=== PATIENT | female | born 1945 | race Caucasian/White ===

== ENCOUNTER 2016-07-09 15:31 | Inpatient (IN) | payer MEDICARE, OTHER ==
[2016-07-09] MEDS ORDERED: PANTOPRAZOLE 40 MG/10 ML VIAL IVP STA (17:05)
[2016-07-09] MEDS ORDERED: RX INFO: IV CONTRAST WAS GIVEN 1 EACH MISC MISCELLANE PRN (17:05)
[2016-07-09] MEDS ORDERED: HYDROmorphone 1 MG/ML 1 ML SYRINGE IVP STA (17:06)
[2016-07-09] MEDS ORDERED: ACETAMINOPHEN IV (For NPO) 1,000 MG in SALINE 1 100ML.BAG IVPB STA (17:06)
--- NOTE | 2016-07-09 17:08 | ED ---
General Adult HPI - General Chief complaint: Abdominal Pain Stated complaint: Upper Abd/Side Pain Time Seen by Provider: 07/09/16 16:55 Source: patient, family, RN notes reviewed Mode of arrival: wheelchair Limitations: no limitations - History of Present Illness Initial comments: Patient is a pleasant 70-year-old female presenting to emergency Department complaining of abdominal discomfort. Onset of symptoms was 2-3 days ago. Discomfort was mostly right lower abdomen however now is also the epigastric region. Patient is unaware of any fevers. No nausea vomiting. patient diarrhea. No dysuria or hematuria. Patient does have chronic back pain which is unchanged. No history of chronic abdominal pains. - Related Data Home Medications Medication Instructions Recorded Confirmed Allopurinol [Zyloprim] 300 mg PO DAILY 09/27/14 07/09/16 Atenolol/Chlorthalidone [Tenoretic 1 tab PO DAILY 09/27/14 07/09/16 50 Tablet] Cholecalciferol [Vitamin D3] 2,000 unit PO DAILY 09/27/14 07/09/16 Colchicine [Colcrys] 0.6 mg PO DAILY 09/27/14 07/09/16 Gabapentin [Neurontin] 800 mg PO QID 09/27/14 07/09/16 Glimepiride [Amaryl] 4 mg PO DAILY 09/27/14 07/09/16 Levothyroxine Sodium [Synthroid] 50 mcg PO AC-BRKFST 09/27/14 07/09/16 Oxybutynin Chloride [Ditropan XL] 10 mg PO BID 09/27/14 07/09/16 Ranitidine HCl [Zantac] 150 mg PO BID 09/27/14 07/09/16 Sertraline [Zoloft] 100 mg PO DAILY 09/27/14 07/09/16 Albuterol Inhaler [Ventolin Hfa 1 puff INHALATION RT-QID PRN 09/28/14 07/09/16 Inhaler] carBAMazepine [TEGretol] 200 mg PO TID 09/28/14 07/09/16 Hydrocodone/Acetaminophen [[place] 1 tab PO BID PRN 07/09/16 07/09/16 5-325] Lidocaine Viscous [Xylocaine 1 dose PO Q6H PRN 07/09/16 07/09/16 Viscous 2%] Lisinopril [Zestril] 10 mg PO DAILY 07/09/16 07/09/16 Potassium Chloride ER [K-Dur 20] 20 meq PO AC-TID 07/09/16 07/09/16 Allergies Allergy/AdvReac Type Severity Reaction Status Date / Time morphine AdvReac Nausea & Verified 03/14/15 06:33 Vomiting Jtdeclg-Qlk-Gus Reductase AdvReac Nausea & Verified 03/14/15 06:33 Inhibitor Vomiting Review of Systems ROS Statement: Those systems with pertinent positive or pertinent negative responses have been documented in the HPI. ROS Other: All systems not noted in ROS Statement are negative. Constitutional: Denies: fever Eyes: Denies: eye pain ENT: Denies: ear pain Respiratory: Denies: cough Cardiovascular: Denies: chest pain Endocrine: Denies: fatigue Gastrointestinal: Reports: abdominal pain. Denies: nausea, vomiting Genitourinary: Denies: dysuria Musculoskeletal: Reports: back pain (Chronic) Skin: Denies: rash Neurological: Denies: weakness Past Medical History Past Medical History: Diabetes Mellitus, GERD/Reflux, Hypertension, Thyroid Disorder Additional Past Medical History / Comment(s): NEUROPATHY History of Any Multi-Drug Resistant Organisms: None Reported Past Surgical History: Back Surgery, Hysterectomy, Joint Replacement Additional Past Surgical History / Comment(s): PMH: DIABETIC NEUROPATHY, RIGO KNEE REPLACEMENT cataract surgery bilat. Cervical fusion surgery Past Anesthesia/Blood Transfusion Reactions: No Reported Reaction Past Psychological History: Depression Additional Psychological History / Comment(s): PT LIVES IN OWN HOME HAS 1 DOG, USUALLY IS INDEPENDANT BUT FOR PAST WEAK AND A HALF C/O SORE THROAT MAKING IT DIFFICULT TO EAT/DRINK , C/O WEAKNESS FELL LAST NIGHT AND WAS UNABLE TO GET UP OFF FLOOR SO SPENT THE NIGHT ON THE FLOOR. Smoking Status: Former smoker Past Alcohol Use History: None Reported Past Drug Use History: None Reported - Past Family History Mother Family Medical History: Dementia Additional Family Medical History / Comment(s): alzheimers Father Family Medical History: Myocardial Infarction (NH) Additional Family Medical History / Comment(s): unknown General Exam Limitations: no limitations General appearance: alert, in no apparent distress, obese Head exam: Present: atraumatic Eye exam: Present: normal appearance, PERRL ENT exam: Present: normal oropharynx Neck exam: Present: normal inspection Respiratory exam: Present: normal lung sounds bilaterally Cardiovascular Exam: Present: regular rate, normal rhythm Expanded Peripheral pulses: 2+: Dorsalis Pedis (R), Dorsalis Pedis (L) GI/Abdominal exam: Present: soft, tenderness (Moderate right lower and epigastric tenderness to palpation.), normal bowel sounds. Absent: guarding, rebound, rigid, pulsatile mass Extremities exam: Present: normal inspection Back exam: Present: tenderness (Diffuse which patient states is chronic) Neurological exam: Present: alert Psychiatric exam: Present: normal affect, normal mood Skin exam: Absent: rash Course Vital Signs 07/09/16 16:22 Temperature 101 F H Pulse Rate 63 Respiratory 20 Rate Blood Pressure 127/60 O2 Sat by Pulse 95 Oximetry Medical Decision Making - Medical Decision Making Patient reexamined and resting comfortably in bed. Discomfort improved. Patient and family updated on results and plan. Patient will be admitted for hypokalemia. Patient will also be covered with antibiotics for fever and probable urinary tract infection. Case was discussed in detail with Dr. Park , who will admit his patient without consults at this time. - Lab Data Result diagrams: 07/09/16 16:55 07/09/16 16:55 Lab Results 07/09/16 07/09/16 07/09/16 Range/Units 16:55 16:55 16:55 WBC 6.0 (3.8-10.6) k/uL RBC 4.46 (3.80-5.40) m/uL Hgb 14.2 (11.4-16.0) gm/dL Hct 39.9 (34.0-46.0) % MCV 89.3 (80.0-100.0) fL MCH 31.9 (25.0-35.0) pg MCHC 35.7 (31.0-37.0) g/dL RDW 14.4 (11.5-15.5) % Plt Count 131 L (150-450) k/uL Neutrophils % 48 % Lymphocytes % 43 % Monocytes % 5 % Eosinophils % 2 % Basophils % 1 % Neutrophils # 2.9 (1.3-7.7) k/uL Lymphocytes # 2.5 (1.0-4.8) k/uL Monocytes # 0.3 (0-1.0) k/uL Eosinophils # 0.1 (0-0.7) k/uL Basophils # 0.1 (0-0.2) k/uL Hyperchromasia Slight Poikilocytosis Slight PT 12.2 H (9.0-12.0) sec INR 1.2 (<1.1) APTT 22.4 (22.0-30.0) sec Sodium 138 (137-145) mmol/L Potassium 2.6 L* (3.5-5.1) mmol/L Chloride 94 L (98-107) mmol/L Carbon Dioxide 31 H (22-30) mmol/L Anion Gap 13 mmol/L BUN 13 (7-17) mg/dL Creatinine 0.64 (0.52-1.04) mg/dL Est GFR (MDRD) Af Amer >60 (>60 ml/min/1.73 sqM) Est GFR (MDRD) Non-Af >60 (>60 ml/min/1.73 sqM) Glucose 85 (74-99) mg/dL Calcium 9.6 (8.4-10.2) mg/dL Total Bilirubin 0.8 (0.2-1.3) mg/dL AST 32 (14-36) U/L ALT 27 (9-52) U/L Alkaline Phosphatase 89 (38-126) U/L Total Protein 7.6 (6.3-8.2) g/dL Albumin 4.3 (3.5-5.0) g/dL Amylase <30 L (30-110) U/L Lipase 94 (23-300) U/L Urine Color Urine Appearance (Clear) Urine pH (5.0-8.0) Urine Protein (Negative) Urine Glucose (UA) (Negative) Urine Ketones (Negative) Urine Blood (Negative) Urine Nitrate (Negative) Urine Bilirubin (Negative) Urine Urobilinogen (<2.0) mg/dL Ur Leukocyte Esterase (Negative) Urine RBC (0-5) /hpf Urine WBC (0-5) /hpf Ur Squamous Epith Cells (0-4) /hpf Urine Bacteria (None) /hpf Urine Mucus (None) /hpf 07/09/16 Range/Units 19:31 WBC (3.8-10.6) k/uL RBC (3.80-5.40) m/uL Hgb (11.4-16.0) gm/dL Hct (34.0-46.0) % MCV (80.0-100.0) fL MCH (25.0-35.0) pg MCHC (31.0-37.0) g/dL RDW (11.5-15.5) % Plt Count (150-450) k/uL Neutrophils % % Lymphocytes % % Monocytes % % Eosinophils % % Basophils % % Neutrophils # (1.3-7.7) k/uL Lymphocytes # (1.0-4.8) k/uL Monocytes # (0-1.0) k/uL Eosinophils # (0-0.7) k/uL Basophils # (0-0.2) k/uL Hyperchromasia Poikilocytosis PT (9.0-12.0) sec INR (<1.1) APTT (22.0-30.0) sec Sodium (137-145) mmol/L Potassium (3.5-5.1) mmol/L Chloride (98-107) mmol/L Carbon Dioxide (22-30) mmol/L Anion Gap mmol/L BUN (7-17) mg/dL Creatinine (0.52-1.04) mg/dL Est GFR (MDRD) Af Amer (>60 ml/min/1.73 sqM) Est GFR (MDRD) Non-Af (>60 ml/min/1.73 sqM) Glucose (74-99) mg/dL Calcium (8.4-10.2) mg/dL Total Bilirubin (0.2-1.3) mg/dL AST (14-36) U/L ALT (9-52) U/L Alkaline Phosphatase (38-126) U/L Total Protein (6.3-8.2) g/dL Albumin (3.5-5.0) g/dL Amylase (30-110) U/L Lipase (23-300) U/L Urine Color Yellow Urine Appearance Clear (Clear) Urine pH 7.0 (5.0-8.0) Urine Protein Trace H (Negative) Urine Glucose (UA) Negative (Negative) Urine Ketones Negative (Negative) Urine Blood Negative (Negative) Urine Nitrate Positive H (Negative) Urine Bilirubin Negative (Negative) Urine Urobilinogen <2.0 (<2.0) mg/dL Ur Leukocyte Esterase Trace H (Negative) Urine RBC 7 H (0-5) /hpf Urine WBC 12 H (0-5) /hpf Ur Squamous Epith Cells 1 (0-4) /hpf Urine Bacteria Rare H (None) /hpf Urine Mucus Rare H (None) /hpf - Radiology Data Radiology results: image reviewed (Computed tomography scan of the abdomen pelvis shows no acute process.) Disposition Clinical Impression: Abdominal pain, Hypokalemia, UTI (urinary tract infection) Disposition: ADMITTED IP TO THIS HOSP
[2016-07-09] MEDS: SODIUM CHLORIDE 0.9% 1,000 ML IV STA ×2 (17:28→20:06)
[2016-07-09 17:33] LABS: Basophils # (A) 0.1 k/uL (0-0.2); Basophils % (A) 1 %; CH 32.8; CHCM 36.9; Eosinophils # (A) 0.1 k/uL (0-0.7); Eosinophils % (A) 2 %; HCT 39.9 % (34.0-46.0); HDW 3.41; HGB 14.2 gm/dL (11.4-16.0); Hyperchromasia Slight; Luc # (Auto) 0.09; Luc % (Auto) 2; Lymphocytes # (A) 2.5 k/uL (1.0-4.8); Lymphocytes % (A) 43 %; MCH 31.9 pg (25.0-35.0); MCHC 35.7 g/dL (31.0-37.0); MCV 89.3 fL (80.0-100.0); Mean Platelet Volume 7.8; Monocytes # (A) 0.3 k/uL (0-1.0); Monocytes % (A) 5 %; Neutrophils # (A) 2.9 k/uL (1.3-7.7); Neutrophils % (A) 48 %; Poikilocytosis Slight; RBC 4.46 m/uL (3.80-5.40); RDW 14.4 % (11.5-15.5); WBC (Perox) 5.89
[2016-07-09 17:46] LABS: INR 1.2 (<1.1); Partial Thromboplastin Time 22.4 sec (22.0-30.0); Prothrombin Time 12.2 sec (9.0-12.0)
[2016-07-09 17:48] LABS: ALT 27 U/L (9-52); AST 32 U/L (14-36); Alkaline Phosphatase 89 U/L (38-126); Amylase <30 U/L (30-110); Anion Gap 13 mmol/L; Blood Urea Nitrogen 13 mg/dL (7-17); Calcium 9.6 mg/dL (8.4-10.2); Carbon Dioxide 31 mmol/L (22-30); Chloride 94 mmol/L (98-107); Glucose 85 mg/dL (74-99); Non-African American GFR(MDRD) >60 (>60 ml/min/1.73 sqM); Sodium 138 mmol/L (137-145); Total Bilirubin 0.8 mg/dL (0.2-1.3); Total Protein 7.6 g/dL (6.3-8.2)
[2016-07-09 18:10] LABS: Potassium 2.6 mmol/L (3.5-5.1)
--- NOTE | 2016-07-09 19:00 | CT ---
EXAMINATION TYPE: CT abdomen pelvis w con DATE OF EXAM: 07/09/2016 6:35 PM COMPARISON: NONE INDICATION: Pt states of RUQ pain and nausea. DLP: 1839.9 mGycm, Automated exposure control for dose reduction was used. CONTRAST: 100 mL of Omnipaque 300. Study performed without Oral Contrast TECHNIQUE: Axial images were obtained from above the diaphragm to the pubic rami in the axial plane a t 5 mm thick sections. Reconstructed images are reviewed on the computer in the coronal plane. FINDINGS: Limited CT sections are obtained the lung bases. The lung bases are clear. CT ABDOMEN: Liver: Normal Spleen: Scattered calcified granuloma are present within the spleen. Pancreas: Normal Adrenal glands: The adrenal glands are normal. Gallbladder: Normal Kidneys: No masses are evident. No hydronephrosis is present. There is a cyst at the inferior pole right kidney measuring 4.2 cm and 9 Hounsfield units. Delayed images were obtained through the kidne ys, which remain unremarkable. Aorta: Vascular calcification is within the aorta. Inferior vena cava: Normal. CT PELVIS: Loops of bowel within the abdomen and pelvis are normal. There are loops of bowel which are incom pletely distended or lack oral contrast limiting their evaluation. Appendix: Small portion which may be visualized is air-filled and no suspicious inflammatory changes are evident. Urinary bladder: Decompressed with limited evaluation Genitourinary structures: Uterus is not identified. Adnexal regions are clear. No free fluid is withi n the pelvis. Osseous structures: Postsurgical changes through the lumbar spine. Degenerative disc changes are pres ent. Old fixation pedicle screw holes are evident. IMPRESSIONS: 1. No acute abdominal process.
[2016-07-09] MEDS ORDERED: POTASSIUM CHLORIDE ER 20 MEQ TAB.ER PO STA (19:29)
[2016-07-09 19:52] LABS: Appearance,Urine Clear (Clear); Bacteria,Urine Rare /hpf; Bilirubin,Urine Negative (Negative); Glucose,Urine (UA) Negative (Negative); Ketones,Urine Negative (Negative); Leukocyte Esterase,Urine Trace (Negative); Mucus,Urine Rare /hpf; Nitrite,Urine Positive (Negative); Particle Count 61176; Protein,Urine Trace (Negative); RBC,Urine 7 /hpf (0-5); Squamous Epithelial Cell,Urine 1 /hpf (0-4); UA Billing (MACRO vs. MICRO) MICRO; Urobilinogen,Urine <2.0 mg/dL (<2.0); WBC,Urine 12 /hpf (0-5)
[2016-07-09] MEDS: POTASSIUM CHLORIDE 10 MEQ, LIDOCAINE 2% INJ 10 MG in SODIUM CHLORIDE 0.9% 100 ML IVPB SCH ×2 (20:05→22:27)
[2016-07-09 20:20] LABS: Specific Gravity,Urine 1.047 (1.001-1.035)
[2016-07-09] MEDS ORDERED: NALOXONE 0.4 MG/ML 1 ML VIAL IV PRN (20:20)
[2016-07-09] MEDS ORDERED: LEVOFLOXACIN 750MG-D5W PMX 750 MG in DEXTROSE/WATER 1 150ML.BAG IVPB STA (20:22)
[2016-07-09 21:43] VITALS: BMI 38.4
[2016-07-10] MEDS ORDERED: Magnesium Replacement Protocol 1 EACH MISC MISCELLANE PRN (00:37)
[2016-07-10] MEDS ORDERED: Potassium Replacement Protocol 1 EACH MISC MISCELLANE PRN ×2 (00:37→19:26)
[2016-07-10] MEDS: 0.9% NACL WITH KCL 20 MEQ/L 1,000 ML IV SCH ×2 (01:52→17:10)
[2016-07-10] MEDS: POTASSIUM CHLORIDE 10 MEQ, LIDOCAINE 2% INJ 10 MG in SODIUM CHLORIDE 0.9% 100 ML IVPB SCH (01:52)
[2016-07-10] MEDS: POTASSIUM CHLORIDE ER 20 MEQ TAB.ER PO SCH ×4 (01:52→21:26)
[2016-07-10] MEDS: MAGNESIUM SULFATE-D5W PMX 1 GM in DEXTROSE/WATER 1 100ML.BAG IVPB SCH ×3 (01:54→07:58)
[2016-07-10] MEDS: POTASSIUM CHLORIDE 10 MEQ, LIDOCAINE 2% INJ 10 MG in SODIUM CHLORIDE 0.9% 100 ML IV SCH ×5 (05:06→21:26)
[2016-07-10 07:29] LABS: Glucose,Whole Blood 162 mg/dL (75-99)
[2016-07-10 07:39] LABS: Basophils % (A) 1 %; CH 32.3; CHCM 35.9; Eosinophils # (A) 0.1 k/uL (0-0.7); Eosinophils % (A) 2 %; HCT 34.7 % (34.0-46.0); HDW 3.34; HGB 12.1 gm/dL (11.4-16.0); Luc # (Auto) 0.07; Luc % (Auto) 2; Lymphocytes # (A) 1.7 k/uL (1.0-4.8); Lymphocytes % (A) 45 %; MCH 31.6 pg (25.0-35.0); MCV 90.4 fL (80.0-100.0); Mean Platelet Volume 8.9; Monocytes # (A) 0.2 k/uL (0-1.0); Monocytes % (A) 6 %; Neutrophils # (A) 1.7 k/uL (1.3-7.7); Neutrophils % (A) 45 %; RBC 3.84 m/uL (3.80-5.40); RDW 14.4 % (11.5-15.5); WBC 3.7 k/uL (3.8-10.6); WBC (Perox) 3.61
[2016-07-10 07:49] LABS: Anion Gap 9 mmol/L; Blood Urea Nitrogen 13 mg/dL (7-17); Calcium 8.5 mg/dL (8.4-10.2); Carbon Dioxide 29 mmol/L (22-30); Chloride 99 mmol/L (98-107); Glucose 150 mg/dL (74-99); Magnesium 1.6 mg/dL (1.6-2.3); Non-African American GFR(MDRD) >60 (>60 ml/min/1.73 sqM); Potassium 3.1 mmol/L (3.5-5.1); Sodium 137 mmol/L (137-145)
[2016-07-10] MEDS: PANTOPRAZOLE 40 MG/10 ML VIAL IV SCH (08:01)
[2016-07-10] MEDS ORDERED: ALBUTEROL NEBULIZED 2.5 MG/3 ML INHALATION PRN (08:12)
[2016-07-10] MEDS: CHLORTHALIDONE 25 MG TAB PO SCH (09:25)
[2016-07-10] MEDS: COLCHICINE 0.6 MG TAB PO SCH (09:25)
[2016-07-10] MEDS: GABAPENTIN 400 MG CAP PO SCH ×4 (09:25→21:26)
[2016-07-10] MEDS: OXYBUTYNIN 10 MG TAB.ER.24 PO SCH ×2 (09:25→20:17)
[2016-07-10] MEDS: SERTRALINE 100 MG TAB PO SCH (09:25)
[2016-07-10] MEDS: ATENOLOL 50 MG TAB PO SCH (09:26)
[2016-07-10] MEDS: LISINOPRIL 10 MG TAB PO SCH (09:26)
[2016-07-10] MEDS: ALLOPURINOL 300 MG TAB PO SCH (09:26)
[2016-07-10] MEDS: FAMOTIDINE 20 MG TAB PO SCH ×2 (09:26→20:17)
[2016-07-10] MEDS: CHOLECALCIFEROL 1,000 UNIT TAB PO SCH (09:26)
[2016-07-10] MEDS: carBAMazepine 200 MG TAB PO SCH ×3 (09:26→21:26)
[2016-07-10] MEDS: GLIMEPIRIDE 4 MG TAB PO SCH (09:26)
[2016-07-10] MEDS: HYDROcodone/APAP 5-325MG 1 EACH TAB PO PRN (09:30)
[2016-07-10 11:52] LABS: Glucose,Whole Blood 212 mg/dL (75-99)
[2016-07-10 17:39] LABS: Glucose,Whole Blood 115 mg/dL (75-99)
[2016-07-10 20:16] LABS: Glucose,Whole Blood 175 mg/dL (75-99)
[2016-07-10] MEDS: LEVOFLOXACIN 750MG-D5W PMX 750 MG in DEXTROSE/WATER 1 150ML.BAG IVPB SCH (22:26)
[2016-07-11] MEDS ORDERED: Potassium Replacement Protocol 1 EACH MISC MISCELLANE PRN (00:23)
[2016-07-11] MEDS: POTASSIUM CHLORIDE 10 MEQ, LIDOCAINE 2% INJ 10 MG in SODIUM CHLORIDE 0.9% 100 ML IV SCH ×2 (01:18→02:23)
[2016-07-11 04:04] LABS: Magnesium 1.3 mg/dL (1.6-2.3)
[2016-07-11] MEDS: MAGNESIUM SULFATE-D5W PMX 1 GM in DEXTROSE/WATER 1 100ML.BAG IVPB SCH ×3 (05:09→08:19)
[2016-07-11 08:15] LABS: Glucose,Whole Blood 162 mg/dL (75-99)
[2016-07-11] MEDS: PANTOPRAZOLE 40 MG/10 ML VIAL IV SCH (08:18)
[2016-07-11] MEDS: OXYBUTYNIN 10 MG TAB.ER.24 PO SCH ×2 (08:18→21:20)
[2016-07-11] MEDS: POTASSIUM CHLORIDE ER 20 MEQ TAB.ER PO SCH ×3 (08:18→21:20)
[2016-07-11] MEDS: GABAPENTIN 400 MG CAP PO SCH ×4 (08:18→21:20)
[2016-07-11] MEDS: LISINOPRIL 10 MG TAB PO SCH (08:18)
[2016-07-11] MEDS: GLIMEPIRIDE 4 MG TAB PO SCH (08:19)
[2016-07-11] MEDS: carBAMazepine 200 MG TAB PO SCH ×3 (08:19→21:20)
[2016-07-11] MEDS: CHLORTHALIDONE 25 MG TAB PO SCH (08:19)
[2016-07-11] MEDS: SERTRALINE 100 MG TAB PO SCH (08:19)
[2016-07-11] MEDS: COLCHICINE 0.6 MG TAB PO SCH (08:19)
[2016-07-11] MEDS: ATENOLOL 50 MG TAB PO SCH (08:19)
[2016-07-11] MEDS: CHOLECALCIFEROL 1,000 UNIT TAB PO SCH (08:19)
[2016-07-11] MEDS: FAMOTIDINE 20 MG TAB PO SCH ×2 (08:19→21:20)
[2016-07-11] MEDS: ALLOPURINOL 300 MG TAB PO SCH (08:19)
[2016-07-11] MEDS: LEVOTHYROXINE 50 MCG TAB PO SCH (08:19)
[2016-07-11] MEDS: HYDROcodone/APAP 5-325MG 1 EACH TAB PO PRN (08:33)
[2016-07-11 12:25] LABS: Glucose,Whole Blood 150 mg/dL (75-99)
[2016-07-11] MEDS: HYDROmorphone 1 MG/ML 1 ML SYRINGE IV PRN ×2 (13:57→18:21)
[2016-07-11] MEDS: 0.9% NACL WITH KCL 20 MEQ/L 1,000 ML IV SCH ×2 (16:10→23:08)
[2016-07-11 17:32] LABS: Glucose,Whole Blood 213 mg/dL (75-99)
--- NOTE | 2016-07-11 19:07 | HP ---
DATE OF ADMISSION: 07/09/2016 CHIEF COMPLAINT: Abdominal pain and weakness. HISTORY OF PRESENT ILLNESS: This is another admission for this 70-year-old white female who has a history of hypertension, depression, gout, hypothyroidism, and hypothyroidism, arthritis, particularly of the C-spine, she developed an upper abdominal pain predominantly in the right and came to emergency room. She had no fever, chills, vomiting, diarrhea, hematochezia, melena, urinary complaints, etc. She was found to have a low potassium in the emergency room and she was admitted for intravenous fluids, and potassium replacement and to rule out significant intraabdominal pathology. REVIEW OF SYSTEMS: She has had no mental status changes, change in vision or hearing, cough, hemoptysis, sputum production, chest pain, history of pancreatitis, melena, hematochezia, jaundice, etc. She has had no hematuria, frequency, urgency, arthralgias, etc. Past medical history, family history and personal and social histories reveal that she is ALLERGIC TO STATINS AND MORPHINE. She is on: 1. Cozaar 50 mg once a day. 2. Zantac 150 b.i.d. 3. Tenoretic 50/25 once a month. 4. Amaryl 4 mg once a day. 5. Allopurinol 300 mg once a day. 6. Colcrys 0.6 once a day. 7. Potassium 20 mEq 2 times a day. 8. Zoloft 100 once a day. 9. [place] 5/325 q.4 p.r.n. 10. Synthroid 0.05 mg daily. 11. Neurontin 800 mg 4 times a day. 12. Vitamin D 1000 units a day. 13. Ditropan XL 10 mg twice a day. The remainder of her history is unremarkable. She is a nonsmoker. She had a hysterectomy and a bladder suspension, right knee replacement. PHYSICAL EXAMINATION: Blood pressure 120/60 with a pulse of 74, respirations of 25, and she is afebrile. GENERAL: She appeared to be comfortable and in no acute distress. SKIN: Skin color is normal. Skin is warm and dry. Lymph nodes are not enlarged. Head, ears, eyes, mouth, and throat were normal. Mucous membranes are dry, and she is slightly dehydrated. CHEST: Chest clear to auscultation and percussion. CARDIAC: Demonstrated normal sinus rhythm with no murmur sounds. ABDOMEN: Protuberant, soft and nontender but she did not have any upper abdominal tenderness or masses. Bowel sounds are normal. EXTREMITIES: Normal. NEUROLOGICAL: She is intact. IMPRESSION: 1. Right upper quadrant pain, etiology unknown. 2. Dehydration. 3. Hypokalemia. 4. Hypertension. 5. Hypothyroidism. 6. OAD. 7. Type 2 [id number] diabetes mellitus. 8. Arthritis of the C-spine and LS-spine. PLAN: 1. Bed rest. 2. IV fluids. 3. Correct electrolyte imbalance.
--- NOTE | 2016-07-11 20:03 | PN ---
DATE OF SERVICE: 07/10/2016 CHIEF COMPLAINT: Hypokalemia and right upper quadrant abdominal pain. HISTORY OF PRESENT ILLNESS: This lady is about the same. She is still having discomfort in the right upper quadrant. She has had no fever or chills and she has had no vomiting. She has had no diarrhea. PHYSICAL EXAMINATION: She is slightly pale. HEENT: Normal. CHEST: Clear. The cardiac exam is normal. The abdomen is soft, nontender. IMPRESSION: 1. Abdominal pain, etiology unknown. 2. Hypokalemia. PLAN: Continue workup.
--- NOTE | 2016-07-11 20:17 | PN ---
DATE OF SERVICE: 07/11/2016 CHIEF COMPLAINT: Abdominal pain and hypokalemia. HISTORY OF PRESENT ILLNESS: This lady is still complaining of some vague abdominal pain, but it has improved and she is not having any vomiting. PHYSICAL EXAM: Her abdomen is soft and nontender, and no masses or visceromegaly. IMPRESSION: 1. Right upper quadrant pain. 2. Dizziness. 3. Hypertension. PLAN: 1. Continue to monitor abdominal findings. 2. Repeat CBC.
[2016-07-11 20:40] LABS: Glucose,Whole Blood 145 mg/dL (75-99)
[2016-07-11] MEDS: LEVOFLOXACIN 750MG-D5W PMX 750 MG in DEXTROSE/WATER 1 150ML.BAG IVPB SCH (21:20)
[2016-07-12] MEDS: HYDROmorphone 1 MG/ML 1 ML SYRINGE IV PRN ×2 (00:36→07:34)
[2016-07-12 07:29] LABS: Glucose,Whole Blood 137 mg/dL (75-99)
[2016-07-12 07:33] VITALS: RESP 16
[2016-07-12] MEDS: POTASSIUM CHLORIDE ER 20 MEQ TAB.ER PO SCH (07:35)
[2016-07-12] MEDS: SERTRALINE 100 MG TAB PO SCH (07:35)
[2016-07-12] MEDS: OXYBUTYNIN 10 MG TAB.ER.24 PO SCH (07:35)
[2016-07-12] MEDS: carBAMazepine 200 MG TAB PO SCH (07:35)
[2016-07-12] MEDS: LISINOPRIL 10 MG TAB PO SCH (07:35)
[2016-07-12] MEDS: GABAPENTIN 400 MG CAP PO SCH ×2 (07:36→13:21)
[2016-07-12] MEDS: CHOLECALCIFEROL 1,000 UNIT TAB PO SCH (07:36)
[2016-07-12] MEDS: FAMOTIDINE 20 MG TAB PO SCH (07:36)
[2016-07-12] MEDS: ALLOPURINOL 300 MG TAB PO SCH (07:36)
[2016-07-12] MEDS: COLCHICINE 0.6 MG TAB PO SCH (07:37)
[2016-07-12] MEDS: LEVOTHYROXINE 50 MCG TAB PO SCH (07:37)
[2016-07-12] MEDS: ATENOLOL 50 MG TAB PO SCH (07:37)
[2016-07-12] MEDS: GLIMEPIRIDE 4 MG TAB PO SCH (07:37)
[2016-07-12] MEDS: CHLORTHALIDONE 25 MG TAB PO SCH (07:37)
[2016-07-12 09:01] LABS: Basophils % (A) 1 %; CH 32.4; CHCM 35.5; Eosinophils # (A) 0.1 k/uL (0-0.7); Eosinophils % (A) 2 %; HCT 34.8 % (34.0-46.0); HDW 3.17; HGB 12.1 gm/dL (11.4-16.0); Luc # (Auto) 0.09; Luc % (Auto) 2; Lymphocytes # (A) 1.7 k/uL (1.0-4.8); Lymphocytes % (A) 46 %; MCH 31.9 pg (25.0-35.0); MCHC 34.8 g/dL (31.0-37.0); MCV 91.7 fL (80.0-100.0); Mean Platelet Volume 7.7; Monocytes # (A) 0.1 k/uL (0-1.0); Monocytes % (A) 4 %; Neutrophils # (A) 1.6 k/uL (1.3-7.7); Neutrophils % (A) 45 %; RBC 3.79 m/uL (3.80-5.40); RDW 14.5 % (11.5-15.5); WBC 3.6 k/uL (3.8-10.6); WBC (Perox) 3.91
[2016-07-12 09:07] LABS: ALT 32 U/L (9-52); AST 29 U/L (14-36); Alkaline Phosphatase 79 U/L (38-126); Anion Gap 10 mmol/L; Blood Urea Nitrogen 10 mg/dL (7-17); Carbon Dioxide 26 mmol/L (22-30); Chloride 96 mmol/L (98-107); Glucose 117 mg/dL (74-99); Non-African American GFR(MDRD) >60 (>60 ml/min/1.73 sqM); Potassium 3.9 mmol/L (3.5-5.1); Sodium 132 mmol/L (137-145); Total Bilirubin 0.5 mg/dL (0.2-1.3); Total Protein 6.2 g/dL (6.3-8.2)
[2016-07-12 11:31] LABS: Glucose,Whole Blood 156 mg/dL (75-99)
--- NOTE | 2016-07-12 13:59 | P.DS ---
Providers Date of admission: 07/09/16 20:20 Expected date of discharge: 07/12/16 Attending physician: Adi Argueta Primary care physician: Adi Argueta [facility] Course: 70-year-old female presented on the day of admission to the emergency room with a chief complaint of developing abdominal pain. Patient stated the symptoms occurred 2-3 days prior. Patient stated the pain was mostly in the right lower abdomen. Patient denied any fever chills no nausea vomiting no diarrhea. No difficulty in urinating. Patient states that she does have limited mobility is wheelchair bedbound. Patient states that she does live with the son. Patient states that she slept alone her son is gone for long periods of time. Patient states that she has had episodes wishes fallen at home because her legs give out. Patient states she feels weak and needs assistance with most of her ADLs Patient denies any recent falls. Patient was seen in the emergency room noted to have a temp of 101. White count 6. Potassium was 2.6. The urinalysis was negative. Lipase 94 a CAT scan of the abdomen pelvis with contrast was obtained to evaluate the right upper quadrant pain was a normal finding there were no acute process subsequent the patient was admitted to the services of the attending. Home meds were resumed physical therapy eval was obtained who indicated that the patient would benefit from subacute rehab to increase strength and functional mobility and safety was standing. Patient reportedly was noted to have increased bilateral lower extremity fatigue with ambulation requiring to sit down after 85 feet. Patient stated that her legs often give out at home and she has fallen patient has agreed to go to [facility] for subacute rehab Impression discharge diagnosis Present on admission right upper quadrant pain with fever likely due to UTI Chronic debility limited mobility wheelchair bedbound History of falls at home unable to get up secondary to weakness in the lower extremities Present on admission hypo-magnesium Type 2 diabetes non-insulin Vitamin D deficiency on supplements Hypothyroid on supplement Obesity BMI 38 Hypertension essential benign Arthritis involving the cervical and lumbar spine chronic Electrolyte deficiency Hypo-magnesium The above dictated assessment and findings were discussed with dr ellie Rollins and the plan of care have been dictated as directed. Mary Barbosa nurse practitioner acting as a scribe for dr argueta Plan - Discharge Summary New Discharge Prescriptions: HYDROcodone/APAP 5-325MG [[place] 5-325] 1 each PO DAILY PRN #30 tab PRN Reason: Pain Levofloxacin [Levaquin] 500 mg PO DAILY #7 tab Magnesium Oxide [Mag-Ox] 400 mg PO TID #90 tab Discharge Medication List Allopurinol [Zyloprim] 300 mg PO DAILY 09/27/14 [History] Atenolol/Chlorthalidone [Tenoretic 50 Tablet] 1 tab PO DAILY 09/27/14 [History] Cholecalciferol [Vitamin D3] 2,000 unit PO DAILY 09/27/14 [History] Colchicine [Colcrys] 0.6 mg PO DAILY 09/27/14 [History] Gabapentin [Neurontin] 800 mg PO QID 09/27/14 [History] Glimepiride [Amaryl] 4 mg PO DAILY 09/27/14 [History] Levothyroxine Sodium [Synthroid] 50 mcg PO AC-BRKFST 09/27/14 [History] Oxybutynin Chloride [Ditropan XL] 10 mg PO BID 09/27/14 [History] Ranitidine HCl [Zantac] 150 mg PO BID 09/27/14 [History] Sertraline [Zoloft] 100 mg PO DAILY 09/27/14 [History] Albuterol Inhaler [Ventolin Hfa Inhaler] 1 puff INHALATION RT-QID PRN 09/28/14 [ History] carBAMazepine [TEGretol] 200 mg PO TID 09/28/14 [History] Hydrocodone/Acetaminophen [[place] 5-325] 1 tab PO DAILY PRN 07/09/16 [History] Lidocaine Viscous [Xylocaine Viscous 2%] 1 dose PO Q6H PRN 07/09/16 [History] Lisinopril [Zestril] 10 mg PO DAILY 07/09/16 [History] Potassium Chloride ER [K-Dur 20] 20 meq PO AC-TID 07/09/16 [History] HYDROcodone/APAP 5-325MG [[place] 5-325] 1 each PO DAILY PRN #30 tab 07/12/16 [Rx] Levofloxacin [Levaquin] 500 mg PO DAILY #7 tab 07/12/16 [Rx] Magnesium Oxide [Mag-Ox] 400 mg PO TID #90 tab 07/12/16 [Rx] Follow up Appointment(s)/Referral(s): Adi Argueta MD [Primary Care Provider] - 1-2 days Discharge Disposition: TRANSFER TO SNF/ECF
[2016-07-12] MEDS ORDERED: MAGNESIUM OXIDE 400 MG TAB PO SCH (14:00)
[2016-07-12] MEDS: HYDROcodone/APAP 5-325MG 1 EACH TAB PO PRN (14:06)
--- NOTE | 2016-07-12 14:12 | XR ---
EXAMINATION TYPE: XR chest 2V DATE OF EXAM: 07/12/2016 2:03 PM COMPARISON: Prior chest x-ray dated May HISTORY: Extended-care facility placement TECHNIQUE: Frontal and lateral views of the chest are obtained. FINDINGS: Overlying safety pin is no longer evident, postop changes are again noted at the cervical spine. No pneumonia, pneumothorax, or pleural effusion. Cardiomediastinal silhouette, pulmonary vascu larity and carole are stable. Right-sided rib fractures at the eighth and ninth ribs again noted. IMPRESSION: No acute cardiopulmonary process.
[2016-07-12] MEDS ORDERED: MAGNESIUM SULFATE-D5W PMX 1 GM in DEXTROSE/WATER 1 100ML.BAG IVPB SCH (15:00)
[2016-07-12] MEDS ORDERED: HEPARIN SODIUM,PORCINE 5,000 UNIT/ML 1 ML VIAL SQ SCH (16:00)
[2016-07-12 16:12] VITALS: BP 122/77; PULSE 63; TEMP 98.2
[2016-07-12] MEDS ORDERED: DABIGATRAN 150 MG CAP PO STA (16:28)
[2016-07-12] MEDS ORDERED: LEVOFLOXACIN 500 MG TAB PO SCH (21:00)
--- NOTE | 2016-07-13 05:25 | PN ---
DATE OF SERVICE: 07/12/2016 CHIEF COMPLAINT: Hypokalemia, abdominal pain, hypertension, and arthritis. HISTORY OF PRESENT ILLNESS: This lady is doing fairly well. She is eating. Vital signs are normal. PHYSICAL EXAM: Her chest is clear. The cardiac exam is normal. The abdomen is soft and nontender. IMPRESSION: 1. Abdominal pain. 2. Hypokalemia. PLAN: She could probably go home. There is a possibility that she will go to [facility] and this will be arranged by the nurse practitioner.
== END 2016-07-12 17:25 | DRG 690 ==
LOC: EC 15:31 → 5MS5E 20:20
PROVIDERS: ADMIT Family Medicine; ATTEND Family Medicine
DX: N39.0 Urinary tract infection, site not specified (principal); E11.40 Type 2 diabetes mellitus with diabetic neuropathy, unspecified; E03.9 Hypothyroidism, unspecified; E55.9 Vitamin D deficiency, unspecified; E66.9 Obesity, unspecified; E83.42 Hypomagnesemia; E86.0 Dehydration; E87.6 Hypokalemia; G89.29 Other chronic pain; I10 Essential (primary) hypertension; K21.9 Gastro-esophageal reflux disease without esophagitis; M10.9 Gout, unspecified; M19.90 Unspecified osteoarthritis, unspecified site; M47.9 Spondylosis, unspecified; Z68.38 Body mass index [BMI] 38.0-38.9, adult; Z74.01 Bed confinement status; Z87.891 Personal history of nicotine dependence; Z91.81 History of falling; Z96.653 Presence of artificial knee joint, bilateral; Z99.3 Dependence on wheelchair; Z79.899 Other long term (current) drug therapy; Z88.5 Allergy status to narcotic agent; Z88.8 Allergy status to other drugs, medicaments and biological substances; Z82.49 Family history of ischemic heart disease and other diseases of the circulatory system
CPT/HCPCS: 36415; 71020; 74177; 80048; 80053; 81001; 82150; 83690; 83735; 84132; 85025; 85610; 85730; 87040; 87077; 87086; 87186; 96361; 96365; 96367; 96375; 99285

== ENCOUNTER 2016-10-24 20:22 | Inpatient (IN) | payer MEDICARE, OTHER ==
[2016-10-24] MEDS ORDERED: SODIUM CHLORIDE 0.9% 1,000 ML IV ONE ×2 (21:07→22:49)
[2016-10-24] MEDS ORDERED: SODIUM CHLORIDE 0.9% 1,000 ML IV STA (21:30)
[2016-10-24] MEDS ORDERED: HYDROmorphone 1 MG/ML 1 ML SYRINGE IVP STA (21:31)
--- NOTE | 2016-10-24 21:32 | ED ---
Female Urogenital HPI - General Chief complaint: Urogenital Stated complaint: Rt flank pain Time Seen by Provider: 10/24/16 21:06 Source: patient, RN notes reviewed Mode of arrival: wheelchair Limitations: no limitations - History of Present Illness Initial comments: Patient is 71-year-old female presents to the emergency room for evaluation of right-sided abdominal/flank pain. Patient states the pain began about a day ago. Patient states it is sharp constant pain that radiates from her right flank into her right upper and lower quadrant. Patient denies history of abdominal surgeries. Patient denies pain or burning during urination, trouble urinating or blood in urine. Patient denies any trauma or recent falls to the right side. Patient states pain is worse when she moves, presses over the area or takes a deep breath. Patient states she's been on-and-off nauseous but denies vomiting. Patient denies any chest pain. Patient denies shortness of breath. Patient denies fevers or chills but had a temp of 100.5F on arrival. Patient denies headache or dizziness. - Related Data Home Medications Medication Instructions Recorded Confirmed Allopurinol [Zyloprim] 300 mg PO DAILY 09/27/14 10/24/16 Atenolol/Chlorthalidone [Tenoretic 1 tab PO DAILY 09/27/14 10/24/16 50 Tablet] Cholecalciferol [Vitamin D3] 2,000 unit PO DAILY 09/27/14 10/24/16 Colchicine [Colcrys] 0.6 mg PO DAILY 09/27/14 10/24/16 Gabapentin [Neurontin] 800 mg PO TID 09/27/14 10/24/16 Glimepiride [Amaryl] 4 mg PO DAILY 09/27/14 10/24/16 Levothyroxine Sodium [Synthroid] 50 mcg PO AC-BRKFST 09/27/14 10/24/16 Oxybutynin Chloride [Ditropan XL] 10 mg PO DAILY 09/27/14 10/24/16 Ranitidine HCl [Zantac] 150 mg PO DAILY 09/27/14 10/24/16 Sertraline [Zoloft] 100 mg PO DAILY 09/27/14 10/24/16 Albuterol Inhaler [Ventolin Hfa 1 puff INHALATION RT-QID PRN 09/28/14 10/24/16 Inhaler] carBAMazepine [TEGretol] 200 mg PO TID 09/28/14 10/24/16 Hydrocodone/Acetaminophen [[place] 1 tab PO TID 07/09/16 10/24/16 5-325] Lidocaine Viscous [Xylocaine 1 dose PO Q6H PRN 07/09/16 10/24/16 Viscous 2%] Lisinopril [Zestril] 10 mg PO DAILY 07/09/16 10/24/16 Potassium Chloride ER [K-Dur 20] 20 meq PO AC-TID 07/09/16 10/24/16 Losartan [Cozaar] 50 mg PO DAILY 10/24/16 10/24/16 Oxybutynin Chloride [Ditropan XL] 15 mg PO HS 10/24/16 10/24/16 Pilocarpine HCl [Salagen] 7.5 mg PO BID 10/24/16 10/24/16 Previous Rx's Medication Instructions Recorded Levofloxacin [Levaquin] 500 mg PO DAILY #7 tab 07/12/16 Magnesium Oxide [Mag-Ox] 400 mg PO TID #90 tab 07/12/16 Allergies Allergy/AdvReac Type Severity Reaction Status Date / Time morphine AdvReac Nausea & Verified 10/24/16 21:11 Vomiting Mrlwlfn-Uyq-Qmy Reductase AdvReac Nausea & Verified 10/24/16 21:11 Inhibitor Vomiting Review of Systems ROS Statement: Those systems with pertinent positive or pertinent negative responses have been documented in the HPI. ROS Other: All systems not noted in ROS Statement are negative. Past Medical History Past Medical History: Diabetes Mellitus, GERD/Reflux, Hypertension, Thyroid Disorder Additional Past Medical History / Comment(s): NEUROPATHY History of Any Multi-Drug Resistant Organisms: None Reported Past Surgical History: Back Surgery, Hysterectomy, Joint Replacement Additional Past Surgical History / Comment(s): PMH: DIABETIC NEUROPATHY, RIGHT KNEE REPLACEMENT cataract surgery bilat Past Anesthesia/Blood Transfusion Reactions: No Reported Reaction Past Psychological History: Depression Additional Psychological History / Comment(s): PT LIVES IN OWN HOME HAS 1 DOG, USUALLY IS INDEPENDANT , HX of falls, none recently Smoking Status: Former smoker Past Alcohol Use History: None Reported Past Drug Use History: None Reported - Past Family History Mother Family Medical History: Dementia Additional Family Medical History / Comment(s): alzheimers Father Family Medical History: Myocardial Infarction ([place]) Additional Family Medical History / Comment(s): unknown General Exam - General Exam Comments Initial Comments: Sitting in exam room, no acute distress. Limitations: no limitations General appearance: alert, in no apparent distress Head exam: Present: atraumatic, normocephalic, normal inspection Eye exam: Present: normal appearance ENT exam: Present: normal exam Neck exam: Present: normal inspection Respiratory exam: Present: normal lung sounds bilaterally. Absent: respiratory distress Cardiovascular Exam: Present: regular rate, normal rhythm, normal heart sounds GI/Abdominal exam: Present: soft, tenderness (RUQ, RLQ), normal bowel sounds. Absent: distended, rebound, rigid Extremities exam: Present: normal inspection Back exam: Present: normal inspection Neurological exam: Present: alert, oriented X3, CN II-XII intact, normal gait Psychiatric exam: Present: normal affect, normal mood Skin exam: Present: warm, dry, intact, normal color. Absent: rash Course Vital Signs 10/24/16 10/24/16 10/25/16 20:55 23:44 01:31 Temperature 100.5 F H 99.0 F 97.7 F Pulse Rate 99 76 Respiratory 20 18 Rate Blood Pressure 168/90 142/65 O2 Sat by Pulse 92 L 95 Oximetry 10/25/16 02:25 Temperature 98.8 F Pulse Rate 74 Respiratory 18 Rate Blood Pressure 141/65 O2 Sat by Pulse 93 L Oximetry Medical Decision Making - Medical Decision Making Patient is a 71-year-old female since emergency room for evaluation of abdominal pain. Abdomen/pelvis CT: Gallbladder is mildly distended. No calcified gallstones. Correlate with symptoms and consider right upper quadrant ultrasound is indicated. Gallbladder ultrasound: Mildly distended gallbladder. Lactic acid 2.5. Patient given potassium and magnesium. Discussed with Dr. Prajapati. Dr. Prajapati discussed case with Dr. Park who agreed to admit patient. Patient started on prophylactic antibiotics and will be consulted with general surgery. - Lab Data Result diagrams: 10/24/16 22:00 10/24/16 22:00 Lab Results 10/24/16 10/24/16 10/24/16 Range/Units 22:00 22:00 22:00 WBC 5.6 (3.8-10.6) k/uL RBC 4.02 (3.80-5.40) m/uL Hgb 13.4 (11.4-16.0) gm/dL Hct 38.5 (34.0-46.0) % MCV 95.8 (80.0-100.0) fL MCH 33.3 (25.0-35.0) pg MCHC 34.8 (31.0-37.0) g/dL RDW 15.0 (11.5-15.5) % Plt Count 100 L (150-450) k/uL Neutrophils % 55 % Lymphocytes % 37 % Monocytes % 4 % Eosinophils % 2 % Basophils % 1 % Neutrophils # 3.1 (1.3-7.7) k/uL Lymphocytes # 2.1 (1.0-4.8) k/uL Monocytes # 0.2 (0-1.0) k/uL Eosinophils # 0.1 (0-0.7) k/uL Basophils # 0.1 (0-0.2) k/uL PT (9.0-12.0) sec INR (<1.1) APTT (22.0-30.0) sec Sodium 137 (137-145) mmol/L Potassium 3.1 L (3.5-5.1) mmol/L Chloride 96 L (98-107) mmol/L Carbon Dioxide 31 H (22-30) mmol/L Anion Gap 10 mmol/L BUN 12 (7-17) mg/dL Creatinine 0.50 L (0.52-1.04) mg/dL Est GFR (MDRD) Af Amer >60 (>60 ml/min/1.73 sqM) Est GFR (MDRD) Non-Af >60 (>60 ml/min/1.73 sqM) Glucose 236 H (74-99) mg/dL Plasma Lactic Acid Joe (0.7-2.0) mmol/L Calcium 9.5 (8.4-10.2) mg/dL Magnesium 1.2 L (1.6-2.3) mg/dL Total Bilirubin 1.0 (0.2-1.3) mg/dL AST 35 (14-36) U/L ALT 24 (9-52) U/L Alkaline Phosphatase 88 (38-126) U/L Total Creatine Kinase 69 (30-135) U/L CK-MB (CK-2) 1.2 (0.0-2.4) ng/mL CK-MB (CK-2) Rel Index 1.7 Troponin I <0.012 (0.000-0.034) ng/mL Total Protein 7.4 (6.3-8.2) g/dL Albumin 4.0 (3.5-5.0) g/dL Amylase 40 (30-110) U/L Lipase 83 (23-300) U/L 10/24/16 10/24/16 Range/Units 22:00 22:00 WBC (3.8-10.6) k/uL RBC (3.80-5.40) m/uL Hgb (11.4-16.0) gm/dL Hct (34.0-46.0) % MCV (80.0-100.0) fL MCH (25.0-35.0) pg MCHC (31.0-37.0) g/dL RDW (11.5-15.5) % Plt Count (150-450) k/uL Neutrophils % % Lymphocytes % % Monocytes % % Eosinophils % % Basophils % % Neutrophils # (1.3-7.7) k/uL Lymphocytes # (1.0-4.8) k/uL Monocytes # (0-1.0) k/uL Eosinophils # (0-0.7) k/uL Basophils # (0-0.2) k/uL PT 11.7 (9.0-12.0) sec INR 1.2 (<1.1) APTT 21.7 L (22.0-30.0) sec Sodium (137-145) mmol/L Potassium (3.5-5.1) mmol/L Chloride (98-107) mmol/L Carbon Dioxide (22-30) mmol/L Anion Gap mmol/L BUN (7-17) mg/dL Creatinine (0.52-1.04) mg/dL Est GFR (MDRD) Af Amer (>60 ml/min/1.73 sqM) Est GFR (MDRD) Non-Af (>60 ml/min/1.73 sqM) Glucose (74-99) mg/dL Plasma Lactic Acid Joe 2.5 H* (0.7-2.0) mmol/L Calcium (8.4-10.2) mg/dL Magnesium (1.6-2.3) mg/dL Total Bilirubin (0.2-1.3) mg/dL AST (14-36) U/L ALT (9-52) U/L Alkaline Phosphatase (38-126) U/L Total Creatine Kinase (30-135) U/L CK-MB (CK-2) (0.0-2.4) ng/mL CK-MB (CK-2) Rel Index Troponin I (0.000-0.034) ng/mL Total Protein (6.3-8.2) g/dL Albumin (3.5-5.0) g/dL Amylase (30-110) U/L Lipase (23-300) U/L - Radiology Data Radiology results: report reviewed, image reviewed Disposition Clinical Impression: Cholecystitis, Hypokalemia, Hypomagnesemia Disposition: ADMITTED IP TO THIS [facility] Condition: Stable Referrals: Adi Park MD [Primary Care Provider] - 1-2 days Decision Date: 10/25/16
[2016-10-24 22:14] LABS: Basophils # (A) 0.1 k/uL (0-0.2); Basophils % (A) 1 %; CH 34.3; Eosinophils # (A) 0.1 k/uL (0-0.7); Eosinophils % (A) 2 %; HCT 38.5 % (34.0-46.0); HDW 3.19; HGB 13.4 gm/dL (11.4-16.0); Luc # (Auto) 0.09; Luc % (Auto) 2; Lymphocytes # (A) 2.1 k/uL (1.0-4.8); Lymphocytes % (A) 37 %; MCH 33.3 pg (25.0-35.0); MCHC 34.8 g/dL (31.0-37.0); MCV 95.8 fL (80.0-100.0); Mean Platelet Volume 8.8; Monocytes # (A) 0.2 k/uL (0-1.0); Monocytes % (A) 4 %; Neutrophils # (A) 3.1 k/uL (1.3-7.7); Neutrophils % (A) 55 %; RBC 4.02 m/uL (3.80-5.40); WBC 5.6 k/uL (3.8-10.6); WBC (Perox) 5.32
[2016-10-24 22:28] LABS: ALT 24 U/L (9-52); AST 35 U/L (14-36); Alkaline Phosphatase 88 U/L (38-126); Amylase 40 U/L (30-110); Anion Gap 10 mmol/L; Blood Urea Nitrogen 12 mg/dL (7-17); Calcium 9.5 mg/dL (8.4-10.2); Carbon Dioxide 31 mmol/L (22-30); Chloride 96 mmol/L (98-107); Glucose 236 mg/dL (74-99); Magnesium 1.2 mg/dL (1.6-2.3); Non-African American GFR(MDRD) >60 (>60 ml/min/1.73 sqM); Potassium 3.1 mmol/L (3.5-5.1); Sodium 137 mmol/L (137-145); Total Protein 7.4 g/dL (6.3-8.2)
[2016-10-24 22:34] LABS: Creatine Kinase 69 U/L (30-135)
[2016-10-24 22:37] LABS: INR 1.2 (<1.1); Prothrombin Time 11.7 sec (9.0-12.0)
--- NOTE | 2016-10-24 22:39 | XR ---
EXAM: XR Chest, 2 Views CLINICAL HISTORY: Reason: Chest Pain TECHNIQUE: Frontal and lateral views of the chest. COMPARISON: Chest x-ray 07/12/16 FINDINGS: Lungs: Unremarkable. No consolidation. Pleural space: No pleural effusion. No pneumothorax. Heart: Unremarkable. No cardiomegaly. Mediastinum: Unremarkable. Bones/joints: Unremarkable. IMPRESSION: No acute cardiopulmonary disease.
[2016-10-24 22:47] LABS: Creatine Kinase MB 1.2 ng/mL (0.0-2.4); Troponin I <0.012 ng/mL (0.000-0.034)
[2016-10-24] MEDS ORDERED: RX INFO: IV CONTRAST WAS GIVEN 1 EACH MISC MISCELLANE PRN (22:48)
[2016-10-24 22:58] LABS: Partial Thromboplastin Time 21.7 sec (22.0-30.0)
[2016-10-24] MEDS ORDERED: KETOROLAC 30 MG/ML 1 ML VIAL IVP STA (23:44)
--- NOTE | 2016-10-24 23:54 | CT ---
EXAM: CT Abdomen and Pelvis With Intravenous Contrast CLINICAL HISTORY: Reason: Pain TECHNIQUE: Axial computed tomography images of the abdomen and pelvis with intravenous contrast. Coronal and sagittal reformats were obtained. CTDI is 24.80 MGy and DLP is 2022.90 MGy-cm This CT exam was performed using one or more of the following dose reduction techniques: automated exposure control, adjustment of the mA and/or kV according to patient size, and/or use of iterative reconstruction technique. COMPARISON: CT abdomen and pelvis 07/09/16 FINDINGS: Lower thorax: No acute findings. ABDOMEN: Liver: Nodular liver contour, suspicious for cirrhosis. Gallbladder and bile ducts: Gallbladder is mildly distended. No calcified gallstones. Pancreas: Unremarkable. No mass. No ductal dilation. Spleen: Spleen is enlarged, measuring 15 cm in length. Few small calcified granulomas in the spleen. Adrenals: Unremarkable. No mass. Kidneys and ureters: Anatomic variant circumaortic left renal veins. Right renal cysts. No hydronephrosis. Stomach and bowel: Unremarkable. No obstruction. No mucosal thickening. Appendix: No findings to suggest acute appendicitis. PELVIS: Bladder: Unremarkable Reproductive: Uterus is surgically absent. ABDOMEN and PELVIS: Intraperitoneal space: Unremarkable. No free air. No significant fluid collection. Bones/joints: Chronic appearing right sided rib fractures. Laminectomies from L3-L5. Extensive multilevel degenerative changes with posterior osteophytes at T12-L1 through L2-L3 causing canal narrowing, unchanged. No dislocation. Vasculature: Moderate calcified atherosclerosis of the abdominal aorta. No aneurysm. Lymph nodes: Unremarkable. No enlarged lymph nodes. IMPRESSION: 1. Gallbladder is mildly distended. No calcified gallstones. Correlate with symptoms and consider right upper quadrant ultrasound if indicated. 2. Nodular liver contour, suspicious for cirrhosis. 3. Splenomegaly.
--- NOTE | 2016-10-25 01:50 | US ---
EXAM: US Abdomen Limited, Right Upper Quadrant CLINICAL HISTORY: Reason: Pain TECHNIQUE: Real-time ultrasound of the right upper quadrant with image documentation. COMPARISON: CT abdomen and pelvis 10/24/16 FINDINGS: Liver: Liver is enlarged, measuring 20.7 cm in length, with nodular contour. Gallbladder: Gallbladder is mildly distended. No gallstones or gallbladder wall thickening. No pericholecystic fluid. Common bile duct: Common duct is normal for age, measuring 6 cm. Pancreas: Not well-seen. Right kidney: Right kidney measures 10.2 x 3.9 x 6.0 cm. Cyst in the lower pole, measuring 4.6 cm. No hydronephrosis on the right. IMPRESSION: 1. Mildly distended gallbladder. No gallstones or other signs of cholecystitis. 2. No biliary dilatation. 3. Hepatomegaly with nodular contour, suspicious for cirrhosis.
[2016-10-25] MEDS ORDERED: POTASSIUM CHLORIDE ER 20 MEQ TAB.ER PO STA (01:53)
[2016-10-25] MEDS ORDERED: AMPICILLIN-SULBACTAM 3 GM in SODIUM CHLORIDE 0.9% 100 ML IVPB STA (01:53)
[2016-10-25] MEDS ORDERED: NALOXONE 0.4 MG/ML 1 ML VIAL IV PRN (02:02)
[2016-10-25] MEDS: HYDROmorphone 1 MG/ML 1 ML SYRINGE IV PRN ×3 (02:31→17:01)
[2016-10-25] MEDS: MAGNESIUM SULFATE-D5W PMX 1 GM in DEXTROSE/WATER 1 100ML.BAG IVPB SCH ×2 (03:28→06:07)
[2016-10-25 04:09] VITALS: BMI 42.4
[2016-10-25] MEDS: SODIUM CHLORIDE 0.9% 1,000 ML IV SCH ×2 (06:07→12:45)
[2016-10-25 07:23] LABS: Glucose,Whole Blood 190 mg/dL (75-99)
[2016-10-25] MEDS: INSULIN LISPRO (humaLOG) 300 UNIT/3 ML VIAL SQ SCH ×4 (07:57→22:12)
[2016-10-25 08:09] LABS: Basophils % (A) 1 %; CHCM 34.9; Eosinophils # (A) 0.1 k/uL (0-0.7); Eosinophils % (A) 2 %; HCT 32.2 % (34.0-46.0); HDW 3.17; HGB 10.9 gm/dL (11.4-16.0); Luc # (Auto) 0.09; Luc % (Auto) 2; Lymphocytes # (A) 1.4 k/uL (1.0-4.8); Lymphocytes % (A) 37 %; MCH 33.2 pg (25.0-35.0); MCHC 33.8 g/dL (31.0-37.0); Macrocytosis Slight; Mean Platelet Volume 8.1; Monocytes # (A) 0.2 k/uL (0-1.0); Monocytes % (A) 5 %; Neutrophils # (A) 2.1 k/uL (1.3-7.7); Neutrophils % (A) 53 %; RBC 3.29 m/uL (3.80-5.40); RDW 15.2 % (11.5-15.5); WBC 3.9 k/uL (3.8-10.6); WBC (Perox) 4.27
[2016-10-25 09:37] LABS: ALT 28 U/L (9-52); AST 26 U/L (14-36); Alkaline Phosphatase 68 U/L (38-126); Anion Gap 8 mmol/L; Blood Urea Nitrogen 11 mg/dL (7-17); Calcium 8.3 mg/dL (8.4-10.2); Carbon Dioxide 29 mmol/L (22-30); Chloride 102 mmol/L (98-107); Glucose 199 mg/dL (74-99); Magnesium 1.7 mg/dL (1.6-2.3); Non-African American GFR(MDRD) >60 (>60 ml/min/1.73 sqM); Sodium 139 mmol/L (137-145); Total Protein 5.9 g/dL (6.3-8.2)
[2016-10-25 09:43] LABS: Potassium 2.8 mmol/L (3.5-5.1)
[2016-10-25] MEDS: POTASSIUM CHLORIDE 10 MEQ, LIDOCAINE 2% INJ 10 MG in SODIUM CHLORIDE 0.9% 100 ML IVPB SCH ×4 (10:59→18:15)
[2016-10-25 11:51] LABS: Hemoglobin A1C 6.9 % (4.2-6.1)
[2016-10-25 11:59] LABS: Glucose,Whole Blood 169 mg/dL (75-99)
[2016-10-25 15:13] LABS: Amorphous Sediment,Urine Few /hpf; Appearance,Urine Cloudy (Clear); Bacteria,Urine Rare /hpf; Bilirubin,Urine Negative (Negative); Glucose,Urine (UA) Negative (Negative); Ketones,Urine Negative (Negative); Leukocyte Esterase,Urine Negative (Negative); Mucus,Urine Rare /hpf; Nitrite,Urine Negative (Negative); Particle Count 8554; Protein,Urine Negative (Negative); RBC,Urine 3 /hpf (0-5); Squamous Epithelial Cell,Urine 27 /hpf (0-4); UA Billing (MACRO vs. MICRO) MICRO; Urobilinogen,Urine <2.0 mg/dL (<2.0); WBC,Urine 4 /hpf (0-5)
--- NOTE | 2016-10-25 16:30 | P.GSCN ---
History of Present Illness Consult date: 10/25/16 Reason for Consult: Right flank pain History of present illness: Patient presents to the hospital with complaints of pain for the last 48 hours. Pain is been in the right flank radiating to the right upper quadrant and right back. Some mild nausea. No anorexia. She had a low-grade fever on presentation of 100.5. Ultrasound and CAT scan shows a slightly distended gallbladder without definite inflammatory changes. No gallstones were seen. Liver does look suspicious for cirrhosis radiographically. Her labs however are fairly normal. Denies change in the color of her skin urine or stool. No rectal bleeding or melena. Review of Systems The patient denies any acute changes in his vision or hearing, no dysphagia or odynophagia, no chest pain or shortness of breath, no dysuria or hematuria, no headache, no runny nose, no rectal bleeding or melena, no unexplained weight loss Past Medical History Past Medical History: Diabetes Mellitus, GERD/Reflux, Hypertension, Thyroid Disorder Additional Past Medical History / Comment(s): NEUROPATHY History of Any Multi-Drug Resistant Organisms: None Reported Past Surgical History: Back Surgery, Hysterectomy, Joint Replacement Additional Past Surgical History / Comment(s): PMH: DIABETIC NEUROPATHY, RIGHT KNEE REPLACEMENT cataract surgery bilat Past Anesthesia/Blood Transfusion Reactions: No Reported Reaction Past Psychological History: Depression Additional Psychological History / Comment(s): PT LIVES IN OWN HOME HAS 1 DOG, USUALLY IS INDEPENDANT , HX of falls, none recently Smoking Status: Former smoker Past Alcohol Use History: None Reported Past Drug Use History: None Reported - Past Family History Mother Family Medical History: Dementia Additional Family Medical History / Comment(s): alzheimers Father Family Medical History: Myocardial Infarction ([place]) Additional Family Medical History / Comment(s): unknown Medications and Allergies Home Medications Medication Instructions Recorded Confirmed Type Allopurinol [Zyloprim] 300 mg PO DAILY 09/27/14 10/24/16 History Atenolol/Chlorthalidone [Tenoretic 1 tab PO DAILY 09/27/14 10/24/16 History 50 Tablet] Cholecalciferol [Vitamin D3] 2,000 unit PO DAILY 09/27/14 10/24/16 History Colchicine [Colcrys] 0.6 mg PO DAILY 09/27/14 10/24/16 History Gabapentin [Neurontin] 800 mg PO TID 09/27/14 10/24/16 History Glimepiride [Amaryl] 4 mg PO DAILY 09/27/14 10/24/16 History Levothyroxine Sodium [Synthroid] 50 mcg PO AC-BRKFST 09/27/14 10/24/16 History Oxybutynin Chloride [Ditropan XL] 10 mg PO DAILY 09/27/14 10/24/16 History Ranitidine HCl [Zantac] 150 mg PO DAILY 09/27/14 10/24/16 History Sertraline [Zoloft] 100 mg PO DAILY 09/27/14 10/24/16 History Albuterol Inhaler [Ventolin Hfa 1 puff INHALATION RT-QID PRN 09/28/14 10/24/16 History Inhaler] carBAMazepine [TEGretol] 200 mg PO TID 09/28/14 10/24/16 History Hydrocodone/Acetaminophen [[place] 1 tab PO TID 07/09/16 10/24/16 History 5-325] Lidocaine Viscous [Xylocaine 1 dose PO Q6H PRN 07/09/16 10/24/16 History Viscous 2%] Lisinopril [Zestril] 10 mg PO DAILY 07/09/16 10/24/16 History Potassium Chloride ER [K-Dur 20] 20 meq PO AC-TID 07/09/16 10/24/16 History Losartan [Cozaar] 50 mg PO DAILY 10/24/16 10/24/16 History Oxybutynin Chloride [Ditropan XL] 15 mg PO HS 10/24/16 10/24/16 History Pilocarpine HCl [Salagen] 7.5 mg PO BID 10/24/16 10/24/16 History Allergies Allergy/AdvReac Type Severity Reaction Status Date / Time morphine AdvReac Nausea & Verified 10/24/16 21:11 Vomiting Vdwwsxy-Myu-Egi Reductase AdvReac Nausea & Verified 10/24/16 21:11 Inhibitor Vomiting Surgical - Exam Vital Signs Temp Pulse Resp BP Pulse Ox 100.5 F H 99 20 168/90 92 L 10/24/16 20:55 10/24/16 20:55 10/24/16 20:55 10/24/16 20:55 10/24/16 20:55 Physical exam: General: Well-developed, well-nourished HEENT: Normocephalic, sclerae nonicteric Abdomen: Markedly obese, mild right flank tenderness, nondistended Extremities: No edema Neuro: Alert and oriented Results - Labs 10/25/16 07:36 10/25/16 07:36 Abnormal Lab Results - Last 24 Hours (Table) 10/25/16 10/25/16 10/25/16 Range/Units 07:19 07:36 07:36 RBC 3.29 L (3.80-5.40) m/uL Hgb 10.9 L (11.4-16.0) gm/dL Hct 32.2 L (34.0-46.0) % Plt Count 76 L (150-450) k/uL Potassium 2.8 L* (3.5-5.1) mmol/L Creatinine 0.47 L (0.52-1.04) mg/dL Glucose 199 H (74-99) mg/dL POC Glucose (mg/dL) 190 H (75-99) mg/dL Hemoglobin A1c (4.2-6.1) % Calcium 8.3 L (8.4-10.2) mg/dL Total Protein 5.9 L (6.3-8.2) g/dL Albumin 3.0 L (3.5-5.0) g/dL 10/25/16 10/25/16 Range/Units 07:36 11:54 RBC (3.80-5.40) m/uL Hgb (11.4-16.0) gm/dL Hct (34.0-46.0) % Plt Count (150-450) k/uL Potassium (3.5-5.1) mmol/L Creatinine (0.52-1.04) mg/dL Glucose (74-99) mg/dL POC Glucose (mg/dL) 169 H (75-99) mg/dL Hemoglobin A1c 6.9 H (4.2-6.1) % Calcium (8.4-10.2) mg/dL Total Protein (6.3-8.2) g/dL Albumin (3.5-5.0) g/dL Diabetes panel 10/25/16 10/25/16 Range/Units 07:36 07:36 Sodium 139 (137-145) mmol/L Potassium 2.8 L* (3.5-5.1) mmol/L Chloride 102 (98-107) mmol/L Carbon Dioxide 29 (22-30) mmol/L BUN 11 (7-17) mg/dL Creatinine 0.47 L (0.52-1.04) mg/dL Glucose 199 H (74-99) mg/dL Hemoglobin A1c 6.9 H (4.2-6.1) % Calcium 8.3 L (8.4-10.2) mg/dL AST 26 (14-36) U/L ALT 28 (9-52) U/L Alkaline Phosphatase 68 (38-126) U/L Total Protein 5.9 L (6.3-8.2) g/dL Albumin 3.0 L (3.5-5.0) g/dL Calcium panel 10/25/16 Range/Units 07:36 Calcium 8.3 L (8.4-10.2) mg/dL Albumin 3.0 L (3.5-5.0) g/dL Pituitary panel 10/25/16 Range/Units 07:36 Sodium 139 (137-145) mmol/L Potassium 2.8 L* (3.5-5.1) mmol/L Chloride 102 (98-107) mmol/L Carbon Dioxide 29 (22-30) mmol/L BUN 11 (7-17) mg/dL Creatinine 0.47 L (0.52-1.04) mg/dL Glucose 199 H (74-99) mg/dL Calcium 8.3 L (8.4-10.2) mg/dL Adrenal panel 10/25/16 Range/Units 07:36 Sodium 139 (137-145) mmol/L Potassium 2.8 L* (3.5-5.1) mmol/L Chloride 102 (98-107) mmol/L Carbon Dioxide 29 (22-30) mmol/L BUN 11 (7-17) mg/dL Creatinine 0.47 L (0.52-1.04) mg/dL Glucose 199 H (74-99) mg/dL Calcium 8.3 L (8.4-10.2) mg/dL Total Bilirubin 1.0 (0.2-1.3) mg/dL AST 26 (14-36) U/L ALT 28 (9-52) U/L Alkaline Phosphatase 68 (38-126) U/L Total Protein 5.9 L (6.3-8.2) g/dL Albumin 3.0 L (3.5-5.0) g/dL Assessment and Plan (1) Abdominal pain Narrative/Plan: Agree with plans for HIDA scan today. Correct hypokalemia. Patient may require cholecystectomy. Status: Acute
[2016-10-25 16:57] LABS: Glucose,Whole Blood 242 mg/dL (75-99)
[2016-10-25] MEDS: ONDANSETRON 4 MG/2 ML VIAL IVP PRN (17:05)
--- NOTE | 2016-10-25 18:04 | NM ---
EXAMINATION TYPE: NM hepatobiliary w EF DATE OF EXAM: 10/25/2016 4:53 PM COMPARISON: NONE HISTORY: TECHNIQUE: After the intravenous administration of 5.42 mCi Tc 99m Mebrofenin hepatobiliary scintigra phy is performed. Immediate images post injection. FINDINGS: There is prompt uptake of the tracer by the liver that has normal size and contour. There is tracer i n the small bowel at 30 minutes and tracer in the gallbladder at 10 minutes which excludes obstructio n of the common bile duct and cystic duct. The post ensure images show gallbladder ejection fraction of only 31%. The remainder of exam is unremarkable.. IMPRESSION: No evidence of cystic duct or common bile duct obstruction. No focal liver defect. There is abnormal hypokinetic gallbladder ejection fraction of 31% with the stimulation. Normal is greater than 35%. This is consistent with dyskinesia.
--- NOTE | 2016-10-25 19:46 | HP ---
DATE OF ADMISSION: CHIEF COMPLAINT: Right-sided abdominal pain. HISTORY OF PRESENT ILLNESS: This is another admission for this 71-year-old white female has had multiple problems with hypertension, hypothyroidism, cervical spondylosis, COPD and gastritis. Two days before coming in she started to develop some right-sided abdominal pain and it grew significantly worse. She had pain more in the right side of the abdomen in the right upper and right lower quadrants. She had some nausea and vomiting but no hematemesis, melena, etc. In the emergency room, it was thought maybe her gallbladder, but her pain was also the right lower quadrant. She has had no jaundice, acholic stools, etc. She has not noticed any relationship to eating. REVIEW OF SYSTEMS: She has had no headaches, chest pain or shortness of breath, cough, hemoptysis, heart disease, etc. Past medical history, family history and personal and social histories are all otherwise unremarkable and noncontributory. SHE CANNOT TAKE STATINS. She is on Zantac, pilocarpine for glaucoma, Tenoretic, Amaryl, Colcrys, Cozaar, allopurinol, potassium, Zocor, [place], levothyroxine, Neurontin, vitamin D, Ditropan XL, updrafts with Ventolin. She used to smoke but she quit. PAST SURGICAL HISTORY: She had a hysterectomy, bladder suspension, procedure on her right knee. SOCIAL HISTORY: She denies smoking or drinking. PHYSICAL EXAMINATION: VITAL SIGNS: Blood pressure 118/72 with a pulse of 84, respirations 36, and temperature 98.9. GENERAL: She appeared to be overweight and in no acute distress. Skin color is normal. Skin is warm and dry. Lymph nodes are not enlarged. Head, ears, eyes, nose, mouth, and throat were normal. Neck veins were not distended. Thyroid is not enlarged. Chest is clear to auscultation and percussion. Cardiac exam demonstrates normal sinus rhythm with no murmurs or extra sounds. The abdomen is soft and she is slightly tender on the right side both in the right upper and right lower quadrants. There are no masses or visceromegaly. Extremities are normal. Neurologically, she is intact. IMPRESSION: Right-sided abdominal pain, etiology unknown. PLAN: 1. Bed rest. 2. IV fluids. 3. N.p.o. 4. HIDA scan with CCK.
[2016-10-25] MEDS ORDERED: ACETAMINOPHEN TAB 325 MG TAB PO PRN (20:46)
[2016-10-25 20:52] LABS: Glucose,Whole Blood 163 mg/dL (75-99)
[2016-10-26] MEDS: HYDROmorphone 1 MG/ML 1 ML SYRINGE IV PRN ×3 (02:26→21:05)
[2016-10-26 07:10] LABS: Glucose,Whole Blood 155 mg/dL (75-99)
[2016-10-26 07:22] LABS: Basophils % (A) 1 %; CH 33.4; CHCM 34.2; Eosinophils # (A) 0.1 k/uL (0-0.7); Eosinophils % (A) 2 %; HDW 3.08; Luc # (Auto) 0.07; Luc % (Auto) 2; Lymphocytes # (A) 1.3 k/uL (1.0-4.8); Lymphocytes % (A) 41 %; MCH 32.9 pg (25.0-35.0); MCHC 33.4 g/dL (31.0-37.0); MCV 98.4 fL (80.0-100.0); Macrocytosis Slight; Mean Platelet Volume 8.5; Monocytes # (A) 0.2 k/uL (0-1.0); Monocytes % (A) 5 %; Neutrophils # (A) 1.6 k/uL (1.3-7.7); Neutrophils % (A) 50 %; RBC 3.35 m/uL (3.80-5.40); RDW 15.1 % (11.5-15.5); WBC 3.1 k/uL (3.8-10.6)
[2016-10-26 07:30] LABS: ALT 28 U/L (9-52); AST 28 U/L (14-36); Alkaline Phosphatase 61 U/L (38-126); Anion Gap 7 mmol/L; Blood Urea Nitrogen 9 mg/dL (7-17); Calcium 8.3 mg/dL (8.4-10.2); Carbon Dioxide 29 mmol/L (22-30); Chloride 105 mmol/L (98-107); Glucose 160 mg/dL (74-99); Non-African American GFR(MDRD) >60 (>60 ml/min/1.73 sqM); Potassium 3.5 mmol/L (3.5-5.1); Sodium 141 mmol/L (137-145); Total Bilirubin 0.8 mg/dL (0.2-1.3); Total Protein 5.9 g/dL (6.3-8.2)
[2016-10-26] MEDS: INSULIN LISPRO (humaLOG) 300 UNIT/3 ML VIAL SQ SCH ×4 (07:45→21:09)
[2016-10-26] MEDS: SODIUM CHLORIDE 0.9% 1,000 ML IV SCH ×2 (07:45→09:21)
[2016-10-26 11:31] LABS: Glucose,Whole Blood 180 mg/dL (75-99)
[2016-10-26 17:04] LABS: Glucose,Whole Blood 181 mg/dL (75-99)
[2016-10-26 19:59] LABS: Glucose,Whole Blood 171 mg/dL (75-99)
[2016-10-27 07:02] LABS: Glucose,Whole Blood 146 mg/dL (75-99)
[2016-10-27] MEDS: INSULIN LISPRO (humaLOG) 300 UNIT/3 ML VIAL SQ SCH ×4 (08:47→21:12)
[2016-10-27] MEDS: SODIUM CHLORIDE 0.9% 1,000 ML IV SCH ×2 (08:48→13:37)
[2016-10-27] MEDS: HYDROmorphone 1 MG/ML 1 ML SYRINGE IV PRN (08:57)
[2016-10-27] MEDS: ONDANSETRON 4 MG/2 ML VIAL IVP PRN ×2 (08:57→17:41)
--- NOTE | 2016-10-27 09:06 | P.PN ---
Progress Note - Text The patient still has complaints of right upper quadrant pain. Her HIDA scan showed a diminished ejection fraction consistent with biliary dyskinesia. Patient will undergo laparoscopic cholecystectomy today.
--- NOTE | 2016-10-27 09:07 | P.PN ---
Progress Note - Text The patient complaints of right upper quadrant pain. She states her nausea is improved. On exam her vital signs are stable. Her abdomen soft. There is some mild right quadrant tenderness. The abdomen is quite obese. Patient's HIDA scan was reviewed. Her contraction fraction is diminished consistent with biliary dyskinesia and chronic cholecystitis. Patient was scheduled for laparoscopic cholecystectomy tomorrow.
[2016-10-27 11:40] LABS: Glucose,Whole Blood 163 mg/dL (75-99)
[2016-10-27] MEDS ORDERED: IV FLUID CONTINUATION 500 ML IV ONE (12:13)
[2016-10-27] MEDS ORDERED: HEPARIN SODIUM,PORCINE 5,000 UNIT/ML 1 ML VIAL SQ ONE (13:08)
[2016-10-27] MEDS ORDERED: NEOSTIGMINE 1 MG/ML 10 ML VIAL ONE (13:32)
[2016-10-27] MEDS ORDERED: fentaNYL (PF) 50 MCG/ML 2 ML AMP ONE (13:32)
[2016-10-27] MEDS ORDERED: GLYCOPYRROLATE 0.2 MG/ML 2 ML VIAL ONE (13:32)
[2016-10-27] MEDS ORDERED: MIDAZOLAM 2 MG/2 ML VIAL ONE (13:32)
[2016-10-27] MEDS ORDERED: PROPOFOL 10 MG/ML 20 ML VIAL IV ONE (13:32)
[2016-10-27] MEDS ORDERED: SUCCINYLCHOLINE CHLORIDE 100 MG/5 ML SYR IV ONE (13:32)
[2016-10-27] MEDS ORDERED: ROCURONIUM BROMIDE 10 MG/ML 10 ML VIAL IV ONE (13:32)
[2016-10-27] MEDS ORDERED: BUPIVACAIN-EPI 0.25%-1:200,000 30 ML VIAL IJ ONE (13:51)
[2016-10-27] MEDS ORDERED: SODIUM CHLORIDE 0.9% 50 ML with ceFAZolin 3,000 MG IV ONE ×2 (13:52)
[2016-10-27] MEDS ORDERED: LACTATED RINGERS 1,000 ML IV ONE ×2 (13:53→14:10)
[2016-10-27] MEDS ORDERED: traMADol 50 MG TAB PO PRN (14:10)
[2016-10-27] MEDS ORDERED: HYDROmorphone 1 MG/ML 1 ML SYRINGE IVP PRN (14:10)
[2016-10-27] MEDS ORDERED: NALOXONE 0.4 MG/ML 1 ML VIAL IV PRN (14:10)
--- NOTE | 2016-10-27 14:10 | P.OP ---
Date of Procedure: 10/27/16 Preoperative Diagnosis: Cholecystitis Postoperative Diagnosis: Cholecystitis Procedure(s) Performed: Laparoscopic cholecystectomy Anesthesia: [place] Surgeon: Min Marr Estimated Blood Loss (ml): 5 Pathology: other (Gallbladder) Condition: stable Disposition: PACU Description of Procedure: The patient was placed on the operating table. The patient received a general endotracheal tube anesthesia. The patients abdomen was prepped and draped in the usual sterile fashion. Through an infraumbilical stab incision, the fascia of the anterior abdominal wall was grasped with a pair of Kochers and then the Veress needle was placed in the peritoneal cavity. Position of the Veress needle was confirmed with positive drop test. The abdomen was then insufflated. After adequate insufflation, the 10 mm trocar was placed in the peritoneal cavity. Following this the laparoscope was placed in the peritoneal cavity. The patient was placed in the head-up, right side up position and then a 5 mm trocar was placed in the right lateral and right subcostal position under direct visualization. A 8 mm trocar was placed in the epigastric position. The gallbladder was grasped in the fundus and infundibulum. Traction on the gallbladder was placed in the lateral and the cephalad positions. The triangle of Calot was visualized.. The cystic duct was bluntly dissected until the union of the cystic duct and common bile duct was seen. The cystic duct was then divided and sealed with the Harmonic scissors. A PDS Endoloop was then placed throughout the cystic duct stump. The cystic artery divided and sealed with the Harmonic scissors. The gallbladder was then removed from the liver bed using Harmonic scissors. The gallbladder was then extracted through the epigastric port site. Operative field was checked for any bleeding spots and Harmonic scissors was used to coagulate the liver bed. The abdomen was irrigated. The trocars were removed. The skin was closed using interrupted 3-0 Vicryl suture. Dermabond dressing were applied. The patient tolerated the procedure well.
[2016-10-27] MEDS ORDERED: LABETALOL 5 MG/ML VIAL MDV IVP ONE (14:35)
[2016-10-27] MEDS: HYDROmorphone 1 MG/ML 1 ML SYRINGE IVP ONE ×4 (14:38→14:58)
[2016-10-27 14:56] LABS: Glucose,Whole Blood 174 mg/dL (75-99)
[2016-10-27] MEDS: MEPERIDINE 50 MG/ML SYRINGE IVP ONE ×4 (15:09→15:40)
--- NOTE | 2016-10-27 15:15 | PN ---
DATE OF SERVICE: 10/26/2016 HISTORY OF PRESENT ILLNESS: This lady is waiting to be seen by Surgery. Her HIDA scan was suggestive of gallbladder disease. PHYSICAL EXAM: She is still runner in the right upper quadrant. Bowel sounds present. Chest is clear. IMPRESSION: Cholecystitis. PLAN: Await Surgery's recommendations.
--- NOTE | 2016-10-27 15:17 | PN ---
DATE OF SERVICE: 10/27/2016 CHIEF COMPLAINT: Gallbladder disease. HISTORY OF PRESENT ILLNESS: This lady is doing well and is going to the operating room today. PHYSICAL EXAM: CHEST: Clear. CARDIAC: Normal. The abdomen is slightly tender in the right upper quadrant. IMPRESSION: Gallbladder disease. PLAN: Cholecystectomy today.
[2016-10-27] MEDS ORDERED: KETOROLAC 30 MG/ML 1 ML VIAL IVP ONE (15:27)
--- NOTE | 2016-10-27 15:36 | P.PN ---
Subjective 71-year-old female seen and examined this morning. Patient is scheduled for a lap Hiro the cholecystectomy by surgical service this morning continues to report having right abdominal pain patient did have a HIDA scan done the day before it showed diminished ejection fraction consistent with biliary dyskinesis Objective - Vital Signs Vital signs: Vital Signs Temp 98.6 F 10/27/16 14:30 Pulse 73 10/27/16 15:15 Resp 16 10/27/16 15:15 BP 169/80 10/27/16 15:15 Pulse Ox 95 10/27/16 15:15 Intake & Output 10/26/16 10/27/16 10/27/16 18:59 06:59 18:59 Intake Total 800 Output Total 5 Balance 795 Intake: IV 800 Output: Estimated Blood Loss 5 Other: Voiding Method Toilet Toilet # Voids 1 1 - Exam Physical exam 71-year-old obese female resting in bed aware of the plan of care scheduled today for laparoscopic cholecystectomy Lungs essentially clear adequate air movement Heart S1-S2 audible and regular Abdomen soft not distended slight tenderness to the right upper quadrant Extremities chronic venous stasis to the lower extremities nonpitting edema noted - Labs CBC & Chem 7: 10/26/16 06:36 10/26/16 06:36 Labs: Abnormal Lab Results - Last 24 Hours (Table) 10/26/16 10/26/16 10/27/16 Range/Units 16:55 19:57 06:55 POC Glucose (mg/dL) 181 H 171 H 146 H (75-99) mg/dL 10/27/16 10/27/16 Range/Units 11:37 14:46 POC Glucose (mg/dL) 163 H 174 H (75-99) mg/dL Assessment and Plan Plan: Impression Present on admission right upper quadrant pain suspect due to chronic colds cholecystitis Hida scan contraction fraction diminished consistent with biliary dyskinesis and chronic cholecystitis Morbid obesity BMI 42 Present on admission abnormal labs hypokalemia corrected resolved Plan scheduled today for the lap cholecystectomy per surgical service Resume home meds as appropriate Pain control DVT and GI prophylaxis The above dictated assessment and findings were discussed with dr argueta . Impression and the plan of care have been dictated as directed. Mary Barbosa nurse practitioner acting as a scribe for dr argueta.
[2016-10-27] MEDS ORDERED: MENTHOL (NICE) LOZENGE MUCOUS MEM PRN (16:04)
[2016-10-27 16:50] LABS: Glucose,Whole Blood 187 mg/dL (75-99)
[2016-10-27] MEDS: HYDROcodone/APAP 5-325MG 1 EACH TAB PO PRN (21:22)
[2016-10-27 21:30] LABS: Glucose,Whole Blood 153 mg/dL (75-99)
[2016-10-27] MEDS: FAMOTIDINE 20 MG TAB PO SCH (21:40)
[2016-10-28 07:26] LABS: Glucose,Whole Blood 177 mg/dL (75-99)
[2016-10-28] MEDS: INSULIN LISPRO (humaLOG) 300 UNIT/3 ML VIAL SQ SCH ×2 (07:41→13:09)
[2016-10-28] MEDS: FAMOTIDINE 20 MG TAB PO SCH (07:45)
[2016-10-28] MEDS: HYDROcodone/APAP 5-325MG 1 EACH TAB PO PRN ×2 (07:45→12:59)
[2016-10-28 07:46] LABS: Basophils % (A) 0 %; CH 33.7; CHCM 34.4; Eosinophils # (A) 0.1 k/uL (0-0.7); Eosinophils % (A) 2 %; HCT 30.3 % (34.0-46.0); HDW 3.06; HGB 10.3 gm/dL (11.4-16.0); Luc # (Auto) 0.09; Luc % (Auto) 3; Lymphocytes # (A) 1.1 k/uL (1.0-4.8); Lymphocytes % (A) 32 %; MCH 33.7 pg (25.0-35.0); MCHC 34.2 g/dL (31.0-37.0); MCV 98.5 fL (80.0-100.0); Macrocytosis Slight; Mean Platelet Volume 8.1; Monocytes # (A) 0.2 k/uL (0-1.0); Monocytes % (A) 5 %; Neutrophils % (A) 58 %; RBC 3.07 m/uL (3.80-5.40); WBC 3.4 k/uL (3.8-10.6); WBC (Perox) 3.47
[2016-10-28] MEDS: SODIUM CHLORIDE 0.9% 1,000 ML IV SCH ×2 (07:51→10:27)
[2016-10-28 07:56] LABS: ALT 26 U/L (9-52); AST 40 U/L (14-36); Alkaline Phosphatase 51 U/L (38-126); Anion Gap 7 mmol/L; Blood Urea Nitrogen 7 mg/dL (7-17); Calcium 8.3 mg/dL (8.4-10.2); Carbon Dioxide 29 mmol/L (22-30); Chloride 104 mmol/L (98-107); Glucose 156 mg/dL (74-99); Non-African American GFR(MDRD) >60 (>60 ml/min/1.73 sqM); Potassium 3.7 mmol/L (3.5-5.1); Sodium 140 mmol/L (137-145); Total Bilirubin 0.7 mg/dL (0.2-1.3); Total Protein 5.5 g/dL (6.3-8.2)
--- NOTE | 2016-10-28 11:31 | P.DS ---
Providers Date of admission: 10/25/16 03:15 Expected date of discharge: 10/28/16 Attending physician: Adi Argueta Consults: 10/25/16 08:39 Consult Physician Urgent Consulting Provider: Edgard Sanchez Consult Reason/Comments: RUQ pain. cholecystitis Do you want consulting provider notified?: Yes Primary care physician: Adi Argueta Hospital Course: 71-year-old female being seen presented to the emergency room on the day of admission with a chief complaint of developing right upper quadrant pain radiating into the right back. Patient stated that she had some mild nausea sensation no active emesis. Patient did present with a low-grade temp of 100.5. The ultrasound and CAT scan showed a slightly distended gallbladder without definitive inflammatory changes. No gallstones were noted. The liver looks suspicious for cirrhosis by x-ray. Patient did have a HIDA scan. Contraction fraction diminished consistent with biliary dyskinesis and chronic cholecystitis. Patient was seen by surgical service for the above-mentioned findings. Patient elected to undergo a laparoscopic cholecystectomy and this was done on October 27. Patient was felt to be stable and appropriate proceed with a discharge to home. Impression Present on admission right upper quadrant pain suspect due to chronic colds cholecystitis Hida scan contraction fraction diminished consistent with biliary dyskinesis and chronic cholecystitis Morbid obesity BMI 42 Present on admission abnormal labs hypokalemia corrected resolved Postop October 27 laparoscopic cholecystectomy for cholecystitis The above dictated assessment and findings were discussed with dr argueta . Impression and the plan of care have been dictated as directed. Mary Barbosa nurse practitioner acting as a scribe for dr argueta. Patient Condition at Discharge: Stable Plan - Discharge Summary New Discharge Prescriptions: Docusate [Colace] 100 mg PO BID #20 capsule HYDROcodone/APAP 7.5-325MG [[place] 7.5-325] 1 tab PO Q6HR PRN #28 tab PRN Reason: Pain Discharge Medication List Allopurinol [Zyloprim] 300 mg PO DAILY 09/27/14 [History] Atenolol/Chlorthalidone [Tenoretic 50 Tablet] 1 tab PO DAILY 09/27/14 [History] Cholecalciferol [Vitamin D3] 2,000 unit PO DAILY 09/27/14 [History] Colchicine [Colcrys] 0.6 mg PO DAILY 09/27/14 [History] Gabapentin [Neurontin] 800 mg PO TID 09/27/14 [History] Glimepiride [Amaryl] 4 mg PO DAILY 09/27/14 [History] Levothyroxine Sodium [Synthroid] 50 mcg PO AC-BRKFST 09/27/14 [History] Oxybutynin Chloride [Ditropan XL] 10 mg PO DAILY 09/27/14 [History] Ranitidine HCl [Zantac] 150 mg PO DAILY 09/27/14 [History] Sertraline [Zoloft] 100 mg PO DAILY 09/27/14 [History] Albuterol Inhaler [Ventolin Hfa Inhaler] 1 puff INHALATION RT-QID PRN 09/28/14 [ History] carBAMazepine [TEGretol] 200 mg PO TID 09/28/14 [History] Hydrocodone/Acetaminophen [[place] 5-325] 1 tab PO TID 07/09/16 [History] Lidocaine Viscous [Xylocaine Viscous 2%] 1 dose PO Q6H PRN 07/09/16 [History] Lisinopril [Zestril] 10 mg PO DAILY 07/09/16 [History] Potassium Chloride ER [K-Dur 20] 20 meq PO AC-TID 07/09/16 [History] Levofloxacin [Levaquin] 500 mg PO DAILY #7 tab 07/12/16 [Rx] Magnesium Oxide [Mag-Ox] 400 mg PO TID #90 tab 07/12/16 [Rx] Losartan [Cozaar] 50 mg PO DAILY 10/24/16 [History] Oxybutynin Chloride [Ditropan XL] 15 mg PO HS 10/24/16 [History] Pilocarpine HCl [[place]] 7.5 mg PO BID 10/24/16 [History] Acetaminophen Tab [Tylenol] 650 mg PO Q4HR PRN #0 tab 10/28/16 [Rx] Docusate [Colace] 100 mg PO BID #20 capsule 10/28/16 [Rx] HYDROcodone/APAP 5-325MG [[place] 5-325] 2 each PO Q6HR PRN #0 tab 10/28/16 [Rx] HYDROcodone/APAP 7.5-325MG [[place] 7.5-325] 1 tab PO Q6HR PRN #28 tab 10/28/16 [ Rx] Follow up Appointment(s)/Referral(s): Edgard Sanchez MD [Medical Doctor] - 1 Week Adi Argueta MD [Primary Care Provider] - 1-2 days Patient Instructions/Handouts: *Surgery [facility] - Laparoscopic Cholecystectomy Discharge Instructions Discharge Disposition: HOME SELF-CARE
[2016-10-28 11:47] LABS: Glucose,Whole Blood 167 mg/dL (75-99)
[2016-10-28] MEDS ORDERED: SERTRALINE 100 MG TAB PO SCH (14:00)
[2016-10-28 14:35] VITALS: BP 182/72; PULSE 67; RESP 16; TEMP 98.5
--- NOTE | 2016-10-28 15:32 | PN ---
CHIEF COMPLAINT: Status post cholecystectomy. HISTORY OF PRESENT ILLNESS: This lady is doing well and will probably be going home today. She has had no fever, chills, nausea, vomiting, etc. PHYSICAL EXAMINATION: CHEST: Clear. CARDIAC: Normal. The incisions look good. IMPRESSION: Status post cholecystectomy. PLAN: Probably home today; this will be arranged by the nurse practitioner.
--- NOTE | 2016-10-28 18:26 | P.PN ---
Subjective Patient is a 71-year-old female status post laparoscopic cholecystectomy for biliary dyskinesia, postop day #1. Patient is doing well. Denies chills, fevers, nausea, vomiting, shortness of breath, or chest pain. Tolerating diet. Urinating without difficulty. Passing flatus without bowel movement. Afebrile. WBC improved to 3.4. Objective - Vital Signs Vital signs: Vital Signs Temp 98.5 F 10/28/16 14:33 Pulse 67 10/28/16 14:33 Resp 16 10/28/16 14:33 BP 182/72 10/28/16 14:33 Pulse Ox 93 L 10/28/16 14:33 Intake & Output 10/27/16 10/28/16 10/28/16 18:59 06:59 18:59 Intake Total 1510 200 Output Total 305 Balance 1205 200 Weight 115.666 kg Intake: IV 1150 Oral 360 200 Output: Urine 300 Estimated Blood Loss 5 Other: Voiding Method Toilet Toilet # Voids 1 1 3 # Bowel Movements 1 - Exam GENERAL: Pt awake and alert, well-appearing, well-nourished, and in no acute distress. LUNGS: Breath sounds diminished to auscultation bilaterally. No wheezes, rales , or rhonchi. HEART: Heart S1, S2, regular ABDOMEN: Soft, mild systolic tenderness,, nondistended, normoactive bowel sounds. No guarding, no rebound. Laparoscopic surgical incisions dry and intact, no erythema or drainage. NEUROLOGICAL: Pt oriented x 3. - Labs CBC & Chem 7: 10/28/16 06:52 10/28/16 06:52 Labs: Abnormal Lab Results - Last 24 Hours (Table) 10/27/16 10/28/16 10/28/16 Range/Units 21:08 06:52 06:52 WBC 3.4 L (3.8-10.6) k/uL RBC 3.07 L (3.80-5.40) m/uL Hgb 10.3 L (11.4-16.0) gm/dL Hct 30.3 L (34.0-46.0) % Plt Count 72 L (150-450) k/uL Creatinine 0.49 L (0.52-1.04) mg/dL Glucose 156 H (74-99) mg/dL POC Glucose (mg/dL) 153 H (75-99) mg/dL Calcium 8.3 L (8.4-10.2) mg/dL AST 40 H (14-36) U/L Total Protein 5.5 L (6.3-8.2) g/dL Albumin 2.9 L (3.5-5.0) g/dL 10/28/16 10/28/16 Range/Units 07:20 11:29 WBC (3.8-10.6) k/uL RBC (3.80-5.40) m/uL Hgb (11.4-16.0) gm/dL Hct (34.0-46.0) % Plt Count (150-450) k/uL Creatinine (0.52-1.04) mg/dL Glucose (74-99) mg/dL POC Glucose (mg/dL) 177 H 167 H (75-99) mg/dL Calcium (8.4-10.2) mg/dL AST (14-36) U/L Total Protein (6.3-8.2) g/dL Albumin (3.5-5.0) g/dL Assessment and Plan Plan: Impression: Biliary dyskinesia status post laparoscopic cholecystectomy Plan: Continue to monitor patient. Continue supportive treatment and pain management. Increase activity. From surgical standpoint, patient is stable for discharge when cleared by medical service. Patient will follow-up with Dr. Marr in one week. The above impression and plan have been discussed and directed by Dr. Marr. Alva CHAVEZ acting as scribe for Justa..
--- NOTE | 2016-10-30 08:46 | PN ---
DATE OF SERVICE: 10/28/2016 Patient has been released by Surgery and she will be going to [facility] today or tomorrow.
== END 2016-10-28 17:25 | DRG 418 ==
LOC: EC 20:22 → 3SUR 10-25 03:15
PROVIDERS: ADMIT Family Medicine; ATTEND Family Medicine
PROC: 0FT44ZZ Resection of Gallbladder, Percutaneous Endoscopic Approach (ICD-10-PCS; principal; 2016-10-27 13:20)
DX: K81.1 Chronic cholecystitis (principal); E11.40 Type 2 diabetes mellitus with diabetic neuropathy, unspecified; J44.9 Chronic obstructive pulmonary disease, unspecified; E03.9 Hypothyroidism, unspecified; E66.01 Morbid (severe) obesity due to excess calories; E83.42 Hypomagnesemia; E87.6 Hypokalemia; I10 Essential (primary) hypertension; K21.9 Gastro-esophageal reflux disease without esophagitis; K82.8 Other specified diseases of gallbladder; F32.9 Major depressive disorder, single episode, unspecified; M47.9 Spondylosis, unspecified; Z68.41 Body mass index [BMI] 40.0-44.9, adult; Z79.84 Long term (current) use of oral hypoglycemic drugs; Z79.899 Other long term (current) drug therapy; Z88.5 Allergy status to narcotic agent; Z88.8 Allergy status to other drugs, medicaments and biological substances; Z87.891 Personal history of nicotine dependence; Z96.651 Presence of right artificial knee joint; Z82.49 Family history of ischemic heart disease and other diseases of the circulatory system
CPT/HCPCS: 36415; 71020; 74177; 76705; 78226; 80053; 81001; 82150; 82550; 82553; 83036; 83605; 83690; 83735; 84484; 85025; 85610; 85730; 86850; 86900; 86901; 87040; 88304; 93005; 96361; 96365; 96375; 96376; 99285

== ENCOUNTER → 2017-09-07 | Day surgery (SDC) | payer MEDICARE, OTHER ==
[2017-09-05 10:16] VITALS: BMI 41.5
[~2017-09-07] MED LIST: DEXAMETHASONE SOD PHOSPHATE 10 MG/ML 1 ML VIAL IV ONE; DEXAMETHASONE SOD PHOSPHATE 4 MG/ML 1 ML VIAL IV ONE; FAMOTIDINE 20 MG/2 ML VIAL IV ONE; LACTATED RINGERS 1,000 ML IV SCH; LIDOCAINE 1% 20 ML VIAL (10MG/ML) FOR IV START INTRADERMA PRN; ONDANSETRON 4 MG/2 ML VIAL IVP ONE; ceFAZolin IN SWFI 2 GM/20 ML SYRINGE IVP ONE; fentaNYL (PF) 50 MCG/ML 2 ML AMP IV PRN
[2017-09-07 12:15] VITALS: BP 144/88; PULSE 58; RESP 20; TEMP 98.8
[2017-09-07 12:38] LABS: Glucose,Whole Blood 189 mg/dL (75-99)
== END | disposition home or self-care (01) ==
LOC: OR 11:10
PROVIDERS: ATTEND Otolaryngology
DX: K13.0 Diseases of lips (principal); Z53.8 Procedure and treatment not carried out for other reasons
CPT/HCPCS: 84132; J2405

== ENCOUNTER 2017-10-26 11:09 | Day surgery (SDC) | payer MEDICARE, OTHER ==
[2017-10-24 14:43] VITALS: BMI 41.5
[~2017-10-26 11:09] MED LIST changes: -LIDOCAINE 1% 20 ML VIAL (10MG/ML) FOR IV START INTRADERMA PRN; +ONDANSETRON ODT 4 MG TAB PO ONE
[2017-10-26 12:04] LABS: Glucose,Whole Blood 205 mg/dL (75-99)
[2017-10-26 12:22] VITALS: RESP 16; TEMP 98.6
[2017-10-26] MEDS ORDERED: LIDOCAINE 1% 20 ML VIAL (10MG/ML) FOR IV START INTRADERMA ONE (12:24)
[2017-10-26] MEDS ORDERED: ONDANSETRON 4 MG/2 ML VIAL IVP ONE (12:34)
[2017-10-26] MEDS ORDERED: INSULIN ASPART 100 UNIT/ML 1 ML 10 ML VIAL SQ ONE (12:42)
[2017-10-26] MEDS ORDERED: MIDAZOLAM 2 MG/2 ML VIAL ONE (12:45)
[2017-10-26] MEDS ORDERED: fentaNYL (PF) 50 MCG/ML 2 ML AMP ONE (12:45)
[2017-10-26] MEDS ORDERED: PROPOFOL 10 MG/ML 20 ML VIAL IV ONE (12:45)
[2017-10-26] MEDS ORDERED: LIDOCAINE 1%-EPI 1:100,000 30 ML VIAL SUBMUCOSAL ONE ×3 (13:01→13:18)
--- NOTE | 2017-10-26 13:46 | P.OP ---
Date of Procedure: 10/26/17 Preoperative Diagnosis: Right lower lip ulcerative lesion nonhealing measuring 3.1 cm Postoperative Diagnosis: Same Procedure(s) Performed: Excision of a right lower lip nonhealing ulcer measuring 3.1 cm with complex closure Anesthesia: MAC Surgeon: Damian Nix Estimated Blood Loss (ml): 5 Pathology: other (lip) Condition: stable Disposition: PACU Indications for Procedure: This patient has a nonhealing ulcer of the right lower lip surgical removal was recommended. Operative Findings: Nonhealing ulcerative lesion right lower lip, sialometaplasia Description of Procedure: This patient was taken to the operating room and IV sedation was administered. The right lower lip was injected with lidocaine 1% with epinephrine 1 100,000. A fusiform incision was made and this ulcerative lesion was removed. We did extensive undermining in all directions and close this in a complex fashion utilizing 4-0 Monocryl in the deep subcutaneous tissue. We utilized 50 rapid Vicryl. We removed redundant skin and prepped the skin edges and removed a Becca triangle anteriorly and posteriorly for a better closure. Patient tolerated this well and follow-up will be in the office in 1 week.
[2017-10-26 13:48] LABS: Glucose,Whole Blood 178 mg/dL (75-99)
[2017-10-26 14:24] VITALS: BP 118/75; PULSE 65
--- NOTE | 2017-11-02 06:01 | CDI ---
Date: 11/02/17 CDS/Senior Electrical Project Manager Name: Adia Romero Phone: If any questions, call Shaista Ovalles Senior Test Engineer at [phone] Patient Name: Maria Victoria Morley Admit Date: 10/26/17 Discharge Date: 10/26/17 ATTENTION: The [facility] Coding Staff appreciate your assistance in clarifying documentation. Please respond to the clarification below the line at the bottom and electronically sign. The [facility] Coding staff will review the response and follow-up if needed. Please note: Queries are made part of the Legal Health Record. If you have any questions, please contact the Senior Test Engineer. Dear Dr. Nix, Please provide clarification as to the size of the defect for the complex repair performed. In order to properly code this procedure, according to coding guidelines, the total length of the "repaired" defect must be documented with a complex repair. Complex repair includes extensive debridement and/or extensive undermining. The operative report also documents removal of redundant skin. Thank you for your kind consideration. use 4x2 cm as the size of the defect thanks MTDD
== END 2017-10-26 14:50 | disposition home or self-care (01) ==
LOC: OR 11:09
PROVIDERS: ATTEND Otolaryngology
DX: L57.0 Actinic keratosis (principal); L90.5 Scar conditions and fibrosis of skin; I10 Essential (primary) hypertension; E11.9 Type 2 diabetes mellitus without complications; J44.9 Chronic obstructive pulmonary disease, unspecified; Z87.891 Personal history of nicotine dependence; M19.90 Unspecified osteoarthritis, unspecified site; K21.9 Gastro-esophageal reflux disease without esophagitis; Z79.890 Hormone replacement therapy; Z79.891 Long term (current) use of opiate analgesic; Z79.899 Other long term (current) drug therapy; Z88.5 Allergy status to narcotic agent
CPT/HCPCS: 88305; 84132; 11446; 13152; 13153; J2250; J1100; J2405; J3010; J2704; J0690

== ENCOUNTER → 2017-11-29 | Outpatient (CLI) | payer MEDICARE, OTHER ==
[2017-11-29 12:19] LABS: Blood Urea Nitrogen 16 mg/dL (7-17)
[2017-11-29 16:10] LABS: Potassium 3.2 mmol/L (3.5-5.1)
[2017-11-29 16:11] LABS: ALT 33 U/L (9-52); AST 50 U/L (14-36); Albumin 4.2 g/dL (3.5-5.0); Alkaline Phosphatase 79 U/L (38-126); Anion Gap 13 mmol/L; Blood Urea Nitrogen 16 mg/dL (7-17); Calcium 9.4 mg/dL (8.4-10.2); Carbon Dioxide 31 mmol/L (22-30); Chloride 98 mmol/L (98-107); Glucose 155 mg/dL (74-99); Sodium 142 mmol/L (137-145); Total Bilirubin 0.9 mg/dL (0.2-1.3)
[2017-11-29 20:52] LABS: Basophils % (A) 1 %; Eosinophils # (A) 0.1 k/uL (0-0.7); Eosinophils % (A) 3 %; HCT 40.7 % (34.0-46.0); HGB 14.1 gm/dL (11.4-16.0); Lymphocytes % (A) 40 %; MCH 33.8 pg (25.0-35.0); MCHC 34.6 g/dL (31.0-37.0); MCV 97.8 fL (80.0-100.0); Mean Platelet Volume 9.6; Monocytes # (A) 0.2 k/uL (0-1.0); Monocytes % (A) 5 %; Neutrophils # (A) 2.4 k/uL (1.3-7.7); Neutrophils % (A) 50 %; Platelet Count 116 k/uL (150-450); RBC 4.17 m/uL (3.80-5.40); RDW 15.2 % (11.5-15.5); WBC 4.9 k/uL (3.8-10.6)
--- NOTE | 2017-11-30 00:26 | MR ---
EXAMINATION TYPE: MR lumbar spine wo/w con DATE OF EXAM: 11/29/2017 COMPARISON: NONE HISTORY: Low back pain TECHNIQUE: Multiplanar, multisequence images of the lumbar spine were acquired utilizing 10 mL intravenous Gadav ist gadolinium contrast. Lumbar vertebra have normal alignment. There is moderate narrowing of the disc spaces from L2 to L5. There is hypertrophic spurring of the endplates anteriorly and posteriorly throughout the lumbar spin e. There is spinal stenosis due to facet arthropathy and posterior disc herniation at L1-2. There is laminectomy of L5 L4 and probably L3. There is no compression fracture. The contrast images show no p athologic enhancement. There is no lumbar paraspinal mass. There is a cortical cyst on the lower pole right kidney. IMPRESSION: Moderate multilevel spondylosis. Multilevel laminectomy defect. There is posterior disc herniation at L1-L2,T12 L1 and L5-S1. There is no significant disc herniation posteriorly at the other levels. The re is mild spinal stenosis at L1-2 due to the disc herniation and facet arthropathy.
[2017-11-30 00:58] LABS: Vitamin D 25 Hydroxy 30.9 ng/mL (30.0-100.0)
== END ==
LOC: RADMRIMAIN 11:31
PROVIDERS: ATTEND Psychiatry & Neurology Neurology
DX: M47.816 Spondylosis without myelopathy or radiculopathy, lumbar region (principal); M51.26 Other intervertebral disc displacement, lumbar region; M51.27 Other intervertebral disc displacement, lumbosacral region; M48.061 Spinal stenosis, lumbar region without neurogenic claudication; Z88.5 Allergy status to narcotic agent
CPT/HCPCS: 84207; 80053; 82607; 82565; 84520; 85025; 82306; 72158; A9581

== ENCOUNTER 2018-05-25 19:39 | Inpatient (IN) | payer MEDICARE, OTHER ==
[2018-05-25 19:48] LABS: Glucose,Whole Blood 275 mg/dL (75-99)
--- NOTE | 2018-05-25 20:11 | ED ---
General Adult HPI - General Chief complaint: Fall Stated complaint: FALL Time Seen by Provider: 05/25/18 19:55 Source: patient, RN notes reviewed, old records reviewed Mode of arrival: EMS Limitations: no limitations - History of Present Illness Initial comments: 72 presents status post fall. Patient states she was getting out of bed, fell striking the top of her head. Uncertain if there was loss consciousness. Patient is not on any anticoagulation. Denies neck pain. She does have some mild headache. She also complains of right elbow pain. No other injuries. No chest pain. No dizziness or lightheadedness. No abdominal pain. No nausea vomiting or diarrhea. - Related Data Home Medications Medication Instructions Recorded Confirmed Allopurinol [Zyloprim] 300 mg PO DAILY 09/27/14 05/25/18 Cholecalciferol [Vitamin D3] 1,000 unit PO DAILY 09/27/14 05/25/18 Colchicine [Colcrys] 0.6 mg PO DAILY 09/27/14 05/25/18 Glimepiride [Amaryl] 4 mg PO BID 09/27/14 05/25/18 Levothyroxine Sodium [Synthroid] 50 mcg PO AC-BRKFST 09/27/14 05/25/18 Ranitidine HCl [Zantac] 150 mg PO DAILY 09/27/14 05/25/18 Sertraline [Zoloft] 100 mg PO DAILY 09/27/14 05/25/18 Albuterol Inhaler [Ventolin Hfa 1 puff INHALATION RT-QID PRN 09/28/14 05/25/18 Inhaler] Oxybutynin Chloride [Ditropan XL] 15 mg PO HS 10/24/16 05/25/18 Potassium Chloride [Klor-Con 20] 20 meq PO TID 10/24/17 05/25/18 carBAMazepine [TEGretol] 200 mg PO TID 10/24/17 05/25/18 Atenolol [Tenormin] 50 mg PO DAILY 05/25/18 05/25/18 Chlorthalidone [Hygroton] 25 mg PO DAILY 05/25/18 05/25/18 Gabapentin 600 mg PO BID 05/25/18 05/25/18 HYDROcodone/APAP 7.5-325MG [[place] 1 tab PO TID PRN 05/25/18 05/25/18 7.5-325] Losartan [Cozaar] 50 mg PO DAILY 05/25/18 05/25/18 clonazePAM [KlonoPIN] 0.5 mg PO TID PRN 05/25/18 05/25/18 Allergies Allergy/AdvReac Type Severity Reaction Status Date / Time morphine AdvReac Nausea & Verified 05/25/18 20:16 Vomiting Efjvlid-Llv-Zsl Reductase AdvReac STIFFNESS Verified 05/25/18 20:16 Inhibitor AND MUSCLE PAIN Review of Systems ROS Statement: Those systems with pertinent positive or pertinent negative responses have been documented in the HPI. ROS Other: All systems not noted in ROS Statement are negative. Past Medical History Past Medical History: Cancer, COPD, Diabetes Mellitus, GERD/Reflux, Hypertension , Thyroid Disorder Additional Past Medical History / Comment(s): NEUROPATHY-hands,feet. HX of falls ,SKIN CANCER, History of Any Multi-Drug Resistant Organisms: None Reported Past Surgical History: Back Surgery, Hysterectomy, Joint Replacement Additional Past Surgical History / Comment(s): RIGHT KNEE REPLACEMENT, cataract surgery- bilat Past Anesthesia/Blood Transfusion Reactions: No Reported Reaction Past Psychological History: Depression Smoking Status: Former smoker - Past Family History Mother Family Medical History: Dementia Additional Family Medical History / Comment(s): alzheimers Father Family Medical History: Myocardial Infarction ([place]) Additional Family Medical History / Comment(s): unknown General Exam Limitations: no limitations General appearance: alert, in no apparent distress Head exam: Present: atraumatic, normocephalic Eye exam: Present: normal appearance, PERRL, EOMI ENT exam: Present: normal exam Neck exam: Present: normal inspection, full ROM. Absent: tenderness, meningismus Respiratory exam: Present: normal lung sounds bilaterally. Absent: respiratory distress, wheezes Cardiovascular Exam: Present: regular rate, normal rhythm GI/Abdominal exam: Present: soft. Absent: distended, tenderness, guarding Extremities exam: Present: normal inspection, normal capillary refill. Absent: pedal edema Back exam: Present: normal inspection, full ROM. Absent: tenderness Neurological exam: Present: alert, oriented X3, CN II-XII intact. Absent: motor sensory deficit Psychiatric exam: Present: normal affect, normal mood Skin exam: Present: warm, dry, intact. Absent: cyanosis, diaphoretic Course Vital Signs 05/25/18 05/25/18 19:45 21:29 Temperature 99.3 F Pulse Rate 78 75 Respiratory 16 16 Rate Blood Pressure 126/86 93/70 O2 Sat by Pulse 94 L Oximetry EKG Findings - EKG Comments: EKG Findings:: EKG: Sinus rhythm frequent PVCs, prolonged QT rate of 79, NE interval 156, QRS duration 104, QTC 499, no ST segment elevation or depression Medical Decision Making - Medical Decision Making 72-year-old female presenting with fall from bed. No external signs of trauma. On rhythm strip it is noted that the patient has significant PVCs. Laboratory studies obtained, patient has normal CBC, potassium and magnesium were low, potassium 3.0, magnesium 1.1 with prolonged QT and PVCs on EKG. Traumatic workup is negative in the emergency department, x-ray of the elbow negative for fracture dislocation, computed tomography scan of the head negative for intracranial hemorrhage, computed tomography scan cervical spine negative for fracture subluxation. Patient will be admitted for left leg replacement and telemetry. Case discussed with admitting physician who will accept. - Lab Data Result diagrams: 05/25/18 19:55 05/25/18 19:55 Lab Results 05/25/18 05/25/18 05/25/18 Range/Units 19:46 19:55 19:55 WBC 6.4 (3.8-10.6) k/uL RBC 4.32 (3.80-5.40) m/uL Hgb 13.5 (11.4-16.0) gm/dL Hct 39.0 (34.0-46.0) % MCV 90.2 (80.0-100.0) fL MCH 31.3 (25.0-35.0) pg MCHC 34.8 (31.0-37.0) g/dL RDW 15.2 (11.5-15.5) % Plt Count 84 L (150-450) k/uL Neutrophils % 76 % Lymphocytes % 16 % Monocytes % 5 % Eosinophils % 0 % Basophils % 0 % Neutrophils # 4.9 (1.3-7.7) k/uL Lymphocytes # 1.1 (1.0-4.8) k/uL Monocytes # 0.3 (0-1.0) k/uL Eosinophils # 0.0 (0-0.7) k/uL Basophils # 0.0 (0-0.2) k/uL Manual Slide Review Performed Large Platelets Present Sodium 136 L (137-145) mmol/L Potassium 3.0 L (3.5-5.1) mmol/L Chloride 95 L (98-107) mmol/L Carbon Dioxide 31 H (22-30) mmol/L Anion Gap 10 mmol/L BUN 24 H (7-17) mg/dL Creatinine 0.68 (0.52-1.04) mg/dL Est GFR (CKD-EPI)AfAm >90 (>60 ml/min/1.73 sqM) Est GFR (CKD-EPI)NonAf 87 (>60 ml/min/1.73 sqM) Glucose 281 H (74-99) mg/dL POC Glucose (mg/dL) 275 H (75-99) mg/dL POC Glu Pastry Assistant ID Graciela Quintero Calcium 8.9 (8.4-10.2) mg/dL Magnesium 1.1 L (1.6-2.3) mg/dL Total Bilirubin 0.8 (0.2-1.3) mg/dL AST 37 H (14-36) U/L ALT 26 (9-52) U/L Alkaline Phosphatase 100 (38-126) U/L Total Protein 6.2 L (6.3-8.2) g/dL Albumin 3.5 (3.5-5.0) g/dL Disposition Clinical Impression: Hypomagnesemia, Hypokalemia Disposition: ADMITTED IP TO THIS [facility] Condition: Stable Is patient prescribed a controlled substance at d/c from ED?: No Referrals: Adi Park MD [Primary Care Provider] - 1-2 days Decision to Admit Reason: Admit from EC Decision Date: 05/25/18 Decision Time: 22:23
[2018-05-25 20:28] LABS: Basophils % (A) 0 %; Eosinophils % (A) 0 %; HGB 13.5 gm/dL (11.4-16.0); Lymphocytes # (A) 1.1 k/uL (1.0-4.8); Lymphocytes % (A) 16 %; MCH 31.3 pg (25.0-35.0); MCHC 34.8 g/dL (31.0-37.0); MCV 90.2 fL (80.0-100.0); Mean Platelet Volume 9.1; Monocytes # (A) 0.3 k/uL (0-1.0); Monocytes % (A) 5 %; Neutrophils # (A) 4.9 k/uL (1.3-7.7); Neutrophils % (A) 76 %; RBC 4.32 m/uL (3.80-5.40); RDW 15.2 % (11.5-15.5); WBC 6.4 k/uL (3.8-10.6)
[2018-05-25 20:30] LABS: ALT 26 U/L (9-52); AST 37 U/L (14-36); Albumin 3.5 g/dL (3.5-5.0); Alkaline Phosphatase 100 U/L (38-126); Anion Gap 10 mmol/L; Blood Urea Nitrogen 24 mg/dL (7-17); Calcium 8.9 mg/dL (8.4-10.2); Carbon Dioxide 31 mmol/L (22-30); Chloride 95 mmol/L (98-107); Glucose 281 mg/dL (74-99); Magnesium 1.1 mg/dL (1.6-2.3); Sodium 136 mmol/L (137-145); Total Bilirubin 0.8 mg/dL (0.2-1.3); Total Protein 6.2 g/dL (6.3-8.2)
--- NOTE | 2018-05-25 20:54 | CT ---
EXAMINATION TYPE: CT brain wenceslao peters con DATE OF EXAM: 05/25/2018 COMPARISON: 11/25/2015 HISTORY: Fall. Neck pain. Headache. CT DLP: . mGycm Automated exposure control for dose reduction was used. TECHNIQUE: CT scan of the head and cervical spine are performed without contrast. FINDINGS: There is cerebral cortical atrophy. There is no mass effect nor midline shift. There is n o sign of intracranial hemorrhage. Calvarium is intact. The cervical vertebra have normal alignment. There is a plate with screws fusing anteriorly C5-C6 and C7. The posterior elements are intact. Facet joints are intact. There is no evidence of a fracture. Skull base is intact. IMPRESSION: Negative CT scan of the cervical spine. No acute bony abnormality. No fracture. Multilevel facet arth ropathy. Cerebral atrophy. No acute intracranial abnormality. No change.
--- NOTE | 2018-05-25 20:55 | XR ---
EXAMINATION TYPE: XR elbow complete RT DATE OF EXAM: 05/25/2018 COMPARISON: NONE HISTORY: Elbow pain TECHNIQUE: 3 views FINDINGS: There is spurring on the olecranon process of the ulna. I see no fracture nor dislocation. There is some spurring of the medial humeral condyle. IMPRESSION: Degenerative mild spurring. No fracture seen.
[2018-05-25 20:58] LABS: Large Platelets Present
[2018-05-25 20:59] LABS: Platelet Count 84 k/uL (150-450)
[2018-05-25] MEDS ORDERED: POTASSIUM CHLORIDE ER 20 MEQ TAB.ER PO STA (21:15)
[2018-05-25] MEDS: MAGNESIUM SULFATE-D5W PMX 1 GM in DEXTROSE/WATER 1 100ML.BAG IVPB SCH ×2 (21:25→22:23)
[2018-05-25] MEDS ORDERED: NALOXONE 0.4 MG/ML 1 ML VIAL IV PRN (22:08)
[2018-05-26] MEDS ORDERED: POTASSIUM CHLORIDE 20 MEQ in WATER FOR INJECTION 1 100ML.BAG IVPB SCH
[2018-05-26 00:46] VITALS: BMI 40.5
[2018-05-26] MEDS ORDERED: TRIMETHOBENZAMIDE 300 MG CAP PO PRN (01:50)
[2018-05-26] MEDS: DICLOFENAC SODIUM GEL 100 GM TUBE TOPICAL SCH ×6 (02:42→21:27)
[2018-05-26] MEDS: POTASSIUM CHLORIDE 10 MEQ in WATER FOR INJECTION 1 100ML.BAG IVPB SCH ×4 (02:42→08:33)
[2018-05-26] MEDS ORDERED: ACETAMINOPHEN TAB 325 MG TAB PO PRN (03:36)
[2018-05-26] MEDS ORDERED: ACETAMINOPHEN IV (For NPO) 1,000 MG in EMPTY BAG 1 BAG IVPB STA (04:23)
[2018-05-26 04:26] LABS: Glucose,Whole Blood 243 mg/dL (75-99)
[2018-05-26 04:47] LABS: Basophils % (A) 1 %; Eosinophils % (A) 1 %; HCT 42.8 % (34.0-46.0); HGB 14.6 gm/dL (11.4-16.0); Lymphocytes # (A) 0.6 k/uL (1.0-4.8); Lymphocytes % (A) 14 %; MCH 31.6 pg (25.0-35.0); MCHC 34.2 g/dL (31.0-37.0); MCV 92.5 fL (80.0-100.0); Mean Platelet Volume 8.5; Monocytes # (A) 0.1 k/uL (0-1.0); Monocytes % (A) 3 %; Neutrophils # (A) 3.3 k/uL (1.3-7.7); Neutrophils % (A) 81 %; RBC 4.63 m/uL (3.80-5.40); RDW 15.1 % (11.5-15.5); WBC 4.1 k/uL (3.8-10.6)
[2018-05-26 04:49] LABS: Platelet Count 75 k/uL (150-450)
[2018-05-26 04:51] LABS: Albumin 3.5 g/dL (3.5-5.0); Anion Gap 10 mmol/L; Calcium 9.1 mg/dL (8.4-10.2); Carbon Dioxide 30 mmol/L (22-30); Chloride 96 mmol/L (98-107); Glucose 239 mg/dL (74-99); Sodium 136 mmol/L (137-145); Total Bilirubin 1.3 mg/dL (0.2-1.3); Total Protein 6.5 g/dL (6.3-8.2)
[2018-05-26 04:53] LABS: AST 53 U/L (14-36); Blood Urea Nitrogen 26 mg/dL (7-17); Magnesium 1.6 mg/dL (1.6-2.3); Potassium 3.9 mmol/L (3.5-5.1)
[2018-05-26 04:54] LABS: ALT 24 U/L (9-52); Alkaline Phosphatase 92 U/L (38-126)
[2018-05-26] MEDS: IBUPROFEN 600 MG TAB PO PRN (06:05)
[2018-05-26] MEDS: AMPICILLIN-SULBACTAM 3 GM in SODIUM CHLORIDE 0.9% 100 ML IVPB SCH ×4 (06:12→23:37)
[2018-05-26] MEDS: LACTATED RINGERS 1,000 ML IV SCH ×6 (06:13→23:31)
[2018-05-26] MEDS ORDERED: Magnesium Replacement Protocol 1 EACH MISC MISCELLANE PRN (06:57)
[2018-05-26] MEDS ORDERED: Potassium Replacement Protocol 1 EACH MISC MISCELLANE PRN (06:58)
--- NOTE | 2018-05-26 07:02 | CT ---
EXAMINATION TYPE: CT brain wenceslao weldon DATE OF EXAM: 05/26/2018 COMPARISON: Yesterday HISTORY: Neuro deficit CT DLP: 1693.6 mGycm Automated exposure control for dose reduction was used. TECHNIQUE: CT scan of the head and cervical spine are performed without contrast. FINDINGS: There is cerebral cortical atrophy. There is no mass effect nor midline shift. There is n o sign of intracranial hemorrhage. The calvarium is intact. There is plate and screws fusing anteriorly the cervical spine at C5 and C6 and C7. There is hypertro phic multilevel facet arthropathy. Skull base is intact. There is no subluxation. I see no focal bone destruction. IMPRESSION: Cerebral atrophy. Mild chronic small vessel ischemia. No change compared to yesterday. Spondylotic changes in the cervical spine. No fracture. Previous surgery. No change.
[2018-05-26 07:15] LABS: Glucose,Whole Blood 244 mg/dL (75-99)
[2018-05-26] MEDS: INSULIN ASPART 100 UNIT/ML 1 ML 10 ML VIAL SQ SCH ×4 (08:01→21:27)
[2018-05-26] MEDS: LEVOTHYROXINE 50 MCG TAB PO SCH (09:53)
[2018-05-26] MEDS: LOSARTAN 50 MG TAB PO SCH (09:53)
[2018-05-26] MEDS: ATENOLOL 50 MG TAB PO SCH (09:53)
[2018-05-26 10:03] LABS: Magnesium 1.5 mg/dL (1.6-2.3); Potassium 3.3 mmol/L (3.5-5.1)
[2018-05-26 11:23] LABS: Glucose,Whole Blood 295 mg/dL (75-99)
[2018-05-26] MEDS: POTASSIUM CHLORIDE ER 20 MEQ TAB.ER PO SCH ×4 (12:08→21:27)
[2018-05-26] MEDS ORDERED: ALBUTEROL NEBULIZED 2.5 MG/3 ML INHALATION PRN (12:26)
[2018-05-26] MEDS ORDERED: MAGNESIUM SULFATE-D5W PMX 1 GM in DEXTROSE/WATER 1 100ML.BAG IVPB ONE (12:30)
[2018-05-26] MEDS: ACETAMINOPHEN TAB 325 MG TAB PO PRN ×2 (14:33→22:34)
[2018-05-26] MEDS: carBAMazepine 200 MG TAB PO SCH ×2 (15:35→21:27)
--- NOTE | 2018-05-26 16:35 | XR ---
EXAMINATION TYPE: XR chest 1V portable DATE OF EXAM: 05/26/2018 COMPARISON: Prior chest x-ray 10/24/2016 HISTORY: Fever, abnormal chest x-ray TECHNIQUE: Single frontal view of the chest is obtained. FINDINGS: There is no focal air space opacity, pleural effusion, or pneumothorax seen. The cardiac silhouette size is stable, the appearance may be enlarged due to rotation, technique. The osseous s tructures are intact. Postop changes noted in the cervical spine. There are overlying cardiac leads. IMPRESSION: Enlarged appearance of the heart may be technical. Follow-up as indicated.
[2018-05-26 16:57] LABS: Magnesium 1.6 mg/dL (1.6-2.3); Potassium 3.4 mmol/L (3.5-5.1)
[2018-05-26 16:57] LABS: Glucose,Whole Blood 249 mg/dL (75-99)
[2018-05-26] MEDS: GLIMEPIRIDE 4 MG TAB PO SCH (17:30)
[2018-05-26 18:33] LABS: Amorphous Sediment,Urine Occasional /hpf; Appearance,Urine Cloudy (Clear); Bacteria,Urine Rare /hpf; Bilirubin,Urine 1+ (Negative); Blood,Urine Moderate (Negative); Color,Urine Dark Yellow; Glucose,Urine (UA) Trace (Negative); Ketones,Urine Trace (Negative); Leukocyte Esterase,Urine Large (Negative); Mucus,Urine Rare /hpf; Nitrite,Urine Negative (Negative); PH, Urine 5.5 (5.0-8.0); Protein,Urine 2+ (Negative); RBC,Urine 27 /hpf (0-5); Specific Gravity,Urine 1.027 (1.001-1.035); WBC,Urine 154 /hpf (0-5)
[2018-05-26] MEDS: MAGNESIUM SULFATE-D5W PMX 1 GM in DEXTROSE/WATER 1 100ML.BAG IVPB SCH ×2 (20:04→21:27)
[2018-05-26] MEDS: OXYBUTYNIN 15 MG TAB.ER.24 PO SCH (20:04)
[2018-05-26] MEDS: GABAPENTIN 300 MG CAP PO SCH (20:04)
[2018-05-26 21:12] LABS: Glucose,Whole Blood 272 mg/dL (75-99)
[2018-05-26 23:36] LABS: Magnesium 2.4 mg/dL (1.6-2.3); Potassium 3.4 mmol/L (3.5-5.1)
--- NOTE | 2018-05-27 00:46 | CONS ---
CONSULTATION DATE OF SERVICE: 05/26/2018. REASON FOR CONSULTATION: Fever. HISTORY OF PRESENT ILLNESS: The patient is a 72-year-old female, who was brought into the ER at [facility] yesterday evening after apparently the patient did have a fall. The patient said he was trying to get out of the bed, fell, striking the top of her head. No clear history of any loss of consciousness or not. The patient did not have any fever on presentation. However, the patient subsequently did spike a fever of 101 degrees Fahrenheit with 103 early this morning. The patient denies having any headache or any URI symptom other than sore throat. No chest pain. She did have mild shortness of breath, but no cough or sputum production. No abdominal pain. Did not have any diarrhea before she came to the hospital however did have one episode of loose stool today. Some symptoms of foul concentrated urine. The patient denies significant burning or any suprapubic or flank pain. The patient this morning, blood cultures were ordered, urine cultures were ordered and the patient started Unasyn. Infectious Disease was consulted for further recommendation regarding antibiotic therapy. The patient currently no open sores or any bruises per the nursing staff and denies having any swelling or redness in the leg or any joint swelling. REVIEW OF SYSTEMS: CONSTITUTIONAL: Positive for weakness. No fever. EYES no complaint. ENT no complaint. RESPIRATORY no complaint. CARDIOVASCULAR no complaint. GENITOURINARY as per HPI. GASTROINTESTINAL: As per HPI. MUSCULOSKELETAL: No complaint. Integumentary: No complaint. PSYCHOLOGICAL: No complaint. ENDOCRINE: No complaint. NEUROLOGICAL as per HPI. PAST MEDICAL HISTORY: Significant for diabetes mellitus, gastroesophageal reflux disease, hypertension, hypothyroidism, COPD, skin cancer. PAST SURGICAL HISTORY: Hysterectomy, right knee replacement, cataract surgery, bilateral and back surgery. SOCIAL HISTORY: Remote history of smoking. No drinking or drug use. FAMILY HISTORY: Mother with history of dementia. Father history of NM. ALLERGIES: TO MORPHINE, STATINS. MEDICATIONS: Medications include the patient is currently on Tylenol, Ventolin, Zyloprim, Unasyn 3 g q.6h, Tenormin, Tegretol, colchicine, Pepcid, Neurontin, Ambien, Motrin, NovoLog, Cozaar, Narcan drip, , K-Dur, Zoloft and Tigan. EXAMINATION: Blood pressure 133/94, pulse of 75, temperature 100.3, T-max 103. She is 92% on room air. General description is an elderly female lying in bed in no distress. No tachypnea or accessory muscles of respiration use. HEENT: Shows no pallor or scleral icterus. Oral mucous membranes dry. No pharyngeal erythema or thrush. Neck trachea central. No thyromegaly. Lungs unlabored breathing, clear to auscultation anteriorly. No wheeze or crackles. Heart: S1, S2. Regular rate and rhythm. Abdomen soft, no tenderness. No guarding. No organomegaly. EXTREMITIES: No edema of the feet. Skin examination: No rash or mass palpable. NEUROLOGICAL: Patient is awake, alert, oriented x2. Mood and affect normal. LABS: Hemoglobin is 14.7, white count 4.1 with a BUN of 26, creatinine 0.858, electrolytes have been normal. Lactic acid of 3.0. Liver enzymes AST mildly elevated at 53. Alkaline phos and bilirubin normal. Urine culture obtain, no UA. Blood cultures currently pending. DIAGNOSTIC IMPRESSION AND PLAN: Patient with an episode of fever in this patient who has been brought to the hospital after apparently the patient did have a fall at home with object for which the patient did have multiple x-rays but no evidence of any fracture. She did have some foul-smelling urine and underlying source of UTI to be the likely consideration for her fever as patient with no other clinical focus of infection. Lungs was clear to auscultation. Abdominal soft on clinical examination and no evidence of any cellulitis or joint swelling. PLAN: 1. A UA has been requested as well as culture. 2. We will obtain influenza A and B serologies. 3. Unasyn 3 g q.6h. Should provide adequate coverage for enteric gram-negative drug infection. 4. We will follow up on clinical condition and culture to further adjust medication if needed. Thank you for this consultation. Will follow this patient along with you. MMODL / IJN: [id number] /
[2018-05-27] MEDS: LACTATED RINGERS 1,000 ML IV SCH ×3 (03:30→17:35)
[2018-05-27] MEDS: POTASSIUM CHLORIDE ER 20 MEQ TAB.ER PO SCH ×5 (04:02→22:18)
[2018-05-27] MEDS: AMPICILLIN-SULBACTAM 3 GM in SODIUM CHLORIDE 0.9% 100 ML IVPB SCH ×4 (05:43→23:53)
[2018-05-27 07:09] LABS: Glucose,Whole Blood 217 mg/dL (75-99)
[2018-05-27] MEDS: INSULIN ASPART 100 UNIT/ML 1 ML 10 ML VIAL SQ SCH ×4 (07:48→20:17)
[2018-05-27] MEDS: LEVOTHYROXINE 50 MCG TAB PO SCH (07:48)
[2018-05-27] MEDS: GLIMEPIRIDE 4 MG TAB PO SCH ×2 (07:48→16:32)
[2018-05-27] MEDS: FAMOTIDINE 20 MG TAB PO SCH (09:03)
[2018-05-27] MEDS: ACETAMINOPHEN TAB 325 MG TAB PO PRN ×2 (09:03→16:32)
[2018-05-27] MEDS: carBAMazepine 200 MG TAB PO SCH ×3 (09:03→22:46)
[2018-05-27] MEDS: GABAPENTIN 300 MG CAP PO SCH ×2 (09:04→20:17)
[2018-05-27] MEDS: SERTRALINE 100 MG TAB PO SCH (09:04)
[2018-05-27] MEDS: LOSARTAN 50 MG TAB PO SCH (09:04)
[2018-05-27] MEDS: ATENOLOL 50 MG TAB PO SCH (09:04)
[2018-05-27] MEDS: COLCHICINE 0.6 MG EACH PO SCH (09:04)
[2018-05-27] MEDS: ALLOPURINOL 300 MG TAB PO SCH (09:04)
[2018-05-27] MEDS: DICLOFENAC SODIUM GEL 100 GM TUBE TOPICAL SCH ×4 (09:32→22:18)
[2018-05-27] MEDS: IBUPROFEN 600 MG TAB PO PRN (10:47)
[2018-05-27 12:07] LABS: Glucose,Whole Blood 149 mg/dL (75-99)
--- NOTE | 2018-05-27 14:47 | PN ---
PROGRESS NOTE DATE OF SERVICE: 05/25/2018 CHIEF COMPLAINT: Delirium, falling and electrolyte imbalance. HISTORY OF PRESENT ILLNESS: This lady is doing a bit better, but she still seems to be a little bit confused. Her mental status does not seem to be quite back to normal. She is not currently complaining of a headache and she has had no new neurologic signs or symptoms. PHYSICAL EXAM: Her vital signs are normal. Chest is clear. Cardiac exam is normal. Abdomen is soft, nontender. Neck is supple. Pupils equal, round, reactive. IMPRESSION: 1. Syncope ? 2. Fall. 3. Closed head injury. 4. Contusion of the right arm. 5. Low back pain. PLAN: Continue to monitor her neurologic status while correcting her hypomagnesemia and hypokalemia. MMODL / IJN: [id number] /
--- NOTE | 2018-05-27 16:17 | HP ---
HISTORY AND PHYSICAL CHIEF COMPLAINT: Syncope, fall, low back pain, dehydration, hypomagnesemia and hypokalemia. HISTORY OF PRESENT ILLNESS: This is another admission for this 72-year-old white female has a history of hypertension, depression, and arthritis particularly involving the LS and cervical spine. She apparently fell out of bed and came to the emergency room where she was admitted. Her potassium, magnesium were profoundly lowered. She did strike her head and a CT in the emergency room was negative. However, she complains somewhat of a headache and cognitive function is not back to normal. REVIEW OF SYSTEMS: She does complain of a headache but no focal neurologic problems. She has had no changes in vision or the hearing. She has had no shortness of breath, cough, hemoptysis, angina, infarct, angina, infarctions, orthopnea, PND, abdominal pain, nausea, vomiting, hematemesis, melena, hematochezia, jaundice, hematuria, frequency, urgency, incontinence, etc. Past medical history, family history, personal and social history is otherwise unremarkable and noncontributory. Her medications that she takes are on her medication list. She does take a Tegretol and gabapentin, but it is not for seizure disorder. PHYSICAL EXAMINATION: Blood pressure 142/68 with a pulse of 104, respirations of 35 and she is afebrile. In general, she appeared to be well developed, well nourished and overweight. Skin color is normal. Skin is warm, dry. Lymph nodes not enlarged. Head, ears, eyes, nose, mouth, and throat were normal and neck veins are not distended. Thyroid is not enlarged. Chest is clear. Cardiac exam is normal. Abdomen is soft, nontender. Extremities are normal and neurologically she seems intact, although she is a little bit more vague than normal. IMPRESSION: 1. Syncope. 2. ? seizure. 3. Hypomagnesemia. 4. Hypokalemia. 5. Neck strain. 6. Low back strain. 7. Closed head injury. 8. Contusion of the right arm. PLAN: 1. Bed rest. 2. IV fluids. 3. Frequent monitoring of her neurologic status. MMODL / IJN: [id number] /
[2018-05-27 16:23] LABS: Glucose,Whole Blood 232 mg/dL (75-99)
--- NOTE | 2018-05-27 16:33 | P.CNNES ---
History of Present Illness Consult date: 05/27/18 Reason for Consult: Patient admitted with recent fall and weakness. History of Present Illness: This patient is a 72-year-old right-handed white female who was brought into the emergency room at [facility] yesterday for evaluation of fall. Patient apparently was trying to get up out of her bed and she fell and struck the back of her head. There was no clear indication that she had any loss of consciousness but she did feel very weak. Just prior to her attempting to get out of bed the patient noted that she was shivering. She was brought into the emergency room for further evaluation. She was found in the ER to have spiked a temperature of 101. Later she also spiked a temperature of 103. She denied any headache or neck pain or neck stiffness. She was sent for a computed tomography scan of the brain which revealed evidence of cerebral atrophy and chronic small vessel ischemia. There was some spondylitic changes noted in the cervical spine as well. The patient was evaluated for possible urinary tract infection. Urine cultures are pending. She was started on Unasyn. She was sent for laboratory testing for influenza A and B which did come back negative. The patient states she is feeling somewhat better today but still feels off balance. Her temperature is much improved today. She does have a history of taking Tegretol possibly for pain management as she denies any recent history of seizures. She is also on Neurontin as well. We would recommend to check her Tegretol blood level. Once again she denies any previous history of seizures. Her CAT scan of the cervical spine revealed no evidence for subluxation or fracture. Patient states she is been able to stand today with some assistance. She does have some generalized weakness. She is now been admitted and neurology has been consulted for further evaluation and recommendations. Review of Systems Constitutional: Denies chills, Denies fever Eyes: denies blurred vision, denies pain Ears, nose, mouth and throat: Denies headache, Denies sore throat Cardiovascular: Denies chest pain, Denies shortness of breath Respiratory: Denies cough Gastrointestinal: Denies abdominal pain, Denies diarrhea, Denies nausea, Denies vomiting Genitourinary: Denies dysuria, Denies hematuria Musculoskeletal: Denies myalgias Integumentary: Denies pruritus, Denies rash Neurological: Reports confusion, Reports syncope, Denies numbness, Denies weakness Psychiatric: Denies anxiety, Denies depression Endocrine: Denies fatigue, Denies weight change Past Medical History Past Medical History: Cancer, COPD, Diabetes Mellitus, GERD/Reflux, Hypertension , Thyroid Disorder Additional Past Medical History / Comment(s): NEUROPATHY-hands,feet. HX of falls ,SKIN CANCER, History of Any Multi-Drug Resistant Organisms: None Reported Past Surgical History: Back Surgery, Hysterectomy, Joint Replacement Additional Past Surgical History / Comment(s): RIGHT KNEE REPLACEMENT, cataract surgery- bilat Past Anesthesia/Blood Transfusion Reactions: No Reported Reaction Past Psychological History: Depression Additional Psychological History / Comment(s): PT LIVES IN OWN HOME HAS 1 DOG, USUALLY IS INDEPENDANT Smoking Status: Former smoker Past Alcohol Use History: None Reported Additional Past Alcohol Use History / Comment(s): STARTED SMOKING AT AGE 17 QUIT IN 2001 SMOKED 1-2 PPD Past Drug Use History: None Reported - Past Family History Mother Family Medical History: Dementia Additional Family Medical History / Comment(s): alzheimers Father Family Medical History: Myocardial Infarction ([place]) Additional Family Medical History / Comment(s): unknown Medications and Allergies Home Medications Medication Instructions Recorded Confirmed Type Allopurinol [Zyloprim] 300 mg PO DAILY 09/27/14 05/25/18 History Cholecalciferol [Vitamin D3] 1,000 unit PO DAILY 09/27/14 05/25/18 History Colchicine [Colcrys] 0.6 mg PO DAILY 09/27/14 05/25/18 History Glimepiride [Amaryl] 4 mg PO BID 09/27/14 05/25/18 History Levothyroxine Sodium [Synthroid] 50 mcg PO AC-BRKFST 09/27/14 05/25/18 History Ranitidine HCl [Zantac] 150 mg PO DAILY 09/27/14 05/25/18 History Sertraline [Zoloft] 100 mg PO DAILY 09/27/14 05/25/18 History Albuterol Inhaler [Ventolin Hfa 1 puff INHALATION RT-QID PRN 09/28/14 05/25/18 History Inhaler] Oxybutynin Chloride [Ditropan XL] 15 mg PO HS 10/24/16 05/25/18 History Potassium Chloride [Klor-Con 20] 20 meq PO TID 10/24/17 05/25/18 History carBAMazepine [TEGretol] 200 mg PO TID 10/24/17 05/25/18 History Atenolol [Tenormin] 50 mg PO DAILY 05/25/18 05/25/18 History Chlorthalidone [Hygroton] 25 mg PO DAILY 05/25/18 05/25/18 History Gabapentin 600 mg PO BID 05/25/18 05/25/18 History HYDROcodone/APAP 7.5-325MG [[place] 1 tab PO TID PRN 05/25/18 05/25/18 History 7.5-325] Losartan [Cozaar] 50 mg PO DAILY 05/25/18 05/25/18 History clonazePAM [KlonoPIN] 0.5 mg PO TID PRN 05/25/18 05/25/18 History Allergies Allergy/AdvReac Type Severity Reaction Status Date / Time morphine AdvReac Nausea & Verified 05/25/18 20:16 Vomiting Xxobwlx-Enj-Vmy Reductase AdvReac STIFFNESS Verified 05/25/18 20:16 Inhibitor AND MUSCLE PAIN Physical Examination - Vital Signs Vital Signs: Vital Signs Temp Pulse Resp BP Pulse Ox 05/27/18 07:00 97.8 F 66 16 94/60 99 05/27/18 00:00 98.1 F 59 L 16 98/62 97 05/26/18 19:55 100.3 F H 75 16 103/94 92 L 05/26/18 14:47 97.7 F 62 16 115/77 96 Intake and Output 05/26/18 05/27/18 05/27/18 22:59 06:59 14:59 Intake Total 600 1480 280 Output Total 20 Balance 580 1480 280 Intake: IV 200 1000 Lactated Ringers 1,000 ml 200 1000 @ 150 mls/hr IV .[id number] [facility] Rx#:[id number] Intake, IV Titration 200 Amount Magnesium Sulfate-D5w Pmx 100 1 gm In Dextrose/Water 1 100ml.bag @ 100 mls/hr IVPB ONCE ONE Rx#: [id number] Magnesium Sulfate-D5w Pmx 100 1 gm In Dextrose/Water 1 100ml.bag @ 100 mls/hr IVPB Q1H [facility] Rx#: [id number] Oral 200 480 280 Output: Urine 20 Straight 20 Other: Voiding Method Incontinent # Voids 1 - Constitutional General appearance: average body habitus - EENT EENT: PERRL, mucous membranes moist - Respiratory Respiratory: lungs clear, normal breath sounds - Cardiovascular Cardiovascular: regular rate, normal S1, normal S2 Extremities: no peripheral edema bilaterally - Gastrointestinal Gastrointestinal: normoactive bowel sounds - Integumentary Integumentary: normal - Neurologic Cranial nerve examination: PERRL, EOMI, VFF, V1/V2/V3 grossly intact, face symmetric, intact gag reflex, intact corneal reflex, normal palatal elevation Speech examination: intact Sensorimotor examination: intact Motor examination - right side: 3/5: biceps, triceps, wrist flexion, wrist extension, fugitive detective, hip flexors, knee extensors, dorsiflexion, toe extension (EHL) , plantarflexion Motor examination - left side: 3/5: biceps, triceps, wrist flexion, wrist extension, fugitive detective, hip flexors, knee extensors, dorsiflexion, toe extension (EHL) , plantarflexion Detailed sensory examination: intact Reflex and gait examination: intact Reflexes: 1+: ankle, bicep, knee, tricep - Musculoskeletal Musculoskeletal: no pain - Psychiatric Psychiatric: mood/affect appropriate, cooperative Results - Laboratory Findings CBC and BMP: 05/26/18 04:12 05/27/18 06:49 Abnormal Lab Findings: Abnormal Labs 05/25/18 05/25/18 05/25/18 19:46 19:55 19:55 Plt Count 84 L Lymphocytes # Sodium 136 L Potassium 3.0 L Chloride 95 L Carbon Dioxide 31 H BUN 24 H Glucose 281 H POC Glucose (mg/dL) 275 H Plasma Lactic Acid Joe Magnesium 1.1 L AST 37 H Total Protein 6.2 L Urine Appearance Urine Protein Urine Glucose (UA) Urine Ketones Urine Blood Urine Bilirubin Ur Leukocyte Esterase Urine RBC Urine WBC Amorphous Sediment Urine Bacteria Urine Mucus 05/26/18 05/26/18 05/26/18 04:12 04:12 04:15 Plt Count 75 L Lymphocytes # 0.6 L Sodium 136 L Potassium Chloride 96 L Carbon Dioxide BUN 26 H Glucose 239 H POC Glucose (mg/dL) Plasma Lactic Acid Joe 3.0 H* Magnesium AST 53 H Total Protein Urine Appearance Urine Protein Urine Glucose (UA) Urine Ketones Urine Blood Urine Bilirubin Ur Leukocyte Esterase Urine RBC Urine WBC Amorphous Sediment Urine Bacteria Urine Mucus 12/08/18 12/08/18 12/08/18 04:25 07:13 09:01 Plt Count Lymphocytes # Sodium Potassium 3.3 L Chloride Carbon Dioxide BUN Glucose POC Glucose (mg/dL) 243 H 244 H Plasma Lactic Acid Joe Magnesium 1.5 L AST Total Protein Urine Appearance Urine Protein Urine Glucose (UA) Urine Ketones Urine Blood Urine Bilirubin Ur Leukocyte Esterase Urine RBC Urine WBC Amorphous Sediment Urine Bacteria Urine Mucus 05/26/18 05/26/18 05/26/18 11:21 16:40 16:51 Plt Count Lymphocytes # Sodium Potassium 3.4 L Chloride Carbon Dioxide BUN Glucose POC Glucose (mg/dL) 295 H 249 H Plasma Lactic Acid Joe Magnesium AST Total Protein Urine Appearance Urine Protein Urine Glucose (UA) Urine Ketones Urine Blood Urine Bilirubin Ur Leukocyte Esterase Urine RBC Urine WBC Amorphous Sediment Urine Bacteria Urine Mucus 05/26/18 05/26/18 05/26/18 17:40 21:00 23:03 Plt Count Lymphocytes # Sodium Potassium 3.4 L Chloride Carbon Dioxide BUN Glucose POC Glucose (mg/dL) 272 H Plasma Lactic Acid Joe Magnesium 2.4 H AST Total Protein Urine Appearance Cloudy H Urine Protein 2+ H Urine Glucose (UA) Trace H Urine Ketones Trace H Urine Blood Moderate H Urine Bilirubin 1+ H Ur Leukocyte Esterase Large H Urine RBC 27 H Urine WBC 154 H Amorphous Sediment Occasional H Urine Bacteria Rare H Urine Mucus Rare H 05/27/18 07:07 Plt Count Lymphocytes # Sodium Potassium Chloride Carbon Dioxide BUN Glucose POC Glucose (mg/dL) 217 H Plasma Lactic Acid Joe Magnesium AST Total Protein Urine Appearance Urine Protein Urine Glucose (UA) Urine Ketones Urine Blood Urine Bilirubin Ur Leukocyte Esterase Urine RBC Urine WBC Amorphous Sediment Urine Bacteria Urine Mucus Assessment and Plan (1) Acute metabolic encephalopathy Current Visit: Yes Status: Acute Code(s): G93.41 - METABOLIC ENCEPHALOPATHY SNOMED Code(s): 07098490 (2) Urinary tract infection Current Visit: Yes Status: Acute Code(s): N39.0 - URINARY TRACT INFECTION, SITE NOT SPECIFIED SNOMED Code(s): 21014678 (3) Hypokalemia Current Visit: Yes Status: Acute Code(s): E87.6 - HYPOKALEMIA SNOMED Code( s): 71367940 (4) Hypomagnesemia Current Visit: Yes Status: Acute Code(s): E83.42 - HYPOMAGNESEMIA SNOMED Code(s): 716672346 Plan: This patient is a 72-year-old female who was admitted to Hospital with symptoms of recent fall while trying to get out of bed. She complained of generalized weakness just prior to this event. She was also having shivering events possibly related to ongoing sepsis. She was brought into the emergency room at [facility] and was evaluated in the ER by Dr. Dyer. She was sent for a computed tomography scan of the brain which revealed cerebral atrophy and mild chronic small vessel ischemia. CT of the cervical spine was negative for fracture or subluxation. Some arthritic changes were noted. Patient did spike a fever in the emergency room and was found to have evidence of a urinary tract infection. She was started on Unasyn and admitted to the hospital. Patient does mention she has been taking Tegretol but it is unclear as to the reason why. She denies any previous history of seizures. We will check her Tegretol level tomorrow to make sure dizziness and at therapeutic range. We will have the patient undergo routine EEG as further evaluation for near syncope versus syncopal episode at the time of admission. Her overall prognosis at this time remains very guarded. We will continue close neurological follow-up with the patient during this admission. Case was discussed at length with the patient and all of her questions are answered. She is aware of our current treatment plan and is in full agreement. Time with Patient: Greater than 30
--- NOTE | 2018-05-27 17:05 | PN ---
PROGRESS NOTE CHIEF COMPLAINT: Syncope with head injury, cervical spine sprain and low back pain in addition to FUO. HISTORY OF PRESENT ILLNESS: This lady continues to improve. Pain is improving. Speech seems to be getting stronger. She seems to be more oriented and alert. She did have a positive blood culture, but it would be overed with the antibiotics. PHYSICAL EXAM: Chest is clear. Cardiac exam is normal. Abdomen is soft, nontender. IMPRESSION: 1. Syncope, etiology unknown. 2. Cervical and LS spine sprain. 3. Contusion of the right arm. PLAN: 1. Await neurologic evaluation. 2. Increase activity. MMODL / IJN: [id number] /
[2018-05-27 20:13] LABS: Glucose,Whole Blood 258 mg/dL (75-99)
[2018-05-27] MEDS: OXYBUTYNIN 15 MG TAB.ER.24 PO SCH (20:17)
--- NOTE | 2018-05-27 22:14 | PN ---
PROGRESS NOTE DATE OF SERVICE: 05/27/2018. REASON FOR FOLLOWUP: Urinary tract infection. INTERVAL HISTORY: The patient overall fever pattern has improved. Last temperature was 100.3 last evening. The patient is more awake and alert. The patient denies having any chest pain or shortness of breath. Occasional cough. No abdominal pain. No diarrhea. EXAMINATION: Blood pressure 122/67, pulse of 57, temperature 97.8. She is 92% on 2 L nasal cannula. General description is an elderly female lying in bed in no distress. Respiratory system unlabored breathing with decreased breath sounds in the bases. No wheeze. Heart S1, S2. Regular rate and rhythm. Abdomen soft, no tenderness. Extremities: No edema of the feet. LABS: Potassium is 3.5. Urine showing gram-negative bacilli. Blood cultures have been negative. DIAGNOSTIC IMPRESSION AND PLAN: Patient admitted to the hospital with fever and mental status changes. Source is likely urinary tract infection. UA is currently showing a gram-negative bacilli. We will wait for the IV Ceftin to determine her discharge antibiotic. Keep the patient on Unasyn at this point. Continue supportive care. MMODL / IJN: [id number] /
[2018-05-28] MEDS: LACTATED RINGERS 1,000 ML IV SCH ×5 (03:35→23:46)
[2018-05-28] MEDS: AMPICILLIN-SULBACTAM 3 GM in SODIUM CHLORIDE 0.9% 100 ML IVPB SCH ×3 (06:13→18:13)
[2018-05-28 06:52] LABS: Glucose,Whole Blood 115 mg/dL (75-99)
[2018-05-28] MEDS: LOSARTAN 50 MG TAB PO SCH (09:52)
[2018-05-28] MEDS: POTASSIUM CHLORIDE ER 20 MEQ TAB.ER PO SCH ×3 (09:52→21:11)
[2018-05-28] MEDS: GABAPENTIN 300 MG CAP PO SCH ×2 (09:53→21:11)
[2018-05-28] MEDS: ATENOLOL 50 MG TAB PO SCH (09:53)
[2018-05-28] MEDS: FAMOTIDINE 20 MG TAB PO SCH (09:53)
[2018-05-28] MEDS: GLIMEPIRIDE 4 MG TAB PO SCH ×2 (09:53→16:13)
[2018-05-28] MEDS: LEVOTHYROXINE 50 MCG TAB PO SCH (09:53)
[2018-05-28] MEDS: ALLOPURINOL 300 MG TAB PO SCH (09:53)
[2018-05-28] MEDS: COLCHICINE 0.6 MG EACH PO SCH (09:54)
[2018-05-28] MEDS: SERTRALINE 100 MG TAB PO SCH (09:54)
[2018-05-28] MEDS: carBAMazepine 200 MG TAB PO SCH ×3 (09:55→21:12)
[2018-05-28] MEDS: INSULIN ASPART 100 UNIT/ML 1 ML 10 ML VIAL SQ SCH ×4 (09:55→21:07)
[2018-05-28] MEDS: DICLOFENAC SODIUM GEL 100 GM TUBE TOPICAL SCH ×4 (09:56→21:12)
[2018-05-28 11:51] LABS: Glucose,Whole Blood 110 mg/dL (75-99)
--- NOTE | 2018-05-28 15:02 | CDI ---
Documentation Clarification Form Date: 05/28/18 From: Leeann Bennett RN Admit Date: 05/27/2018 10:10:00 AM Patient Name: Maria Victoria Morley Visit Number: [id number] ATTENTION: The Clinical Documentation Specialists (CDI) and [facility] Coding Staff appreciate your assistance in clarifying documentation. Please respond to the clarification below the line at the bottom and electronically sign. The CDI & [facility] Coding staff will review the response and follow-up if needed. Please note: Queries are made part of the Legal Health Record. If you have any questions, please contact the author of this message via ITS. Dr. Adi Park, Can you please render your opinion on the following documentation? Patient presented with fall at home. Patient admitted with Hypomagnesaemia, hypokalemia and found to have a UTI. History/Risk Factors: HTN, DM, HTN, thyroid disorder, x smoker Clinical Indicators: Consult 05/27: shivering events possibly related to ongoing sepsis. WBC on admission: 6.4 Lactic acid: 3.0 Blood cultures: preliminary no growth after 48 hours Vitals signs on admission: T 99.3, P 78, R 16, 126/86, 99% RA, fever spiked 12/8 to 103.1 Positive urine culture with Gram Neg. Bacilli Treatment: ID Consult: Dr Spaulding Antibiotics: Ampicillin IVPB, IV Bolus: Lactated ringers 1000ml x 1 In your professional opinion, please clarify if these findings signify one of the following conditions, whether the condition is POA, and cause, if known: Condition Sepsis ruled in Sepsis ruled out SIRS, without underlying infectious process Other, please specify Unable to determine Present on Admission Yes No Identify the (suspected) organism Link or clarify if there is associated (due to/with): Organ failure Shock SIRS Criteria (2 or more of the following may indicate SIRS): -Temperature < 96.8F (36C) or > 101.0F (38.3C) -Heart Rate > 90 bpm -Respiratory Rate > 20 breaths/min or PaCO2 < 32 mmHg -White Blood Cell Count > 12,000 or < 4,000 cells/mm3 or > 10% bands -Lactate >2.0 mmol/L (>4.0 is equivalent to septic shock) MTDD
[2018-05-28 17:13] LABS: Glucose,Whole Blood 117 mg/dL (75-99)
--- NOTE | 2018-05-28 20:00 | MISC ---
MISCELLANOUS REPORT QUERY: Sepsis ruled in. Present on admission: Yes. Organism: Gram-negative bacilli. Not related to organ failure or shock. MMODL / IJN: [id number] /
[2018-05-28 20:20] LABS: Glucose,Whole Blood 120 mg/dL (75-99)
[2018-05-28] MEDS: OXYBUTYNIN 15 MG TAB.ER.24 PO SCH (21:12)
--- NOTE | 2018-05-28 23:41 | PN ---
PROGRESS NOTE DATE OF SERVICE: 05/28/2018. REASON FOR FOLLOW UP: E. coli urinary tract infection. INTERVAL HISTORY: The patient is afebrile. She has been breathing comfortably. Denies significant chest pain. No cough. No abdominal pain. No nausea, vomiting. No diarrhea. EXAMINATION: Blood pressure 131/64, pulse of 59, temperature 98.2. She is 93% on 2 L nasal cannula. General description is an elderly female lying in bed in no distress. Respiratory system : Unlabored breathing, clear to auscultation anteriorly. Heart S1, S2. Regular rate and rhythm. Abdomen soft, no tenderness. LABS: Hemoglobin is 14.2, hematocrit of 4.1. Urine has been finalized with an E coli that is intermittently Unasyn. DIAGNOSTIC IMPRESSION AND PLAN: Patient with Escherichia coli urinary tract infection. The patient admitted to the hospital with sepsis. At this time, we will discontinue the Unasyn. We will give a dose of Rocephin 2 g daily and finish therapy with oral Cipro and close outpatient followup. Continue supportive care. MMODL / IJN: [id number] /
[2018-05-28] MEDS: cefTRIAXone 2,000 MG in SODIUM CHLORIDE 0.9% 100 ML IVPB SCH (23:46)
--- NOTE | 2018-05-29 00:27 | P.PN ---
Subjective Progress Note Date: 05/28/18 Patient seen today in Neurology follow-up for possible near syncope and fall. The patient seems to be doing better today and is more alert and responsive. She has had no further syncopal episodes. She did spike a temperature yesterday evening and is being followed closely by infectious disease. Her urine sample did contain gram-negative bacilli. Blood cultures have been negative. Patient is currently on Unasyn. She did complete a routine EEG today which will be reviewed. We would like to rule out any possibility of seizure disorder. She has had no further episodes of passing out or altered mental status. Her overall prognosis at this time remains guarded. We will continue to follow her progress closely during this admission. Objective - Vital Signs Vital signs: Vital Signs Temp 99.4 F 05/28/18 14:55 Pulse 60 05/28/18 14:55 Resp 20 05/28/18 14:55 BP 89/67 05/28/18 14:55 Pulse Ox 91 L 05/28/18 14:55 Intake & Output 05/27/18 05/28/18 05/28/18 18:59 06:59 18:59 Intake Total 744 1330 1340 Balance 744 1330 1340 Intake: IV 4 750 Lactated Ringers 1,000 ml 4 750 @ 150 mls/hr IV .Q6H40M [facility] Rx#:[id number] Intake, IV Titration 100 950 Amount Ampicillin-Sulbactam 3 gm 100 In Sodium Chloride 0.9% 100 ml @ 200 mls/hr IVPB Q6HR [facility] Rx#:[id number] Lactated Ringers 1,000 ml 950 @ 150 mls/hr IV .Q6H40M [facility] Rx#:[id number] Oral [phone] Other: Voiding Method Diaper Incontinent # Voids 4 1 2 # Bowel Movements 1 - Exam Physical Examination: PHYSICAL EXAMINATION: Patient is resting comfortably in bed. VITAL SIGNS: Blood pressure is [121/58]. Heart rate is [59]. Respiration is [18] . Temperature is [98.9]. HEENT: Head is atraumatic, neck is supple, there were no carotid bruits. CHEST: Lungs are clear to auscultation and percussion. CARDIAC: S1, S2 normal rate and rhythm. There is no murmur. ABDOMEN: Soft and nontender. Bowel sounds are present. EXTREMITIES: There is no pedal edema. Peripheral pulses are present. Neurological examination: Patient's neurological examination is unchanged from yesterday. - Labs CBC & Chem 7: 05/26/18 04:12 05/27/18 06:49 Labs: Abnormal Lab Results - Last 24 Hours (Table) 05/27/18 05/28/18 05/28/18 Range/Units 20:11 06:50 11:40 POC Glucose (mg/dL) 258 H 115 H 110 H (75-99) mg/dL 05/28/18 Range/Units 17:01 POC Glucose (mg/dL) 117 H (75-99) mg/dL Microbiology - Last 24 Hours (Table) 05/26/18 04:00 Blood Culture - Preliminary Blood No Growth after 48 hours 05/26/18 04:12 Blood Culture - Preliminary Blood No Growth after 48 hours 05/26/18 17:40 Urine Culture - Preliminary Urine,Catheterized Gram Neg Bacilli Assessment and Plan (1) Acute metabolic encephalopathy Current Visit: Yes Status: Acute Code(s): G93.41 - METABOLIC ENCEPHALOPATHY SNOMED Code(s): 99756631 (2) Urinary tract infection Current Visit: Yes Status: Acute Code(s): N39.0 - URINARY TRACT INFECTION, SITE NOT SPECIFIED SNOMED Code(s): 00695480 (3) Hypokalemia Current Visit: Yes Status: Acute Code(s): E87.6 - HYPOKALEMIA SNOMED Code( s): 31830935 (4) Hypomagnesemia Current Visit: Yes Status: Acute Code(s): E83.42 - HYPOMAGNESEMIA SNOMED Code(s): 063452433 Plan: This patient is a 72-year-old female being evaluated for syncope and mild head injury. She underwent a routine EEG today which will be reviewed. She has had no further syncopal or near syncopal episodes today. Her speech is also showing improvement. This patient is being evaluated for possible TIA versus syncope. We will give further recommendations pending the results of her EEG recording. Her overall prognosis at this time remains guarded.
[2018-05-29 06:51] LABS: Glucose,Whole Blood 178 mg/dL (75-99)
[2018-05-29] MEDS: LACTATED RINGERS 1,000 ML IV SCH ×3 (08:49→23:27)
[2018-05-29] MEDS: ATENOLOL 50 MG TAB PO SCH (09:27)
[2018-05-29] MEDS: LEVOTHYROXINE 50 MCG TAB PO SCH (09:27)
[2018-05-29] MEDS: FAMOTIDINE 20 MG TAB PO SCH (09:27)
[2018-05-29] MEDS: ALLOPURINOL 300 MG TAB PO SCH (09:27)
[2018-05-29] MEDS: SERTRALINE 100 MG TAB PO SCH (09:27)
[2018-05-29] MEDS: GABAPENTIN 300 MG CAP PO SCH ×2 (09:28→21:34)
[2018-05-29] MEDS: POTASSIUM CHLORIDE ER 20 MEQ TAB.ER PO SCH ×5 (09:28→21:34)
[2018-05-29] MEDS: INSULIN ASPART 100 UNIT/ML 1 ML 10 ML VIAL SQ SCH ×4 (09:28→21:34)
[2018-05-29] MEDS: LOSARTAN 50 MG TAB PO SCH (09:28)
[2018-05-29] MEDS: carBAMazepine 200 MG TAB PO SCH ×3 (09:29→21:34)
[2018-05-29] MEDS: GLIMEPIRIDE 4 MG TAB PO SCH ×2 (09:29→18:32)
[2018-05-29] MEDS: COLCHICINE 0.6 MG EACH PO SCH (09:30)
[2018-05-29] MEDS: DICLOFENAC SODIUM GEL 100 GM TUBE TOPICAL SCH ×4 (09:38→21:34)
[2018-05-29] MEDS: ACETAMINOPHEN TAB 325 MG TAB PO PRN (09:39)
[2018-05-29 10:06] LABS: Magnesium 1.2 mg/dL (1.6-2.3); Potassium 3.5 mmol/L (3.5-5.1)
[2018-05-29 11:47] LABS: Glucose,Whole Blood 104 mg/dL (75-99)
[2018-05-29] MEDS: CEPHALEXIN 500 MG CAP PO SCH ×3 (13:39→21:34)
[2018-05-29] MEDS: MAGNESIUM SULFATE-D5W PMX 1 GM in DEXTROSE/WATER 1 100ML.BAG IVPB SCH ×3 (14:13→18:33)
[2018-05-29 17:09] LABS: Glucose,Whole Blood 161 mg/dL (75-99)
--- NOTE | 2018-05-29 18:10 | PN ---
PROGRESS NOTE DATE OF SERVICE: 05/29/2018 REASON FOR FOLLOWUP: E coli urinary tract infection. INTERVAL HISTORY: The patient is currently afebrile. She is breathing comfortably. Feeling slightly nauseated, but no vomiting. Denies having any chest pain, shortness of breath or cough. No abdominal pain. No diarrhea. PHYSICAL EXAMINATION: Blood pressure 108/61 with a pulse of 55, temperature 98.1. She is 93% on room air. General description is an elderly female lying in bed in no distress. RESPIRATORY SYSTEM: Unlabored breathing. Clear to auscultation anteriorly. HEART: S1, S2. Regular rate and rhythm. ABDOMEN: Soft. No tenderness. LABS: Urine with E coli. DIAGNOSTIC IMPRESSION AND PLAN: Patient with Escherichia coli urinary tract infection. Did well on Rocephin. She will finish therapy with oral Ceftin 500 mg twice a day for 7 days. Continue with supportive care. MMODL / IJN: [id number] /
--- NOTE | 2018-05-29 18:55 | EEG ---
ELECTROENCEPHALOGRAM REPORT DATE OF EE05/28/2018. ELECTROENCEPHALOGRAPHIC EXAMINATION REPORT: INDICATION FOR EXAMINATION: This patient is a 72-year-old female, admitted with acute fall and collapse. Patient attempting to get out of bed and collapsed. No loss of consciousness reported. Patient being evaluated for syncope. A[age]: [age]. EEG FINDINGS: A routine 21-channel awake digital EEG recording was accomplished utilizing the 10-20 international system with bipolar and referential montages. The background activity in the most alert resting state consists of a low to medium amplitude, fairly well developed and well sustained 6 Hz activity over the posterior head regions. This posterior rhythm attenuates minimally to eye opening. There is an excessive amount of low amplitude beta activity seen in a generalized fashion throughout the entire tracing. Muscle and movement artifact was noted on several occasions throughout the tracing. Hyperventilation was not performed. Photic stimulation at flash frequencies of 2-30 Hz produced a minimal occipital driving response. No epileptiform discharges were seen. There is an excessive amount of motion and movement artifact seen throughout the tracing. IMPRESSION: This EEG is moderately abnormal in a diffuse fashion due to slowing of the EEG background. The EEG failed to reveal any focal, lateralized, or epileptiform abnormalities. Excessive amount of muscle and motion artifact was noted throughout the tracing. If clinically indicated, a follow-up EEG is recommended. Clinical correlation is recommended. MMODL / IJN: [id number] /
[2018-05-29 20:06] LABS: Glucose,Whole Blood 212 mg/dL (75-99)
--- NOTE | 2018-05-29 21:05 | P.PN ---
Subjective Progress Note Date: 05/29/18 Patient seen today in Neurology follow-up for possible near syncope and fall. The patient seems to be doing better today and is more alert and responsive. She has had no further syncopal episodes. She did spike a temperature yesterday evening and is being followed closely by infectious disease. Her urine sample did contain gram-negative bacilli. Blood cultures have been negative. Patient is currently on Unasyn. She did complete a routine EEG today which will be reviewed. We would like to rule out any possibility of seizure disorder. Her EEG was reviewed today and is moderately slow with no epileptiform discharges. EEG did have an excessive amount of motion artifact throughout the tracing. Patient is on Tegretol and her Tegretol level came back therapeutic at 8.9. She has had no further episodes of passing out or altered mental status. Patient is anticipating discharge home possibly tomorrow. Her overall prognosis at this time remains guarded. We will continue to follow her progress closely during this admission. Objective - Vital Signs Vital signs: Vital Signs Temp 98.1 F 05/29/18 15:00 Pulse 55 L 05/29/18 15:00 Resp 16 05/29/18 15:00 BP 108/61 05/29/18 15:00 Pulse Ox 93 L 05/29/18 15:00 Intake & Output 05/28/18 05/29/18 05/29/18 18:59 06:59 18:59 Intake Total 1340 Balance 1340 Weight 110.5 kg Intake: Intake, IV Titration 950 Amount Lactated Ringers 1,000 ml 950 @ 150 mls/hr IV .Q6H40M [facility] Rx#:[id number] Oral 390 Other: Voiding Method Diaper Diaper Diaper Incontinent Incontinent Incontinent # Voids 2 # Bowel Movements 1 - Exam Physical Examination: PHYSICAL EXAMINATION: Patient is resting comfortably in bed. VITAL SIGNS: Blood pressure is [108/61]. Heart rate is [55]. Respiration is [16] . Temperature is [98.1]. HEENT: Head is atraumatic, neck is supple, there were no carotid bruits. CHEST: Lungs are clear to auscultation and percussion. CARDIAC: S1, S2 normal rate and rhythm. There is no murmur. ABDOMEN: Soft and nontender. Bowel sounds are present. EXTREMITIES: There is no pedal edema. Peripheral pulses are present. Neurological examination: Patient's neurological examination is unchanged from yesterday. - Labs CBC & Chem 7: 05/26/18 04:12 05/29/18 09:14 Labs: Abnormal Lab Results - Last 24 Hours (Table) 05/28/18 05/29/18 05/29/18 Range/Units 20:08 06:47 09:14 POC Glucose (mg/dL) 120 H 178 H (75-99) mg/dL Magnesium 1.2 L (1.6-2.3) mg/dL 05/29/18 05/29/18 Range/Units 11:46 17:08 POC Glucose (mg/dL) 104 H 161 H (75-99) mg/dL Magnesium (1.6-2.3) mg/dL Microbiology - Last 24 Hours (Table) 05/26/18 04:00 Blood Culture - Preliminary Blood No Growth after 72 hours 05/26/18 04:12 Blood Culture - Preliminary Blood No Growth after 72 hours 05/26/18 17:40 Urine Culture - Final Urine,Catheterized Escherichia coli Assessment and Plan (1) Acute metabolic encephalopathy Current Visit: Yes Status: Acute Code(s): G93.41 - METABOLIC ENCEPHALOPATHY SNOMED Code(s): 50454074 (2) Urinary tract infection Current Visit: Yes Status: Acute Code(s): N39.0 - URINARY TRACT INFECTION, SITE NOT SPECIFIED SNOMED Code(s): 91822817 (3) Hypokalemia Current Visit: Yes Status: Acute Code(s): E87.6 - HYPOKALEMIA SNOMED Code( s): 76733633 (4) Hypomagnesemia Current Visit: Yes Status: Acute Code(s): E83.42 - HYPOMAGNESEMIA SNOMED Code(s): 582258573 Plan: This patient is a 72-year-old female being evaluated for syncope and mild head injury. She underwent a routine EEG today which will be reviewed. She has had no further syncopal or near syncopal episodes today. Her speech is also showing improvement. This patient is being evaluated for possible TIA versus syncope. We did review her EEG today. The EEG is moderately slow with no epileptiform discharges. She did have excessive amount of muscle artifact throughout the tracing. Patient is on Tegretol and her Tegretol level did come back therapeutic at 8.9. She is undergoing further treatment of E. coli urinary tract infection. She is afebrile today. We will continue to follow her progress closely during this admission. Anticipate discharge for this patient tomorrow. Her overall prognosis at this time remains guarded.
[2018-05-29] MEDS: OXYBUTYNIN 15 MG TAB.ER.24 PO SCH (21:34)
[2018-05-29] MEDS: cefTRIAXone 2,000 MG in SODIUM CHLORIDE 0.9% 100 ML IVPB SCH (23:23)
[2018-05-30 00:40] LABS: Anion Gap 7 mmol/L; Blood Urea Nitrogen 17 mg/dL (7-17); Calcium 8.5 mg/dL (8.4-10.2); Carbon Dioxide 25 mmol/L (22-30); Chloride 103 mmol/L (98-107); Glucose 120 mg/dL (74-99); Potassium 3.9 mmol/L (3.5-5.1); Sodium 135 mmol/L (137-145)
[2018-05-30 01:12] VITALS: RESP 16
[2018-05-30] MEDS: LACTATED RINGERS 1,000 ML IV SCH (04:34)
[2018-05-30 07:04] LABS: Glucose,Whole Blood 107 mg/dL (75-99)
[2018-05-30] MEDS: INSULIN ASPART 100 UNIT/ML 1 ML 10 ML VIAL SQ SCH ×2 (07:25→12:51)
[2018-05-30 07:38] VITALS: BP 175/87; TEMP 97.5
[2018-05-30] MEDS: CEPHALEXIN 500 MG CAP PO SCH ×2 (08:37→12:42)
[2018-05-30] MEDS: FAMOTIDINE 20 MG TAB PO SCH (08:37)
[2018-05-30] MEDS: POTASSIUM CHLORIDE ER 20 MEQ TAB.ER PO SCH (08:37)
[2018-05-30] MEDS: LOSARTAN 50 MG TAB PO SCH (08:37)
[2018-05-30] MEDS: IBUPROFEN 600 MG TAB PO PRN (08:37)
[2018-05-30] MEDS: LEVOTHYROXINE 50 MCG TAB PO SCH (08:38)
[2018-05-30] MEDS: ALLOPURINOL 300 MG TAB PO SCH (08:38)
[2018-05-30] MEDS: GABAPENTIN 300 MG CAP PO SCH (08:38)
[2018-05-30] MEDS: ATENOLOL 50 MG TAB PO SCH (08:39)
[2018-05-30] MEDS: SERTRALINE 100 MG TAB PO SCH (08:39)
[2018-05-30] MEDS: GLIMEPIRIDE 4 MG TAB PO SCH (08:40)
[2018-05-30] MEDS: COLCHICINE 0.6 MG EACH PO SCH (08:40)
[2018-05-30] MEDS: DICLOFENAC SODIUM GEL 100 GM TUBE TOPICAL SCH ×2 (08:40→15:15)
[2018-05-30] MEDS: carBAMazepine 200 MG TAB PO SCH (08:40)
[2018-05-30] MEDS: ACETAMINOPHEN TAB 325 MG TAB PO PRN (08:41)
[2018-05-30] MEDS ORDERED: MAGNESIUM OXIDE 400 MG TAB PO SCH (09:00)
[2018-05-30 10:50] VITALS: PULSE 72
--- NOTE | 2018-05-30 16:08 | PN ---
PROGRESS NOTE DATE OF SERVICE: 05/28/2018. CHIEF COMPLAINT: Syncopal episode, hypokalemia and hypomagnesemia. HISTORY OF PRESENT ILLNESS: This lady is feeling a little bit better. Strength is returning and speech seems better. She has been seen by Neurology. PHYSICAL EXAM: Chest is clear. Cardiac exam is normal. Abdomen is soft, nontender. IMPRESSION: 1. Syncopal episode. 2. Hypomagnesemia. 3. Hypokalemia. PLAN: Progress activity and diet and continue to monitor her neurologic status. MMODL / IJN: [id number] /
--- NOTE | 2018-05-30 17:23 | PN ---
PROGRESS NOTE DATE OF SERVICE: 05/30/2018. REASON FOR FOLLOWUP: E coli urinary tract infection. INTERVAL HISTORY: The patient was seen on rounds this morning. The patient has been afebrile, complaining of some shortness of breath. No cough. No chest pain, cough. No nausea, no vomiting. No abdominal pain. No diarrhea. EXAMINATION: Blood pressure 175/87 with a pulse of 61, temperature 97.5. She is 93% on room air. General description is an elderly female, lying in bed in no distress. Respiratory system: Unlabored breathing, clear to auscultation anteriorly. Heart S1, S2. Regular rate and rhythm. Abdomen soft, no tenderness. LABS: BUN of 17, creatinine 0.57. Stool for C difficile has been negative. DIAGNOSTIC IMPRESSION AND PLAN: Patient with an E coli urinary tract infection. Recommend finish therapy with oral Ceftin for another 5-7 days. She has been advised to increase the probiotics and yogurt intake that will help with diarrhea. Continue supportive care. MMODL / IJN: [id number] /
--- NOTE | 2018-05-30 22:47 | DS ---
DISCHARGE SUMMARY CHIEF COMPLAINT: Syncope and electrolyte imbalance. HISTORY OF PRESENT ILLNESS: This lady was to go home today and was discharged, but apparently she could get a ride and she will leave tomorrow. MMVICENTEL / IJN: [id number] /
--- NOTE | 2018-05-30 22:47 | DS ---
DISCHARGE SUMMARY CHIEF COMPLAINT: Syncopal episode, hypokalemia and hypomagnesemia. HISTORY OF PRESENT ILLNESS AND PHYSICAL EXAM: The details of this lady's history and physical can be found in the initial workup. LABORATORY STUDIES: While she was in the hospital, she had laboratory studies, details which can be found in the laboratory section of her chart. COURSE IN HOSPITAL: After admission she was placed on bedrest, started on intravenous fluids, and magnesium and potassium were corrected. It was felt that she could go home on the , but could not arrange a ride. She will be seen in the office in several days. FINAL DIAGNOSES: 1. Syncopal episode. 2. Dehydration. 3. Hypokalemia. 4. Hypomagnesemia. 5. Diabetes. 6. 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 OPERATIONS: None. CONSULTATIONS: None. She is improved. MMPRIYA / MILLA: [id number] /
== END 2018-05-30 13:51 | disposition home health service (06) | DRG 871 ==
LOC: EC 19:39 → 4SSUR 22:24 → OBSVTOIN 05-27 10:10
PROVIDERS: ADMIT Family Medicine; ATTEND Family Medicine
DX: A41.50 Gram-negative sepsis, unspecified (principal); G93.41 Metabolic encephalopathy; N39.0 Urinary tract infection, site not specified; B96.20 Unspecified Escherichia coli [E. coli] as the cause of diseases classified elsewhere; E03.9 Hypothyroidism, unspecified; E11.9 Type 2 diabetes mellitus without complications; E83.42 Hypomagnesemia; E86.0 Dehydration; E87.6 Hypokalemia; I10 Essential (primary) hypertension; I49.3 Ventricular premature depolarization; J44.9 Chronic obstructive pulmonary disease, unspecified; K21.9 Gastro-esophageal reflux disease without esophagitis; M47.812 Spondylosis without myelopathy or radiculopathy, cervical region; S09.90XA Unspecified injury of head, initial encounter; S16.1XXA Strain of muscle, fascia and tendon at neck level, initial encounter; S39.012A Strain of muscle, fascia and tendon of lower back, initial encounter; S40.021A Contusion of right upper arm, initial encounter; W06.XXXA Fall from bed, initial encounter; Y92.009 Unspecified place in unspecified non-institutional (private) residence as the place of occurrence of the external cause; Z79.84 Long term (current) use of oral hypoglycemic drugs; Z79.899 Other long term (current) drug therapy; Z82.0 Family history of epilepsy and other diseases of the nervous system; Z82.49 Family history of ischemic heart disease and other diseases of the circulatory system; Z85.828 Personal history of other malignant neoplasm of skin; Z87.891 Personal history of nicotine dependence; Z90.710 Acquired absence of both cervix and uterus; Z91.81 History of falling; Z96.651 Presence of right artificial knee joint
CPT/HCPCS: 36415; 70450; 71045; 72125; 80048; 80053; 80156; 81001; 83605; 83735; 84132; 85025; 87040; 87077; 87086; 87186; 87324; 87502; 93005; 94640; 95816; 99285

== ENCOUNTER 2018-07-10 20:31 | Inpatient (IN) | payer MEDICARE, OTHER ==
[2018-07-10] MEDS ORDERED: SODIUM CHLORIDE 0.9% 1,000 ML IV STA (20:40)
[2018-07-10] MEDS ORDERED: SODIUM CHLORIDE 0.9% 500 ML 500 ML IV STA (20:40)
--- NOTE | 2018-07-10 20:41 | ED ---
Altered Mental Status HPI - General Stated Complaint: Altered LOC Time Seen by Provider: 07/10/18 20:39 Source: RN notes reviewed, old records reviewed - History of Present Illness Initial Comments: This is a 72-year-old female the ER for evaluation of altered mental status, confusion, abdominal pain. Difficulty breathing. Patient has history of similar complaint the past with urinary tract infection multiple electrode abnormalities. Patient himself aside from abdominal pain denies complaint. No stiff fever today as well. Patient's poor strain secondary to clinical condition. Patient's brought in by EMS history obtained from EMS and patient's chart MD Complaint: altered mental status, confusion -: unknown Severity: mild Consistency of Symptoms: getting worse Context: history of similar presentation, recent fever Associated Symptoms: fever/chills, nausea/vomiting, weakness - Related Data Home Medications Medication Instructions Recorded Confirmed Allopurinol [Zyloprim] 300 mg PO DAILY 09/27/14 07/10/18 Cholecalciferol [Vitamin D3] 1,000 unit PO DAILY 09/27/14 07/10/18 Colchicine [Colcrys] 0.6 mg PO DAILY 09/27/14 07/10/18 Glimepiride [Amaryl] 4 mg PO BID 09/27/14 07/10/18 Levothyroxine Sodium [Synthroid] 50 mcg PO AC-BRKFST 09/27/14 07/10/18 Ranitidine HCl [Zantac] 150 mg PO DAILY 09/27/14 07/10/18 Sertraline [Zoloft] 100 mg PO DAILY 09/27/14 07/10/18 Albuterol Inhaler [Ventolin Hfa 1 puff INHALATION RT-QID PRN 09/28/14 07/10/18 Inhaler] Oxybutynin Chloride [Ditropan XL] 15 mg PO HS 10/24/16 07/10/18 Potassium Chloride [Klor-Con 20] 20 meq PO TID 10/24/17 07/10/18 carBAMazepine [TEGretol] 200 mg PO TID 10/24/17 07/10/18 Atenolol [Tenormin] 50 mg PO DAILY 05/25/18 07/10/18 Chlorthalidone [Hygroton] 25 mg PO DAILY 05/25/18 07/10/18 Gabapentin 600 mg PO BID 05/25/18 07/10/18 HYDROcodone/APAP 7.5-325MG [[place] 1 tab PO TID PRN 05/25/18 07/10/18 7.5-325] Losartan [Cozaar] 50 mg PO DAILY 05/25/18 07/10/18 clonazePAM [KlonoPIN] 0.5 mg PO TID PRN 05/25/18 07/10/18 Allergies Allergy/AdvReac Type Severity Reaction Status Date / Time morphine AdvReac Nausea & Verified 07/10/18 21:49 Vomiting [place]-Zug-Fcc Reductase AdvReac STIFFNESS Verified 07/10/18 21:49 Inhibitor AND MUSCLE PAIN Review of Systems ROS Statement: Those systems with pertinent positive or pertinent negative responses have been documented in the HPI. ROS Other: All systems not noted in ROS Statement are negative. Past Medical History Past Medical History: Cancer, COPD, Diabetes Mellitus, GERD/Reflux, Hypertension , Thyroid Disorder Additional Past Medical History / Comment(s): NEUROPATHY-hands,feet. HX of falls ,SKIN CANCER, History of Any Multi-Drug Resistant Organisms: None Reported Past Surgical History: Back Surgery, Hysterectomy, Joint Replacement Additional Past Surgical History / Comment(s): RIGHT KNEE REPLACEMENT, cataract surgery- bilat Past Anesthesia/Blood Transfusion Reactions: No Reported Reaction Past Psychological History: Depression Additional Psychological History / Comment(s): PT LIVES IN OWN HOME HAS 1 DOG, USUALLY IS INDEPENDANT Smoking Status: Former smoker Past Alcohol Use History: None Reported Additional Past Alcohol Use History / Comment(s): STARTED SMOKING AT AGE 17 QUIT IN 2001 SMOKED 1-2 PPD Past Drug Use History: None Reported - Past Family History Mother Family Medical History: Dementia Additional Family Medical History / Comment(s): alzheimers Father Family Medical History: Myocardial Infarction ([place]) Additional Family Medical History / Comment(s): unknown General Exam General appearance: alert, in no apparent distress, anxious Head exam: Present: atraumatic, normocephalic, normal inspection Eye exam: Present: normal appearance, PERRL, EOMI. Absent: scleral icterus, conjunctival injection, periorbital swelling ENT exam: Present: normal exam, mucous membranes moist Neck exam: Present: normal inspection. Absent: tenderness, meningismus, lymphadenopathy Respiratory exam: Present: normal lung sounds bilaterally, decreased breath sounds, prolonged expiratory. Absent: respiratory distress, wheezes, rales, rhonchi, stridor Cardiovascular Exam: Present: regular rate, normal rhythm, normal heart sounds. Absent: systolic murmur, diastolic murmur, rubs, gallop, clicks GI/Abdominal exam: Present: soft, tenderness (Diffuse), normal bowel sounds. Absent: distended, guarding, rebound, rigid Extremities exam: Present: normal inspection, full ROM, normal capillary refill. Absent: tenderness, pedal edema, joint swelling, calf tenderness Back exam: Present: normal inspection Neurological exam: Present: alert, oriented X3, CN II-XII intact Psychiatric exam: Present: normal affect, normal mood Skin exam: Present: warm, dry, intact, normal color. Absent: rash Course Vital Signs 07/10/18 20:39 Temperature 102.5 F H Pulse Rate 82 Respiratory 21 Rate Blood Pressure 156/94 O2 Sat by Pulse 81 L Oximetry - Reevaluation(s) Reevaluation #1: 07/10/18 23:13 Medical records reviewed Reevaluation #2: 07/10/18 23:13 Patient does have improvement with symptoms control, electrolyte replacement fever control Medical Decision Making - Medical Decision Making 72 female the ER for evaluation, UTI with sepsis rel bacteremia. Patient placed on IV antibiotics, will admit for fever control, hemodynamic monitoring and electrode replacement - Lab Data Result diagrams: 07/10/18 21:20 07/10/18 21:20 Lab Results 07/10/18 07/10/18 07/10/18 Range/Units 21:20 21:20 21:20 WBC 12.5 H (3.8-10.6) k/uL RBC 4.15 (3.80-5.40) m/uL Hgb 12.9 (11.4-16.0) gm/dL Hct 35.8 (34.0-46.0) % MCV 86.3 D (80.0-100.0) fL MCH 31.0 (25.0-35.0) pg MCHC 35.9 (31.0-37.0) g/dL RDW 14.9 (11.5-15.5) % Plt Count 111 L (150-450) k/uL Neutrophils % 89 % Lymphocytes % 7 % Monocytes % 3 % Eosinophils % 0 % Basophils % 0 % Neutrophils # 11.1 H (1.3-7.7) k/uL Lymphocytes # 0.9 L (1.0-4.8) k/uL Monocytes # 0.4 (0-1.0) k/uL Eosinophils # 0.0 (0-0.7) k/uL Basophils # 0.0 (0-0.2) k/uL Hyperchromasia Slight Poikilocytosis Slight PT (9.0-12.0) sec INR (<1.2) APTT (22.0-30.0) sec Sodium (137-145) mmol/L Potassium (3.5-5.1) mmol/L Chloride (98-107) mmol/L Carbon Dioxide (22-30) mmol/L Anion Gap mmol/L BUN (7-17) mg/dL Creatinine (0.52-1.04) mg/dL Est GFR (CKD-EPI)AfAm (>60 ml/min/1.73 sqM) Est GFR (CKD-EPI)NonAf (>60 ml/min/1.73 sqM) Glucose (74-99) mg/dL Calcium (8.4-10.2) mg/dL Phosphorus (2.5-4.5) mg/dL Magnesium (1.6-2.3) mg/dL Total Bilirubin (0.2-1.3) mg/dL AST (14-36) U/L ALT (9-52) U/L Alkaline Phosphatase (38-126) U/L Ammonia 28 (<30) umol/L Total Creatine Kinase 108 (30-135) U/L CK-MB (CK-2) 0.6 (0.0-2.4) ng/mL CK-MB (CK-2) Rel Index 0.6 Troponin I 0.054 H* (0.000-0.034) ng/mL Total Protein (6.3-8.2) g/dL Albumin (3.5-5.0) g/dL Influenza Type A RNA (Not Detectd) Influenza Type B (PCR) (Not Detectd) 07/10/18 07/10/18 07/10/18 Range/Units 21:20 21:20 21:20 WBC (3.8-10.6) k/uL RBC (3.80-5.40) m/uL Hgb (11.4-16.0) gm/dL Hct (34.0-46.0) % MCV (80.0-100.0) fL MCH (25.0-35.0) pg MCHC (31.0-37.0) g/dL RDW (11.5-15.5) % Plt Count (150-450) k/uL Neutrophils % % Lymphocytes % % Monocytes % % Eosinophils % % Basophils % % Neutrophils # (1.3-7.7) k/uL Lymphocytes # (1.0-4.8) k/uL Monocytes # (0-1.0) k/uL Eosinophils # (0-0.7) k/uL Basophils # (0-0.2) k/uL Hyperchromasia Poikilocytosis PT 13.4 H (9.0-12.0) sec INR 1.3 H (<1.2) APTT 23.8 (22.0-30.0) sec Sodium 133 L (137-145) mmol/L Potassium 2.7 L* (3.5-5.1) mmol/L Chloride 94 L (98-107) mmol/L Carbon Dioxide 26 (22-30) mmol/L Anion Gap 13 mmol/L BUN 26 H (7-17) mg/dL Creatinine 0.56 (0.52-1.04) mg/dL Est GFR (CKD-EPI)AfAm >90 (>60 ml/min/1.73 sqM) Est GFR (CKD-EPI)NonAf >90 (>60 ml/min/1.73 sqM) Glucose 219 H (74-99) mg/dL Calcium 8.5 (8.4-10.2) mg/dL Phosphorus 2.5 (2.5-4.5) mg/dL Magnesium 1.1 L (1.6-2.3) mg/dL Total Bilirubin 1.7 H (0.2-1.3) mg/dL AST 29 (14-36) U/L ALT 19 (9-52) U/L Alkaline Phosphatase 71 (38-126) U/L Ammonia (<30) umol/L Total Creatine Kinase (30-135) U/L CK-MB (CK-2) (0.0-2.4) ng/mL CK-MB (CK-2) Rel Index Troponin I (0.000-0.034) ng/mL Total Protein 6.8 (6.3-8.2) g/dL Albumin 3.4 L (3.5-5.0) g/dL Influenza Type A RNA Not Detected (Not Detectd) Influenza Type B (PCR) Not Detected (Not Detectd) - EKG Data -: EKG Interpreted by Me (EKG shows sinus rhythm rate of 81, WA 100, QRS 02, QTc 450) - Radiology Data Radiology results: report reviewed (This x-rays negative for acute disease CT abdomen pelvis negative for acute disease), image reviewed Critical Care Time Critical Care Time: Yes Total Critical Care Time: 31 Disposition Clinical Impression: Hypokalemia, Hypomagnesemia, UTI (urinary tract infection), Weakness, Sepsis, Hypoxia Disposition: ADMITTED IP TO THIS HOSP Condition: Fair Is patient prescribed a controlled substance at d/c from ED?: No Referrals: Adi Park MD [Primary Care Provider] - 1-2 days
[2018-07-10] MEDS ORDERED: ACETAMINOPHEN IV (For NPO) 1,000 MG in EMPTY BAG 1 BAG IVPB STA (21:22)
[2018-07-10] MEDS ORDERED: IBUPROFEN IV 800 MG in SODIUM CHLORIDE 0.9% 250 ML IV ONE (21:22)
[2018-07-10 21:48] LABS: Basophils % (A) 0 %; Eosinophils % (A) 0 %; HCT 35.8 % (34.0-46.0); HGB 12.9 gm/dL (11.4-16.0); Hyperchromasia Slight; Lymphocytes # (A) 0.9 k/uL (1.0-4.8); Lymphocytes % (A) 7 %; MCHC 35.9 g/dL (31.0-37.0); Mean Platelet Volume 8.5; Monocytes # (A) 0.4 k/uL (0-1.0); Monocytes % (A) 3 %; Neutrophils # (A) 11.1 k/uL (1.3-7.7); Neutrophils % (A) 89 %; Platelet Count 111 k/uL (150-450); Poikilocytosis Slight; RBC 4.15 m/uL (3.80-5.40); RDW 14.9 % (11.5-15.5); WBC 12.5 k/uL (3.8-10.6)
[2018-07-10] MEDS ORDERED: HYDROmorphone 0.5 MG/0.5 ML SYRINGE IVP STA (21:51)
[2018-07-10 21:52] LABS: MCV 86.3 fL (80.0-100.0)
[2018-07-10 21:59] LABS: INR 1.3 (<1.2); Partial Thromboplastin Time 23.8 sec (22.0-30.0); Prothrombin Time 13.4 sec (9.0-12.0)
[2018-07-10 22:00] LABS: ALT 19 U/L (9-52); AST 29 U/L (14-36); Albumin 3.4 g/dL (3.5-5.0); Alkaline Phosphatase 71 U/L (38-126); Anion Gap 13 mmol/L; Blood Urea Nitrogen 26 mg/dL (7-17); Calcium 8.5 mg/dL (8.4-10.2); Carbon Dioxide 26 mmol/L (22-30); Chloride 94 mmol/L (98-107); Glucose 219 mg/dL (74-99); Magnesium 1.1 mg/dL (1.6-2.3); Phosphorus 2.5 mg/dL (2.5-4.5); Sodium 133 mmol/L (137-145); Total Bilirubin 1.7 mg/dL (0.2-1.3); Total Protein 6.8 g/dL (6.3-8.2)
[2018-07-10 22:03] LABS: Potassium 2.7 mmol/L (3.5-5.1)
[2018-07-10 22:11] LABS: Creatine Kinase MB 0.6 ng/mL (0.0-2.4)
[2018-07-10 22:12] LABS: Troponin I 0.054 ng/mL (0.000-0.034)
--- NOTE | 2018-07-10 22:43 | XR ---
EXAMINATION TYPE: XR chest 2V DATE OF EXAM: 07/10/2018 COMPARISON: 05/26/2018 HISTORY: Fever and cough TECHNIQUE: Frontal and lateral views of the chest are obtained. FINDINGS: There is no heart failure nor confluent pneumonic infiltrate. Exam limited slightly by pat ient's size. There are no hilar masses. Costophrenic angles are clear. Bony thorax appears intact. Th ere is cervical spine fusion surgery noted. IMPRESSION: No active cardiac pulmonary disease.
[2018-07-10] MEDS: POTASSIUM CHLORIDE 20 MEQ in WATER FOR INJECTION 1 100ML.BAG IVPB SCH (22:50)
[2018-07-10] MEDS: MAGNESIUM SULFATE-D5W PMX 1 GM in DEXTROSE/WATER 1 100ML.BAG IVPB SCH (22:50)
--- NOTE | 2018-07-10 22:52 | CT ---
EXAMINATION TYPE: CT abdomen pelvis w con DATE OF EXAM: 07/10/2018 COMPARISON: 10/24/2016 HISTORY: ABD PAIN CT DLP: 1965.6 mGycm Automated exposure control for dose reduction was used. TECHNIQUE: Helical acquisition of images was performed from the lung bases through the pelvis. CONTRAST: Performed without Oral Contrast and with IV Contrast, patient injected with 100 mL of Isovue 300. FINDINGS: There is mild left pleural effusion. There are multiple calcified splenic granulomata. Spleen is enla rged and measures 17 cm. Bile ducts are not dilated. There is no discrete liver mass. There are clips from cholecystectomy. There is no evidence of pancreatic mass. The stomach appears normal. There is mild atelectasis left lower lobe. Abdominal aorta is atheromatous with variable plaque formation. There is no adrenal mass. Kidneys malik w satisfactory contrast opacification. There is 4.5 similar cortical cyst lower pole right kidney. Th ere is 1 cm cortical cyst interpolar left kidney. There is no retroperitoneal adenopathy. There is no hydronephrosis. Ureters are not dilated. The bladder distends smoothly. There is no inguinal hernia. There is no free fluid in the pelvis. I see no evidence of a bowel obstruction. There is no sign of free air. There is no mesenteric edema or adenopathy. There are large bowel fluid levels and fluid down to the rectum. There is apparent hys terectomy. There are spondylotic changes in the lumbar spine with disc space narrowing and spur forma tion. The bony pelvis is intact. IMPRESSION: There is new left pleural effusion and left basilar atelectasis compared to old exam. Old granulomato us disease. Splenomegaly unchanged. Large bowel fluid consistent with diarrhea that is a change amber red to old exam. Multilevel lumbar spondylosis and levoscoliosis unchanged.
[2018-07-10] MEDS ORDERED: cefTRIAXone 2,000 MG in SODIUM CHLORIDE 0.9% 100 ML IVPB STA (23:09)
[2018-07-10] MEDS ORDERED: HYDROmorphone 1 MG/ML 1 ML SYRINGE IVP PRN (23:09)
[2018-07-11] MEDS: POTASSIUM CHLORIDE 20 MEQ in WATER FOR INJECTION 1 100ML.BAG IVPB SCH (00:46)
[2018-07-11] MEDS: SODIUM CHLORIDE 0.9% 500 ML 500 ML IV SCH ×2 (00:46→01:59)
[2018-07-11] MEDS: MAGNESIUM SULFATE-D5W PMX 1 GM in DEXTROSE/WATER 1 100ML.BAG IVPB SCH ×4 (00:48→06:57)
[2018-07-11 01:55] LABS: Appearance,Urine Clear (Clear); Bacteria,Urine Many /hpf; Bilirubin,Urine Negative (Negative); Blood,Urine Trace (Negative); Color,Urine Yellow; Glucose,Urine (UA) Negative (Negative); Ketones,Urine Negative (Negative); Leukocyte Esterase,Urine Small (Negative); Mucus,Urine Few /hpf; Nitrite,Urine Negative (Negative); Protein,Urine 1+ (Negative); Urobilinogen,Urine <2.0 mg/dL (<2.0); WBC,Urine 6 /hpf (0-5)
[2018-07-11 02:02] LABS: Specific Gravity,Urine 1.048 (1.001-1.035)
[2018-07-11 06:43] LABS: Anion Gap 10 mmol/L; Blood Urea Nitrogen 25 mg/dL (7-17); Calcium 7.7 mg/dL (8.4-10.2); Carbon Dioxide 25 mmol/L (22-30); Chloride 102 mmol/L (98-107); Glucose 211 mg/dL (74-99); Magnesium 2.2 mg/dL (1.6-2.3); Sodium 137 mmol/L (137-145)
[2018-07-11 06:45] LABS: HCT 32.3 % (34.0-46.0); HGB 11.4 gm/dL (11.4-16.0); MCH 31.3 pg (25.0-35.0); MCHC 35.2 g/dL (31.0-37.0); MCV 88.8 fL (80.0-100.0); Mean Platelet Volume 8.8; Poikilocytosis Slight; RBC 3.64 m/uL (3.80-5.40); RDW 15.1 % (11.5-15.5); WBC 6.9 k/uL (3.8-10.6)
[2018-07-11 06:46] LABS: Potassium 2.5 mmol/L (3.5-5.1)
[2018-07-11 06:51] LABS: Glucose,Whole Blood 209 mg/dL (75-99)
[2018-07-11] MEDS: ENOXAPARIN 40 MG/0.4 ML SYRINGE SQ SCH (08:06)
[2018-07-11] MEDS: INSULIN ASPART 100 UNIT/ML 1 ML 10 ML VIAL SQ SCH ×4 (08:12→23:25)
[2018-07-11 08:18] LABS: Platelet Count 95 k/uL (150-450)
[2018-07-11] MEDS ORDERED: clonazePAM 0.5 MG TAB PO PRN (09:46)
[2018-07-11] MEDS: POTASSIUM CHLORIDE 10 MEQ in WATER FOR INJECTION 1 100ML.BAG IVPB SCH ×2 (09:53→10:11)
[2018-07-11] MEDS: GLIMEPIRIDE 4 MG TAB PO SCH ×2 (10:06→18:09)
[2018-07-11] MEDS: POTASSIUM CHLORIDE ER 20 MEQ TAB.ER PO SCH ×3 (10:07→13:21)
[2018-07-11] MEDS: ATENOLOL 50 MG TAB PO SCH (10:34)
[2018-07-11] MEDS: HYDROcodone/APAP 7.5-325MG 1 EACH TAB PO PRN ×2 (10:34→23:21)
[2018-07-11] MEDS: BENZOCAINE/MENTHOL LOZENG 1 EACH LOZENGE MUCOUS MEM PRN ×2 (10:34→15:54)
[2018-07-11] MEDS: carBAMazepine 200 MG TAB PO SCH ×3 (10:34→23:28)
[2018-07-11] MEDS: 0.9% NACL WITH KCL 20 MEQ/L 1,000 ML IV SCH ×2 (10:46→23:29)
--- NOTE | 2018-07-11 10:51 | P.HPIM ---
History of Present Illness 72-year-old the present female was found on the floor was incontinent of urine and bowel. Patient was confused apparently yesterday patient is alert oriented 3 and is being at her baseline at this time patient is comparing of protein pain in the left side patient is coughing bringing up yellowish to greenish phlegm. Patient denied any dysuria nausea vomiting patient also has some urinary retention patient's urine and urine analysis is mildly abnormal not impressive for urinary tract infection. Although patient the CAT scan did show some infiltrate and possibly list is of pneumonia patient was also complained of sore throats rapid strep test will be obtained. Patient is on Rocephin and add azithromycin for possible left lower lobe pneumonia and left sided pleural effusion where she has pleuritic pain although CAT scan is not a PE protocol patient does not appear to have any pulmonary embolism patient does have chronic low back pain she is comparing of pain in the lower back along with pleuritic pain. Patient is in colchicine she is not sure why she is on colchicine. Physical therapy and occupational therapy evaluation will be obtained. Patient is severely hypomagnesemic and hypokalemic both of will be supplemented Review of Systems REVIEW OF SYSTEMS: CONSTITUTIONAL: As mentioned in HPI HEENT: No recent visual problems or hearing problems. Denied any sore throat. CARDIOVASCULAR: No orthopnea, PND, no palpitations, no syncope. PULMONARY: no hemoptysis. GASTROINTESTINAL: No diarrhea, no nausea, no vomiting, no abdominal pain. NEUROLOGICAL: No headaches, no weakness, no numbness. HEMATOLOGICAL: Denies any bleeding or petechiae. GENITOURINARY: Denies any burning micturition, frequency, or urgency. MUSCULOSKELETAL/RHEUMATOLOGICAL: Denies any joint pain, swelling, or any muscle pain. ENDOCRINE: Denies any polyuria or polydipsia. The rest of the 14-point review of systems is negative. Past Medical History Past Medical History: Cancer, COPD, Diabetes Mellitus, GERD/Reflux, Hypertension , Thyroid Disorder Additional Past Medical History / Comment(s): NEUROPATHY-hands,feet. HX of falls ,SKIN CANCER, History of Any Multi-Drug Resistant Organisms: None Reported Past Surgical History: Back Surgery, Hysterectomy, Joint Replacement Additional Past Surgical History / Comment(s): RIGHT KNEE REPLACEMENT, cataract surgery- bilat Past Anesthesia/Blood Transfusion Reactions: No Reported Reaction Past Psychological History: Depression Additional Psychological History / Comment(s): PT LIVES IN OWN HOME HAS 1 DOG, USUALLY IS INDEPENDANT Smoking Status: Former smoker Past Alcohol Use History: None Reported Additional Past Alcohol Use History / Comment(s): STARTED SMOKING AT AGE 17 QUIT IN 2001 SMOKED 1-2 PPD Past Drug Use History: None Reported - Past Family History Mother Family Medical History: Dementia Additional Family Medical History / Comment(s): alzheimers Father Family Medical History: Myocardial Infarction ([place]) Additional Family Medical History / Comment(s): unknown Medications and Allergies Home Medications Medication Instructions Recorded Confirmed Type Allopurinol [Zyloprim] 300 mg PO DAILY 09/27/14 07/10/18 History Cholecalciferol [Vitamin D3] 1,000 unit PO DAILY 09/27/14 07/10/18 History Colchicine [Colcrys] 0.6 mg PO DAILY 09/27/14 07/10/18 History Glimepiride [Amaryl] 4 mg PO BID 09/27/14 07/10/18 History Levothyroxine Sodium [Synthroid] 50 mcg PO AC-BRKFST 09/27/14 07/10/18 History Ranitidine HCl [Zantac] 150 mg PO DAILY 09/27/14 07/10/18 History Sertraline [Zoloft] 100 mg PO DAILY 09/27/14 07/10/18 History Albuterol Inhaler [Ventolin Hfa 1 puff INHALATION RT-QID PRN 09/28/14 07/10/18 History Inhaler] Oxybutynin Chloride [Ditropan XL] 15 mg PO HS 10/24/16 07/10/18 History Potassium Chloride [Klor-Con 20] 20 meq PO TID 10/24/17 07/10/18 History carBAMazepine [TEGretol] 200 mg PO TID 10/24/17 07/10/18 History Atenolol [Tenormin] 50 mg PO DAILY 05/25/18 07/10/18 History Chlorthalidone [Hygroton] 25 mg PO DAILY 05/25/18 07/10/18 History Gabapentin 600 mg PO BID 05/25/18 07/10/18 History HYDROcodone/APAP 7.5-325MG [[place] 1 tab PO TID PRN 05/25/18 07/10/18 History 7.5-325] Losartan [Cozaar] 50 mg PO DAILY 05/25/18 07/10/18 History clonazePAM [KlonoPIN] 0.5 mg PO TID PRN 05/25/18 07/10/18 History Allergies Allergy/AdvReac Type Severity Reaction Status Date / Time morphine AdvReac Nausea & Verified 07/10/18 21:49 Vomiting Kcvisag-Gna-Ujx Reductase AdvReac STIFFNESS Verified 07/10/18 21:49 Inhibitor AND MUSCLE PAIN Physical Exam Vitals: Vital Signs Temp Pulse Pulse Resp BP BP Pulse Ox 07/11/18 04:00 97.2 F L 70 18 105/54 96 07/11/18 01:45 97.5 F L 60 18 104/51 96 07/11/18 01:00 98.0 F 62 17 112/51 95 07/10/18 23:43 99.1 F 61 18 108/52 96 07/10/18 20:39 102.5 F H 82 21 156/94 81 L Intake and Output 07/10/18 07/11/18 07/11/18 22:59 06:59 14:59 Other: # Voids 0 Weight 107.048 kg 207.5 kg PHYSICAL EXAMINATION: GENERAL: The patient is alert and oriented x3, not in any acute distress. Obese HEENT: Pupils are round and equally reacting to light. EOMI. No scleral icterus. No conjunctival pallor. Normocephalic, atraumatic. No pharyngeal erythema. No thyromegaly. CARDIOVASCULAR: S1 and S2 present. No murmurs, rubs, or gallops. PULMONARY: Chest is clear to auscultation, no wheezing or crackles. ABDOMEN: Soft, nontender, nondistended, normoactive bowel sounds. No palpable organomegaly. MUSCULOSKELETAL: No joint swelling or deformity. EXTREMITIES: No cyanosis, clubbing, or pedal edema. NEUROLOGICAL: Gross neurological examination did not reveal any focal deficits. SKIN: No rashes. Results CBC & Chem 7: 07/11/18 05:46 07/11/18 05:46 Labs: Abnormal Lab Results - Last 24 Hours (Table) 07/10/18 07/10/18 07/10/18 Range/Units 21:20 21:20 21:20 WBC 12.5 H (3.8-10.6) k/uL RBC (3.80-5.40) m/uL Hct (34.0-46.0) % Plt Count 111 L (150-450) k/uL Neutrophils # 11.1 H (1.3-7.7) k/uL Lymphocytes # 0.9 L (1.0-4.8) k/uL PT (9.0-12.0) sec INR (<1.2) Sodium 133 L (137-145) mmol/L Potassium 2.7 L* (3.5-5.1) mmol/L Chloride 94 L (98-107) mmol/L BUN 26 H (7-17) mg/dL Glucose 219 H (74-99) mg/dL POC Glucose (mg/dL) (75-99) mg/dL Calcium (8.4-10.2) mg/dL Magnesium 1.1 L (1.6-2.3) mg/dL Total Bilirubin 1.7 H (0.2-1.3) mg/dL Troponin I 0.054 H* (0.000-0.034) ng/mL Albumin 3.4 L (3.5-5.0) g/dL Ur Specific [place] (1.001-1.035) Urine Protein (Negative) Urine Blood (Negative) Ur Leukocyte Esterase (Negative) Urine WBC (0-5) /hpf Urine Bacteria (None) /hpf Urine Mucus (None) /hpf 07/10/18 07/11/18 07/11/18 Range/Units 21:20 01:00 05:46 WBC (3.8-10.6) k/uL RBC 3.64 L (3.80-5.40) m/uL Hct 32.3 L (34.0-46.0) % Plt Count 95 L (150-450) k/uL Neutrophils # (1.3-7.7) k/uL Lymphocytes # (1.0-4.8) k/uL PT 13.4 H (9.0-12.0) sec INR 1.3 H (<1.2) Sodium (137-145) mmol/L Potassium (3.5-5.1) mmol/L Chloride (98-107) mmol/L BUN (7-17) mg/dL Glucose (74-99) mg/dL POC Glucose (mg/dL) (75-99) mg/dL Calcium (8.4-10.2) mg/dL Magnesium (1.6-2.3) mg/dL Total Bilirubin (0.2-1.3) mg/dL Troponin I (0.000-0.034) ng/mL Albumin (3.5-5.0) g/dL Ur Specific [place] 1.048 H (1.001-1.035) Urine Protein 1+ H (Negative) Urine Blood Trace H (Negative) Ur Leukocyte Esterase Small H (Negative) Urine WBC 6 H (0-5) /hpf Urine Bacteria Many H (None) /hpf Urine Mucus Few H (None) /hpf 07/11/18 07/11/18 Range/Units 05:46 06:48 WBC (3.8-10.6) k/uL RBC (3.80-5.40) m/uL Hct (34.0-46.0) % Plt Count (150-450) k/uL Neutrophils # (1.3-7.7) k/uL Lymphocytes # (1.0-4.8) k/uL PT (9.0-12.0) sec INR (<1.2) Sodium (137-145) mmol/L Potassium 2.5 L* (3.5-5.1) mmol/L Chloride (98-107) mmol/L BUN 25 H (7-17) mg/dL Glucose 211 H (74-99) mg/dL POC Glucose (mg/dL) 209 H (75-99) mg/dL Calcium 7.7 L (8.4-10.2) mg/dL Magnesium (1.6-2.3) mg/dL Total Bilirubin (0.2-1.3) mg/dL Troponin I (0.000-0.034) ng/mL Albumin (3.5-5.0) g/dL Ur Specific [place] (1.001-1.035) Urine Protein (Negative) Urine Blood (Negative) Ur Leukocyte Esterase (Negative) Urine WBC (0-5) /hpf Urine Bacteria (None) /hpf Urine Mucus (None) /hpf Thrombosis Risk Factor Assmnt - Choose All That Apply Any of the Below Risk Factors Present?: Yes Each Factor Represents 1 point: Obesity (BMI >25) Other Risk Factors: Yes Each Risk Factor Represents 2 Points: Age 61-74 years Other congenital or acquired thrombophilia - If yes, enter type in comment: No Thrombosis Risk Factor Assessment Total Risk Factor Score: 3 Thrombosis Risk Factor Assessment Level: Moderate Risk Assessment and Plan Plan: -Sepsis: Possibly secondary to left lower lobe pneumonia patient does have minimal air bronchogram does have pleural effusion probably releases of pneumonia symptomatically patient appears to have pneumonia my suspicion is low for urinary tract infection patient will be continued on Rocephin dose of which will be increased to 2 g and will be started on azithromycin as well. -Pleuritic pain secondary to pleural effusion and parapneumonic effusion, Toradol for pain patient only has minimal effusion is not a drainable effusion. I will repeat the chest x-ray tomorrow -Hypokalemia potassium will be supplemented -Hypomagnesemia magnesium will be submitted -Mildly elevated troponin secondary to sepsis we'll repeat of the set of troponin my suspicion is low for acute coronary syndrome EKG did not show any acute ST-T wave changes -COPD without any acute exacerbation patient quit smoking years ago -Type 2 diabetes mellitus: Patient will be on sliding scale insulin hold off on oral hypoglycemic agents -Hypertension -Hypothyroidism Patient will need pharmacologic DVT and GI prophylaxis.
[2018-07-11 11:48] LABS: Glucose,Whole Blood 199 mg/dL (75-99)
[2018-07-11] MEDS: KETOROLAC 30 MG/ML 1 ML VIAL IVP PRN ×2 (12:02→17:28)
[2018-07-11 14:59] LABS: Hemoglobin A1C 7.3 % (4.0-6.0)
[2018-07-11] MEDS: ALBUTEROL NEBULIZED 2.5 MG/3 ML INHALATION PRN ×2 (16:03→20:46)
[2018-07-11 16:17] LABS: Glucose,Whole Blood 198 mg/dL (75-99)
[2018-07-11 17:14] LABS: Glucose,Whole Blood 181 mg/dL (75-99)
[2018-07-11 20:07] LABS: Glucose,Whole Blood 152 mg/dL (75-99)
[2018-07-11] MEDS ORDERED: POTASSIUM CHLORIDE ER 20 MEQ TAB.ER PO STA (22:56)
[2018-07-11] MEDS ORDERED: Potassium Replacement Protocol 1 EACH MISC MISCELLANE PRN (22:58)
[2018-07-11] MEDS: cefTRIAXone 2,000 MG in SODIUM CHLORIDE 0.9% 100 ML IVPB SCH (23:00)
[2018-07-11] MEDS: DOXYCYCLINE 100 MG CAP PO SCH (23:00)
[2018-07-11] MEDS: OXYBUTYNIN 15 MG TAB.ER.24 PO SCH (23:24)
[2018-07-11] MEDS: GABAPENTIN 300 MG CAP PO SCH (23:25)
[2018-07-12] MEDS: ACETAMINOPHEN TAB 325 MG TAB PO PRN ×2 (00:47→21:40)
[2018-07-12] MEDS: ALBUTEROL NEBULIZED 2.5 MG/3 ML INHALATION PRN ×5 (01:37→19:39)
[2018-07-12] MEDS: KETOROLAC 30 MG/ML 1 ML VIAL IVP PRN ×3 (04:17→17:54)
[2018-07-12 07:11] LABS: Glucose,Whole Blood 169 mg/dL (75-99)
[2018-07-12 08:15] LABS: HCT 32.4 % (34.0-46.0); HGB 10.7 gm/dL (11.4-16.0); MCH 30.4 pg (25.0-35.0); MCHC 32.9 g/dL (31.0-37.0); MCV 92.4 fL (80.0-100.0); Mean Platelet Volume 8.1; RDW 15.1 % (11.5-15.5); WBC 5.6 k/uL (3.8-10.6)
[2018-07-12] MEDS: 0.9% NACL WITH KCL 20 MEQ/L 1,000 ML IV SCH (08:16)
[2018-07-12] MEDS: INSULIN ASPART 100 UNIT/ML 1 ML 10 ML VIAL SQ SCH ×4 (08:16→21:39)
[2018-07-12] MEDS: ENOXAPARIN 40 MG/0.4 ML SYRINGE SQ SCH (08:16)
[2018-07-12] MEDS: SERTRALINE 100 MG TAB PO SCH (08:19)
[2018-07-12] MEDS: DOXYCYCLINE 100 MG CAP PO SCH (08:19)
[2018-07-12] MEDS: GABAPENTIN 300 MG CAP PO SCH ×2 (08:19→21:39)
[2018-07-12] MEDS: COLCHICINE 0.6 MG EACH PO SCH (08:19)
[2018-07-12] MEDS: ATENOLOL 50 MG TAB PO SCH (08:19)
[2018-07-12] MEDS: FAMOTIDINE 20 MG TAB PO SCH (08:20)
[2018-07-12] MEDS: ALLOPURINOL 300 MG TAB PO SCH (08:20)
[2018-07-12] MEDS: GLIMEPIRIDE 4 MG TAB PO SCH ×2 (08:20→17:54)
[2018-07-12] MEDS: carBAMazepine 200 MG TAB PO SCH ×3 (08:20→21:39)
[2018-07-12] MEDS: LEVOTHYROXINE 50 MCG TAB PO SCH (08:20)
[2018-07-12 08:22] LABS: Platelet Count 87 k/uL (150-450)
[2018-07-12 08:29] LABS: Anion Gap 5 mmol/L; Blood Urea Nitrogen 25 mg/dL (7-17); Calcium 7.6 mg/dL (8.4-10.2); Carbon Dioxide 24 mmol/L (22-30); Chloride 108 mmol/L (98-107); Glucose 148 mg/dL (74-99); Potassium 3.8 mmol/L (3.5-5.1); Sodium 137 mmol/L (137-145)
--- NOTE | 2018-07-12 09:05 | XR ---
EXAMINATION TYPE: XR chest 1V DATE OF EXAM: 07/12/2018 COMPARISON: 07/10/2018 HISTORY: Pneumonia TECHNIQUE: Single frontal view of the chest is obtained. FINDINGS: There are pleural-based densities which may represent loculated pleural fluid. Left lower lobe consolidation and pleural effusion appears increased. Right lung clear. Cardiomegaly seen. Inter stitial pattern stable. Postsurgical change overlying the cervical spine. Arthropathy of the shoulder s. IMPRESSION: 1. Left-sided consolidation and pleural effusion have increased with lobulated densities along the pl eural surface which could represent loculated pleural effusions or empyema.
[2018-07-12] MEDS: BENZOCAINE/MENTHOL LOZENG 1 EACH LOZENGE MUCOUS MEM PRN ×3 (10:50→21:40)
[2018-07-12 11:48] VITALS: BMI 76.1
[2018-07-12 12:08] LABS: Glucose,Whole Blood 190 mg/dL (75-99)
[2018-07-12] MEDS ORDERED: HYDROmorphone 4 MG TABLET PO PRN (13:25)
--- NOTE | 2018-07-12 13:28 | P.PN ---
Subjective 72-year-old admitted for left-sided pleural effusion. I repeated the chest x- ray as her oxygen requirements of chronic the pleural effusion had appears to have worsened and there may be an empyema. We'll consult pulmonary. is still complaining of pleuritic chest pain. Patient feels bit better with antibiotics. Constitutional: Denied any fatigue denied any fever. Cardio vascular: denied any chest pain, palpitations Gastrointestinal denied any nausea vomiting Pulmonary: As mentioned above Neurologic denied any new focal deficits All inpatient medications were reviewed and appropriate changes in these medications as dictated in the interval history and assessment and plan. Objective - Vital Signs Vital signs: Vital Signs Temp 98.3 F 07/12/18 07:00 Pulse 68 07/12/18 11:11 Resp 16 07/12/18 07:00 BP 108/65 07/12/18 07:00 Pulse Ox 92 L 07/12/18 07:00 Intake & Output 07/11/18 07/12/18 07/12/18 18:59 06:59 18:59 Intake Total 240 Balance 240 Weight 207.5 kg Intake: Oral 240 Other: Voiding Method Diaper Diaper Incontinent Incontinent # Voids 0 1 - Exam PHYSICAL EXAMINATION: GENERAL: The patient is alert and oriented x3, not in any acute distress. Obese HEENT: Pupils are round and equally reacting to light. EOMI. No scleral icterus. No conjunctival pallor. Normocephalic, atraumatic. No pharyngeal erythema. No thyromegaly. CARDIOVASCULAR: S1 and S2 present. No murmurs, rubs, or gallops. PULMONARY: Rhonchorous breath sounds bilaterally, did not hear any significant bronchophony or egophony on exam ABDOMEN: Soft, nontender, nondistended, normoactive bowel sounds. No palpable organomegaly. MUSCULOSKELETAL: No joint swelling or deformity. EXTREMITIES: No cyanosis, clubbing, or pedal edema. NEUROLOGICAL: Gross neurological examination did not reveal any focal deficits. SKIN: No rashes. - Labs CBC & Chem 7: 07/12/18 07:33 07/12/18 07:33 Labs: Abnormal Lab Results - Last 24 Hours (Table) 07/11/18 07/11/18 07/11/18 Range/Units 05:46 16:14 16:24 RBC (3.80-5.40) m/uL Hgb (11.4-16.0) gm/dL Hct (34.0-46.0) % Plt Count (150-450) k/uL Potassium 2.9 L (3.5-5.1) mmol/L Chloride (98-107) mmol/L BUN (7-17) mg/dL Glucose (74-99) mg/dL POC Glucose (mg/dL) 198 H (75-99) mg/dL Hemoglobin A1c 7.3 H (4.0-6.0) % Calcium (8.4-10.2) mg/dL 07/11/18 07/11/18 07/12/18 Range/Units 17:03 19:55 06:57 RBC (3.80-5.40) m/uL Hgb (11.4-16.0) gm/dL Hct (34.0-46.0) % Plt Count (150-450) k/uL Potassium (3.5-5.1) mmol/L Chloride (98-107) mmol/L BUN (7-17) mg/dL Glucose (74-99) mg/dL POC Glucose (mg/dL) 181 H 152 H 169 H (75-99) mg/dL Hemoglobin A1c (4.0-6.0) % Calcium (8.4-10.2) mg/dL 07/12/18 07/12/18 07/12/18 Range/Units 07:33 07:33 11:48 RBC 3.50 L (3.80-5.40) m/uL Hgb 10.7 L (11.4-16.0) gm/dL Hct 32.4 L (34.0-46.0) % Plt Count 87 L (150-450) k/uL Potassium (3.5-5.1) mmol/L Chloride 108 H (98-107) mmol/L BUN 25 H (7-17) mg/dL Glucose 148 H (74-99) mg/dL POC Glucose (mg/dL) 190 H (75-99) mg/dL Hemoglobin A1c (4.0-6.0) % Calcium 7.6 L (8.4-10.2) mg/dL Microbiology - Last 24 Hours (Table) 07/10/18 21:20 Blood Culture - Preliminary Blood No Growth after 24 hours 07/11/18 10:38 Group A Strep Throat Culture - Preliminary Throat Assessment and Plan Plan: -Sepsis: Possibly secondary to left lower lobe pneumonia patient , patient appears to have parapneumonic effusion, consulted pulmonary my suspicion is low for urinary tract infection patient will be continued on Rocephin dose of which will be increased to 2 g and will be started on doxycycline as well. -Pleuritic pain secondary to pleural effusion and parapneumonic effusion, Toradol for pain. Chest x-ray today did show increasing pleural effusion there may be loculation. -Hypokalemia potassium was supplemented -Hypomagnesemia magnesium was supplemented -Mildly elevated troponin secondary to sepsis and repeat troponins are within normal limits -COPD without any acute exacerbation patient quit smoking years ago -Type 2 diabetes mellitus: Patient will be on sliding scale insulin hold off on oral hypoglycemic agents -Hypertension -Hypothyroidism Patient will need pharmacologic DVT and GI prophylaxis.
--- NOTE | 2018-07-12 16:41 | P.CNPUL ---
History of Present Illness Consult date: 07/12/18 Requesting physician: Yue Brito Reason for consult: pleural effusion Chief complaint: Altered mental status History of present illness: This is a 72-year-old female, known history of COPD, diabetes, hypertension, hypothyroidism, degenerative joint disease, chronic back pain, patient was found on the floor incontinent of bowel and urine. She was confused apparently and she was also complaining of cough and congestion. No complaining of left upper quadrant pain and tenderness mostly over the left parasternal area and over the left lower ribs anteriorly. Patient has chronic cough, has been chronically congested, workup in the ER included a CT of the abdomen and pelvis , and there was evidence of mild left pleural effusion, initial chest x-ray was basically normal on admission, however follow-up chest x-ray showed left sided consolidation, and lobulated densities along the pleural surface hence the radiologist raised the possibility concern of loculated pleural effusion and/or empyema. The patient herself is an extremely poor historian, she is definitely confused, and I was asked to see her on consultation for questionable loculated pleural effusion. Patient again has mostly chronic cough, no fever no chills no hemoptysis no chest pain. But she does have pain mostly over the left lower ribs and upper left quadrant of the abdomen. After reviewing the chest x-ray and reviewing the CT of the abdomen and pelvis, I recommended a dedicated CT of the chest which will be done later today. In the meantime recommended that the patient gets treatment for COPD symptoms cough wheezing shortness of breath, and she is already empirically on antibiotics. His CBC was relatively normal, no evidence of leukocytosis. He elected lites were normal. However her vital did show a temp as high as 102 on admission. Her T-max last night was 101.3. Review of Systems ROS unobtainable: due to mental status Past Medical History Past Medical History: Cancer, COPD, Diabetes Mellitus, GERD/Reflux, Hypertension , Thyroid Disorder Additional Past Medical History / Comment(s): NEUROPATHY-hands,feet. HX of falls ,SKIN CANCER, History of Any Multi-Drug Resistant Organisms: None Reported Past Surgical History: Back Surgery, Hysterectomy, Joint Replacement Additional Past Surgical History / Comment(s): RIGHT KNEE REPLACEMENT, cataract surgery- bilat Past Anesthesia/Blood Transfusion Reactions: No Reported Reaction Past Psychological History: Depression Additional Psychological History / Comment(s): PT LIVES IN OWN HOME HAS 1 DOG, USUALLY IS INDEPENDANT Smoking Status: Former smoker Past Alcohol Use History: None Reported Additional Past Alcohol Use History / Comment(s): STARTED SMOKING AT AGE 17 QUIT IN 2001 SMOKED 1-2 PPD Past Drug Use History: None Reported - Past Family History Mother Family Medical History: Dementia Additional Family Medical History / Comment(s): alzheimers Father Family Medical History: Myocardial Infarction (ND) Additional Family Medical History / Comment(s): unknown Medications and Allergies Home Medications Medication Instructions Recorded Confirmed Type Allopurinol [Zyloprim] 300 mg PO DAILY 09/27/14 07/10/18 History Cholecalciferol [Vitamin D3] 1,000 unit PO DAILY 09/27/14 07/10/18 History Colchicine [Colcrys] 0.6 mg PO DAILY 09/27/14 07/10/18 History Glimepiride [Amaryl] 4 mg PO BID 09/27/14 07/10/18 History Levothyroxine Sodium [Synthroid] 50 mcg PO AC-[id number] 09/27/14 07/10/18 History Ranitidine HCl [Zantac] 150 mg PO DAILY 09/27/14 07/10/18 History Sertraline [Zoloft] 100 mg PO DAILY 09/27/14 07/10/18 History Albuterol Inhaler [Ventolin Hfa 1 puff INHALATION RT-QID PRN 09/28/14 07/10/18 History Inhaler] Oxybutynin Chloride [Ditropan XL] 15 mg PO HS 10/24/16 07/10/18 History Potassium Chloride [Klor-Con 20] 20 meq PO TID 10/24/17 07/10/18 History carBAMazepine [TEGretol] 200 mg PO TID 10/24/17 07/10/18 History Atenolol [Tenormin] 50 mg PO DAILY 05/25/18 07/10/18 History Chlorthalidone [Hygroton] 25 mg PO DAILY 05/25/18 07/10/18 History Gabapentin 600 mg PO BID 05/25/18 07/10/18 History HYDROcodone/APAP 7.5-325MG [[place] 1 tab PO TID PRN 05/25/18 07/10/18 History 7.5-325] Losartan [Cozaar] 50 mg PO DAILY 05/25/18 07/10/18 History clonazePAM [KlonoPIN] 0.5 mg PO TID PRN 05/25/18 07/10/18 History Allergies Allergy/AdvReac Type Severity Reaction Status Date / Time morphine AdvReac Nausea & Verified 07/10/18 21:49 Vomiting Ygdsvjl-Shy-Bat Reductase AdvReac STIFFNESS Verified 07/10/18 21:49 Inhibitor AND MUSCLE PAIN Physical Exam Vitals: Vital Signs Temp Pulse Pulse Resp BP Pulse Ox 07/12/18 15:36 72 07/12/18 15:26 76 07/12/18 11:11 68 07/12/18 11:04 72 07/12/18 07:56 76 07/12/18 07:38 68 07/12/18 07:00 98.3 F 70 16 108/65 92 L 07/12/18 02:10 98.2 F 07/12/18 01:48 72 07/12/18 01:38 72 07/12/18 00:50 16 07/12/18 00:23 101.3 F H 66 16 107/52 95 07/11/18 20:55 76 07/11/18 20:47 76 07/11/18 20:00 66 07/11/18 19:08 99.6 F 80 16 102/51 92 L 07/11/18 16:57 98.7 F 79 16 101/63 90 L Intake and Output 07/12/18 07/12/18 07/12/18 06:59 14:59 22:59 Other: Voiding Method Diaper Incontinent # Voids 1 Weight 207.5 kg Physical Exam: Revealed a 72-year-old female, obese, in no distress, confused, noted to have frequent episodes of cough, noted to be congested. Also complaining of pain over the left lower ribs anteriorly. Head: Atraumatic normocephalic. HEENT:[Neck is supple.] [No neck masses.] [No thyromegaly.] [No JVD.] PERRLA, EOMI, no icterus. Dry mucous membranes. Chest: [Diffuse rhonchi noted bilaterally more so on forced expiratory maneuver. Chest wall tenderness noted in the left parasternal area and left lower ribs anteriorly..] Cardiac Exam: [Normal S1 and S2, no S3 gallop, no murmur.] Abdomen: Obese [Soft, nontender, no megaly, no rebound, minimal tenderness in the left upper quadrant mostly over the ribs. Extremities: [No clubbing, no edema, no cyanosis.] Neurological Exam: Patient is awake, confused, oriented to place, but not to person and not to time. Skin: No rashes. Noted to have mostly dry skin Results - Laboratory Findings CBC and BMP: 07/12/18 07:33 07/12/18 07:33 PT/INR, D-dimer PT 13.4 sec (9.0-12.0) H 07/10/18 21:20 INR 1.3 (<1.2) H 07/10/18 21:20 Abnormal lab findings: Abnormal Labs 07/10/18 07/10/18 07/10/18 21:20 21:20 21:20 WBC 12.5 H RBC Hgb Hct Plt Count 111 L Neutrophils # 11.1 H Lymphocytes # 0.9 L PT INR Sodium 133 L Potassium 2.7 L* Chloride 94 L BUN 26 H Glucose 219 H POC Glucose (mg/dL) Hemoglobin A1c Calcium Magnesium 1.1 L Total Bilirubin 1.7 H Troponin I 0.054 H* Albumin 3.4 L Ur Specific [place] Urine Protein Urine Blood Ur Leukocyte Esterase Urine WBC Urine Bacteria Urine Mucus 07/10/18 07/11/18 07/11/18 21:20 01:00 05:46 WBC RBC 3.64 L Hgb Hct 32.3 L Plt Count 95 L Neutrophils # Lymphocytes # PT 13.4 H INR 1.3 H Sodium Potassium Chloride BUN Glucose POC Glucose (mg/dL) Hemoglobin A1c Calcium Magnesium Total Bilirubin Troponin I Albumin Ur Specific [place] 1.048 H Urine Protein 1+ H Urine Blood Trace H Ur Leukocyte Esterase Small H Urine WBC 6 H Urine Bacteria Many H Urine Mucus Few H 07/11/18 07/11/18 07/11/18 05:46 05:46 06:48 WBC RBC Hgb Hct Plt Count Neutrophils # Lymphocytes # PT INR Sodium Potassium 2.5 L* Chloride BUN 25 H Glucose 211 H POC Glucose (mg/dL) 209 H Hemoglobin A1c 7.3 H Calcium 7.7 L Magnesium Total Bilirubin Troponin I Albumin Ur Specific [place] Urine Protein Urine Blood Ur Leukocyte Esterase Urine WBC Urine Bacteria Urine Mucus 07/11/18 07/11/18 07/11/18 11:41 16:14 16:24 WBC RBC Hgb Hct Plt Count Neutrophils # Lymphocytes # PT INR Sodium Potassium 2.9 L Chloride BUN Glucose POC Glucose (mg/dL) 199 H 198 H Hemoglobin A1c Calcium Magnesium Total Bilirubin Troponin I Albumin Ur Specific [place] Urine Protein Urine Blood Ur Leukocyte Esterase Urine WBC Urine Bacteria Urine Mucus 07/11/18 07/11/18 07/12/18 17:03 19:55 06:57 WBC RBC Hgb Hct Plt Count Neutrophils # Lymphocytes # PT INR Sodium Potassium Chloride BUN Glucose POC Glucose (mg/dL) 181 H 152 H 169 H Hemoglobin A1c Calcium Magnesium Total Bilirubin Troponin I Albumin Ur Specific [place] Urine Protein Urine Blood Ur Leukocyte Esterase Urine WBC Urine Bacteria Urine Mucus 07/12/18 07/12/18 07/12/18 07:33 07:33 11:48 WBC RBC 3.50 L Hgb 10.7 L Hct 32.4 L Plt Count 87 L Neutrophils # Lymphocytes # PT INR Sodium Potassium Chloride 108 H BUN 25 H Glucose 148 H POC Glucose (mg/dL) 190 H Hemoglobin A1c Calcium 7.6 L Magnesium Total Bilirubin Troponin I Albumin Ur Specific [place] Urine Protein Urine Blood Ur Leukocyte Esterase Urine WBC Urine Bacteria Urine Mucus - Diagnostic Findings Chest x-ray: image reviewed (As noted in HPI.) Assessment and Plan Assessment: Impression: 1 acute community-acquired left lower lobe pneumonia with parapneumonic pleural effusion, doubt empyema, however a dedicated CT of the chest was ordered, and based on that further recommendations are to follow. In the meantime the patient is on antibiotics for community-acquired pneumonia including Rocephin and Zithromax. 2 musculoskeletal chest wall pain, 3 altered mental status, exact baseline of mental status is unknown, could be related to metabolic encephalopathy. 4 electrolytes imbalance being corrected by the admitting physician. Mostly hypokalemia and hypomagnesemia. 5 suspect underlying COPD with symptoms of COPD exacerbation as noted on physical examination. Patient used to be a smoker, quit 2 years back. 6 type 2 diabetes 7 hypertension 8 hypothyroidism Recommendation: Continue present course of treatment including antibiotics, bronchodilators, will hold on the steroids as they may worsen her mental status , recommended CT of the chest without contrast, and based on the findings further recommendations will follow. Time with Patient: Greater than 30
[2018-07-12] MEDS ORDERED: POTASSIUM CHLORIDE ER 20 MEQ TAB.ER PO STA (16:55)
[2018-07-12 17:13] LABS: Glucose,Whole Blood 205 mg/dL (75-99)
[2018-07-12] MEDS: AZITHROMYCIN 500 MG in SODIUM CHLORIDE 0.9% 250 ML IVPB SCH (17:53)
[2018-07-12 20:39] LABS: Glucose,Whole Blood 184 mg/dL (75-99)
[2018-07-12] MEDS: OXYBUTYNIN 15 MG TAB.ER.24 PO SCH (21:39)
[2018-07-12] MEDS: cefTRIAXone 2,000 MG in SODIUM CHLORIDE 0.9% 100 ML IVPB SCH (21:40)
--- NOTE | 2018-07-12 22:27 | CT ---
EXAMINATION TYPE: CT chest wo con DATE OF EXAM: 07/12/2018 COMPARISON: 11/17/2015 HISTORY: Cough. SOB CT DLP: 500.3 mGycm. Automated Exposure Control for Dose Reduction was Utilized. TECHNIQUE: CT scan of the thorax is performed without IV contrast. FINDINGS: LEFT HEMITHORAX: There is a [id number] pleural effusion present, with associated passive atelec tasis of the left lower lobe. Concurrent left lower lobe bronchopneumonia could be present, clinical distinction necessary. Remainder the left lung is unremarkable. MEDIASTINUM: Mild cardiomegaly with coronary calcifications. Aortic tortuosity with atherosclerotic c alcifications. RIGHT HEMITHORAX: Pleural spaces negative. Lung is clear and well-expanded. SKELETAL STRUCTURES: No acute lesions. VISUALIZED EXTRATHORACIC SOFT TISSUES: Unremarkable. IMPRESSION: Left pleural effusion with left lower lobe atelectasis and/or pneumonia.
[2018-07-13] MEDS: KETOROLAC 30 MG/ML 1 ML VIAL IVP PRN ×2 (02:09→20:56)
[2018-07-13] MEDS: BENZOCAINE/MENTHOL LOZENG 1 EACH LOZENGE MUCOUS MEM PRN ×3 (02:49→20:56)
[2018-07-13 07:05] LABS: Glucose,Whole Blood 108 mg/dL (75-99)
[2018-07-13] MEDS: INSULIN ASPART 100 UNIT/ML 1 ML 10 ML VIAL SQ SCH ×4 (07:22→20:51)
[2018-07-13] MEDS: ALBUTEROL NEBULIZED 2.5 MG/3 ML INHALATION PRN ×4 (07:26→20:58)
[2018-07-13] MEDS: GABAPENTIN 300 MG CAP PO SCH ×2 (07:29→20:51)
[2018-07-13] MEDS: FAMOTIDINE 20 MG TAB PO SCH (07:29)
[2018-07-13] MEDS: ALLOPURINOL 300 MG TAB PO SCH (07:29)
[2018-07-13] MEDS: LEVOTHYROXINE 50 MCG TAB PO SCH (07:30)
[2018-07-13] MEDS: GLIMEPIRIDE 4 MG TAB PO SCH ×2 (07:30→17:29)
[2018-07-13] MEDS: SERTRALINE 100 MG TAB PO SCH (07:30)
[2018-07-13] MEDS: COLCHICINE 0.6 MG EACH PO SCH (07:31)
[2018-07-13] MEDS: carBAMazepine 200 MG TAB PO SCH ×3 (07:31→21:35)
[2018-07-13] MEDS: ATENOLOL 50 MG TAB PO SCH (07:33)
[2018-07-13] MEDS: AZITHROMYCIN 500 MG in SODIUM CHLORIDE 0.9% 250 ML IVPB SCH (07:34)
[2018-07-13] MEDS: ENOXAPARIN 40 MG/0.4 ML SYRINGE SQ SCH (07:36)
[2018-07-13 08:52] LABS: Anion Gap 5 mmol/L; Blood Urea Nitrogen 25 mg/dL (7-17); Calcium 8.1 mg/dL (8.4-10.2); Carbon Dioxide 22 mmol/L (22-30); Chloride 112 mmol/L (98-107); Glucose 114 mg/dL (74-99); Potassium 3.9 mmol/L (3.5-5.1); Sodium 139 mmol/L (137-145)
--- NOTE | 2018-07-13 09:11 | US ---
EXAMINATION TYPE: US chest DATE OF EXAM: 07/13/2018 COMPARISON: CT chest 07/12/2018 CLINICAL HISTORY: Markings for thoracentesis by pulmonary staff. SOB, pleural effusion on the left pe r CT, morbidly obese patient. TECHNIQUE: Targeted ultrasound of the posterior lower bilaterally EXAM MEASUREMENTS: Right Pleural Effusion pocket size: 0cm Left Pleural Effusion pocket size: 6.4cm -fluid shows abnormal internal echoes. Left skin surface to fluid distance: 5.8cm Right side NOT marked Left side NOT marked for reasons stated above Pulmonologists are able to review the images in the patient?s EMR. IMPRESSIONS: Left pleural effusion appears loculated versus possible empyema, possibly organized.
--- NOTE | 2018-07-13 09:57 | CDI ---
Documentation Clarification Form Date: 07/13/2018 9:38:39 AM From: Lexy FULTON,RN,CCDS Email: [email or web address] Admit Date: 07/10/2018 11:13:00 PM Patient Name: Maria Victoria Morley Visit Number: [id number] Discharge Date: ATTENTION: The Clinical Documentation Specialists (CDI) and [facility] Coding Staff appreciate your assistance in clarifying documentation. Please respond to the clarification below the line at the bottom and electronically sign. The CDI & [facility] Coding staff will review the response and follow-up if needed. Please note: Queries are made part of the Legal Health Record. If you have any questions, please contact the author of this message via ITS. Dr. Yue Brito Possible metabolic Encephalopathy is documented in the consultants note 2018. History/Risk Factors: found incontinent lying on floor, noted to be confused with pts baseline AO3. Admitted with sepsis and Pneumonia possible emphyema, Hx of DM2 with neuropathy, COPD, noted to be hypokalemic, febrile and hypomagnesium Clinical Indicators: Confusion noted to be cleared with HP noting pt to be AO3, her baseline. Pulmonology notes confusion could be on the basis metabolic encephalopathy. Hold steroids noted in consult as they may worsen her mental status. O2 81% improved to 96-92% with supplementation of 2-3 lnc , home med of neurotin continued. Labs: Mg on presentation of 1.1 improved to current 2.0; K 2.7 to current 3.9 Treatment: Mg So4 IVPB, KCL IVPB and po: Antibiotics IVPB, Tylenol, And supplemental O2 Consults: pulmunology In your professional opinion, can you please clarify render your opinion on the resolved confusion? Anoxic Encephalopathy Metabolic Encephalopathy Septic Encephalopathy Toxic Encephalopathy Other, please specify Unable to determine Toxic Encephalopathy MTDD
[2018-07-13 11:46] LABS: Glucose,Whole Blood 145 mg/dL (75-99)
[2018-07-13] MEDS: ACETAMINOPHEN TAB 325 MG TAB PO PRN (14:36)
--- NOTE | 2018-07-13 16:21 | P.PN ---
Subjective Progress Note Date: 07/13/18 Principal diagnosis: Altered mental status, left lower lobe pneumonia, with parapneumonic pleural effusion This is a 72-year-old female, known history of COPD, diabetes, hypertension, hypothyroidism, degenerative joint disease, chronic back pain, patient was found on the floor incontinent of bowel and urine. She was confused apparently and she was also complaining of cough and congestion. No complaining of left upper quadrant pain and tenderness mostly over the left parasternal area and over the left lower ribs anteriorly. Patient has chronic cough, has been chronically congested, workup in the ER included a CT of the abdomen and pelvis , and there was evidence of mild left pleural effusion, initial chest x-ray was basically normal on admission, however follow-up chest x-ray showed left sided consolidation, and lobulated densities along the pleural surface hence the radiologist raised the possibility concern of loculated pleural effusion and/or empyema. The patient herself is an extremely poor historian, she is definitely confused, and I was asked to see her on consultation for questionable loculated pleural effusion. Patient again has mostly chronic cough, no fever no chills no hemoptysis no chest pain. But she does have pain mostly over the left lower ribs and upper left quadrant of the abdomen. After reviewing the chest x-ray and reviewing the CT of the abdomen and pelvis, I recommended a dedicated CT of the chest which will be done later today. In the meantime recommended that the patient gets treatment for COPD symptoms cough wheezing shortness of breath, and she is already empirically on antibiotics. His CBC was relatively normal, no evidence of leukocytosis. He elected lites were normal. However her vital did show a temp as high as 102 on admission. Her T-max last night was 101.3. On 07/13/2017 patient seen in follow-up on medical surgical floor. She is resting in bed, still sounds quite congested, diffuse rhonchi, patient has ingested cough, and she is able to clear some thick yellow pink tinged sputum. Pulse ox on 3 L per nasal cannula is on 100%, afebrile, hemodynamically stable, the patient has been resistant to sitting up, in the chair, refuses to get up out of bed. Although she told me she was up in the chair all day yesterday. She started to develop a decubitus ulcer, there is a stage I on her coccyx according to the nursing staff. Does reside at home with her daughter. There was no group A beta strep identified, with culture is negative. These labs have been noted. CT chest showed mild to moderate size pleural effusion on the left with associated compressive atelectasis of the left lower lobe and concurrent left lower lobe bronchopneumonia. Ultrasound the chest showed a 6.4 cm fluid pocket on the left, but it was not marked related to fluid showing abnormal internal echoes. She is on combination of Zithromax and Rocephin for community-acquired pneumonia, on nebulized bronchodilators. Remains quite congested. But no worsening shortness of breath. Objective - Vital Signs Vital signs: Vital Signs Temp 98.6 F 07/13/18 07:00 Pulse 84 07/13/18 11:45 Resp 18 07/13/18 07:30 BP 138/71 07/13/18 07:00 Pulse Ox 100 07/13/18 07:00 Intake & Output 07/12/18 07/13/18 07/13/18 18:59 06:59 18:59 Intake Total 500 Balance 500 Weight 207.5 kg Intake: Intake, IV Titration 350 Amount Azithromycin 500 mg In 250 Sodium Chloride 0.9% 250 ml @ 250 mls/hr IVPB DAILY JOSE Rx#:[id number] cefTRIAXone 2,000 mg In 100 Sodium Chloride 0.9% 100 ml @ 100 mls/hr IVPB Q24H JOSE Rx#:[id number] Oral 150 Other: Voiding Method Diaper Diaper Diaper Incontinent Incontinent Incontinent # Voids 2 2 # Bowel Movements 1 - Exam GENERAL EXAM: Alert, pleasant, 72-year-old obese white female, currently on 3 L per nasal cannula comfortable in no apparent distress. HEAD: Normocephalic/atraumatic. EYES: Normal reaction of pupils, equal size. Conjunctiva pink, sclera white. NOSE: Clear with pink turbinates. THROAT: No erythema or exudates. NECK: No masses, no JVD, no thyroid enlargement, no adenopathy. CHEST: No chest wall deformity. Symmetrical expansion. LUNGS: Equal air entry with diffuse rhonchi CVS: Regular rate and rhythm, normal S1 and S2, no gallops, no murmurs, no rubs ABDOMEN: Soft, nontender. No hepatosplenomegaly, normal bowel sounds, no guarding or rigidity. EXTREMITIES: No clubbing, no edema, no cyanosis, 2+ pulses and upper and lower extremities. MUSCULOSKELETAL: Muscle strength and tone normal. SPINE: No scoliosis or deformity SKIN: No rashes CENTRAL NERVOUS SYSTEM: Alert and oriented -3. No focal deficits, tone is normal in all 4 extremities. PSYCHIATRIC: Alert and oriented -3. Appropriate affect. Intact judgment and insight. - Labs CBC & Chem 7: 07/12/18 07:33 07/13/18 07:08 Labs: Abnormal Lab Results - Last 24 Hours (Table) 07/12/18 07/12/18 07/13/18 Range/Units 16:59 20:28 06:53 Chloride (98-107) mmol/L BUN (7-17) mg/dL Creatinine (0.52-1.04) mg/dL Glucose (74-99) mg/dL POC Glucose (mg/dL) 205 H 184 H 108 H (75-99) mg/dL Calcium (8.4-10.2) mg/dL 07/13/18 07/13/18 Range/Units 07:08 11:33 Chloride 112 H (98-107) mmol/L BUN 25 H (7-17) mg/dL Creatinine 0.51 L (0.52-1.04) mg/dL Glucose 114 H (74-99) mg/dL POC Glucose (mg/dL) 145 H (75-99) mg/dL Calcium 8.1 L (8.4-10.2) mg/dL Microbiology - Last 24 Hours (Table) 07/11/18 10:38 Group A Strep Throat Culture - Final Throat 07/10/18 21:20 Blood Culture - Preliminary Blood No Growth after 48 hours Assessment and Plan Plan: 1 acute community-acquired left lower lobe pneumonia with parapneumonic pleural effusion, doubt empyema, however a dedicated CT of the chest was ordered , and based on that further recommendations are to follow. In the meantime the patient is on antibiotics for community-acquired pneumonia including Rocephin and Zithromax. 2 musculoskeletal chest wall pain, 3 altered mental status, exact baseline of mental status is unknown, could be related to metabolic encephalopathy. On today's exam on 07/13/2018 her mentation seems to be improving 4 electrolytes imbalance being corrected by the admitting physician. Mostly hypokalemia and hypomagnesemia. 5 suspect underlying COPD with symptoms of COPD exacerbation as noted on physical examination. Patient used to be a smoker, quit 2 years back. 6 type 2 diabetes 7 hypertension 8 hypothyroidism Plan: CT of the chest has been reviewed with Dr. Anand, and showed mild to moderate sized left pleural effusion, with adjacent left lower lobe atelectasis/ infiltrate. Ultrasound of the chest was noted, and the area was not marked related to abnormal internal echoes. We'll consult interventional radiology for placement of pigtail chest tube, and pleural fluid will be sent for analysis, cultures and cytology. I performed a history & physical examination of the patient and discussed their management with my nurse practitioner, Candida Naranjo. I reviewed the nurse practitioner's note and agree with the documented findings and plan of care. Lung sounds are positive for diffuse rhonchi. The findings and the impression was discussed with the patient. I attest to the documentation by the nurse practitioner. Time with Patient: Less than 30
[2018-07-13 17:05] LABS: Glucose,Whole Blood 187 mg/dL (75-99)
[2018-07-13 20:30] LABS: Glucose,Whole Blood 134 mg/dL (75-99)
[2018-07-13] MEDS: OXYBUTYNIN 15 MG TAB.ER.24 PO SCH (20:51)
[2018-07-13] MEDS: cefTRIAXone 2,000 MG in SODIUM CHLORIDE 0.9% 100 ML IVPB SCH (21:35)
--- NOTE | 2018-07-14 00:02 | P.PN ---
Subjective Progress Note Date: 07/13/18 Interval history: 72-year-old admitted for left-sided pleural effusion. I repeated the chest x- ray as her oxygen requirements of chronic the pleural effusion had appears to have worsened and there may be an empyema. We'll consult pulmonary. is still complaining of pleuritic chest pain. Patient feels bit better with antibiotics. Constitutional: Denied any fatigue denied any fever. Cardio vascular: denied any chest pain, palpitations Gastrointestinal denied any nausea vomiting Pulmonary: As mentioned above Neurologic denied any new focal deficits All inpatient medications were reviewed and appropriate changes in these medications as dictated in the interval history and assessment and plan. 07/13/2018 maintained on nebulized bronchodilators, Zithromax, Rocephin. Sitting up in bed, short of breath, loose congested cough. Reporting productive cough of thick yellow sputum. Maintaining O2 sats of 100% on 3 L nasal cannula. Staff reports patient refusing to get out of bed today/Declined PT today. Strep throat culture negative. Chest CT reported left pleural effusion, left lower lobe atelectasis and concurrent left lower lobe pneumonia. Chest ultrasound reported left pleural pocket 6.4 cm, not marked related to abnormal internal echoes; left pleural effusion appears loculated versus possible empyema. Afebrile. Negative for C. difficile. Objective - Vital Signs Vital signs: Vital Signs Temp 98.6 F 07/13/18 07:00 Pulse 84 07/13/18 11:45 Resp 18 07/13/18 07:30 BP 138/71 07/13/18 07:00 Pulse Ox 100 07/13/18 07:00 Intake & Output 07/12/18 07/13/18 07/13/18 18:59 06:59 18:59 Intake Total 500 Balance 500 Weight 207.5 kg Intake: Intake, IV Titration 350 Amount Azithromycin 500 mg In 250 Sodium Chloride 0.9% 250 ml @ 250 mls/hr IVPB DAILY JOSE Rx#:[id number] cefTRIAXone 2,000 mg In 100 Sodium Chloride 0.9% 100 ml @ 100 mls/hr IVPB Q24H JOSE Rx#:[id number] Oral 150 Other: Voiding Method Diaper Diaper Diaper Incontinent Incontinent Incontinent # Voids 2 2 # Bowel Movements 1 - Exam GENERAL: The patient is alert and oriented x3, no acute distress. HEENT: Pupils are round and equally reacting to light. EOMI. No scleral icterus. No conjunctival pallor. Normocephalic, atraumatic. CARDIOVASCULAR: S1 and S2 present. No murmurs, rubs, or gallops. PULMONARY: Bilateral bases diminished, scattered rhonchi bilaterally ABDOMEN: Soft, nontender, nondistended, normoactive bowel sounds. No palpable organomegaly. EXTREMITIES: No cyanosis, clubbing, or pedal edema. NEUROLOGICAL: Gross neurological examination did not reveal any focal deficits. SKIN: No rashes. - Labs CBC & Chem 7: 07/12/18 07:33 07/13/18 07:08 Labs: Abnormal Lab Results - Last 24 Hours (Table) 07/12/18 07/12/18 07/13/18 Range/Units 16:59 20:28 06:53 Chloride (98-107) mmol/L BUN (7-17) mg/dL Creatinine (0.52-1.04) mg/dL Glucose (74-99) mg/dL POC Glucose (mg/dL) 205 H 184 H 108 H (75-99) mg/dL Calcium (8.4-10.2) mg/dL 07/13/18 07/13/18 Range/Units 07:08 11:33 Chloride 112 H (98-107) mmol/L BUN 25 H (7-17) mg/dL Creatinine 0.51 L (0.52-1.04) mg/dL Glucose 114 H (74-99) mg/dL POC Glucose (mg/dL) 145 H (75-99) mg/dL Calcium 8.1 L (8.4-10.2) mg/dL Microbiology - Last 24 Hours (Table) 07/11/18 10:38 Group A Strep Throat Culture - Final Throat 07/10/18 21:20 Blood Culture - Preliminary Blood No Growth after 48 hours Assessment and Plan Assessment: -Sepsis: Possibly secondary to left lower lobe pneumonia patient with parapneumonic effusion. Loculated versus empyema as per ultrasound -Pleuritic pain secondary to pleural effusion and parapneumonic effusion -Hypokalemia -Hypomagnesemia -Mildly elevated troponin secondary to sepsis and repeat troponins WNL -COPD without any acute exacerbation,patient quit smoking 2 years ago -Type 2 diabetes mellitus -Hypertension -Hypothyroidism -Altered mental status, etiology unclear, possibly metabolic encephalopathy, improving Plan: Continue on current medication regime ,monitoring and symptomatic treatment. Aggressive pulmonary toileting. Interventional radiology consulted for Pigtail chest tube placement with pleural fluid cultures/cytology/analysis. Maintain nebulized bronchodilators, antibiotics. The impression and plan of care has been dictated as directed. : I performed a history and examination of this patient, discussed the same with the dictator. I agree with the dictator's note ,documented as a scribe. Any additional findings or plans will be noted.
[2018-07-14] MEDS: BENZOCAINE/MENTHOL LOZENG 1 EACH LOZENGE MUCOUS MEM PRN ×3 (04:54→23:59)
[2018-07-14] MEDS: KETOROLAC 30 MG/ML 1 ML VIAL IVP PRN ×2 (04:54→11:57)
[2018-07-14 07:16] LABS: Glucose,Whole Blood 103 mg/dL (75-99)
[2018-07-14] MEDS: ALBUTEROL NEBULIZED 2.5 MG/3 ML INHALATION PRN ×2 (08:51→23:38)
[2018-07-14] MEDS: ENOXAPARIN 40 MG/0.4 ML SYRINGE SQ SCH (08:58)
[2018-07-14] MEDS: INSULIN ASPART 100 UNIT/ML 1 ML 10 ML VIAL SQ SCH ×4 (08:58→22:50)
[2018-07-14 09:03] LABS: Anion Gap 7 mmol/L; Blood Urea Nitrogen 21 mg/dL (7-17); Calcium 8.1 mg/dL (8.4-10.2); Carbon Dioxide 24 mmol/L (22-30); Chloride 108 mmol/L (98-107); Glucose 101 mg/dL (74-99); Potassium 2.8 mmol/L (3.5-5.1); Sodium 139 mmol/L (137-145)
[2018-07-14] MEDS: AZITHROMYCIN 500 MG in SODIUM CHLORIDE 0.9% 250 ML IVPB SCH (11:47)
[2018-07-14] MEDS: ATENOLOL 50 MG TAB PO SCH (11:54)
[2018-07-14] MEDS: FAMOTIDINE 20 MG TAB PO SCH (11:54)
[2018-07-14] MEDS: SERTRALINE 100 MG TAB PO SCH (11:54)
[2018-07-14] MEDS: GABAPENTIN 300 MG CAP PO SCH ×2 (11:54→22:50)
--- NOTE | 2018-07-14 11:54 | P.PN ---
Subjective Progress Note Date: 07/14/18 Principal diagnosis: Left lower lobe pneumonia and parapneumonic effusion This is a 72-year-old female, known history of COPD, diabetes, hypertension, hypothyroidism, degenerative joint disease, chronic back pain, patient was found on the floor incontinent of bowel and urine. She was confused apparently and she was also complaining of cough and congestion. No complaining of left upper quadrant pain and tenderness mostly over the left parasternal area and over the left lower ribs anteriorly. Patient has chronic cough, has been chronically congested, workup in the ER included a CT of the abdomen and pelvis , and there was evidence of mild left pleural effusion, initial chest x-ray was basically normal on admission, however follow-up chest x-ray showed left sided consolidation, and lobulated densities along the pleural surface hence the radiologist raised the possibility concern of loculated pleural effusion and/or empyema. The patient herself is an extremely poor historian, she is definitely confused, and I was asked to see her on consultation for questionable loculated pleural effusion. Patient again has mostly chronic cough, no fever no chills no hemoptysis no chest pain. But she does have pain mostly over the left lower ribs and upper left quadrant of the abdomen. After reviewing the chest x-ray and reviewing the CT of the abdomen and pelvis, I recommended a dedicated CT of the chest which will be done later today. In the meantime recommended that the patient gets treatment for COPD symptoms cough wheezing shortness of breath, and she is already empirically on antibiotics. His CBC was relatively normal, no evidence of leukocytosis. He elected lites were normal. However her vital did show a temp as high as 102 on admission. Her T-max last night was 101.3. On 07/13/2018 patient seen in follow-up on medical surgical floor. She is resting in bed, still sounds quite congested, diffuse rhonchi, patient has ingested cough, and she is able to clear some thick yellow pink tinged sputum. Pulse ox on 3 L per nasal cannula is on 100%, afebrile, hemodynamically stable, the patient has been resistant to sitting up, in the chair, refuses to get up out of bed. Although she told me she was up in the chair all day yesterday. She started to develop a decubitus ulcer, there is a stage I on her coccyx according to the nursing staff. Does reside at home with her daughter. There was no group A beta strep identified, with culture is negative. These labs have been noted. CT chest showed mild to moderate size pleural effusion on the left with associated compressive atelectasis of the left lower lobe and concurrent left lower lobe bronchopneumonia. Ultrasound the chest showed a 6.4 cm fluid pocket on the left, but it was not marked related to fluid showing abnormal internal echoes. She is on combination of Zithromax and Rocephin for community-acquired pneumonia, on nebulized bronchodilators. Remains quite congested. But no worsening shortness of breath. Patient was reevaluated on 07/14/2018, patient remains on 3 L nasal cannula, she has diffuse rhonchi and crackles bilaterally, patient is not a great historian seems to be a bit confused. I reviewed the CT of the chest on the ultrasound, and I discussed her situation with the interventional radiologist Dr. Benjamin, and he is willing to proceed with a pigtail catheter placement in the left pleural space, and this will be connected to Pleur-vac . Clearly the patient has a complicated pleural effusion, and may actually have empyema. Labs were reviewed today, she has a low potassium being corrected as per protocol. Her WBC count on admission was 12.5, however it was 5.6 in the last couple of days. Patient remains congested, and continues to have rhonchi and crackles bilaterally. Objective - Vital Signs Vital signs: Vital Signs Temp 98.5 F 07/14/18 08:44 Pulse 80 07/14/18 09:06 Resp 18 07/14/18 08:44 BP 123/59 07/14/18 08:44 Pulse Ox 95 07/14/18 08:44 Intake & Output 07/13/18 07/14/18 07/14/18 18:59 06:59 18:59 Other: Voiding Method Diaper Diaper Diaper Incontinent Incontinent Incontinent # Voids 1 1 # Bowel Movements 1 - Exam GENERAL EXAM: Alert, pleasant, 72-year-old obese white female, currently on 3 L per nasal cannula comfortable in no apparent distress. HEENT: PERRLA EOMI, moist mucous membranes, neck supple, no icterus. Abdomen: Soft nontender no megaly no rebound no guarding. EXTREMITIES: No clubbing, no edema, no cyanosis, 2+ pulses and upper and lower extremities. MUSCULOSKELETAL: Muscle strength and tone normal. SPINE: No scoliosis or deformity SKIN: No rashes CENTRAL NERVOUS SYSTEM: slightly confused, otherwise No focal deficits, tone is normal in all 4 extremities. PSYCHIATRIC: confused, but follows simple instructions, depressed mood and affect. - Labs CBC & Chem 7: 07/12/18 07:33 07/14/18 08:17 Labs: Abnormal Lab Results - Last 24 Hours (Table) 07/13/18 07/13/18 07/13/18 Range/Units 11:33 16:54 20:18 Potassium (3.5-5.1) mmol/L Chloride (98-107) mmol/L BUN (7-17) mg/dL Creatinine (0.52-1.04) mg/dL Glucose (74-99) mg/dL POC Glucose (mg/dL) 145 H 187 H 134 H (75-99) mg/dL Calcium (8.4-10.2) mg/dL 07/14/18 07/14/18 Range/Units 07:03 08:17 Potassium 2.8 L (3.5-5.1) mmol/L Chloride 108 H (98-107) mmol/L BUN 21 H (7-17) mg/dL Creatinine 0.46 L (0.52-1.04) mg/dL Glucose 101 H (74-99) mg/dL POC Glucose (mg/dL) 103 H (75-99) mg/dL Calcium 8.1 L (8.4-10.2) mg/dL Microbiology - Last 24 Hours (Table) 07/10/18 21:20 Blood Culture - Preliminary Blood No Growth after 72 hours 07/11/18 10:38 Group A Strep Throat Culture - Final Throat Assessment and Plan Assessment: Impression: 1 acute community-acquired left lower lobe pneumonia with parapneumonic pleural effusion, based on the ultrasound findings, empyema should be considered. Hence interventional radiology may place at pigtail catheter and connected to a Pleur-evac 2 musculoskeletal chest wall pain, 3 altered mental status, exact baseline of mental status is unknown, could be related to metabolic encephalopathy. 4 electrolytes imbalance being corrected by the admitting physician. Mostly hypokalemia and hypomagnesemia. 5 suspect underlying COPD with symptoms of COPD exacerbation as noted on physical examination. Patient used to be a smoker, quit 2 years back. 6 type 2 diabetes 7 hypertension 8 hypothyroidism Recommendation: Continue antibiotics, continue bronchodilators, discussed her condition with the interventional radiologist/Dr. Benjamin, may proceed with pigtail catheter placement today and depending on the findings, further recommendations will follow. Patient remains quite ill, and she is not ready for any discharge planning at this point in time. Continues to have multiple complex issues as noted above. Time with Patient: Less than 30
[2018-07-14] MEDS: LEVOTHYROXINE 50 MCG TAB PO SCH (11:55)
[2018-07-14] MEDS: carBAMazepine 200 MG TAB PO SCH ×3 (11:58→22:49)
[2018-07-14] MEDS: COLCHICINE 0.6 MG EACH PO SCH (11:58)
[2018-07-14] MEDS: GLIMEPIRIDE 4 MG TAB PO SCH ×2 (11:58→18:47)
[2018-07-14 12:21] LABS: Glucose,Whole Blood 100 mg/dL (75-99)
--- NOTE | 2018-07-14 12:30 | XR ---
EXAMINATION TYPE: XR chest 1V DATE OF EXAM: 07/14/2018 HISTORY: chest tube insertion. REFERENCE: Previous study dated 07/12/2018. FINDINGS: The study is moderately rotated. There is increased opacity left hemithorax. This is at [address] in part due to pleural fluid. Heart size is obscured. The right lung is clear. IMPRESSION: ROTATED STUDY DEMONSTRATING INCREASED OPACITY OVERLYING THE LEFT HEMITHORAX.
[2018-07-14] MEDS ORDERED: INSULIN ASPART 100 UNIT/ML 1 ML 10 ML VIAL SQ ONE (18:00)
[2018-07-14] MEDS ORDERED: ALBUTEROL NEBULIZED 2.5 MG/3 ML INHALATION ONE ×3 (18:00)
[2018-07-14] MEDS ORDERED: ALLOPURINOL 300 MG TAB PO ONE (18:00)
[2018-07-14] MEDS ORDERED: GLIMEPIRIDE 4 MG TAB ONE (18:00)
[2018-07-14] MEDS ORDERED: POTASSIUM CHLORIDE ER 20 MEQ TAB.ER PO ONE ×3 (18:00)
[2018-07-14] MEDS: ALLOPURINOL 300 MG TAB PO SCH (18:46)
[2018-07-14 18:47] LABS: Glucose,Whole Blood 136 mg/dL (75-99)
[2018-07-14] MEDS: POTASSIUM CHLORIDE ER 20 MEQ TAB.ER PO SCH ×2 (18:47→18:48)
[2018-07-14 21:03] LABS: Glucose,Whole Blood 113 mg/dL (75-99)
[2018-07-14] MEDS: OXYBUTYNIN 15 MG TAB.ER.24 PO SCH (22:49)
[2018-07-14] MEDS: HYDROcodone/APAP 7.5-325MG 1 EACH TAB PO PRN (22:49)
[2018-07-14] MEDS: cefTRIAXone 2,000 MG in SODIUM CHLORIDE 0.9% 100 ML IVPB SCH (22:50)
[2018-07-14] MEDS: ACETAMINOPHEN TAB 325 MG TAB PO PRN (23:58)
--- NOTE | 2018-07-15 00:41 | XR ---
EXAMINATION TYPE: XR chest 1V portable DATE OF EXAM: 07/15/2018 COMPARISON: Yesterday HISTORY: Respiratory distress TECHNIQUE: Single frontal view of the chest is obtained. FINDINGS: There is airspace consolidation in the periphery of the left lung. The right lung is fairl y clear. Heart is slightly enlarged. There is cervical spine fusion surgery noted. IMPRESSION: Left pleural effusion and left side pulmonate consolidation unchanged compared to yester day. No heart failure.
[2018-07-15 07:07] LABS: Glucose,Whole Blood 96 mg/dL (75-99)
[2018-07-15] MEDS: GABAPENTIN 300 MG CAP PO SCH ×2 (08:00→20:57)
[2018-07-15] MEDS: ENOXAPARIN 40 MG/0.4 ML SYRINGE SQ SCH (08:00)
[2018-07-15] MEDS: SERTRALINE 100 MG TAB PO SCH (08:00)
[2018-07-15] MEDS: LEVOTHYROXINE 50 MCG TAB PO SCH (08:00)
[2018-07-15] MEDS: ATENOLOL 50 MG TAB PO SCH (08:00)
[2018-07-15] MEDS: COLCHICINE 0.6 MG EACH PO SCH (08:01)
[2018-07-15] MEDS: GLIMEPIRIDE 4 MG TAB PO SCH ×2 (08:01→17:23)
[2018-07-15] MEDS: FAMOTIDINE 20 MG TAB PO SCH (08:01)
[2018-07-15] MEDS: ALLOPURINOL 300 MG TAB PO SCH (08:01)
[2018-07-15] MEDS: carBAMazepine 200 MG TAB PO SCH ×3 (08:01→20:58)
[2018-07-15] MEDS: INSULIN ASPART 100 UNIT/ML 1 ML 10 ML VIAL SQ SCH ×4 (08:02→20:36)
[2018-07-15] MEDS: AZITHROMYCIN 500 MG in SODIUM CHLORIDE 0.9% 250 ML IVPB SCH (08:05)
[2018-07-15] MEDS: BENZOCAINE/MENTHOL LOZENG 1 EACH LOZENGE MUCOUS MEM PRN ×2 (08:08→20:58)
[2018-07-15] MEDS: ALBUTEROL NEBULIZED 2.5 MG/3 ML INHALATION PRN (08:12)
[2018-07-15 08:27] LABS: HGB 10.5 gm/dL (11.4-16.0); MCHC 32.9 g/dL (31.0-37.0); MCV 94.3 fL (80.0-100.0); Platelet Count 115 k/uL (150-450); RBC 3.39 m/uL (3.80-5.40); WBC 5.7 k/uL (3.8-10.6)
[2018-07-15 08:40] LABS: Anion Gap 5 mmol/L; Blood Urea Nitrogen 20 mg/dL (7-17); Calcium 8.2 mg/dL (8.4-10.2); Carbon Dioxide 27 mmol/L (22-30); Chloride 107 mmol/L (98-107); Glucose 90 mg/dL (74-99); Potassium 3.1 mmol/L (3.5-5.1); Sodium 139 mmol/L (137-145)
--- NOTE | 2018-07-15 08:43 | US ---
EXAMINATION TYPE: US guided chest tube insertion DATE OF EXAM: 07/14/2018 HISTORY: Left pleural effusion, fever and cough FINDINGS: Maximal barrier technique was utilized. Ultrasound used with sterile technique. The skin ov erlying a suitable path to the fluid in the posterior left chest was localized with ultrasound and th e overlying skin prepped and draped. Lidocaine was used for local anesthesia. A skin liseth made with a scalpel. Access was gained under direct ultrasound guidance to the fluid with a 21-gauge needle. A 0.018 inch wire was advanced. Access site was dilated and an 8.5-[place] catheter advanced into the pleural fluid collection. 30 cc serous fluid returned. Specimen obtained and submitted to laborato for analysis. Catheter attached to water seal. Catheter fixed to the skin. Hemostasis achieved. No immediate complication and the patient remained in stable condition. Postprocedure chest x-rays pe nding IMPRESSION: STATUS POST ULTRASOUND GUIDED LEFT PLEURAL CATHETER DRAINAGE tube placement, THIS PROCEDU RE WAS PERFORMED BY THE UNDERSIGNED.
--- NOTE | 2018-07-15 10:03 | P.PN ---
Subjective Progress Note Date: 07/14/18 72-year-old admitted for left-sided pleural effusion. I repeated the chest x- ray as her oxygen requirements of chronic the pleural effusion had appears to have worsened and there may be an empyema. We'll consult pulmonary. is still complaining of pleuritic chest pain. Patient feels bit better with antibiotics. 07/14/2018 Patient underwent thoracocentesis by interventional radiology they're able to get minimal fluid patient appears to have loculated effusions. Patient is receiving a chest tube Constitutional: Denied any fatigue denied any fever. Cardio vascular: denied any chest pain, palpitations Gastrointestinal denied any nausea vomiting Pulmonary: As mentioned above Neurologic denied any new focal deficits All inpatient medications were reviewed and appropriate changes in these medications as dictated in the interval history and assessment and plan. Objective - Vital Signs Vital signs: Vital Signs Temp 98.1 F 07/15/18 07:12 Pulse 88 07/15/18 08:23 Resp 18 07/15/18 07:14 BP 128/71 07/15/18 07:12 Pulse Ox 97 07/15/18 07:12 Intake & Output 07/14/18 07/15/18 07/15/18 18:59 06:59 18:59 Other: Voiding Method Diaper Diaper Incontinent Incontinent # Voids 1 - Exam PHYSICAL EXAMINATION: GENERAL: The patient is alert and oriented x3, not in any acute distress. Obese HEENT: Pupils are round and equally reacting to light. EOMI. No scleral icterus. No conjunctival pallor. Normocephalic, atraumatic. No pharyngeal erythema. No thyromegaly. CARDIOVASCULAR: S1 and S2 present. No murmurs, rubs, or gallops. PULMONARY: Rhonchorous breath sounds bilaterally, did not hear any significant bronchophony or egophony on exam ABDOMEN: Soft, nontender, nondistended, normoactive bowel sounds. No palpable organomegaly. MUSCULOSKELETAL: No joint swelling or deformity. EXTREMITIES: No cyanosis, clubbing, or pedal edema. NEUROLOGICAL: Gross neurological examination did not reveal any focal deficits. SKIN: No rashes. - Labs CBC & Chem 7: 07/15/18 07:12 07/15/18 07:12 Labs: Abnormal Lab Results - Last 24 Hours (Table) 07/14/18 07/14/18 07/14/18 Range/Units 12:10 17:13 20:38 RBC (3.80-5.40) m/uL Hgb (11.4-16.0) gm/dL Hct (34.0-46.0) % Plt Count (150-450) k/uL Potassium (3.5-5.1) mmol/L BUN (7-17) mg/dL Creatinine (0.52-1.04) mg/dL POC Glucose (mg/dL) 100 H 136 H 113 H (75-99) mg/dL Calcium (8.4-10.2) mg/dL 07/15/18 07/15/18 Range/Units 07:12 07:12 RBC 3.39 L (3.80-5.40) m/uL Hgb 10.5 L (11.4-16.0) gm/dL Hct 32.0 L (34.0-46.0) % Plt Count 115 L (150-450) k/uL Potassium 3.1 L (3.5-5.1) mmol/L BUN 20 H (7-17) mg/dL Creatinine 0.45 L (0.52-1.04) mg/dL POC Glucose (mg/dL) (75-99) mg/dL Calcium 8.2 L (8.4-10.2) mg/dL Microbiology - Last 24 Hours (Table) 07/10/18 21:20 Blood Culture - Preliminary Blood No Growth after 96 hours Assessment and Plan Plan: -Sepsis: Possibly secondary to left lower lobe pneumonia patient , patient appears to have parapneumonic effusion, may have empyema patient is presently on Rocephin and azithromycin. Patient had pleural tap by interventional radiology and the patient is presently has a chest tube -Pleuritic pain secondary to pleural effusion and parapneumonic effusion, Toradol for pain. Chest x-ray today did show increasing pleural effusion there may be loculation. -Hypokalemia potassium was supplemented -Hypomagnesemia magnesium was supplemented -Mildly elevated troponin secondary to sepsis and repeat troponins are within normal limits -COPD without any acute exacerbation patient quit smoking years ago -Type 2 diabetes mellitus: Patient will be on sliding scale insulin hold off on oral hypoglycemic agents -Hypertension -Hypothyroidism Patient will need pharmacologic DVT and GI prophylaxis.
[2018-07-15] MEDS: KETOROLAC 30 MG/ML 1 ML VIAL IVP PRN (10:05)
--- NOTE | 2018-07-15 10:30 | P.PN ---
Subjective Progress Note Date: 07/15/18 Principal diagnosis: Altered mental status, left lower lobe pneumonia, with parapneumonic pleural effusion This is a 72-year-old female, known history of COPD, diabetes, hypertension, hypothyroidism, degenerative joint disease, chronic back pain, patient was found on the floor incontinent of bowel and urine. She was confused apparently and she was also complaining of cough and congestion. No complaining of left upper quadrant pain and tenderness mostly over the left parasternal area and over the left lower ribs anteriorly. Patient has chronic cough, has been chronically congested, workup in the ER included a CT of the abdomen and pelvis , and there was evidence of mild left pleural effusion, initial chest x-ray was basically normal on admission, however follow-up chest x-ray showed left sided consolidation, and lobulated densities along the pleural surface hence the radiologist raised the possibility concern of loculated pleural effusion and/or empyema. The patient herself is an extremely poor historian, she is definitely confused, and I was asked to see her on consultation for questionable loculated pleural effusion. Patient again has mostly chronic cough, no fever no chills no hemoptysis no chest pain. But she does have pain mostly over the left lower ribs and upper left quadrant of the abdomen. After reviewing the chest x-ray and reviewing the CT of the abdomen and pelvis, I recommended a dedicated CT of the chest which will be done later today. In the meantime recommended that the patient gets treatment for COPD symptoms cough wheezing shortness of breath, and she is already empirically on antibiotics. His CBC was relatively normal, no evidence of leukocytosis. He elected lites were normal. However her vital did show a temp as high as 102 on admission. Her T-max last night was 101.3. On 07/13/2017 patient seen in follow-up on medical surgical floor. She is resting in bed, still sounds quite congested, diffuse rhonchi, patient has ingested cough, and she is able to clear some thick yellow pink tinged sputum. Pulse ox on 3 L per nasal cannula is on 100%, afebrile, hemodynamically stable, the patient has been resistant to sitting up, in the chair, refuses to get up out of bed. Although she told me she was up in the chair all day yesterday. She started to develop a decubitus ulcer, there is a stage I on her coccyx according to the nursing staff. Does reside at home with her daughter. There was no group A beta strep identified, with culture is negative. These labs have been noted. CT chest showed mild to moderate size pleural effusion on the left with associated compressive atelectasis of the left lower lobe and concurrent left lower lobe bronchopneumonia. Ultrasound the chest showed a 6.4 cm fluid pocket on the left, but it was not marked related to fluid showing abnormal internal echoes. She is on combination of Zithromax and Rocephin for community-acquired pneumonia, on nebulized bronchodilators. Remains quite congested. But no worsening shortness of breath. On 07/15/2018 patient seen in follow-up on medical surgical floor. She is resting in bed, currently on 2 L per nasal cannula pulse ox is 97%, afebrile, hemodynamically stable. Severe patient had a left-sided pigtail chest tube inserted by interventional radiology, samples were sent for pleural fluid analysis, low fluid cultures and cytology. Pleural fluid is thin, serosanguineous, and there has been only 15 mL since the insertion of the chest tube. Patient continues to be intermittently febrile, with a T-max of 101.1F. Lung sounds are positive for diffuse wheezes, patient sounds congested compared to previous exams. Urine culture was not sent, blood cultures are negative. Antibiotic coverage includes Zithromax and Rocephin. Objective - Vital Signs Vital signs: Vital Signs Temp 98.1 F 07/15/18 07:12 Pulse 88 07/15/18 08:23 Resp 18 07/15/18 07:14 BP 128/71 07/15/18 07:12 Pulse Ox 97 07/15/18 07:12 Intake & Output 07/14/18 07/15/18 07/15/18 18:59 06:59 18:59 Other: Voiding Method Diaper Diaper Incontinent Incontinent # Voids 1 - Exam GENERAL EXAM: Alert, pleasant, 72-year-old obese white female, currently on 3 L per nasal cannula comfortable in no apparent distress. HEAD: Normocephalic/atraumatic. EYES: Normal reaction of pupils, equal size. Conjunctiva pink, sclera white. NOSE: Clear with pink turbinates. THROAT: No erythema or exudates. NECK: No masses, no JVD, no thyroid enlargement, no adenopathy. CHEST: No chest wall deformity. Symmetrical expansion. LUNGS: Equal air entry with diffuse wheezes CVS: Regular rate and rhythm, normal S1 and S2, no gallops, no murmurs, no rubs ABDOMEN: Soft, nontender. No hepatosplenomegaly, normal bowel sounds, no guarding or rigidity. EXTREMITIES: No clubbing, no edema, no cyanosis, 2+ pulses and upper and lower extremities. MUSCULOSKELETAL: Muscle strength and tone normal. SPINE: No scoliosis or deformity SKIN: No rashes CENTRAL NERVOUS SYSTEM: Alert and oriented -3. No focal deficits, tone is normal in all 4 extremities. PSYCHIATRIC: Alert and oriented -3. Appropriate affect. Intact judgment and insight. - Labs CBC & Chem 7: 07/15/18 07:12 07/15/18 07:12 Labs: Abnormal Lab Results - Last 24 Hours (Table) 07/14/18 07/14/18 07/14/18 Range/Units 12:10 17:13 20:38 RBC (3.80-5.40) m/uL Hgb (11.4-16.0) gm/dL Hct (34.0-46.0) % Plt Count (150-450) k/uL Potassium (3.5-5.1) mmol/L BUN (7-17) mg/dL Creatinine (0.52-1.04) mg/dL POC Glucose (mg/dL) 100 H 136 H 113 H (75-99) mg/dL Calcium (8.4-10.2) mg/dL 07/15/18 07/15/18 Range/Units 07:12 07:12 RBC 3.39 L (3.80-5.40) m/uL Hgb 10.5 L (11.4-16.0) gm/dL Hct 32.0 L (34.0-46.0) % Plt Count 115 L (150-450) k/uL Potassium 3.1 L (3.5-5.1) mmol/L BUN 20 H (7-17) mg/dL Creatinine 0.45 L (0.52-1.04) mg/dL POC Glucose (mg/dL) (75-99) mg/dL Calcium 8.2 L (8.4-10.2) mg/dL Microbiology - Last 24 Hours (Table) 07/10/18 21:20 Blood Culture - Preliminary Blood No Growth after 96 hours Assessment and Plan Plan: 1 acute community-acquired left lower lobe pneumonia with parapneumonic pleural effusion, doubt empyema, however a dedicated CT of the chest was ordered , and based on that further recommendations are to follow. In the meantime the patient is on antibiotics for community-acquired pneumonia including Rocephin and Zithromax. 2 musculoskeletal chest wall pain, 3 altered mental status, exact baseline of mental status is unknown, could be related to metabolic encephalopathy. On today's exam on 07/13/2018 her mentation seems to be improving 4 electrolytes imbalance being corrected by the admitting physician. Mostly hypokalemia and hypomagnesemia. 5 suspect underlying COPD with symptoms of COPD exacerbation as noted on physical examination. Patient used to be a smoker, quit 2 years back. 6 type 2 diabetes 7 hypertension 8 hypothyroidism Plan: We will await the results of the pleural fluid cultures, cytology and analysis. Continue with current antibiotic coverage. Repeat chest x-ray today. We'll continue to follow. I performed a history & physical examination of the patient and discussed their management with my nurse practitioner, Candida Naranjo. I reviewed the nurse practitioner's note and agree with the documented findings and plan of care. Lung sounds are positive scattered wheezes. The findings and the impression was discussed with the patient. I attest to the documentation by the nurse practitioner. Time with Patient: Less than 30
[2018-07-15 11:40] LABS: Glucose,Whole Blood 132 mg/dL (75-99)
[2018-07-15] MEDS: POTASSIUM CHLORIDE ER 20 MEQ TAB.ER PO SCH ×4 (12:16→18:19)
--- NOTE | 2018-07-15 12:34 | XR ---
EXAMINATION TYPE: XR chest 1V portable DATE OF EXAM: 07/15/2018 COMPARISON: Prior chest x-ray same dated earlier time HISTORY: Left chest tube, pneumonia and parapneumonic effusion TECHNIQUE: Single frontal view of the chest is obtained. FINDINGS: Findings are stable. IMPRESSION: Left pleural drainage catheter remains in place, findings compatible with pneumonia and parapneumonic effusion on the left.
[2018-07-15 14:35] LABS: Appearance,BF Hazy; Color,BF Yellow
[2018-07-15 14:36] LABS: Nucleated Cells, Body Fluid 48 /uL; RBC, Body Fluid 1940 /uL
[2018-07-15 14:39] LABS: Mononuclear WBC,Body Fluid 25 %; Polynuclear WBC,Body Fluid 75 %; Total Cells Counted,Body Fluid 100
[2018-07-15 17:30] LABS: Glucose,Whole Blood 83 mg/dL (75-99)
--- NOTE | 2018-07-15 17:41 | P.PN ---
Subjective 72-year-old admitted for left-sided pleural effusion. I repeated the chest x- ray as her oxygen requirements of chronic the pleural effusion had appears to have worsened and there may be an empyema. We'll consult pulmonary. is still complaining of pleuritic chest pain. Patient feels bit better with antibiotics. 07/14/2018 Patient underwent thoracocentesis by interventional radiology they're able to get minimal fluid patient appears to have loculated effusions. Patient is receiving a chest tube 07/15/2018 She was febrile with T-max of 101.1, patient has a chest tube which will be continued Constitutional: Denied any fatigue denied any fever. Cardio vascular: denied any chest pain, palpitations Gastrointestinal denied any nausea vomiting Pulmonary: As mentioned above Neurologic denied any new focal deficits All inpatient medications were reviewed and appropriate changes in these medications as dictated in the interval history and assessment and plan. Objective - Vital Signs Vital signs: Vital Signs Temp 98.2 F 07/15/18 14:31 Pulse 56 L 07/15/18 14:31 Resp 18 07/15/18 07:14 BP 152/80 07/15/18 14:31 Pulse Ox 95 07/15/18 14:31 Intake & Output 07/14/18 07/15/18 07/15/18 18:59 06:59 18:59 Intake Total 250 Balance 250 Intake: Intake, IV Titration 250 Amount Azithromycin 500 mg In 250 Sodium Chloride 0.9% 250 ml @ 250 mls/hr IVPB DAILY [facility] Rx#:[id number] Other: Voiding Method Diaper Diaper Incontinent Incontinent # Voids 1 - Exam PHYSICAL EXAMINATION: GENERAL: The patient is alert and oriented x3, not in any acute distress. Obese HEENT: Pupils are round and equally reacting to light. EOMI. No scleral icterus. No conjunctival pallor. Normocephalic, atraumatic. No pharyngeal erythema. No thyromegaly. CARDIOVASCULAR: S1 and S2 present. No murmurs, rubs, or gallops. PULMONARY: Rhonchorous breath sounds bilaterally, did not hear any significant bronchophony or egophony on exam chest tube on the left side ABDOMEN: Soft, nontender, nondistended, normoactive bowel sounds. No palpable organomegaly. MUSCULOSKELETAL: No joint swelling or deformity. EXTREMITIES: No cyanosis, clubbing, or pedal edema. NEUROLOGICAL: Gross neurological examination did not reveal any focal deficits. SKIN: No rashes. - Labs CBC & Chem 7: 07/15/18 07:12 07/15/18 14:59 Labs: Abnormal Lab Results - Last 24 Hours (Table) 07/14/18 07/14/18 07/14/18 Range/Units 12:10 15:38 17:13 RBC (3.80-5.40) m/uL Hgb (11.4-16.0) gm/dL Hct (34.0-46.0) % Plt Count (150-450) k/uL Potassium 3.4 L (3.5-5.1) mmol/L BUN (7-17) mg/dL Creatinine (0.52-1.04) mg/dL POC Glucose (mg/dL) 100 H 136 H (75-99) mg/dL Calcium (8.4-10.2) mg/dL 07/14/18 07/15/18 07/15/18 Range/Units 20:38 07:12 07:12 RBC 3.39 L (3.80-5.40) m/uL Hgb 10.5 L (11.4-16.0) gm/dL Hct 32.0 L (34.0-46.0) % Plt Count 115 L (150-450) k/uL Potassium 3.1 L (3.5-5.1) mmol/L BUN 20 H (7-17) mg/dL Creatinine 0.45 L (0.52-1.04) mg/dL POC Glucose (mg/dL) 113 H (75-99) mg/dL Calcium 8.2 L (8.4-10.2) mg/dL 07/15/18 07/15/18 Range/Units 11:29 14:59 RBC (3.80-5.40) m/uL Hgb (11.4-16.0) gm/dL Hct (34.0-46.0) % Plt Count (150-450) k/uL Potassium 3.4 L (3.5-5.1) mmol/L BUN (7-17) mg/dL Creatinine (0.52-1.04) mg/dL POC Glucose (mg/dL) 132 H (75-99) mg/dL Calcium (8.4-10.2) mg/dL Microbiology - Last 24 Hours (Table) 07/14/18 11:00 Gram Stain - Preliminary Pleural Fluid Body Fluid Culture - Preliminary 07/14/18 11:00 Fungal Culture - Preliminary Pleural Fluid 07/14/18 11:00 Acid Fast Bacilli Culture - Preliminary Pleural Fluid 07/10/18 21:20 Blood Culture - Preliminary Blood No Growth after 96 hours Assessment and Plan Plan: -Sepsis: Possibly secondary to left lower lobe pneumonia patient , patient appears to have parapneumonic effusion, may have empyema patient is presently on Rocephin and azithromycin. Patient had pleural tap by interventional radiology and the patient is presently has a chest tube -Pleuritic pain secondary to pleural effusion and parapneumonic effusion, Toradol for pain. Chest x-ray today did show increasing pleural effusion there may be loculation. -Hypokalemia potassium was supplemented -Hypomagnesemia magnesium was supplemented -Mildly elevated troponin secondary to sepsis and repeat troponins are within normal limits -COPD without any acute exacerbation patient quit smoking years ago -Type 2 diabetes mellitus: Patient will be on sliding scale insulin hold off on oral hypoglycemic agents -Hypertension -Hypothyroidism Patient will need pharmacologic DVT and GI prophylaxis.
[2018-07-15 19:46] LABS: Glucose,Whole Blood 125 mg/dL (75-99)
[2018-07-15] MEDS: HYDROcodone/APAP 7.5-325MG 1 EACH TAB PO PRN (20:57)
[2018-07-15] MEDS: OXYBUTYNIN 15 MG TAB.ER.24 PO SCH (20:58)
[2018-07-15] MEDS: cefTRIAXone 2,000 MG in SODIUM CHLORIDE 0.9% 100 ML IVPB SCH (20:58)
[2018-07-16 06:56] LABS: Glucose,Whole Blood 77 mg/dL (75-99)
[2018-07-16 07:15] LABS: HCT 31.9 % (34.0-46.0); HGB 10.6 gm/dL (11.4-16.0); MCH 30.9 pg (25.0-35.0); MCHC 33.3 g/dL (31.0-37.0); MCV 92.8 fL (80.0-100.0); Mean Platelet Volume 8.8; Platelet Count 126 k/uL (150-450); RBC 3.44 m/uL (3.80-5.40); RDW 14.8 % (11.5-15.5); WBC 7.3 k/uL (3.8-10.6)
[2018-07-16 07:29] LABS: Anion Gap 5 mmol/L; Blood Urea Nitrogen 19 mg/dL (7-17); Calcium 8.3 mg/dL (8.4-10.2); Carbon Dioxide 27 mmol/L (22-30); Chloride 107 mmol/L (98-107); Glucose 81 mg/dL (74-99); Potassium 3.4 mmol/L (3.5-5.1); Sodium 139 mmol/L (137-145)
--- NOTE | 2018-07-16 09:23 | XR ---
EXAMINATION TYPE: XR chest 1V DATE OF EXAM: 07/16/2018 COMPARISON: 07/15/2018 HISTORY: Pleural effusion TECHNIQUE: Single frontal view of the chest is obtained. FINDINGS: Left-sided chest tube stable with persistent diffuse interstitial pattern and left-sided p leural effusion which appears unchanged. Postsurgical change overlying cervical spine. Arthropathy of the shoulders. Heart is prominent. Interstitial pattern stable. IMPRESSION: Chest tube and left-sided pleural effusion are unchanged in appearance. Underlying inter stitial lung disease suspected.
[2018-07-16] MEDS: INSULIN ASPART 100 UNIT/ML 1 ML 10 ML VIAL SQ SCH ×4 (09:48→21:48)
[2018-07-16] MEDS: GLIMEPIRIDE 4 MG TAB PO SCH ×2 (10:23→16:39)
[2018-07-16] MEDS: AZITHROMYCIN 500 MG in SODIUM CHLORIDE 0.9% 250 ML IVPB SCH (10:23)
[2018-07-16] MEDS: ALLOPURINOL 300 MG TAB PO SCH (10:23)
[2018-07-16] MEDS: GABAPENTIN 300 MG CAP PO SCH ×2 (10:23→21:57)
[2018-07-16] MEDS: FAMOTIDINE 20 MG TAB PO SCH (10:24)
[2018-07-16] MEDS: LEVOTHYROXINE 50 MCG TAB PO SCH (10:24)
[2018-07-16] MEDS: COLCHICINE 0.6 MG EACH PO SCH (10:24)
[2018-07-16] MEDS: ATENOLOL 50 MG TAB PO SCH (10:24)
[2018-07-16] MEDS: carBAMazepine 200 MG TAB PO SCH ×3 (10:24→21:58)
[2018-07-16] MEDS: SERTRALINE 100 MG TAB PO SCH (10:24)
[2018-07-16] MEDS: ENOXAPARIN 40 MG/0.4 ML SYRINGE SQ SCH (10:25)
[2018-07-16 11:43] LABS: Glucose,Whole Blood 102 mg/dL (75-99)
[2018-07-16] MEDS: HYDROcodone/APAP 7.5-325MG 1 EACH TAB PO PRN (12:36)
[2018-07-16 13:09] LABS: Total Protein, Body Fluid 3200 mg/dL
--- NOTE | 2018-07-16 14:06 | P.PN ---
Subjective Progress Note Date: 07/16/18 Principal diagnosis: Altered mental status, left lower lobe pneumonia, with parapneumonic pleural effusion This is a 72-year-old female, known history of COPD, diabetes, hypertension, hypothyroidism, degenerative joint disease, chronic back pain, patient was found on the floor incontinent of bowel and urine. She was confused apparently and she was also complaining of cough and congestion. No complaining of left upper quadrant pain and tenderness mostly over the left parasternal area and over the left lower ribs anteriorly. Patient has chronic cough, has been chronically congested, workup in the ER included a CT of the abdomen and pelvis , and there was evidence of mild left pleural effusion, initial chest x-ray was basically normal on admission, however follow-up chest x-ray showed left sided consolidation, and lobulated densities along the pleural surface hence the radiologist raised the possibility concern of loculated pleural effusion and/or empyema. The patient herself is an extremely poor historian, she is definitely confused, and I was asked to see her on consultation for questionable loculated pleural effusion. Patient again has mostly chronic cough, no fever no chills no hemoptysis no chest pain. But she does have pain mostly over the left lower ribs and upper left quadrant of the abdomen. After reviewing the chest x-ray and reviewing the CT of the abdomen and pelvis, I recommended a dedicated CT of the chest which will be done later today. In the meantime recommended that the patient gets treatment for COPD symptoms cough wheezing shortness of breath, and she is already empirically on antibiotics. His CBC was relatively normal, no evidence of leukocytosis. He elected lites were normal. However her vital did show a temp as high as 102 on admission. Her T-max last night was 101.3. On 07/13/2017 patient seen in follow-up on medical surgical floor. She is resting in bed, still sounds quite congested, diffuse rhonchi, patient has ingested cough, and she is able to clear some thick yellow pink tinged sputum. Pulse ox on 3 L per nasal cannula is on 100%, afebrile, hemodynamically stable, the patient has been resistant to sitting up, in the chair, refuses to get up out of bed. Although she told me she was up in the chair all day yesterday. She started to develop a decubitus ulcer, there is a stage I on her coccyx according to the nursing staff. Does reside at home with her daughter. There was no group A beta strep identified, with culture is negative. These labs have been noted. CT chest showed mild to moderate size pleural effusion on the left with associated compressive atelectasis of the left lower lobe and concurrent left lower lobe bronchopneumonia. Ultrasound the chest showed a 6.4 cm fluid pocket on the left, but it was not marked related to fluid showing abnormal internal echoes. She is on combination of Zithromax and Rocephin for community-acquired pneumonia, on nebulized bronchodilators. Remains quite congested. But no worsening shortness of breath. On 07/15/2018 patient seen in follow-up on medical surgical floor. She is resting in bed, currently on 2 L per nasal cannula pulse ox is 97%, afebrile, hemodynamically stable. Severe patient had a left-sided pigtail chest tube inserted by interventional radiology, samples were sent for pleural fluid analysis, low fluid cultures and cytology. Pleural fluid is thin, serosanguineous, and there has been only 15 mL since the insertion of the chest tube. Patient continues to be intermittently febrile, with a T-max of 101.1F. Lung sounds are positive for diffuse wheezes, patient sounds congested compared to previous exams. Urine culture was not sent, blood cultures are negative. Antibiotic coverage includes Zithromax and Rocephin. On 07/16/2018 patient seen in follow-up on medical surgical floor. She is laying in bed, room air pulse ox is 92%, she is afebrile, hemodynamically stable , lung sounds are diminished, with some diffuse Rales, patient has a congested cough,at times able to bring up small amount of yellow sputum. Left-sided pigtail chest tube is in place, and there has been minimal output from the drain , it is nonpurulent in nature, its then, and serosanguineous in nature. Antibiotic coverage remains with Zithromax and Rocephin, pleural fluid cultures showed no growth at the 24-hour nasim. Blood cultures are negative. No fever or chills. Objective - Vital Signs Vital signs: Vital Signs Temp 98.8 F 07/16/18 10:34 Pulse 89 07/16/18 10:34 Resp 18 07/16/18 10:34 BP 149/73 07/16/18 10:34 Pulse Ox 92 L 07/16/18 10:34 Intake & Output 07/15/18 07/16/18 07/16/18 18:59 06:59 18:59 Intake Total 250 Balance 250 Intake: Intake, IV Titration 250 Amount Azithromycin 500 mg In 250 Sodium Chloride 0.9% 250 ml @ 250 mls/hr IVPB DAILY [facility] Rx#:[id number] Other: Voiding Method Diaper Diaper Diaper Incontinent Incontinent Incontinent # Voids 1 # Bowel Movements 1 - Exam GENERAL EXAM: Alert, pleasant, 72-year-old obese white female, currently on 3 L per nasal cannula comfortable in no apparent distress. HEAD: Normocephalic/atraumatic. EYES: Normal reaction of pupils, equal size. Conjunctiva pink, sclera white. NOSE: Clear with pink turbinates. THROAT: No erythema or exudates. NECK: No masses, no JVD, no thyroid enlargement, no adenopathy. CHEST: No chest wall deformity. Symmetrical expansion. Left-sided pigtail chest tube connected to a Pleur-evac, with minimal serosanguineous output, no air leak. Pleur-evac is to wall suction. LUNGS: Equal air entry with CVS: Regular rate and rhythm, normal S1 and S2, no gallops, no murmurs, no rubs ABDOMEN: Soft, nontender. No hepatosplenomegaly, normal bowel sounds, no guarding or rigidity. EXTREMITIES: No clubbing, no edema, no cyanosis, 2+ pulses and upper and lower extremities. MUSCULOSKELETAL: Muscle strength and tone normal. SPINE: No scoliosis or deformity SKIN: No rashes CENTRAL NERVOUS SYSTEM: Alert and oriented -3. No focal deficits, tone is normal in all 4 extremities. PSYCHIATRIC: Alert and oriented -3. Appropriate affect. Intact judgment and insight. - Labs CBC & Chem 7: 07/16/18 06:30 07/16/18 06:30 Labs: Abnormal Lab Results - Last 24 Hours (Table) 07/15/18 07/15/18 07/16/18 Range/Units 14:59 19:34 06:30 RBC (3.80-5.40) m/uL Hgb (11.4-16.0) gm/dL Hct (34.0-46.0) % Plt Count (150-450) k/uL Potassium 3.4 L 3.4 L (3.5-5.1) mmol/L BUN 19 H (7-17) mg/dL Creatinine 0.44 L (0.52-1.04) mg/dL POC Glucose (mg/dL) 125 H (75-99) mg/dL Calcium 8.3 L (8.4-10.2) mg/dL 07/16/18 07/16/18 Range/Units 06:30 11:32 RBC 3.44 L (3.80-5.40) m/uL Hgb 10.6 L (11.4-16.0) gm/dL Hct 31.9 L (34.0-46.0) % Plt Count 126 L (150-450) k/uL Potassium (3.5-5.1) mmol/L BUN (7-17) mg/dL Creatinine (0.52-1.04) mg/dL POC Glucose (mg/dL) 102 H (75-99) mg/dL Calcium (8.4-10.2) mg/dL Microbiology - Last 24 Hours (Table) 07/14/18 11:00 Gram Stain - Preliminary Pleural Fluid Body Fluid Culture - Preliminary 07/10/18 21:20 Blood Culture - Preliminary Blood No Growth after 120 hours 07/14/18 11:00 Fungal Culture - Preliminary Pleural Fluid 07/14/18 11:00 Acid Fast Bacilli Culture - Preliminary Pleural Fluid Assessment and Plan Plan: 1 acute community-acquired left lower lobe pneumonia with parapneumonic pleural effusion, doubt empyema, however a dedicated CT of the chest was ordered , and based on that further recommendations are to follow. In the meantime the patient is on antibiotics for community-acquired pneumonia including Rocephin and Zithromax. 2 musculoskeletal chest wall pain, 3 altered mental status, exact baseline of mental status is unknown, could be related to metabolic encephalopathy. On today's exam on 07/13/2018 her mentation seems to be improving 4 electrolytes imbalance being corrected by the admitting physician. Mostly hypokalemia and hypomagnesemia. 5 suspect underlying COPD with symptoms of COPD exacerbation as noted on physical examination. Patient used to be a smoker, quit 2 years back. 6 type 2 diabetes 7 hypertension 8 hypothyroidism Plan: Culture data remains negative, no fever or chills, patient has had minimal output from the left-sided pigtail chest tube catheter, we will instill 100 mg of alteplase, and see if we can't get this pleural effusion to drain. Continue with current antibiotic coverage I performed a history & physical examination of the patient and discussed their management with my nurse practitioner, Candida Naranjo. I reviewed the nurse practitioner's note and agree with the documented findings and plan of care. Lung sounds are positive for diffuse rales. The findings and the impression was discussed with the patient. I attest to the documentation by the nurse practitioner. Time with Patient: Less than 30
[2018-07-16] MEDS ORDERED: ALTEPLASE 10 MG in SODIUM CHLORIDE 0.9% 100 ML IRRIGATION ONE (14:30)
[2018-07-16 17:15] LABS: Glucose,Whole Blood 60 mg/dL (75-99)
[2018-07-16 18:03] LABS: Glucose,Whole Blood 87 mg/dL (75-99)
[2018-07-16 20:55] LABS: Glucose,Whole Blood 81 mg/dL (75-99)
[2018-07-16] MEDS: cefTRIAXone 2,000 MG in SODIUM CHLORIDE 0.9% 100 ML IVPB SCH (21:57)
[2018-07-16] MEDS: OXYBUTYNIN 15 MG TAB.ER.24 PO SCH (21:58)
[2018-07-17] MEDS: INSULIN ASPART 100 UNIT/ML 1 ML 10 ML VIAL SQ SCH ×4 (07:08→21:06)
[2018-07-17] MEDS: GLIMEPIRIDE 4 MG TAB PO SCH ×2 (07:09→16:17)
[2018-07-17] MEDS: ATENOLOL 50 MG TAB PO SCH (07:13)
[2018-07-17] MEDS: LEVOTHYROXINE 50 MCG TAB PO SCH (07:13)
[2018-07-17] MEDS: ALLOPURINOL 300 MG TAB PO SCH (07:13)
[2018-07-17] MEDS: GABAPENTIN 300 MG CAP PO SCH ×2 (07:13→21:15)
[2018-07-17] MEDS: ENOXAPARIN 40 MG/0.4 ML SYRINGE SQ SCH (07:14)
[2018-07-17] MEDS: FAMOTIDINE 20 MG TAB PO SCH (07:14)
[2018-07-17] MEDS: SERTRALINE 100 MG TAB PO SCH (07:14)
[2018-07-17] MEDS: AZITHROMYCIN 500 MG TAB PO SCH (07:15)
[2018-07-17] MEDS: COLCHICINE 0.6 MG EACH PO SCH (07:15)
[2018-07-17] MEDS: carBAMazepine 200 MG TAB PO SCH ×3 (07:15→21:15)
[2018-07-17 07:16] LABS: Glucose,Whole Blood 49 mg/dL (75-99)
[2018-07-17 07:37] LABS: Glucose,Whole Blood 60 mg/dL (75-99)
[2018-07-17] MEDS: ALBUTEROL NEBULIZED 2.5 MG/3 ML INHALATION PRN ×2 (07:39→19:55)
[2018-07-17 08:13] LABS: Glucose,Whole Blood 93 mg/dL (75-99)
[2018-07-17] MEDS: BENZOCAINE/MENTHOL LOZENG 1 EACH LOZENGE MUCOUS MEM PRN ×2 (10:09→21:15)
--- NOTE | 2018-07-17 11:19 | P.PN ---
Subjective Progress Note Date: 07/17/18 Principal diagnosis: Altered mental status, left lower lobe pneumonia, with parapneumonic pleural effusion This is a 72-year-old female, known history of COPD, diabetes, hypertension, hypothyroidism, degenerative joint disease, chronic back pain, patient was found on the floor incontinent of bowel and urine. She was confused apparently and she was also complaining of cough and congestion. No complaining of left upper quadrant pain and tenderness mostly over the left parasternal area and over the left lower ribs anteriorly. Patient has chronic cough, has been chronically congested, workup in the ER included a CT of the abdomen and pelvis , and there was evidence of mild left pleural effusion, initial chest x-ray was basically normal on admission, however follow-up chest x-ray showed left sided consolidation, and lobulated densities along the pleural surface hence the radiologist raised the possibility concern of loculated pleural effusion and/or empyema. The patient herself is an extremely poor historian, she is definitely confused, and I was asked to see her on consultation for questionable loculated pleural effusion. Patient again has mostly chronic cough, no fever no chills no hemoptysis no chest pain. But she does have pain mostly over the left lower ribs and upper left quadrant of the abdomen. After reviewing the chest x-ray and reviewing the CT of the abdomen and pelvis, I recommended a dedicated CT of the chest which will be done later today. In the meantime recommended that the patient gets treatment for COPD symptoms cough wheezing shortness of breath, and she is already empirically on antibiotics. His CBC was relatively normal, no evidence of leukocytosis. He elected lites were normal. However her vital did show a temp as high as 102 on admission. Her T-max last night was 101.3. On 07/13/2017 patient seen in follow-up on medical surgical floor. She is resting in bed, still sounds quite congested, diffuse rhonchi, patient has ingested cough, and she is able to clear some thick yellow pink tinged sputum. Pulse ox on 3 L per nasal cannula is on 100%, afebrile, hemodynamically stable, the patient has been resistant to sitting up, in the chair, refuses to get up out of bed. Although she told me she was up in the chair all day yesterday. She started to develop a decubitus ulcer, there is a stage I on her coccyx according to the nursing staff. Does reside at home with her daughter. There was no group A beta strep identified, with culture is negative. These labs have been noted. CT chest showed mild to moderate size pleural effusion on the left with associated compressive atelectasis of the left lower lobe and concurrent left lower lobe bronchopneumonia. Ultrasound the chest showed a 6.4 cm fluid pocket on the left, but it was not marked related to fluid showing abnormal internal echoes. She is on combination of Zithromax and Rocephin for community-acquired pneumonia, on nebulized bronchodilators. Remains quite congested. But no worsening shortness of breath. On 07/15/2018 patient seen in follow-up on medical surgical floor. She is resting in bed, currently on 2 L per nasal cannula pulse ox is 97%, afebrile, hemodynamically stable. Severe patient had a left-sided pigtail chest tube inserted by interventional radiology, samples were sent for pleural fluid analysis, low fluid cultures and cytology. Pleural fluid is thin, serosanguineous, and there has been only 15 mL since the insertion of the chest tube. Patient continues to be intermittently febrile, with a T-max of 101.1F. Lung sounds are positive for diffuse wheezes, patient sounds congested compared to previous exams. Urine culture was not sent, blood cultures are negative. Antibiotic coverage includes Zithromax and Rocephin. On 07/16/2018 patient seen in follow-up on medical surgical floor. She is laying in bed, room air pulse ox is 92%, she is afebrile, hemodynamically stable , lung sounds are diminished, with some diffuse Rales, patient has a congested cough,at times able to bring up small amount of yellow sputum. Left-sided pigtail chest tube is in place, and there has been minimal output from the drain , it is nonpurulent in nature, its then, and serosanguineous in nature. Antibiotic coverage remains with Zithromax and Rocephin, pleural fluid cultures showed no growth at the 24-hour nasim. Blood cultures are negative. No fever or chills. On 07/17/2018 patient seen in follow-up. Awake and alert, patient is in bed, still sounds quite congested, has a productive cough with production of yellow sputum. Blood, pleural fluid cultures are negative to date. Group A strep throat culture negative. Yesterday patient did receive a dose of TPA, and there has been minimal return from the left-sided pigtail catheter, the output is thin, serosanguineous in nature, not purulent. Room air pulse ox is 96%, no fever or chills, antibiotic coverage in the form of Rocephin and Zithromax. Will consult cardiothoracic surgery in regards to the left-sided loculated pleural effusion Objective - Vital Signs Vital signs: Vital Signs Temp 98.5 F 07/17/18 07:21 Pulse 110 H 07/17/18 07:50 Resp 18 07/17/18 07:50 BP 139/81 07/17/18 07:21 Pulse Ox 96 07/17/18 07:21 Intake & Output 07/16/18 07/17/18 07/17/18 18:59 06:59 18:59 Intake Total 350 200 Balance 350 200 Weight 207.5 kg Intake: Oral 150 200 Other 200 Other: Voiding Method Diaper Incontinent # Voids 2 1 - Exam GENERAL EXAM: Alert, pleasant, 72-year-old obese white female, currently on 3 L per nasal cannula comfortable in no apparent distress. HEAD: Normocephalic/atraumatic. EYES: Normal reaction of pupils, equal size. Conjunctiva pink, sclera white. NOSE: Clear with pink turbinates. THROAT: No erythema or exudates. NECK: No masses, no JVD, no thyroid enlargement, no adenopathy. CHEST: No chest wall deformity. Symmetrical expansion. Left-sided pigtail chest tube connected to a Pleur-evac, with minimal serosanguineous output, no air leak. Pleur-evac is to wall suction. LUNGS: Equal air entry with CVS: Regular rate and rhythm, normal S1 and S2, no gallops, no murmurs, no rubs ABDOMEN: Soft, nontender. No hepatosplenomegaly, normal bowel sounds, no guarding or rigidity. EXTREMITIES: No clubbing, no edema, no cyanosis, 2+ pulses and upper and lower extremities. MUSCULOSKELETAL: Muscle strength and tone normal. SPINE: No scoliosis or deformity SKIN: No rashes CENTRAL NERVOUS SYSTEM: Alert and oriented -3. No focal deficits, tone is normal in all 4 extremities. PSYCHIATRIC: Alert and oriented -3. Appropriate affect. Intact judgment and insight. - Labs CBC & Chem 7: 01/28/19 06:30 07/16/18 06:30 Labs: Abnormal Lab Results - Last 24 Hours (Table) 07/16/18 07/16/18 07/17/18 Range/Units 11:32 17:04 07:05 POC Glucose (mg/dL) 102 H 60 L 49 L (75-99) mg/dL 07/17/18 Range/Units 07:26 POC Glucose (mg/dL) 60 L (75-99) mg/dL Microbiology - Last 24 Hours (Table) 07/14/18 11:00 Gram Stain - Preliminary Pleural Fluid Body Fluid Culture - Preliminary 07/10/18 21:20 Blood Culture - Final Blood No Growth after 144 hours 07/14/18 11:00 Acid Fast Bacilli Smear - Final Pleural Fluid Acid Fast Bacilli Culture - Preliminary Assessment and Plan Plan: 1 acute community-acquired left lower lobe pneumonia with parapneumonic pleural effusion, doubt empyema, however a dedicated CT of the chest was ordered , and based on that further recommendations are to follow. In the meantime the patient is on antibiotics for community-acquired pneumonia including Rocephin and Zithromax. 2 musculoskeletal chest wall pain, 3 altered mental status, exact baseline of mental status is unknown, could be related to metabolic encephalopathy. On today's exam on 07/13/2018 her mentation seems to be improving 4 electrolytes imbalance being corrected by the admitting physician. Mostly hypokalemia and hypomagnesemia. 5 suspect underlying COPD with symptoms of COPD exacerbation as noted on physical examination. Patient used to be a smoker, quit 2 years back. 6 type 2 diabetes 7 hypertension 8 hypothyroidism Plan: Continue current antibiotic coverage, patient was given a dose of TPA instilled in the left pigtail catheter, with minimal pleural fluid output, we'll consult CT surgery for the loculated left pleural effusion. Pleural fluid analysis revealed exudative pleural fluid, cytology has not resulted yet. We'll continue to follow I performed a history & physical examination of the patient and discussed their management with my nurse practitioner, Candida Naranjo. I reviewed the nurse practitioner's note and agree with the documented findings and plan of care. Lung sounds are positive for diffuse rhonchi. The findings and the impression was discussed with the patient. I attest to the documentation by the nurse practitioner. Time with Patient: Less than 30
[2018-07-17 11:53] LABS: Glucose,Whole Blood 123 mg/dL (75-99)
--- NOTE | 2018-07-17 12:53 | P.GSCN ---
Addendum entered and electronically signed by Aylin Durham NP-C 07/18/18 11:19 : The patient was seen and examined at the bedside with Dr. Miner. Our recommendation at this time is for no surgical intervention. Continue with antibiotic coverage. Encourage patient to cough and deep breathe and use incentive spirometry. Pigtail catheter management per pulmonology/ interventional radiology. This was discussed with Dr. Tello as well as with the patient and both are in agreement. Please call us with any further questions. Original Note: History of Present Illness Consult date: 07/17/18 Reason for Consult: Loculated right-sided pleural effusion Requesting physician: Phil Tello History of present illness: This is an obese 72-year-old female who follows with Dr. Park on an outpatient basis. She has a previous medical history of COPD, diabetes, GERD, hypertension, hypothyroid, skin cancer, multiple falls, depression, previous tobacco dependence, and family history of Alzheimer's dementia and myocardial infarction. Despite being alert and oriented 3 at this time she is a poor historian and admits that she does know what initially prompted her to come to the hospital. The majority of her recent history has been elicited from the chart. She presented to [facility] emergency room via EMS after being found down on the floor incontinent of urine and bowel on July 10 with altered mentation, abdominal pain, nausea, vomiting, weakness, fever/chills. Initial chest x-ray demonstrated no acute process. CT of the abdomen and pelvis was completed which demonstrated no acute abdominal process other than diarrhea, however there was noted a left pleural effusion and left basilar atelectasis. EKG was completed demonstrating sinus rhythm without acute ischemic changes. Electrolytes were abnormal. Patient was febrile with a temperature 102.5 Fahrenheit, and she had a leukocytosis with white blood cell count 12.5. Patient was admitted for evaluation and treatment. Follow-up chest x-ray completed on July 12 demonstrated left-sided consolidation and pleural effusion which were questionable for loculations or even empyema. CT of the chest was completed which demonstrated left pleural effusion with left lower lobe pneumonia. The patient had been started on antibiotics for community -acquired pneumonia, consultation was placed for pulmonology. An ultrasound of the chest was completed for possible thoracentesis, however the ultrasound demonstrated abnormal internal echoes and a consultation was placed to interventional radiology for placement of pigtail catheter with fluid sent for cytology and culture. Alteplase was instilled yesterday per pulmonology with almost no return drainage. For this reason Dr. Miner was consulted from cardiothoracic surgery for surgical recommendations related to the patient's left pleural effusion with loculations Review of Systems Review of systems is completed and is negative except as noted in the HPI. Past Medical History Past Medical History: Cancer, COPD, Diabetes Mellitus, GERD/Reflux, Hypertension , Thyroid Disorder Additional Past Medical History / Comment(s): NEUROPATHY-hands,feet. HX of falls ,SKIN CANCER, History of Any Multi-Drug Resistant Organisms: None Reported Past Surgical History: Back Surgery, Hysterectomy, Joint Replacement Additional Past Surgical History / Comment(s): RIGHT KNEE REPLACEMENT, cataract surgery- bilat Past Anesthesia/Blood Transfusion Reactions: No Reported Reaction Past Psychological History: Depression Additional Psychological History / Comment(s): PT LIVES IN OWN HOME HAS 1 DOG, USUALLY IS INDEPENDANT Smoking Status: Former smoker Past Alcohol Use History: None Reported Additional Past Alcohol Use History / Comment(s): STARTED SMOKING AT AGE 17 QUIT IN 2001 SMOKED 1-2 PPD Past Drug Use History: None Reported - Past Family History Mother Family Medical History: Dementia Additional Family Medical History / Comment(s): alzheimers Father Family Medical History: Myocardial Infarction ([place]) Additional Family Medical History / Comment(s): unknown Medications and Allergies Home Medications Medication Instructions Recorded Confirmed Type Allopurinol [Zyloprim] 300 mg PO DAILY 09/27/14 07/10/18 History Cholecalciferol [Vitamin D3] 1,000 unit PO DAILY 09/27/14 07/10/18 History Colchicine [Colcrys] 0.6 mg PO DAILY 09/27/14 07/10/18 History Glimepiride [Amaryl] 4 mg PO BID 09/27/14 07/10/18 History Levothyroxine Sodium [Synthroid] 50 mcg PO AC-BRKFST 09/27/14 07/10/18 History Ranitidine HCl [Zantac] 150 mg PO DAILY 09/27/14 07/10/18 History Sertraline [Zoloft] 100 mg PO DAILY 09/27/14 07/10/18 History Albuterol Inhaler [Ventolin Hfa 1 puff INHALATION RT-QID PRN 09/28/14 07/10/18 History Inhaler] Oxybutynin Chloride [Ditropan XL] 15 mg PO HS 10/24/16 07/10/18 History Potassium Chloride [Klor-Con 20] 20 meq PO TID 10/24/17 07/10/18 History carBAMazepine [TEGretol] 200 mg PO TID 10/24/17 07/10/18 History Atenolol [Tenormin] 50 mg PO DAILY 05/25/18 07/10/18 History Chlorthalidone [Hygroton] 25 mg PO DAILY 05/25/18 07/10/18 History Gabapentin 600 mg PO BID 05/25/18 07/10/18 History HYDROcodone/APAP 7.5-325MG [[place] 1 tab PO TID PRN 05/25/18 07/10/18 History 7.5-325] Losartan [Cozaar] 50 mg PO DAILY 05/25/18 07/10/18 History clonazePAM [KlonoPIN] 0.5 mg PO TID PRN 05/25/18 07/10/18 History Allergies Allergy/AdvReac Type Severity Reaction Status Date / Time morphine AdvReac Nausea & Verified 07/10/18 21:49 Vomiting Dvttfxl-Ksf-Xlu Reductase AdvReac STIFFNESS Verified 07/10/18 21:49 Inhibitor AND MUSCLE PAIN Surgical - Exam Vital Signs Temp Pulse Resp BP Pulse Ox 102.5 F H 82 21 156/94 81 L 07/10/18 20:39 07/10/18 20:39 07/10/18 20:39 07/10/18 20:39 07/10/18 20:39 - General well developed, well nourished, no distress, moderate pain, chronically ill, obese - Eyes PERRL, normal ocular movement - ENT no hearing loss - Neck no masses, no bruits, trachea midline - Respiratory Lungs sounds diminished but coarse bilaterally. Respirations even, nonlabored. Currently on room air with oxygen saturation 96%. Left-sided pigtail catheter present, connected to atrium, less than 20 mL bloody drainage present, no air leak present. - Cardiovascular S1, S2 present. Regular rate and rhythm. Palpable peripheral pulses bilaterally. No edema present. No calf pain or tenderness noted. - Abdomen Abdomen: soft, tender, bowel sounds - Genitourinary Deferred - Rectum Deferred - Integumentary no rash, no growths - Neurologic normal coordination, normal sensation - Psychiatric oriented to time, oriented to person, oriented to place, speech is normal Results - Labs 07/16/18 06:30 07/16/18 06:30 Abnormal Lab Results - Last 24 Hours (Table) 07/16/18 07/17/18 07/17/18 Range/Units 17:04 07:05 07:26 POC Glucose (mg/dL) 60 L 49 L 60 L (75-99) mg/dL 07/17/18 Range/Units 11:42 POC Glucose (mg/dL) 123 H (75-99) mg/dL Microbiology - Last 24 Hours (Table) 07/14/18 11:00 Gram Stain - Preliminary Pleural Fluid Body Fluid Culture - Preliminary 07/10/18 21:20 Blood Culture - Final Blood No Growth after 144 hours 07/14/18 11:00 Acid Fast Bacilli Smear - Final Pleural Fluid Acid Fast Bacilli Culture - Preliminary - Imaging Chest x-ray: report reviewed, image reviewed CT scan - abdomen: report reviewed, image reviewed CT scan - chest: report reviewed, image reviewed CT scan - pelvis: report reviewed, image reviewed EKG: image reviewed Assessment and Plan (1) Pleural effusion, left Current Visit: Yes Status: Acute Code(s): J90 - PLEURAL EFFUSION, NOT ELSEWHERE CLASSIFIED SNOMED Code(s): 72456348 (2) Hypokalemia Current Visit: Yes Status: Acute Code(s): E87.6 - HYPOKALEMIA SNOMED Code( s): 00515137 (3) Hypomagnesemia Current Visit: Yes Status: Acute Code(s): E83.42 - HYPOMAGNESEMIA SNOMED Code(s): 391362023 (4) Abdominal pain Current Visit: Yes Status: Chronic Code(s): R10.9 - UNSPECIFIED ABDOMINAL PAIN SNOMED Code(s): 19276176 (5) Altered mental status Current Visit: Yes Status: Acute Code(s): R41.82 - ALTERED MENTAL STATUS, UNSPECIFIED SNOMED Code(s): 246556235 (6) Diabetes Current Visit: Yes Status: Chronic Code(s): E11.9 - TYPE 2 DIABETES MELLITUS WITHOUT COMPLICATIONS SNOMED Code(s): 93391593 Plan: The patient was seen and examined at the bedside. Chart/diagnostics were reviewed. Will discuss the case in detail with Dr. Miner for surgical recommendations. Normally we would have a pigtail catheter placed to instill alteplase, this has been done with very minimal return. Continue antibiotics. Encourage pulmonary hygiene with coughing and deep breathing. Management of comorbid medical conditions per primary care service. More recommendations to follow. Thank you Dr. Tello for this consult. We look forward to working with you in the care of your patient. Time with Patient: Greater than 30
--- NOTE | 2018-07-17 13:29 | PN ---
PROGRESS NOTE DATE OF SERVICE: 07/16/2018 CHIEF COMPLAINT: Fever, left pleural effusion or empyema. HISTORY OF PRESENT ILLNESS: This lady continues to have quite a bit of difficulty in shortness of breath. She is pale. She is quite weak and it is not clear if she is completely oriented. PHYSICAL EXAMINATION: She is a pale and dehydrated. Breath sounds are diminished bilaterally. Cardiac exam is normal. Chest tube is present on the left. Abdomen is soft, nontender. IMPRESSION: 1. Pneumonitis. 2. Left pleural effusion or empyema. PLAN: Continue with chest drainage, IV fluids and follow with Pulmonology. MMODL / IJN: [id number] /
--- NOTE | 2018-07-17 13:36 | PN ---
PROGRESS NOTE DATE OF SERVICE: 07/17/2018 CHIEF COMPLAINT: Fever, pneumonitis and left pleural effusion. HISTORY OF PRESENT ILLNESS: This lady is still in quite a bit of discomfort. She has not had fever or chills. She has had no vomiting. She is still short of breath. PHYSICAL EXAM: She remains pale and slightly dehydrated. Breath sounds are heard bilaterally. Chest tube still in place on the left. Cardiac exam is normal. The abdomen is soft, nontender. IMPRESSION: Pneumonitis with left pleural effusion and empyema. PLAN: Continue with IV fluids, antibiotics and chest drainage. MMODL / IJN: [id number] /
--- NOTE | 2018-07-17 14:37 | XR ---
EXAMINATION TYPE: XR chest 1V portable DATE OF EXAM: 07/17/2018 COMPARISON: 07/16/2018 HISTORY: Pleural effusion TECHNIQUE: Single frontal view of the chest is obtained. FINDINGS: Left-sided chest tube stable with persistent diffuse interstitial pattern and left-sided p leural effusion which appears unchanged. Postsurgical change overlying cervical spine. Arthropathy of the shoulders. Heart is prominent. Interstitial pattern stable. Could not exclude mild venous conges tion or interstitial pneumonia, pneumonitis. IMPRESSION: Chest tube and left-sided pleural effusion are unchanged in appearance.
[2018-07-17 17:11] LABS: Glucose,Whole Blood 109 mg/dL (75-99)
[2018-07-17 21:02] LABS: Glucose,Whole Blood 78 mg/dL (75-99)
[2018-07-17] MEDS: OXYBUTYNIN 15 MG TAB.ER.24 PO SCH (21:15)
[2018-07-17] MEDS: cefTRIAXone 2,000 MG in SODIUM CHLORIDE 0.9% 100 ML IVPB SCH (21:40)
[2018-07-18] MEDS: ALBUTEROL NEBULIZED 2.5 MG/3 ML INHALATION PRN ×5 (03:01→19:29)
[2018-07-18 07:18] LABS: Glucose,Whole Blood 66 mg/dL (75-99)
[2018-07-18 07:29] LABS: Glucose,Whole Blood 67 mg/dL (75-99)
[2018-07-18] MEDS: ENOXAPARIN 40 MG/0.4 ML SYRINGE SQ SCH (09:25)
[2018-07-18] MEDS: LEVOTHYROXINE 50 MCG TAB PO SCH (09:26)
[2018-07-18] MEDS: GABAPENTIN 300 MG CAP PO SCH ×2 (09:26→21:09)
[2018-07-18] MEDS: AZITHROMYCIN 500 MG TAB PO SCH (09:26)
[2018-07-18] MEDS: COLCHICINE 0.6 MG EACH PO SCH (09:26)
[2018-07-18] MEDS: GLIMEPIRIDE 4 MG TAB PO SCH ×2 (09:26→16:57)
[2018-07-18] MEDS: SERTRALINE 100 MG TAB PO SCH (09:27)
[2018-07-18] MEDS: INSULIN ASPART 100 UNIT/ML 1 ML 10 ML VIAL SQ SCH ×4 (09:27→21:09)
[2018-07-18] MEDS: ATENOLOL 50 MG TAB PO SCH (09:27)
[2018-07-18] MEDS: carBAMazepine 200 MG TAB PO SCH ×3 (09:27→21:09)
[2018-07-18] MEDS: FAMOTIDINE 20 MG TAB PO SCH (09:27)
[2018-07-18] MEDS: ALLOPURINOL 300 MG TAB PO SCH (09:27)
[2018-07-18 11:41] LABS: Glucose,Whole Blood 87 mg/dL (75-99)
--- NOTE | 2018-07-18 14:26 | P.PN ---
Subjective Progress Note Date: 07/18/18 Principal diagnosis: Altered mental status, left lower lobe pneumonia, with parapneumonic pleural effusion This is a 72-year-old female, known history of COPD, diabetes, hypertension, hypothyroidism, degenerative joint disease, chronic back pain, patient was found on the floor incontinent of bowel and urine. She was confused apparently and she was also complaining of cough and congestion. No complaining of left upper quadrant pain and tenderness mostly over the left parasternal area and over the left lower ribs anteriorly. Patient has chronic cough, has been chronically congested, workup in the ER included a CT of the abdomen and pelvis , and there was evidence of mild left pleural effusion, initial chest x-ray was basically normal on admission, however follow-up chest x-ray showed left sided consolidation, and lobulated densities along the pleural surface hence the radiologist raised the possibility concern of loculated pleural effusion and/or empyema. The patient herself is an extremely poor historian, she is definitely confused, and I was asked to see her on consultation for questionable loculated pleural effusion. Patient again has mostly chronic cough, no fever no chills no hemoptysis no chest pain. But she does have pain mostly over the left lower ribs and upper left quadrant of the abdomen. After reviewing the chest x-ray and reviewing the CT of the abdomen and pelvis, I recommended a dedicated CT of the chest which will be done later today. In the meantime recommended that the patient gets treatment for COPD symptoms cough wheezing shortness of breath, and she is already empirically on antibiotics. His CBC was relatively normal, no evidence of leukocytosis. He elected lites were normal. However her vital did show a temp as high as 102 on admission. Her T-max last night was 101.3. On 07/13/2017 patient seen in follow-up on medical surgical floor. She is resting in bed, still sounds quite congested, diffuse rhonchi, patient has ingested cough, and she is able to clear some thick yellow pink tinged sputum. Pulse ox on 3 L per nasal cannula is on 100%, afebrile, hemodynamically stable, the patient has been resistant to sitting up, in the chair, refuses to get up out of bed. Although she told me she was up in the chair all day yesterday. She started to develop a decubitus ulcer, there is a stage I on her coccyx according to the nursing staff. Does reside at home with her daughter. There was no group A beta strep identified, with culture is negative. These labs have been noted. CT chest showed mild to moderate size pleural effusion on the left with associated compressive atelectasis of the left lower lobe and concurrent left lower lobe bronchopneumonia. Ultrasound the chest showed a 6.4 cm fluid pocket on the left, but it was not marked related to fluid showing abnormal internal echoes. She is on combination of Zithromax and Rocephin for community-acquired pneumonia, on nebulized bronchodilators. Remains quite congested. But no worsening shortness of breath. On 07/15/2018 patient seen in follow-up on medical surgical floor. She is resting in bed, currently on 2 L per nasal cannula pulse ox is 97%, afebrile, hemodynamically stable. Severe patient had a left-sided pigtail chest tube inserted by interventional radiology, samples were sent for pleural fluid analysis, low fluid cultures and cytology. Pleural fluid is thin, serosanguineous, and there has been only 15 mL since the insertion of the chest tube. Patient continues to be intermittently febrile, with a T-max of 101.1F. Lung sounds are positive for diffuse wheezes, patient sounds congested compared to previous exams. Urine culture was not sent, blood cultures are negative. Antibiotic coverage includes Zithromax and Rocephin. On 07/16/2018 patient seen in follow-up on medical surgical floor. She is laying in bed, room air pulse ox is 92%, she is afebrile, hemodynamically stable , lung sounds are diminished, with some diffuse Rales, patient has a congested cough,at times able to bring up small amount of yellow sputum. Left-sided pigtail chest tube is in place, and there has been minimal output from the drain , it is nonpurulent in nature, its then, and serosanguineous in nature. Antibiotic coverage remains with Zithromax and Rocephin, pleural fluid cultures showed no growth at the 24-hour nasim. Blood cultures are negative. No fever or chills. On 07/17/2018 patient seen in follow-up. Awake and alert, patient is in bed, still sounds quite congested, has a productive cough with production of yellow sputum. Blood, pleural fluid cultures are negative to date. Group A strep throat culture negative. Yesterday patient did receive a dose of TPA, and there has been minimal return from the left-sided pigtail catheter, the output is thin, serosanguineous in nature, not purulent. Room air pulse ox is 96%, no fever or chills, antibiotic coverage in the form of Rocephin and Zithromax. Will consult cardiothoracic surgery in regards to the left-sided loculated pleural effusion On 07/18/2018 patient seen in follow-up, on medical surgical floor. She is resting comfortably in bed on 2 L per nasal cannula, her pulse ox is 90-92%, afebrile, hemodynamically stable, no worsening dyspnea, lung sounds are positive for scattered rhonchi. Patient is clear and some yellow colored phlegm. Pleural fluid cultures are negative to date. Pleural fluid analysis revealed exudative pleural fluid. No fever or chills. He has been minimal output from the left-sided pigtail chest tube catheter, despite the alteplase. CT surgery evaluated the patient, and no surgical intervention was recommended at this time. No new labs or chest x-rays today. No distress. Objective - Vital Signs Vital signs: Vital Signs Temp 98.4 F 07/18/18 07:00 Pulse 80 07/18/18 12:44 Resp 18 07/18/18 07:00 BP 128/87 07/18/18 07:00 Pulse Ox 90 L 07/18/18 07:00 Intake & Output 07/17/18 07/18/18 07/18/18 18:59 06:59 18:59 Intake Total 300 340 Balance 300 340 Intake: Intake, IV Titration 100 Amount cefTRIAXone 2,000 mg In 100 Sodium Chloride 0.9% 100 ml @ 100 mls/hr IVPB Q24H [facility] Rx#:[id number] Oral 100 240 Other 200 Other: Voiding Method Diaper Diaper Incontinent Incontinent # Voids 3 2 # Bowel Movements 4 - Exam GENERAL EXAM: Alert, pleasant, 72-year-old obese white female, currently on 3 L per nasal cannula comfortable in no apparent distress. HEAD: Normocephalic/atraumatic. EYES: Normal reaction of pupils, equal size. Conjunctiva pink, sclera white. NOSE: Clear with pink turbinates. THROAT: No erythema or exudates. NECK: No masses, no JVD, no thyroid enlargement, no adenopathy. CHEST: No chest wall deformity. Symmetrical expansion. Left-sided pigtail chest tube connected to a Pleur-evac, with minimal serosanguineous output, no air leak. Pleur-evac is to wall suction. LUNGS: Equal air entry with CVS: Regular rate and rhythm, normal S1 and S2, no gallops, no murmurs, no rubs ABDOMEN: Soft, nontender. No hepatosplenomegaly, normal bowel sounds, no guarding or rigidity. EXTREMITIES: No clubbing, no edema, no cyanosis, 2+ pulses and upper and lower extremities. MUSCULOSKELETAL: Muscle strength and tone normal. SPINE: No scoliosis or deformity SKIN: No rashes CENTRAL NERVOUS SYSTEM: Alert and oriented -3. No focal deficits, tone is normal in all 4 extremities. PSYCHIATRIC: Alert and oriented -3. Appropriate affect. Intact judgment and insight. - Labs CBC & Chem 7: 07/16/18 06:30 07/16/18 06:30 Labs: Abnormal Lab Results - Last 24 Hours (Table) 07/17/18 07/18/18 07/18/18 Range/Units 17:00 07:06 07:18 POC Glucose (mg/dL) 109 H 66 L 67 L (75-99) mg/dL Microbiology - Last 24 Hours (Table) 07/14/18 11:00 Gram Stain - Preliminary Pleural Fluid Body Fluid Culture - Preliminary Assessment and Plan Plan: 1 acute community-acquired left lower lobe pneumonia with parapneumonic pleural effusion, doubt empyema, however a dedicated CT of the chest was ordered , and based on that further recommendations are to follow. In the meantime the patient is on antibiotics for community-acquired pneumonia including Rocephin and Zithromax. 2 musculoskeletal chest wall pain, 3 altered mental status, exact baseline of mental status is unknown, could be related to metabolic encephalopathy. On today's exam on 07/13/2018 her mentation seems to be improving 4 electrolytes imbalance being corrected by the admitting physician. Mostly hypokalemia and hypomagnesemia. 5 suspect underlying COPD with symptoms of COPD exacerbation as noted on physical examination. Patient used to be a smoker, quit 2 years back. 6 type 2 diabetes 7 hypertension 8 hypothyroidism Plan: No worsening dyspnea, no fever or chills, minimal output from the left-sided pigtail chest tube catheter, CT surgery recommendations were noted, no surgical intervention was recommended. We'll consult interventional radiology for removal of the left-sided pigtail catheter. I performed a history & physical examination of the patient and discussed their management with my nurse practitioner, Candida Naranjo. I reviewed the nurse practitioner's note and agree with the documented findings and plan of care. Lung sounds are positive for diffuse rhonchi. The findings and the impression was discussed with the patient. I attest to the documentation by the nurse practitioner. Time with Patient: Less than 30
--- NOTE | 2018-07-18 15:30 | P.PN ---
Progress Note - Text Progress Note Date: 07/18/18 chest tube removed at bedside without difficulty, cxr pending
--- NOTE | 2018-07-18 16:38 | XR ---
EXAMINATION TYPE: XR chest 1V portable DATE OF EXAM: 07/18/2018 COMPARISON: Prior chest 07/17/2018 HISTORY: Post chest tube removal TECHNIQUE: Single frontal view of the chest is obtained. FINDINGS: Left chest tube has been removed in the interval. No other interval change. IMPRESSION: No evident complication status post chest tube removal.
[2018-07-18 17:27] LABS: Glucose,Whole Blood 120 mg/dL (75-99)
[2018-07-18] MEDS: OXYBUTYNIN 15 MG TAB.ER.24 PO SCH (21:09)
[2018-07-18] MEDS: cefTRIAXone 2,000 MG in SODIUM CHLORIDE 0.9% 100 ML IVPB SCH (21:09)
[2018-07-18 21:21] LABS: Glucose,Whole Blood 117 mg/dL (75-99)
[2018-07-19 01:53] LABS: Glucose,Whole Blood 68 mg/dL (75-99)
[2018-07-19 02:29] LABS: Glucose,Whole Blood 72 mg/dL (75-99)
[2018-07-19 07:11] LABS: Glucose,Whole Blood 84 mg/dL (75-99)
[2018-07-19] MEDS: INSULIN ASPART 100 UNIT/ML 1 ML 10 ML VIAL SQ SCH ×4 (08:00→21:58)
[2018-07-19] MEDS: ENOXAPARIN 40 MG/0.4 ML SYRINGE SQ SCH (08:09)
[2018-07-19] MEDS: LEVOTHYROXINE 50 MCG TAB PO SCH (08:10)
[2018-07-19] MEDS: ATENOLOL 50 MG TAB PO SCH (08:10)
[2018-07-19] MEDS: AZITHROMYCIN 500 MG TAB PO SCH (08:10)
[2018-07-19] MEDS: ALLOPURINOL 300 MG TAB PO SCH (08:10)
[2018-07-19] MEDS: SERTRALINE 100 MG TAB PO SCH (08:10)
[2018-07-19] MEDS: FAMOTIDINE 20 MG TAB PO SCH (08:10)
[2018-07-19] MEDS: GLIMEPIRIDE 4 MG TAB PO SCH ×2 (08:11→17:46)
[2018-07-19] MEDS: carBAMazepine 200 MG TAB PO SCH ×3 (08:11→23:06)
[2018-07-19] MEDS: COLCHICINE 0.6 MG EACH PO SCH (08:12)
[2018-07-19] MEDS: GABAPENTIN 300 MG CAP PO SCH ×2 (08:18→20:15)
[2018-07-19] MEDS: ALBUTEROL NEBULIZED 2.5 MG/3 ML INHALATION PRN (09:09)
[2018-07-19] MEDS ORDERED: IPRATROPIUM-ALBUTEROL 3 ML NEB INHALATION PRN (11:04)
[2018-07-19 11:47] LABS: Basophils % (A) 0 %; Eosinophils # (A) 0.1 k/uL (0-0.7); Eosinophils % (A) 1 %; HCT 32.5 % (34.0-46.0); HGB 10.1 gm/dL (11.4-16.0); Lymphocytes # (A) 0.7 k/uL (1.0-4.8); Lymphocytes % (A) 15 %; MCH 29.3 pg (25.0-35.0); MCHC 31.1 g/dL (31.0-37.0); MCV 94.1 fL (80.0-100.0); Mean Platelet Volume 9.2; Monocytes # (A) 0.3 k/uL (0-1.0); Monocytes % (A) 5 %; Neutrophils # (A) 3.6 k/uL (1.3-7.7); Neutrophils % (A) 76 %; Platelet Count 129 k/uL (150-450); RBC 3.45 m/uL (3.80-5.40); RDW 14.6 % (11.5-15.5); WBC 4.8 k/uL (3.8-10.6)
[2018-07-19 11:59] LABS: ALT 30 U/L (9-52); AST 42 U/L (14-36); Albumin 2.3 g/dL (3.5-5.0); Alkaline Phosphatase 89 U/L (38-126); Anion Gap 6 mmol/L; Blood Urea Nitrogen 11 mg/dL (7-17); Carbon Dioxide 27 mmol/L (22-30); Chloride 104 mmol/L (98-107); Glucose 91 mg/dL (74-99); Sodium 137 mmol/L (137-145); Total Bilirubin 0.6 mg/dL (0.2-1.3); Total Protein 6.1 g/dL (6.3-8.2)
[2018-07-19] MEDS: IPRATROPIUM-ALBUTEROL 3 ML NEB INHALATION SCH ×3 (12:40→20:25)
[2018-07-19 12:58] LABS: Glucose,Whole Blood 95 mg/dL (75-99)
--- NOTE | 2018-07-19 13:22 | P.PN ---
Subjective Progress Note Date: 07/19/18 Principal diagnosis: Altered mental status, left lower lobe pneumonia, with parapneumonic pleural effusion This is a 72-year-old female, known history of COPD, diabetes, hypertension, hypothyroidism, degenerative joint disease, chronic back pain, patient was found on the floor incontinent of bowel and urine. She was confused apparently and she was also complaining of cough and congestion. No complaining of left upper quadrant pain and tenderness mostly over the left parasternal area and over the left lower ribs anteriorly. Patient has chronic cough, has been chronically congested, workup in the ER included a CT of the abdomen and pelvis , and there was evidence of mild left pleural effusion, initial chest x-ray was basically normal on admission, however follow-up chest x-ray showed left sided consolidation, and lobulated densities along the pleural surface hence the radiologist raised the possibility concern of loculated pleural effusion and/or empyema. The patient herself is an extremely poor historian, she is definitely confused, and I was asked to see her on consultation for questionable loculated pleural effusion. Patient again has mostly chronic cough, no fever no chills no hemoptysis no chest pain. But she does have pain mostly over the left lower ribs and upper left quadrant of the abdomen. After reviewing the chest x-ray and reviewing the CT of the abdomen and pelvis, I recommended a dedicated CT of the chest which will be done later today. In the meantime recommended that the patient gets treatment for COPD symptoms cough wheezing shortness of breath, and she is already empirically on antibiotics. His CBC was relatively normal, no evidence of leukocytosis. He elected lites were normal. However her vital did show a temp as high as 102 on admission. Her T-max last night was 101.3. On 07/13/2017 patient seen in follow-up on medical surgical floor. She is resting in bed, still sounds quite congested, diffuse rhonchi, patient has ingested cough, and she is able to clear some thick yellow pink tinged sputum. Pulse ox on 3 L per nasal cannula is on 100%, afebrile, hemodynamically stable, the patient has been resistant to sitting up, in the chair, refuses to get up out of bed. Although she told me she was up in the chair all day yesterday. She started to develop a decubitus ulcer, there is a stage I on her coccyx according to the nursing staff. Does reside at home with her daughter. There was no group A beta strep identified, with culture is negative. These labs have been noted. CT chest showed mild to moderate size pleural effusion on the left with associated compressive atelectasis of the left lower lobe and concurrent left lower lobe bronchopneumonia. Ultrasound the chest showed a 6.4 cm fluid pocket on the left, but it was not marked related to fluid showing abnormal internal echoes. She is on combination of Zithromax and Rocephin for community-acquired pneumonia, on nebulized bronchodilators. Remains quite congested. But no worsening shortness of breath. On 07/15/2018 patient seen in follow-up on medical surgical floor. She is resting in bed, currently on 2 L per nasal cannula pulse ox is 97%, afebrile, hemodynamically stable. Severe patient had a left-sided pigtail chest tube inserted by interventional radiology, samples were sent for pleural fluid analysis, low fluid cultures and cytology. Pleural fluid is thin, serosanguineous, and there has been only 15 mL since the insertion of the chest tube. Patient continues to be intermittently febrile, with a T-max of 101.1F. Lung sounds are positive for diffuse wheezes, patient sounds congested compared to previous exams. Urine culture was not sent, blood cultures are negative. Antibiotic coverage includes Zithromax and Rocephin. On 07/16/2018 patient seen in follow-up on medical surgical floor. She is laying in bed, room air pulse ox is 92%, she is afebrile, hemodynamically stable , lung sounds are diminished, with some diffuse Rales, patient has a congested cough,at times able to bring up small amount of yellow sputum. Left-sided pigtail chest tube is in place, and there has been minimal output from the drain , it is nonpurulent in nature, its then, and serosanguineous in nature. Antibiotic coverage remains with Zithromax and Rocephin, pleural fluid cultures showed no growth at the 24-hour nasim. Blood cultures are negative. No fever or chills. On 07/17/2018 patient seen in follow-up. Awake and alert, patient is in bed, still sounds quite congested, has a productive cough with production of yellow sputum. Blood, pleural fluid cultures are negative to date. Group A strep throat culture negative. Yesterday patient did receive a dose of TPA, and there has been minimal return from the left-sided pigtail catheter, the output is thin, serosanguineous in nature, not purulent. Room air pulse ox is 96%, no fever or chills, antibiotic coverage in the form of Rocephin and Zithromax. Will consult cardiothoracic surgery in regards to the left-sided loculated pleural effusion On 07/18/2018 patient seen in follow-up, on medical surgical floor. She is resting comfortably in bed on 2 L per nasal cannula, her pulse ox is 90-92%, afebrile, hemodynamically stable, no worsening dyspnea, lung sounds are positive for scattered rhonchi. Patient is clear and some yellow colored phlegm. Pleural fluid cultures are negative to date. Pleural fluid analysis revealed exudative pleural fluid. No fever or chills. He has been minimal output from the left-sided pigtail chest tube catheter, despite the alteplase. CT surgery evaluated the patient, and no surgical intervention was recommended at this time. No new labs or chest x-rays today. No distress. On 07/19/2018 patient seen in follow-up on medical surgical floor. She is resting in bed, currently on 2 L per nasal cannula, in no apparent distress, still has a congested cough, has not been bringing up much sputum today. Lung sounds are positive for diffuse rhonchi throughout the lung mars. Maintaining saturations at 97%, she is afebrile, remains on antibiotic coverage currently just on Zithromax. Pleural fluid cultures are negative so far. Yesterday we consulted interventional radiology for removal of the left-sided pigtail chest tube catheter, patient was evaluated by CT surgery and no surgical intervention was recommended. There was minimal output from the chest tube, of thin serosanguineous drainage, nonpurulent. Today's chest x-ray shows stable left basilar density, with loculated pleural effusion. Objective - Vital Signs Vital signs: Vital Signs Temp 98.7 F 07/19/18 07:30 Pulse 66 07/19/18 09:19 Resp 20 07/19/18 09:19 BP 160/70 07/19/18 07:30 Pulse Ox 97 07/19/18 09:09 Intake & Output 07/18/18 07/19/18 07/19/18 18:59 06:59 18:59 Intake Total 590 Output Total 250 Balance 340 Intake: Oral 590 Output: Urine 250 Other: Voiding Method Diaper Diaper Diaper Incontinent Incontinent Incontinent # Voids 2 2 # Bowel Movements 1 - Exam GENERAL EXAM: Alert, pleasant, 72-year-old obese white female, currently on 3 L per nasal cannula comfortable in no apparent distress. HEAD: Normocephalic/atraumatic. EYES: Normal reaction of pupils, equal size. Conjunctiva pink, sclera white. NOSE: Clear with pink turbinates. THROAT: No erythema or exudates. NECK: No masses, no JVD, no thyroid enlargement, no adenopathy. CHEST: No chest wall deformity. Symmetrical expansion. LUNGS: Equal air entry with diffuse rhonchi CVS: Regular rate and rhythm, normal S1 and S2, no gallops, no murmurs, no rubs ABDOMEN: Soft, nontender. No hepatosplenomegaly, normal bowel sounds, no guarding or rigidity. EXTREMITIES: No clubbing, no edema, no cyanosis, 2+ pulses and upper and lower extremities. MUSCULOSKELETAL: Muscle strength and tone normal. SPINE: No scoliosis or deformity SKIN: No rashes CENTRAL NERVOUS SYSTEM: Alert and oriented -3. No focal deficits, tone is normal in all 4 extremities. PSYCHIATRIC: Alert and oriented -3. Appropriate affect. Intact judgment and insight. - Labs CBC & Chem 7: 07/19/18 06:56 07/19/18 06:56 Labs: Abnormal Lab Results - Last 24 Hours (Table) 07/18/18 07/18/18 07/19/18 Range/Units 17:16 21:10 01:42 RBC (3.80-5.40) m/uL Hgb (11.4-16.0) gm/dL Hct (34.0-46.0) % Plt Count (150-450) k/uL Lymphocytes # (1.0-4.8) k/uL Potassium (3.5-5.1) mmol/L Creatinine (0.52-1.04) mg/dL POC Glucose (mg/dL) 120 H 117 H 68 L (75-99) mg/dL Calcium (8.4-10.2) mg/dL AST (14-36) U/L Total Protein (6.3-8.2) g/dL Albumin (3.5-5.0) g/dL 07/19/18 07/19/18 07/19/18 Range/Units 02:17 06:56 06:56 RBC 3.45 L (3.80-5.40) m/uL Hgb 10.1 L (11.4-16.0) gm/dL Hct 32.5 L (34.0-46.0) % Plt Count 129 L (150-450) k/uL Lymphocytes # 0.7 L (1.0-4.8) k/uL Potassium 3.0 L (3.5-5.1) mmol/L Creatinine 0.37 L (0.52-1.04) mg/dL POC Glucose (mg/dL) 72 L (75-99) mg/dL Calcium 8.0 L (8.4-10.2) mg/dL AST 42 H (14-36) U/L Total Protein 6.1 L (6.3-8.2) g/dL Albumin 2.3 L (3.5-5.0) g/dL Microbiology - Last 24 Hours (Table) 07/14/18 11:00 Gram Stain - Final Pleural Fluid Body Fluid Culture - Final Assessment and Plan Plan: 1 acute community-acquired left lower lobe pneumonia with parapneumonic pleural effusion, doubt empyema, however a dedicated CT of the chest was ordered , and based on that further recommendations are to follow. In the meantime the patient is on antibiotics for community-acquired pneumonia including Rocephin and Zithromax. 2 musculoskeletal chest wall pain, 3 altered mental status, exact baseline of mental status is unknown, could be related to metabolic encephalopathy. On today's exam on 07/13/2018 her mentation seems to be improving 4 electrolytes imbalance being corrected by the admitting physician. Mostly hypokalemia and hypomagnesemia. 5 suspect underlying COPD with symptoms of COPD exacerbation as noted on physical examination. Patient used to be a smoker, quit 2 years back. 6 type 2 diabetes 7 hypertension 8 hypothyroidism Plan: Left-sided pigtail chest tube catheter has been discontinued per interventional radiology yesterday, chest x-ray was reviewed with Dr. Tello, shows stable findings of left basilar density, and loculated pleural effusion. No pneumothorax. Symptoms are stable, no fever or chills, cultures are negative thus far. From pulmonary perspective patient could be considered for discharge home, she may need home oxygen, home oxygen assessment needs to be completed. Increase activity, patient has not been very active, she has been in bed most of the time she will was in the hospital. Encouraged her to set up in the chair , she may need physical therapy assessment. I performed a history & physical examination of the patient and discussed their management with my nurse practitioner, Candida Naranjo. I reviewed the nurse practitioner's note and agree with the documented findings and plan of care. Lung sounds are positive for diffuse rhonchi. The findings and the impression was discussed with the patient. I attest to the documentation by the nurse practitioner. Time with Patient: Less than 30
[2018-07-19] MEDS: POTASSIUM CHLORIDE ER 20 MEQ TAB.ER PO SCH ×4 (13:55→20:15)
[2018-07-19] MEDS: BENZOCAINE/MENTHOL LOZENG 1 EACH LOZENGE MUCOUS MEM PRN (15:44)
[2018-07-19 17:15] LABS: Glucose,Whole Blood 128 mg/dL (75-99)
--- NOTE | 2018-07-19 17:38 | PN ---
PROGRESS NOTE CHIEF COMPLAINT: Left lower lobe pneumonitis and pleural effusion or empyema. HISTORY OF PRESENT ILLNESS: This lady is doing somewhat better, but still complaining of a lot of left-sided chest pain and a lot of shortness of breath. Chest tube has been removed. PHYSICAL EXAMINATION: Chest is clear. The breath sounds are diminished throughout. Cardiac exam is normal. The abdomen is soft, nontender. IMPRESSION: Left lower lobe pneumonitis with pleural effusion or empyema. PLAN: 1. Try to increase her activity. 2. Await further plans after she is able to leave the hospital. She may well have to go for physical therapy. MMODL / IJN: [id number] /
--- NOTE | 2018-07-19 17:44 | PN ---
PROGRESS NOTE CHIEF COMPLAINT: Left lower lobe pneumonitis with effusion or empyema. HISTORY OF PRESENT ILLNESS: This lady is doing reasonably well but states she is still having quite a bit of discomfort in the left chest and is experiencing more shortness of breath. PHYSICAL EXAMINATION: Breath sounds are heard bilaterally. Vital signs are normal. IMPRESSION: Pneumonitis of left lower lobe with either pleural effusion or empyema. PLAN: Continue to monitor progress and increase activity. We are also looking at a discharge plan. MMODL / IJN: [id number] /
[2018-07-19] MEDS: OXYBUTYNIN 15 MG TAB.ER.24 PO SCH (20:15)
[2018-07-19] MEDS: SYMBICORT 160-4.5 MCG INHALER INHALATION SCH (20:25)
[2018-07-19 20:41] LABS: Glucose,Whole Blood 84 mg/dL (75-99)
[2018-07-19] MEDS: HYDROcodone/APAP 7.5-325MG 1 EACH TAB PO PRN (23:18)
[2018-07-20 07:19] LABS: Glucose,Whole Blood 86 mg/dL (75-99)
[2018-07-20] MEDS: IPRATROPIUM-ALBUTEROL 3 ML NEB INHALATION SCH ×4 (07:25→20:01)
[2018-07-20] MEDS: SYMBICORT 160-4.5 MCG INHALER INHALATION SCH ×2 (07:25→20:01)
[2018-07-20] MEDS: GLIMEPIRIDE 4 MG TAB PO SCH ×2 (09:08→17:20)
[2018-07-20] MEDS: GABAPENTIN 300 MG CAP PO SCH ×2 (09:09→20:59)
[2018-07-20] MEDS: INSULIN ASPART 100 UNIT/ML 1 ML 10 ML VIAL SQ SCH ×4 (09:09→20:59)
[2018-07-20] MEDS: ENOXAPARIN 40 MG/0.4 ML SYRINGE SQ SCH (09:09)
[2018-07-20] MEDS: ALLOPURINOL 300 MG TAB PO SCH (09:10)
[2018-07-20] MEDS: SERTRALINE 100 MG TAB PO SCH (09:10)
[2018-07-20] MEDS: HYDROcodone/APAP 7.5-325MG 1 EACH TAB PO PRN ×3 (09:10→20:58)
[2018-07-20] MEDS: LEVOTHYROXINE 50 MCG TAB PO SCH (09:10)
[2018-07-20] MEDS: COLCHICINE 0.6 MG EACH PO SCH (09:10)
[2018-07-20] MEDS: AZITHROMYCIN 500 MG TAB PO SCH (09:10)
[2018-07-20] MEDS: carBAMazepine 200 MG TAB PO SCH ×3 (09:10→20:59)
[2018-07-20] MEDS: ATENOLOL 50 MG TAB PO SCH (09:10)
[2018-07-20] MEDS: FAMOTIDINE 20 MG TAB PO SCH (09:11)
[2018-07-20 09:30] LABS: Magnesium 1.2 mg/dL (1.6-2.3); Potassium 3.7 mmol/L (3.5-5.1)
[2018-07-20] MEDS ORDERED: Magnesium Replacement Protocol 1 EACH MISC MISCELLANE PRN (11:27)
[2018-07-20] MEDS: MAGNESIUM SULFATE-D5W PMX 1 GM in DEXTROSE/WATER 1 100ML.BAG IVPB SCH ×3 (12:02→14:19)
[2018-07-20 12:04] LABS: Glucose,Whole Blood 115 mg/dL (75-99)
[2018-07-20 17:23] LABS: Glucose,Whole Blood 194 mg/dL (75-99)
[2018-07-20 20:42] LABS: Glucose,Whole Blood 113 mg/dL (75-99)
[2018-07-20] MEDS: OXYBUTYNIN 15 MG TAB.ER.24 PO SCH (20:59)
[2018-07-20] MEDS: BENZOCAINE/MENTHOL LOZENG 1 EACH LOZENGE MUCOUS MEM PRN (22:09)
[2018-07-21 07:01] LABS: Glucose,Whole Blood 106 mg/dL (75-99)
[2018-07-21] MEDS: GLIMEPIRIDE 4 MG TAB PO SCH (07:51)
[2018-07-21] MEDS: INSULIN ASPART 100 UNIT/ML 1 ML 10 ML VIAL SQ SCH ×2 (07:51→12:10)
[2018-07-21] MEDS: COLCHICINE 0.6 MG EACH PO SCH (07:57)
[2018-07-21] MEDS: OXYBUTYNIN 15 MG TAB.ER.24 PO SCH (07:57)
[2018-07-21] MEDS: FAMOTIDINE 20 MG TAB PO SCH (07:57)
[2018-07-21] MEDS: AZITHROMYCIN 500 MG TAB PO SCH (07:57)
[2018-07-21] MEDS: carBAMazepine 200 MG TAB PO SCH (07:57)
[2018-07-21] MEDS: LEVOTHYROXINE 50 MCG TAB PO SCH (07:57)
[2018-07-21] MEDS: SERTRALINE 100 MG TAB PO SCH (07:57)
[2018-07-21] MEDS: GABAPENTIN 300 MG CAP PO SCH (07:58)
[2018-07-21] MEDS: ATENOLOL 50 MG TAB PO SCH (07:58)
[2018-07-21] MEDS: ALLOPURINOL 300 MG TAB PO SCH (07:58)
[2018-07-21] MEDS: SYMBICORT 160-4.5 MCG INHALER INHALATION SCH (08:43)
[2018-07-21] MEDS: IPRATROPIUM-ALBUTEROL 3 ML NEB INHALATION SCH ×2 (08:43→12:41)
[2018-07-21] MEDS: ENOXAPARIN 40 MG/0.4 ML SYRINGE SQ SCH (11:00)
[2018-07-21 11:15] LABS: Glucose,Whole Blood 116 mg/dL (75-99)
[2018-07-21] MEDS: MAGNESIUM SULFATE-D5W PMX 1 GM in DEXTROSE/WATER 1 100ML.BAG IVPB SCH ×2 (12:08→13:26)
[2018-07-21 13:56] VITALS: BP 169/79; PULSE 76; RESP 17; TEMP 99.1
--- NOTE | 2018-07-21 15:19 | PN ---
PROGRESS NOTE DATE OF SERVICE: 07/21/2018 The patient was to have been discharged yesterday. I was not aware that she had not gone home until this morning. Apparently, she is ready to leave now. There was no necessity or indication for her to stay overnight. CARLA / MILLA: [id number] /
--- NOTE | 2018-07-21 18:28 | DS ---
DISCHARGE SUMMARY CHIEF COMPLAINTS: Fever and shortness of breath. HISTORY OF PRESENT ILLNESS AND PHYSICAL EXAM: Details of this lady's history and physical can be found in the initial workup. LABORATORY STUDIES: While she was in the hospital, she had laboratory studies, details of which can be found in the laboratory section of her chart. COURSE IN HOSPITAL: After admission she was placed on bedrest, started on intravenous fluids and IV antibiotics. Seen and followed by Pulmonology. She had a left pleural fluid collection and she was tapped with the thought this could be an empyema. Chest tube was left in for several days and removed. She continued to continue to do well. It was felt that she could go home on the . She will be set up with home care. She is very sedentary unambitious individual and will probably require quite a bit of coaching to increase her activity. We will see her in the office in several days. FINAL DIAGNOSES: 1. Left lower lobe pneumonitis. 2. Left pleural effusion. 3. Hypertension. OPERATIONS: Chest tube placement in the left hemithorax. CONSULTATIONS: Pulmonology. She was improved. MMODL / IJN: [id number] /
--- NOTE | 2018-07-25 11:51 | CDI ---
Documentation Clarification Form Date: 07/25/18 From: Maria Victoria Saldaña Shaista Ovalles, [address] Clerk Hours-8:30 am & 5 pm MJuan Admit Date: 07/10/2018 11:13:00 PM Patient Name: Maria Victoria Morley Visit Number: [id number] Discharge Date: 07/21/2018 3:30:00 PM ATTENTION: The Clinical Documentation Specialists (CDI) and [facility] Coding Staff appreciate your assistance in clarifying documentation. Please respond to the clarification below the line at the bottom and electronically sign. The CDI & [facility] Coding staff will review the response and follow-up if needed. Please note: Queries are made part of the Legal Health Record. If you have any questions, please contact the author of this message via ITS. Dr. Ryley Mccarthy Conflicting documentation has been found in the medical record: Per your PNs starting with 07/13 thru 07/09 state she started to develop a decubitus ulcer, there is a Stage I on her coccyx according to the nursing staff. Per Wound Assessment pressure ulcer reported as Stage II. History/Risk Factors: sepsis, bronchopneumonia, toxic encephalopathy, DM, morbid obesity w BMI 76.1 Treatment: wound care, ABD pad, gauze/sponge, glucerna, Dung In your opinion, what is the most clinically appropriate diagnosis for this patient? Stage of Ulcer Stage I pressure ulcer of coccyx Stage II pressure ulcer of coccyx Other explanation of clinical findings Unable to determine (no explanation for clinical findings) POA of ulcer Yes No Unknown Clinically undetermined MTDD
--- NOTE | 2018-07-27 10:20 | P.PN ---
Progress Note - Text Progress Note Date: 07/27/18 I can not comment on the decub ulcer,did not visually see it .reported to me by nursing staff only
== END 2018-07-21 15:30 | disposition home health service (06) | DRG 871 ==
LOC: EC 20:31 → 3SCARD 23:13 → 4SSUR 07-11 16:52
PROVIDERS: ADMIT Family Medicine; ATTEND Family Medicine
PROC: 0B9P30Z Drainage of Left Pleura with Drainage Device, Percutaneous Approach (ICD-10-PCS; principal; 2018-07-14)
DX: A41.9 Sepsis, unspecified organism (principal); J18.0 Bronchopneumonia, unspecified organism; G92 Toxic encephalopathy; J86.9 Pyothorax without fistula; J44.0 Chronic obstructive pulmonary disease with (acute) lower respiratory infection; J44.1 Chronic obstructive pulmonary disease with (acute) exacerbation; J91.8 Pleural effusion in other conditions classified elsewhere; Z68.45 Body mass index [BMI] 70 or greater, adult; E11.40 Type 2 diabetes mellitus with diabetic neuropathy, unspecified; E66.01 Morbid (severe) obesity due to excess calories; R15.9 Full incontinence of feces; E83.42 Hypomagnesemia; I10 Essential (primary) hypertension; F32.9 Major depressive disorder, single episode, unspecified; E03.9 Hypothyroidism, unspecified; R32 Unspecified urinary incontinence; R33.9 Retention of urine, unspecified; R29.6 Repeated falls; G89.29 Other chronic pain; R09.02 Hypoxemia; E87.6 Hypokalemia; L89.152 Pressure ulcer of sacral region, stage 2; M54.9 Dorsalgia, unspecified; K21.9 Gastro-esophageal reflux disease without esophagitis; R77.8 Other specified abnormalities of plasma proteins; Z71.3 Dietary counseling and surveillance; Z79.84 Long term (current) use of oral hypoglycemic drugs; Z79.890 Hormone replacement therapy; Z79.899 Other long term (current) drug therapy; Z87.440 Personal history of urinary (tract) infections; Z85.828 Personal history of other malignant neoplasm of skin; Z90.710 Acquired absence of both cervix and uterus; Z91.81 History of falling; Z96.651 Presence of right artificial knee joint; Z87.891 Personal history of nicotine dependence; Z88.5 Allergy status to narcotic agent; Z88.8 Allergy status to other drugs, medicaments and biological substances; Z82.0 Family history of epilepsy and other diseases of the nervous system; Z82.49 Family history of ischemic heart disease and other diseases of the circulatory system
CPT/HCPCS: 32551; 36415; 71045; 71046; 71250; 74177; 76604; 76942; 80048; 80053; 81001; 82140; 82550; 82553; 82945; 83036; 83615; 83735; 84100; 84132; 84157; 84484; 85025; 85027; 85610; 85730; 87040; 87070; 87081; 87102; 87116; 87205; 87206; 87324; 87430; 87502; 89050; 93005; 94640; 94760; 96361; 96365; 96368; 96375; 99291

== ENCOUNTER 2018-07-22 15:06 | Inpatient (IN) | payer MEDICARE, OTHER ==
[2018-07-22] MEDS ORDERED: IPRATROPIUM-ALBUTEROL 3 ML NEB INHALATION STA (15:11)
--- NOTE | 2018-07-22 16:02 | ED ---
General Adult HPI - General Chief complaint: Shortness of Breath Stated complaint: ASIYA Time Seen by Provider: 07/22/18 15:08 Source: patient, EMS, RN notes reviewed, old records reviewed Mode of arrival: EMS Limitations: no limitations - History of Present Illness Initial comments: 72-year-old female presents for reevaluation of cough and dyspnea. Patient recently admitted to the hospital with COPD, pneumonia. She states she was discharged yesterday, symptoms have worsened over the past 24 hours. She is reporting persisted and increased cough productive of white sputum. Denies fever or chills. Denies chest pain. Denies abdominal pain nausea or vomiting. Denies new or worsening lower extremity edema. - Related Data Home Medications Medication Instructions Recorded Confirmed Allopurinol [Zyloprim] 300 mg PO DAILY 09/27/14 07/22/18 Cholecalciferol [Vitamin D3] 1,000 unit PO DAILY 09/27/14 07/22/18 Colchicine [Colcrys] 0.6 mg PO DAILY 09/27/14 07/22/18 Glimepiride [Amaryl] 4 mg PO BID 09/27/14 07/22/18 Levothyroxine Sodium [Synthroid] 50 mcg PO AC-[id number] 09/27/14 07/22/18 Ranitidine HCl [Zantac] 150 mg PO DAILY 09/27/14 07/22/18 Sertraline [Zoloft] 100 mg PO DAILY 09/27/14 07/22/18 Albuterol Inhaler [Ventolin Hfa 1 puff INHALATION RT-QID PRN 09/28/14 07/22/18 Inhaler] Oxybutynin Chloride [Ditropan XL] 15 mg PO HS 10/24/16 07/22/18 Potassium Chloride [Klor-Con 20] 20 meq PO TID 10/24/17 07/22/18 carBAMazepine [TEGretol] 200 mg PO TID 10/24/17 07/22/18 Atenolol [Tenormin] 50 mg PO DAILY 05/25/18 07/22/18 Chlorthalidone [Hygroton] 25 mg PO DAILY 05/25/18 07/22/18 Gabapentin 600 mg PO BID 05/25/18 07/22/18 HYDROcodone/APAP 7.5-325MG [[place] 1 tab PO TID PRN 05/25/18 07/22/18 7.5-325] Losartan [Cozaar] 50 mg PO DAILY 05/25/18 07/22/18 clonazePAM [KlonoPIN] 0.5 mg PO TID PRN 05/25/18 07/22/18 Allergies Allergy/AdvReac Type Severity Reaction Status Date / Time morphine AdvReac Nausea & Verified 07/22/18 15:40 Vomiting Wuwwlww-Gci-Yza Reductase AdvReac STIFFNESS Verified 07/22/18 15:40 Inhibitor AND MUSCLE PAIN Review of Systems ROS Statement: Those systems with pertinent positive or pertinent negative responses have been documented in the HPI. ROS Other: All systems not noted in ROS Statement are negative. Past Medical History Past Medical History: Cancer, COPD, Diabetes Mellitus, GERD/Reflux, Hypertension , Thyroid Disorder Additional Past Medical History / Comment(s): NEUROPATHY-hands,feet. HX of falls ,SKIN CANCER, History of Any Multi-Drug Resistant Organisms: None Reported Past Surgical History: Back Surgery, Hysterectomy, Joint Replacement Additional Past Surgical History / Comment(s): RIGHT KNEE REPLACEMENT, cataract surgery- bilat Past Anesthesia/Blood Transfusion Reactions: No Reported Reaction Past Psychological History: Depression Smoking Status: Former smoker Past Alcohol Use History: None Reported Past Drug Use History: None Reported - Past Family History Mother Family Medical History: Dementia Additional Family Medical History / Comment(s): alzheimers Father Family Medical History: Myocardial Infarction (OR) Additional Family Medical History / Comment(s): unknown General Exam Limitations: no limitations General appearance: alert, in no apparent distress Head exam: Present: atraumatic, normocephalic Eye exam: Present: normal appearance, PERRL ENT exam: Present: normal exam Neck exam: Present: normal inspection Respiratory exam: Present: respiratory distress, wheezes, rhonchi, decreased breath sounds Cardiovascular Exam: Present: regular rate, normal rhythm GI/Abdominal exam: Present: soft. Absent: distended, tenderness, guarding Extremities exam: Present: normal inspection, normal capillary refill. Absent: pedal edema, calf tenderness Neurological exam: Present: alert, oriented X3 Psychiatric exam: Present: normal affect, normal mood Skin exam: Present: warm, dry, intact. Absent: cyanosis, diaphoretic Course Vital Signs 07/22/18 07/22/18 07/22/18 15:12 16:16 16:24 Temperature 98.7 F Pulse Rate 91 77 87 Respiratory 24 24 Rate Blood Pressure 177/74 162/84 O2 Sat by Pulse 94 L 94 L Oximetry 07/22/18 07/22/18 16:31 17:16 Temperature Pulse Rate 88 80 Respiratory 24 Rate Blood Pressure 177/74 O2 Sat by Pulse 94 L Oximetry EKG Findings - EKG Comments: EKG Findings:: EKG: Normal sinus rhythm, rate of 91, NM interval 136, QRS duration 90, QTC 474, no ST segment changes Medical Decision Making - Medical Decision Making 72-year-old female was is for reevaluation of cough and dyspnea. Patient recent auscultation with pneumonia. Workup in the emergency department reveals white blood cell count 3.4, hemoglobin 9.8 which is stable from recent 10.1, potassium 3.0, magnesium 1.2, these are replaced in the emergency department. Patient has an elevated BNP at 6400, chest x-ray showing left sided effusion with loculated lower lobe pneumonia, there is improved aeration and this chest x -ray compared to previous. Patient does remain hypoxic on 2 L, will be admitted for further evaluation and treatment. Case discussed with Dr. Park , will admit, cardiology and pulmonology placed on consult - Lab Data Result diagrams: 07/22/18 15:30 07/22/18 15:30 Lab Results 07/22/18 07/22/18 07/22/18 Range/Units 15:30 15:30 15:30 WBC 3.4 L (3.8-10.6) k/uL RBC 3.21 L (3.80-5.40) m/uL Hgb 9.8 L (11.4-16.0) gm/dL Hct 28.7 L (34.0-46.0) % MCV 89.3 (80.0-100.0) fL MCH 30.6 (25.0-35.0) pg MCHC 34.3 (31.0-37.0) g/dL RDW 15.0 (11.5-15.5) % Plt Count 148 L (150-450) k/uL Neutrophils % 70 % Lymphocytes % 24 % Monocytes % 4 % Eosinophils % 1 % Basophils % 0 % Neutrophils # 2.4 (1.3-7.7) k/uL Lymphocytes # 0.8 L (1.0-4.8) k/uL Monocytes # 0.1 (0-1.0) k/uL Eosinophils # 0.0 (0-0.7) k/uL Basophils # 0.0 (0-0.2) k/uL PT (9.0-12.0) sec INR (<1.2) APTT (22.0-30.0) sec Sodium 136 L (137-145) mmol/L Potassium 3.0 L (3.5-5.1) mmol/L Chloride 103 (98-107) mmol/L Carbon Dioxide 27 (22-30) mmol/L Anion Gap 6 mmol/L BUN 7 (7-17) mg/dL Creatinine 0.32 L (0.52-1.04) mg/dL Est GFR (CKD-EPI)AfAm >90 (>60 ml/min/1.73 sqM) Est GFR (CKD-EPI)NonAf >90 (>60 ml/min/1.73 sqM) Glucose 178 H (74-99) mg/dL Plasma Lactic Acid Joe (0.7-2.0) mmol/L Calcium 7.7 L (8.4-10.2) mg/dL Magnesium 1.2 L (1.6-2.3) mg/dL Total Bilirubin 0.7 (0.2-1.3) mg/dL AST 33 (14-36) U/L ALT 29 (9-52) U/L Alkaline Phosphatase 99 (38-126) U/L Total Creatine Kinase 58 (30-135) U/L CK-MB (CK-2) 2.5 H (0.0-2.4) ng/mL CK-MB (CK-2) Rel Index 4.3 Troponin I 0.030 (0.000-0.034) ng/mL NT-Pro-B Natriuret Pep pg/mL Total Protein 6.5 (6.3-8.2) g/dL Albumin 2.4 L (3.5-5.0) g/dL 07/22/18 07/22/18 07/22/18 Range/Units 15:30 15:30 15:30 WBC (3.8-10.6) k/uL RBC (3.80-5.40) m/uL Hgb (11.4-16.0) gm/dL Hct (34.0-46.0) % MCV (80.0-100.0) fL MCH (25.0-35.0) pg MCHC (31.0-37.0) g/dL RDW (11.5-15.5) % Plt Count (150-450) k/uL Neutrophils % % Lymphocytes % % Monocytes % % Eosinophils % % Basophils % % Neutrophils # (1.3-7.7) k/uL Lymphocytes # (1.0-4.8) k/uL Monocytes # (0-1.0) k/uL Eosinophils # (0-0.7) k/uL Basophils # (0-0.2) k/uL PT 16.1 H (9.0-12.0) sec INR 1.6 H (<1.2) APTT 24.9 (22.0-30.0) sec Sodium (137-145) mmol/L Potassium (3.5-5.1) mmol/L Chloride (98-107) mmol/L Carbon Dioxide (22-30) mmol/L Anion Gap mmol/L BUN (7-17) mg/dL Creatinine (0.52-1.04) mg/dL Est GFR (CKD-EPI)AfAm (>60 ml/min/1.73 sqM) Est GFR (CKD-EPI)NonAf (>60 ml/min/1.73 sqM) Glucose (74-99) mg/dL Plasma Lactic Acid Joe 1.0 (0.7-2.0) mmol/L Calcium (8.4-10.2) mg/dL Magnesium (1.6-2.3) mg/dL Total Bilirubin (0.2-1.3) mg/dL AST (14-36) U/L ALT (9-52) U/L Alkaline Phosphatase (38-126) U/L Total Creatine Kinase (30-135) U/L CK-MB (CK-2) (0.0-2.4) ng/mL CK-MB (CK-2) Rel Index Troponin I (0.000-0.034) ng/mL NT-Pro-B Natriuret Pep 6400 pg/mL Total Protein (6.3-8.2) g/dL Albumin (3.5-5.0) g/dL Disposition Clinical Impression: COPD (chronic obstructive pulmonary disease), Hypoxia, Pleural effusion, left, Weakness, Hypomagnesemia, Hypokalemia Disposition: ADMITTED IP TO THIS HOSP Condition: Stable Is patient prescribed a controlled substance at d/c from ED?: No Referrals: Adi Park MD [Primary Care Provider] - 1-2 days Decision to Admit Reason: Admit from EC Decision Date: 07/22/18 Decision Time: 17:55
[2018-07-22 16:12] LABS: HCT 28.7 % (34.0-46.0); HGB 9.8 gm/dL (11.4-16.0)
[2018-07-22 16:15] LABS: Basophils % (A) 0 %; Eosinophils % (A) 1 %; Lymphocytes # (A) 0.8 k/uL (1.0-4.8); Lymphocytes % (A) 24 %; MCH 30.6 pg (25.0-35.0); MCHC 34.3 g/dL (31.0-37.0); MCV 89.3 fL (80.0-100.0); Mean Platelet Volume 7.7; Monocytes # (A) 0.1 k/uL (0-1.0); Monocytes % (A) 4 %; Neutrophils # (A) 2.4 k/uL (1.3-7.7); Neutrophils % (A) 70 %; Platelet Count 148 k/uL (150-450); RBC 3.21 m/uL (3.80-5.40); WBC 3.4 k/uL (3.8-10.6)
[2018-07-22 16:16] LABS: ALT 29 U/L (9-52); AST 33 U/L (14-36); Albumin 2.4 g/dL (3.5-5.0); Alkaline Phosphatase 99 U/L (38-126); Anion Gap 6 mmol/L; Blood Urea Nitrogen 7 mg/dL (7-17); Calcium 7.7 mg/dL (8.4-10.2); Carbon Dioxide 27 mmol/L (22-30); Chloride 103 mmol/L (98-107); Glucose 178 mg/dL (74-99); INR 1.6 (<1.2); Magnesium 1.2 mg/dL (1.6-2.3); Partial Thromboplastin Time 24.9 sec (22.0-30.0); Prothrombin Time 16.1 sec (9.0-12.0); Sodium 136 mmol/L (137-145); Total Bilirubin 0.7 mg/dL (0.2-1.3); Total Protein 6.5 g/dL (6.3-8.2)
--- NOTE | 2018-07-22 16:30 | XR ---
EXAMINATION TYPE: XR chest 2V DATE OF EXAM: 07/22/2018 COMPARISON: 07/18/2018 HISTORY: Difficulty breathing TECHNIQUE: Frontal and lateral views of the chest are obtained. FINDINGS: There is extensive pleural thickening on the left lateral chest wall. Right lung is clear. There is no heart failure. Heart size is fairly normal. There is cervical spine fusion surgery. Ther e is probably some infiltrate in the left lower lobe. IMPRESSION: Left pleural effusion with loculation. Left lower lobe pneumonia. Chest is slightly impr gilles compared to last exam.
[2018-07-22 16:33] LABS: Creatine Kinase MB 2.5 ng/mL (0.0-2.4); Troponin I 0.03 ng/mL (0.000-0.034)
[2018-07-22] MEDS ORDERED: FUROSEMIDE 10 MG/ML 4 ML VIAL IV STA (16:48)
[2018-07-22] MEDS ORDERED: POTASSIUM CHLORIDE 20 MEQ in WATER FOR INJECTION 1 100ML.BAG IVPB STA (17:07)
[2018-07-22] MEDS ORDERED: POTASSIUM CHLORIDE ER 20 MEQ TAB.ER PO STA (17:07)
[2018-07-22] MEDS: MAGNESIUM SULFATE-D5W PMX 1 GM in DEXTROSE/WATER 1 100ML.BAG IVPB SCH ×2 (17:16→18:04)
[2018-07-22] MEDS ORDERED: ALBUTEROL NEBULIZED 2.5 MG/3 ML INHALATION PRN (18:58)
[2018-07-22] MEDS ORDERED: ACETAMINOPHEN TAB 325 MG TAB PO PRN (19:00)
[2018-07-22] MEDS: POTASSIUM CHLORIDE ER 20 MEQ TAB.ER PO SCH (19:43)
[2018-07-22] MEDS: GABAPENTIN 300 MG CAP PO SCH (19:43)
[2018-07-22] MEDS: LEVOFLOXACIN 500 MG TAB PO SCH (19:43)
[2018-07-22] MEDS: IPRATROPIUM-ALBUTEROL 3 ML NEB INHALATION SCH (19:43)
[2018-07-22] MEDS: carBAMazepine 200 MG TAB PO SCH (19:43)
[2018-07-22] MEDS: GLIMEPIRIDE 4 MG TAB PO SCH (19:58)
[2018-07-22] MEDS: OXYBUTYNIN 15 MG TAB.ER.24 PO SCH (19:58)
[2018-07-22 20:04] LABS: Glucose,Whole Blood 154 mg/dL (75-99)
[2018-07-23 06:15] LABS: Glucose,Whole Blood 103 mg/dL (75-99)
[2018-07-23 06:21] LABS: Chloride 102 mmol/L (98-107)
[2018-07-23 06:24] LABS: Anion Gap 4 mmol/L; Blood Urea Nitrogen 5 mg/dL (7-17); Calcium 7.8 mg/dL (8.4-10.2); Carbon Dioxide 33 mmol/L (22-30); Glucose 100 mg/dL (74-99); Magnesium 1.3 mg/dL (1.6-2.3); Potassium 3.4 mmol/L (3.5-5.1); Sodium 139 mmol/L (137-145)
[2018-07-23] MEDS: LEVOTHYROXINE 50 MCG TAB PO SCH (06:40)
[2018-07-23] MEDS: IPRATROPIUM-ALBUTEROL 3 ML NEB INHALATION SCH ×4 (08:06→19:49)
[2018-07-23] MEDS: ATENOLOL 50 MG TAB PO SCH (08:49)
[2018-07-23] MEDS: POTASSIUM CHLORIDE ER 20 MEQ TAB.ER PO SCH ×5 (08:49→19:45)
[2018-07-23] MEDS: CHLORTHALIDONE 25 MG TAB PO SCH (08:49)
[2018-07-23] MEDS: GABAPENTIN 300 MG CAP PO SCH ×2 (08:49→19:44)
[2018-07-23] MEDS: SERTRALINE 100 MG TAB PO SCH (08:49)
[2018-07-23] MEDS: carBAMazepine 200 MG TAB PO SCH ×3 (08:50→19:45)
[2018-07-23] MEDS: ALLOPURINOL 300 MG TAB PO SCH (08:50)
[2018-07-23] MEDS: FAMOTIDINE 20 MG TAB PO SCH (08:50)
[2018-07-23] MEDS: GLIMEPIRIDE 4 MG TAB PO SCH ×2 (08:50→19:45)
[2018-07-23] MEDS: COLCHICINE 0.6 MG EACH PO SCH (08:51)
--- NOTE | 2018-07-23 09:14 | P.CRDCN ---
History of Present Illness Consult date: 07/23/18 Consult reason: shortness of breath Chief complaint: Shortness of breath History of present illness: This is a 72-year-old female with known history of COPD, diabetes, hypertension, hypothyroidism, chronic back pain, who was just recently discharged from the hospital on Monday after a course here with pneumonia, requiring chest tube placement for a left-sided pleural effusion. Patient had been treated with antibiotics, and discharged home. She states that she continues to be very short of breath, almost getting worse than when she was in the hospital, continued to have cough of productive yellow sputum and for this reason she came back to the emergency room for further evaluation. BNP level was obtained in the emergency room which came back to be elevated and for this reason a cardiology consultation had been requested. Chest x-ray this admission showed a left pleural effusion with loculation, left lower lobe pneumonia. Chest slightly improved with prior exam. EKG on admission showed a normal sinus rhythm with no acute changes. The patient has been afebrile here, blood pressure 140/80 with a heart rate in the 80s. White blood cell count 3.4 , hemoglobin 9.8, platelet count 148. Sodium 139, potassium 3.4, BUN 5 creatinine 0.4. Magnesium level I.3. Troponin 0.030. BNP level 6400. At the time of my examination, patient complains of feeling short of breath, continues to have cough. Past Medical History Past Medical History: Cancer, COPD, Diabetes Mellitus, GERD/Reflux, Hypertension , Thyroid Disorder Additional Past Medical History / Comment(s): NEUROPATHY-hands,feet. HX of falls ,SKIN CANCER, History of Any Multi-Drug Resistant Organisms: None Reported Past Surgical History: Back Surgery, Hysterectomy, Joint Replacement Additional Past Surgical History / Comment(s): RIGHT KNEE REPLACEMENT, cataract surgery- bilat Past Anesthesia/Blood Transfusion Reactions: No Reported Reaction Past Psychological History: Depression Additional Psychological History / Comment(s): PT LIVES IN OWN HOME HAS 1 DOG, USUALLY IS INDEPENDANT Smoking Status: Former smoker Past Alcohol Use History: None Reported Additional Past Alcohol Use History / Comment(s): STARTED SMOKING AT AGE 17 QUIT IN 2001 SMOKED 1-2 PPD Past Drug Use History: None Reported - Past Family History Mother Family Medical History: Dementia Additional Family Medical History / Comment(s): alzheimers Father Family Medical History: Myocardial Infarction ([place]) Additional Family Medical History / Comment(s): unknown Medications and Allergies Home Medications Medication Instructions Recorded Confirmed Type Allopurinol [Zyloprim] 300 mg PO DAILY 09/27/14 07/22/18 History Cholecalciferol [Vitamin D3] 1,000 unit PO DAILY 09/27/14 07/22/18 History Colchicine [Colcrys] 0.6 mg PO DAILY 09/27/14 07/22/18 History Glimepiride [Amaryl] 4 mg PO BID 09/27/14 07/22/18 History Levothyroxine Sodium [Synthroid] 50 mcg PO AC-BRKFST 09/27/14 07/22/18 History Ranitidine HCl [Zantac] 150 mg PO DAILY 09/27/14 07/22/18 History Sertraline [Zoloft] 100 mg PO DAILY 09/27/14 07/22/18 History Albuterol Inhaler [Ventolin Hfa 1 puff INHALATION RT-QID PRN 09/28/14 07/22/18 History Inhaler] Oxybutynin Chloride [Ditropan XL] 15 mg PO HS 10/24/16 07/22/18 History Potassium Chloride [Klor-Con 20] 20 meq PO TID 10/24/17 07/22/18 History carBAMazepine [TEGretol] 200 mg PO TID 10/24/17 07/22/18 History Atenolol [Tenormin] 50 mg PO DAILY 05/25/18 07/22/18 History Chlorthalidone [Hygroton] 25 mg PO DAILY 05/25/18 07/22/18 History Gabapentin 600 mg PO BID 05/25/18 07/22/18 History HYDROcodone/APAP 7.5-325MG [Wilkinson 1 tab PO TID PRN 05/25/18 07/22/18 History 7.5-325] Losartan [Cozaar] 50 mg PO DAILY 05/25/18 07/22/18 History clonazePAM [KlonoPIN] 0.5 mg PO TID PRN 05/25/18 07/22/18 History Allergies Allergy/AdvReac Type Severity Reaction Status Date / Time morphine AdvReac Nausea & Verified 07/22/18 15:40 Vomiting Efddyso-Jws-Iki Reductase AdvReac STIFFNESS Verified 07/22/18 15:40 Inhibitor AND MUSCLE PAIN Physical Exam Vitals: Vital Signs Temp Pulse Pulse Resp BP BP Pulse Ox 07/23/18 08:22 88 07/23/18 08:06 84 07/23/18 04:00 81 18 145/81 94 L 07/23/18 02:53 18 07/22/18 23:41 82 18 132/75 96 07/22/18 20:00 98.8 F 87 18 145/65 95 07/22/18 19:43 89 18 07/22/18 19:31 19 07/22/18 18:11 98.2 F 90 24 151/62 94 L 07/22/18 18:08 98.6 F 89 19 172/77 93 L 07/22/18 17:16 80 24 177/74 94 L 07/22/18 16:31 88 07/22/18 16:24 87 07/22/18 16:16 77 24 162/84 94 L 07/22/18 15:12 98.7 F 91 24 177/74 94 L Intake and Output 07/22/18 07/23/18 07/23/18 22:59 06:59 14:59 Intake Total 300 Balance 300 Intake: Intake, IV Titration 200 Amount Magnesium Sulfate-D5w Pmx 200 1 gm In Dextrose/Water 1 100ml.bag @ 100 mls/hr IVPB Q1H [facility] Rx#: [id number] Oral 100 Other: Voiding Method Diaper Diaper # Voids 1 1 Weight 101.8 kg 107.5 kg PHYSICAL EXAMINATION: GENERAL: 72-year-old female in no acute distress HEENT: Head is atraumatic, normocephalic. Pupils equal, round. Sclera anicteric. Conjunctiva are clear. Mucous membranes of the mouth are moist. Neck is supple. There is no elevated jugular venous pressure. No carotid bruit is heard. HEART EXAMINATION: Heart S1, S2 normal. No murmur or gallop heard. CHEST EXAMINATION: Lungs reveal scattered rhonchi throughout. Diminished air entry to the bases. ABDOMEN: Soft, nontender. Bowel sounds are heard. No organomegaly noted. EXTREMITIES: 2+ peripheral pulses with no evidence of peripheral edema and no calf tenderness noted. NEUROLOGIC patient is awake, alert and oriented 3 . . Results 07/22/18 15:30 07/23/18 05:56 Cardiac Enzymes 07/22/18 07/22/18 Range/Units 15:30 15:30 AST 33 (14-36) U/L CK-MB (CK-2) 2.5 H (0.0-2.4) ng/mL Troponin I 0.030 (0.000-0.034) ng/mL Coagulation 07/22/18 Range/Units 15:30 PT 16.1 H (9.0-12.0) sec APTT 24.9 (22.0-30.0) sec CBC 07/22/18 Range/Units 15:30 WBC 3.4 L (3.8-10.6) k/uL RBC 3.21 L (3.80-5.40) m/uL Hgb 9.8 L (11.4-16.0) gm/dL Hct 28.7 L (34.0-46.0) % Plt Count 148 L (150-450) k/uL Comprehensive Metabolic Panel 07/22/18 07/23/18 Range/Units 15:30 05:56 Sodium 136 L 139 (137-145) mmol/L Potassium 3.0 L 3.4 L (3.5-5.1) mmol/L Chloride 103 102 (98-107) mmol/L Carbon Dioxide 27 33 H (22-30) mmol/L BUN 7 5 L (7-17) mg/dL Creatinine 0.32 L 0.42 L (0.52-1.04) mg/dL Glucose 178 H 100 H (74-99) mg/dL Calcium 7.7 L 7.8 L (8.4-10.2) mg/dL AST 33 (14-36) U/L ALT 29 (9-52) U/L Alkaline Phosphatase 99 (38-126) U/L Total Protein 6.5 (6.3-8.2) g/dL Albumin 2.4 L (3.5-5.0) g/dL Current Medications Generic Name Dose Route Start Last Admin Trade Name Freq PRN Reason Stop Dose Admin Acetaminophen 650 mg 07/22/18 19:00 Tylenol Tab PO Q6HR PRN Fever and/ or Pain Albuterol Sulfate 2.5 mg 07/22/18 18:58 Ventolin Nebulized INHALATION RT-QID PRN Shortness Of Breath Albuterol/Ipratropium 3 ml 07/22/18 20:00 07/23/18 08:06 Duoneb 0.5 Mg-3 Mg/3 Ml Soln INHALATION 3 ml RT-QID JOSE Administration Allopurinol 300 mg 07/23/18 09:00 07/23/18 08:50 Zyloprim PO 300 mg DAILY JOSE Administration Atenolol 50 mg 07/23/18 09:00 07/23/18 08:49 Tenormin PO 50 mg DAILY JOSE Administration Carbamazepine 200 mg 07/22/18 22:00 07/23/18 08:50 Tegretol PO 200 mg TID JOSE Administration Chlorthalidone 25 mg 07/23/18 09:00 07/23/18 08:49 Hygroton PO 25 mg DAILY JOSE Administration Colchicine 0.6 mg 07/23/18 09:00 07/23/18 08:51 Colcrys PO 0.6 mg DAILY JOSE Administration Famotidine 20 mg 07/23/18 09:00 07/23/18 08:50 Pepcid PO 20 mg DAILY JOSE Administration Gabapentin 600 mg 07/22/18 21:00 07/23/18 08:49 Neurontin PO 600 mg BID JOSE Administration Glimepiride 4 mg 07/22/18 21:00 07/23/18 08:50 Amaryl PO 4 mg BID JOSE Administration Levofloxacin 500 mg 07/22/18 21:00 07/22/18 19:43 Levaquin PO 500 mg Q24H JOSE Administration Levothyroxine Sodium 50 mcg 07/23/18 07:30 07/23/18 06:40 Synthroid PO 50 mcg AC-BRKFST JOSE Administration Oxybutynin Chloride 15 mg 07/22/18 21:00 07/22/18 19:58 Ditropan Xl PO 15 mg HS JOSE Administration Potassium Chloride 20 meq 07/22/18 22:00 07/23/18 08:49 K-Dur 20 PO 20 meq TID JOSE Administration Sertraline HCl 100 mg 07/23/18 09:00 07/23/18 08:49 Zoloft PO 100 mg DAILY JOSE Administration Intake and Output 07/22/18 07/23/18 07/23/18 22:59 06:59 14:59 Intake Total 300 Balance 300 Intake: Intake, IV Titration 200 Amount Magnesium Sulfate-D5w Pmx 200 1 gm In Dextrose/Water 1 100ml.bag @ 100 mls/hr IVPB Q1H [facility] Rx#: [id number] Oral 100 Other: Voiding Method Diaper Diaper # Voids 1 1 Weight 101.8 kg 107.5 kg 07/22/18 15:30 07/23/18 05:56 EKG Interpretations (text) EKG shows normal sinus rhythm with no acute changes. Assessment and Plan Plan: Assessment and plan #1 symptoms of progressively worsening shortness of breath with associated productive cough of yellow sputum, recent hospitalization with acute community- acquired left lower lobe pneumonia with parapneumonic pleural effusion status post chest tube placement. On antibiotics. Likely continuation of the pneumonia, mild congestive heart failure, LV function unknown #2 COPD #3 history of nicotine dependence #4 hypokalemia and hypomagnesemia #5 diabetes #6 hypertension #7 hypothyroidism Plan We will obtain an echo cardiac gram with Doppler study. Continue antibiotics for pneumonia, patient did receive a one-time dose of IV Lasix in the emergency room, we will start her on IV Lasix twice a day. Replace potassium and magnesium. Consider small dose of MARIA A inhibitor for more optimal blood pressure control, patient ALLERGIC to statins .Further recommendations to follow. DNP note has been reviewed, I agree with a documented findings and plan of care. Patient was seen and examined.
[2018-07-23] MEDS ORDERED: Potassium Replacement Protocol 1 EACH MISC MISCELLANE PRN (09:21)
[2018-07-23] MEDS: LOSARTAN 25 MG TAB PO SCH (10:13)
[2018-07-23] MEDS: FUROSEMIDE 10 MG/ML 4 ML VIAL IV SCH ×2 (10:14→19:44)
[2018-07-23] MEDS: MAGNESIUM SULFATE-D5W PMX 1 GM in DEXTROSE/WATER 1 100ML.BAG IVPB SCH ×2 (10:14→11:20)
[2018-07-23 11:38] LABS: Glucose,Whole Blood 127 mg/dL (75-99)
--- NOTE | 2018-07-23 12:04 | ECHOF ---
Referral Reason:sob MEASUREMENTS -------- HEIGHT: 165.1 cm WEIGHT: 107.0 kg BP: 145/81 RVIDd: 2.7 cm (< 3.3) IVSd: 1.1 cm (0.6 - 1.1) LVIDd: 5.7 cm (3.9 - 5.3) LVPWd: 1.0 cm (0.6 - 1.1) IVSs: 1.2 cm LVIDs: 4.8 cm LVPWs: 1.4 cm LAESV Index (A-L): 26.48 ml/m Ao Diam: 2.9 cm (2.0 - 3.7) AV Cusp: 1.9 cm (1.5 - 2.6) LA Diam: 2.7 cm (2.7 - 3.8) MV E Danny: 0.85 m/s MV DecT: 152 ms MV A Danny: 0.79 m/s MV E/A Ratio: 1.07 RAP: 5.00 mmHg RVSP: 19.10 mmHg FINDINGS -------- Sinus rhythm. This was a technically difficult study with suboptimal views. The left ventricle is mildly dilated. Left ventricular wall thickness is normal. Overall left nelson tricular systolic function is mildly impaired with, an EF between 45 - 50 %. The right ventricle is normal in size and function. Normal LA size by volume 22+/-6 ml/m2. RA appears enlarged. 3 ml of Lumason was utilized for enhancement of images. There is mild aortic valve sclerosis. There is no evidence of aortic regurgitation. There is no e vidence of aortic stenosis. The mitral valve leaflets are mildly thickened. There is trace to mild mitral regurgitation. Trace tricuspid regurgitation present. Right ventricular systolic pressure is normal at < 35 mmHg. There is no evidence of pulmonary hypertension. The pulmonic valve was not well visualized. The aortic root size is normal. Normal inferior vena cava with normal inspiratory collapse consistent with estimated right atrial pre ssure of 5 mmHg. There is no pericardial effusion. CONCLUSIONS -------- 1. Sinus rhythm. 2. This was a technically difficult study with suboptimal views. 3. The left ventricle is mildly dilated. 4. Left ventricular wall thickness is normal. 5. Normal LA size by volume 22+/-6 ml/m2. 6. RA appears enlarged. 7. 3 ml of Lumason was utilized for enhancement of images. 8. There is mild aortic valve sclerosis. 9. The mitral valve leaflets are mildly thickened. 10. There is trace to mild mitral regurgitation. 11. Trace tricuspid regurgitation present. 12. Right ventricular systolic pressure is normal at < 35 mmHg. 13. There is no evidence of pulmonary hypertension. 14. The pulmonic valve was not well visualized. 15. The aortic root size is normal. 16. There is no pericardial effusion. HYDRO TECHNICIAN: Juan Jose Latham RDCS
[2018-07-23] MEDS ORDERED: RX INFO: IV CONTRAST WAS GIVEN 1 EACH MISC MISCELLANE PRN (12:49)
--- NOTE | 2018-07-23 14:54 | HP ---
HISTORY AND PHYSICAL CHIEF COMPLAINT: Shortness of breath. HISTORY OF PRESENT ILLNESS: This is another admission for this 72-year-old white female. She was in the hospital recently for left lower lobe pneumonia with pleural effusion or empyema. She was doing well, went home and then came back to the emergency room with shortness of breath and weakness. She had no fever and chills, etc. White count is normal. X-ray picture not changed. She is a very lethargic, noncompliant, poorly motivated individual. It sounds as though she went home, did not move about, did not eat, drink, and came back with dehydration, hypomagnesemia, hypokalemia and inability to thrive and was put back in the hospital. REVIEW OF SYSTEMS: She has had no focal neurologic deficits, change in vision hearing, cough, hemoptysis, sputum production, chest pain, orthopnea, PND, etc. BNP was elevated in the ER. She has never had a history of heart disease. She has had no abdominal pain, nausea, vomiting, hematemesis, melena, hematochezia, jaundice, renal failure, etc. Past medical history, family history, personal and social history can all be found in a recent admitting and discharge summaries. She is allergic to MORPHINE and Statins. At home, she has been on Vicodin 5 p.r.n., potassium 3 times a day, chlorthalidone 25 mg once a day, glimepiride 4 mg twice a day, ranitidine 150 twice a day, atenolol 50 twice a day, gabapentin 600 mg twice a day, sertraline 100 mg once a day, oxybutynin 15 mg at bedtime, colchicine 0.6 once a day, Cozaar 50 once a day, Synthroid 0.5 mg once and HFA. She used to smoke, but does not any longer. She was offered rehab when she was in the hospital last week, but refused. She is not a candidate to live at home alone. PHYSICAL EXAM: Blood pressure is 148/82 with a pulse of 98, respirations of 38, and temperature 98. In general, she appeared to be overweight. She was slightly pale. She was not complaining of any pain. Head, ears, eyes, nose, mouth, and throat were normal. Chest demonstrated decreased breath sounds at the left base with scattered rales and rhonchi. Cardiac exam demonstrates sinus rhythm. No murmurs or extra sounds. The abdomen is protuberant, soft, nontender without visceromegaly or masses. Bowel sounds present. Extremities are normal. Neurologically, she is intact, but weak and lethargic. She is admitted to the hospital diagnoses: 1. Dehydration. 2. Electrolyte imbalance. 3. Recent left lower lobe pneumonitis. 4. Hypertension. 5. Diabetes mellitus. 6. Increased BNP. PLAN: 1. Bed rest. 2. IV fluids. 3. Consult with Pulmonology and Cardiology. 4. Echocardiogram. 5. Social Service consult for discharge planning. 6. PT and OT. MMVICENTEL / BREONNAN: [id number] /
--- NOTE | 2018-07-23 15:15 | PN ---
PROGRESS NOTE DATE OF SERVICE: 07/23/2018 CHIEF COMPLAINT: Weakness, failure to thrive, dehydration and electrolyte imbalance. HISTORY OF PRESENT ILLNESS: This lady is fairly stable and is not complaining of a lot of discomfort. She does not want to go to rehab or [place] [facility]. PHYSICAL EXAM: Breath sounds are generally unchanged with decreased breath sounds at the left base with occasional rales and rhonchi. Cardiac exam is normal. The abdomen is soft, nontender. IMPRESSION: 1. Left lower lobe pneumonitis. 2. Failure to thrive. PLAN: 1. Continue with IV fluids and correct electrolyte imbalances. 2. PT, OT and discharge planning. MMODL / IJN: [id number] /
--- NOTE | 2018-07-23 15:32 | CT ---
EXAMINATION TYPE: CT chest wo/w con DATE OF EXAM: 07/23/2018 COMPARISON: 07/12/2018 HISTORY: Loculated pleural effusion, left CT DLP: 1038.7 mGycm. Automated Exposure Control for Dose Reduction was Utilized. TECHNIQUE: CT scan of the thorax is performed following without and with IV Contrast, patient inject ed with 100 ml mL of Isovue 300. FINDINGS: LUNGS: There is a loculated small to moderate left pleural effusion with component seen medially at t he lung apex measuring 2.5 cm in greatest thickness. There is associated compressive atelectasis seen along the medial margin with few calcified pulmonary granulomas within the atelectatic lung there is very thin faint enhancement seen peripherally along the parietal pleural surface suggesting complexi ty of the pleural effusion and possible empyema such as on series 201 image 41 posterior medially. No right-sided pleural effusion is noted. There are some subpleural deposition of fat on the right. Although a left infrahilar consolidation within the left lower lobe appears rounded such as on series 201 image 41 and series 204 image 40 directly below this there is a rounded aspect of the loculated pleural effusion and surrounding atelectasis and therefore a rounded contour may be artifactual. Unde rlying pulmonary nodule remains a possibility and follow-up examination after resolution of the left pleural effusion is recommended to exclude underlying pulmonary nodule. Minimal right basilar subsegm ental atelectasis is present. Mild interlobular septal thickening suggestive degree of fluid overload . MEDIASTINUM: There are no greater than 1 cm hilar or mediastinal lymph nodes. Moderate coronary arter y calcifications are present. Very trace pericardial fluid is seen. OTHER: Benign splenic granulomas are seen within the splenic parenchyma. Mild degree hepatic steatosi s is incidentally seen. There is partial visualization of an anterior cervical fusion device. Mild mu ltilevel degenerative changes of the thoracic spine are noted. There are healed right rib fractures of the lateral margins of ribs 8 and 9 on the right. IMPRESSION: 1. Loculated left pleural effusion demonstrates very mild thin peripheral enhancement suggesting comp lexity. Empyema is therefore a possibility. 2. Septal thickening at the lung apices and interfissural fluid suggests fluid overload that may be o n a cardiogenic or noncardiogenic basis. 3. Rounded left basilar consolidation is seen. Contour may be artifactual given the adjacent pleural effusion although short-term follow-up is recommended after resolution of the effusion to assess for underlying pulmonary nodule and/or pulmonary mass.
[2018-07-23 16:39] LABS: Glucose,Whole Blood 129 mg/dL (75-99)
--- NOTE | 2018-07-23 16:48 | P.CNPUL ---
History of Present Illness Consult date: 07/23/18 Requesting physician: Adi Park Reason for consult: dyspnea, pleural effusion, abnormal CXR/CT Chief complaint: Dyspnea History of present illness: This is a 72-year-old white female patient of Dr. Park that was recently hospitalized for acute community-acquired left lower lobe pneumonia with parapneumonic pleural effusion. We saw this patient in consultation during her last admission for possibility of empyema in the left lung related to pneumonia. Patient underwent is minimal have a pigtail chest tube and had been given several doses of TPA, pleural fluid was minimal and was not purulent. Pleural fluid cultures no growth, patient was treated with a combination of Rocephin and Zithromax. Patient had clinically improved, was discharged home on 07/21/2018 in the care of her daughter with whom she resides. Patient was home for 1 day, she returned per EMS to the emergency department on 07/22/2018 with complaints of cough, and dyspnea. She states that her cough was productive with white sputum, she denied any fever or chills, denied any chest pain, denied any chest wall tenderness, no nausea or vomiting, no hemoptysis, no lower extremity edema. No abdominal pain, no altered mentation. Chest x- ray showed a left pleural effusion with loculation, left lower lobe pneumonia, slightly improved from the last exam on 07/18/2018. EKG showed normal sinus rhythm without ischemic changes. I work showed white blood cell count of 3.4, hemoglobin of 9.8, INR of 1.6, sodium is 136, potassium is 3.0, chloride is 103 , CO2 is 27, BUN was 7, creatinine was 0.32, plasma lactic acid was within normal limits at 1.0, magnesium was 1.2, LFTs were within normal limits, troponin was negative 1, proBNP was elevated at 6400. Echocardiogram showed mildly impaired left ventricular systolic function with an EF of 45-50%, trace to mild mitral regurgitation, trace tricuspid regurgitation, right sided pressures of less than 35 mmHg, no evidence of pulmonary hypertension. No pericardial effusion. Patient was seen by cardiology for mild exacerbation of congestive heart failure. She was started on empiric antibiotics in the form of Levaquin, and we are asked to see the patient in consultation for shortness of breath, and a loculated left pleural effusion. Review of Systems All systems: negative Constitutional: Denies chills, Denies fever Eyes: denies blurred vision, denies pain Ears, nose, mouth and throat: Denies headache, Denies sore throat Cardiovascular: Reports dyspnea on exertion, Denies chest pain, Denies shortness of breath Respiratory: Reports cough with sputum, Reports dyspnea, Denies cough Gastrointestinal: Denies abdominal pain, Denies diarrhea, Denies nausea, Denies vomiting Genitourinary: Denies dysuria, Denies hematuria Musculoskeletal: Denies myalgias Integumentary: Denies pruritus, Denies rash Neurological: Denies numbness, Denies weakness Psychiatric: Denies anxiety, Denies depression Endocrine: Denies fatigue, Denies weight change Past Medical History Past Medical History: Cancer, COPD, Diabetes Mellitus, GERD/Reflux, Hypertension , Thyroid Disorder Additional Past Medical History / Comment(s): NEUROPATHY-hands,feet. HX of falls ,SKIN CANCER, History of Any Multi-Drug Resistant Organisms: None Reported Past Surgical History: Back Surgery, Hysterectomy, Joint Replacement Additional Past Surgical History / Comment(s): RIGHT KNEE REPLACEMENT, cataract surgery- bilat Past Anesthesia/Blood Transfusion Reactions: No Reported Reaction Past Psychological History: Depression Additional Psychological History / Comment(s): PT LIVES IN OWN HOME HAS 1 DOG, USUALLY IS INDEPENDANT Smoking Status: Former smoker Past Alcohol Use History: None Reported Additional Past Alcohol Use History / Comment(s): STARTED SMOKING AT AGE 17 QUIT IN 2001 SMOKED 1-2 PPD Past Drug Use History: None Reported - Past Family History Mother Family Medical History: Dementia Additional Family Medical History / Comment(s): alzheimers Father Family Medical History: Myocardial Infarction (ME) Additional Family Medical History / Comment(s): unknown Medications and Allergies Home Medications Medication Instructions Recorded Confirmed Type Allopurinol [Zyloprim] 300 mg PO DAILY 09/27/14 07/22/18 History Cholecalciferol [Vitamin D3] 1,000 unit PO DAILY 09/27/14 07/22/18 History Colchicine [Colcrys] 0.6 mg PO DAILY 09/27/14 07/22/18 History Glimepiride [Amaryl] 4 mg PO BID 09/27/14 07/22/18 History Levothyroxine Sodium [Synthroid] 50 mcg PO AC-[id number] 09/27/14 07/22/18 History Ranitidine HCl [Zantac] 150 mg PO DAILY 09/27/14 07/22/18 History Sertraline [Zoloft] 100 mg PO DAILY 09/27/14 07/22/18 History Albuterol Inhaler [Ventolin Hfa 1 puff INHALATION RT-QID PRN 09/28/14 07/22/18 History Inhaler] Oxybutynin Chloride [Ditropan XL] 15 mg PO HS 10/24/16 07/22/18 History Potassium Chloride [Klor-Con 20] 20 meq PO TID 10/24/17 07/22/18 History carBAMazepine [TEGretol] 200 mg PO TID 10/24/17 07/22/18 History Atenolol [Tenormin] 50 mg PO DAILY 05/25/18 07/22/18 History Chlorthalidone [Hygroton] 25 mg PO DAILY 05/25/18 07/22/18 History Gabapentin 600 mg PO BID 05/25/18 07/22/18 History HYDROcodone/APAP 7.5-325MG [[place] 1 tab PO TID PRN 05/25/18 07/22/18 History 7.5-325] Losartan [Cozaar] 50 mg PO DAILY 05/25/18 07/22/18 History clonazePAM [KlonoPIN] 0.5 mg PO TID PRN 05/25/18 07/22/18 History Allergies Allergy/AdvReac Type Severity Reaction Status Date / Time morphine AdvReac Nausea & Verified 07/22/18 15:40 Vomiting [id number] Reductase AdvReac STIFFNESS Verified 07/22/18 15:40 Inhibitor AND MUSCLE PAIN Physical Exam Vitals: Vital Signs Temp Pulse Pulse Resp BP BP Pulse Ox 07/23/18 12:00 98.6 F 70 18 158/70 93 L 07/23/18 11:41 88 07/23/18 11:27 88 07/23/18 08:22 88 07/23/18 08:06 84 07/23/18 08:00 99.5 F 87 18 142/63 93 L 07/23/18 04:00 81 18 145/81 94 L 07/23/18 02:53 18 07/22/18 23:41 82 18 132/75 96 07/22/18 20:00 98.8 F 87 18 145/65 95 07/22/18 19:43 89 18 02/03/19 19:31 19 07/22/18 18:11 98.2 F 90 24 151/62 94 L 07/22/18 18:08 98.6 F 89 19 172/77 93 L 07/22/18 17:16 80 24 177/74 94 L 07/22/18 16:31 88 07/22/18 16:24 87 07/22/18 16:16 77 24 162/84 94 L Intake and Output 07/23/18 07/23/18 07/23/18 06:59 14:59 22:59 Intake Total 120 Balance 120 Intake: Oral 120 Other: Voiding Method Diaper Diaper # Voids 1 3 Weight 107.5 kg GENERAL EXAM: Alert, active, 72-year-old female comfortable in no apparent distress. HEAD: Normocephalic/atraumatic. EYES: Normal reaction of pupils, equal size. Conjunctiva pink, sclera white. NOSE: Clear with pink turbinates. THROAT: No erythema or exudates. NECK: No masses, no JVD, no thyroid enlargement, no adenopathy. CHEST: No chest wall deformity. Symmetrical expansion. LUNGS: Equal air entry with diminished breath sounds at the bases CVS: Regular rate and rhythm, normal S1 and S2, no gallops, no murmurs, no rubs ABDOMEN: Soft, nontender. No hepatosplenomegaly, normal bowel sounds, no guarding or rigidity. EXTREMITIES: No clubbing, no edema, no cyanosis, 2+ pulses and upper and lower extremities. MUSCULOSKELETAL: Muscle strength and tone normal. SPINE: No scoliosis or deformity SKIN: No rashes CENTRAL NERVOUS SYSTEM: Alert and oriented -3. No focal deficits, tone is normal in all 4 extremities. PSYCHIATRIC: Alert and oriented -3. Appropriate affect. Intact judgment and insight. Results - Laboratory Findings CBC and BMP: 07/22/18 15:30 07/23/18 05:56 PT/INR, D-dimer PT 16.1 sec (9.0-12.0) H 07/22/18 15:30 INR 1.6 (<1.2) H 07/22/18 15:30 Abnormal lab findings: Abnormal Labs 07/22/18 07/22/18 07/22/18 15:30 15:30 15:30 WBC 3.4 L RBC 3.21 L Hgb 9.8 L Hct 28.7 L Plt Count 148 L Lymphocytes # 0.8 L PT INR Sodium 136 L Potassium 3.0 L Carbon Dioxide BUN Creatinine 0.32 L Glucose 178 H POC Glucose (mg/dL) Calcium 7.7 L Magnesium 1.2 L CK-MB (CK-2) 2.5 H Albumin 2.4 L 07/22/18 07/22/18 07/23/18 15:30 19:46 05:56 WBC RBC Hgb Hct Plt Count Lymphocytes # PT 16.1 H INR 1.6 H Sodium Potassium 3.4 L Carbon Dioxide 33 H BUN 5 L Creatinine 0.42 L Glucose 100 H POC Glucose (mg/dL) 154 H Calcium 7.8 L Magnesium 1.3 L CK-MB (CK-2) Albumin 07/23/18 07/23/18 06:04 11:36 WBC RBC Hgb Hct Plt Count Lymphocytes # PT INR Sodium Potassium Carbon Dioxide BUN Creatinine Glucose POC Glucose (mg/dL) 103 H 127 H Calcium Magnesium CK-MB (CK-2) Albumin - Diagnostic Findings Chest x-ray: report reviewed, image reviewed CT scan - chest: report reviewed, image reviewed Additional studies: Echocardiogram results reviewed, EKG reviewed Assessment and Plan Plan: Assessment: #1. Dyspnea, cough, multifactorial, chest x-ray showed loculated left pleural effusion, left lower lobe infiltrate parapneumonic effusion. CT of the chest showed loculated left pleural effusion with very mild thin peripheral enhancement suggesting complexity, anterior fissural fluid suggesting fluid overload, and rounded left basilar consolidation. #2. Recent hospitalization for acute community-acquired left lower lobe pneumonia with parapneumonic pleural effusion, patient did have a left-sided pigtail chest tube placed, with several tPA infusions, with very minimal clear serosanguineous output, nonpurulent, pleural fluid cultures were negative. He was treated with combination of Rocephin and Zithromax, clinically improved, and discharged home on 07/21/2018 #3. Elevated N-terminal proBNP level, suggesting exacerbation of congestive heart failure with mildly impaired left ventricular systolic function with an EF of 45-50%. #4. electrolytes imbalance, hypokalemia and hypomagnesemia. #5. suspect underlying COPD #6. Type 2 diabetes #7. Hypertension #8. Hypothyroidism Plan: CT chest was ordered and reviewed by Dr. Mcallister and showed loculated left pleural effusion with peripheral enhancement suggesting complexity. Last admission patient did have a pigtail chest tube put in, with minimal serosanguineous output, nonpurulent in nature, pleural fluid cultures were negative. We will consult interventional radiology for placement of a CT- guided chest tube placement, pleural fluid will be sent for analysis, cultures and cytology. Continue with current antibiotic coverage, continue current medical treatment right now. I performed a history & physical examination of the patient and discussed their management with my nurse practitioner, Candida Naranjo. I reviewed the nurse practitioner's note and agree with the documented findings and plan of care. Lung sounds are positive for diminished breath sounds to bases. The findings and the impression was discussed with the patient. I attest to the documentation by the nurse practitioner. Time with Patient: Greater than 30
[2018-07-23 19:34] LABS: Glucose,Whole Blood 135 mg/dL (75-99)
[2018-07-23] MEDS: LEVOFLOXACIN 500 MG TAB PO SCH (19:45)
[2018-07-23] MEDS: OXYBUTYNIN 15 MG TAB.ER.24 PO SCH (19:45)
[2018-07-24 05:23] LABS: Glucose,Whole Blood 86 mg/dL (75-99)
[2018-07-24] MEDS: LEVOTHYROXINE 50 MCG TAB PO SCH (05:49)
[2018-07-24 06:52] LABS: Anion Gap 5 mmol/L; Blood Urea Nitrogen 7 mg/dL (7-17); Calcium 8.1 mg/dL (8.4-10.2); Carbon Dioxide 33 mmol/L (22-30); Chloride 97 mmol/L (98-107); Glucose 83 mg/dL (74-99); Potassium 3.8 mmol/L (3.5-5.1); Sodium 135 mmol/L (137-145)
[2018-07-24] MEDS: IPRATROPIUM-ALBUTEROL 3 ML NEB INHALATION SCH ×4 (08:39→20:42)
[2018-07-24] MEDS: ALLOPURINOL 300 MG TAB PO SCH (08:58)
[2018-07-24] MEDS: SERTRALINE 100 MG TAB PO SCH (08:58)
[2018-07-24] MEDS: FUROSEMIDE 10 MG/ML 4 ML VIAL IV SCH ×2 (08:58→19:48)
[2018-07-24] MEDS: carBAMazepine 200 MG TAB PO SCH ×3 (08:58→19:47)
[2018-07-24] MEDS: CHLORTHALIDONE 25 MG TAB PO SCH (08:58)
[2018-07-24] MEDS: ATENOLOL 50 MG TAB PO SCH (08:58)
[2018-07-24] MEDS: POTASSIUM CHLORIDE ER 20 MEQ TAB.ER PO SCH ×3 (08:58→20:06)
[2018-07-24] MEDS: GABAPENTIN 300 MG CAP PO SCH ×2 (08:58→19:47)
[2018-07-24] MEDS: LOSARTAN 25 MG TAB PO SCH (08:58)
[2018-07-24] MEDS: FAMOTIDINE 20 MG TAB PO SCH (08:58)
[2018-07-24] MEDS: GLIMEPIRIDE 4 MG TAB PO SCH ×2 (08:59→20:06)
[2018-07-24] MEDS: COLCHICINE 0.6 MG EACH PO SCH (08:59)
[2018-07-24] MEDS ORDERED: POTASSIUM CHLORIDE ER 20 MEQ TAB.ER PO SCH (09:00)
--- NOTE | 2018-07-24 12:28 | PN ---
PROGRESS NOTE DATE IF SERVICE: 07/24/2018 CHIEF COMPLAINT: Dyspnea, congestive heart failure, left lower lobe pneumonitis. HISTORY OF PRESENT ILLNESS: This lady is about the same, but she still remains very inactive and very unmotivated to move about. She is reporting that there was talk about reinserting the left chest tube. REVIEW OF SYSTEMS: She has had no chills, chest pain, etc. PHYSICAL EXAM: She remains pale. Hydration is fair. Chest demonstrates decreased breath sounds at the left base. The cardiac exam is normal. The abdomen is soft and nontender. IMPRESSION: 1. History of hypertension. 2. Congestive heart failure. 3. Left lower lobe pneumonitis with effusion. PLAN: Continue current effort to rehabilitate her. Discharge planning is working on rehab placement. CARLA / BREONNAN: [id number] /
[2018-07-24 12:35] LABS: Glucose,Whole Blood 114 mg/dL (75-99)
--- NOTE | 2018-07-24 13:45 | P.PN ---
Subjective Progress Note Date: 07/24/18 Principal diagnosis: Loculated left pleural effusion, left lower lobe infiltrate parapneumonic effusion This is a 72-year-old white female patient of Dr. Park that was recently hospitalized for acute community-acquired left lower lobe pneumonia with parapneumonic pleural effusion. We saw this patient in consultation during her last admission for possibility of empyema in the left lung related to pneumonia. Patient underwent is minimal have a pigtail chest tube and had been given several doses of TPA, pleural fluid was minimal and was not purulent. Pleural fluid cultures no growth, patient was treated with a combination of Rocephin and Zithromax. Patient had clinically improved, was discharged home on 07/21/2018 in the care of her daughter with whom she resides. Patient was home for 1 day, she returned per EMS to the emergency department on 07/22/2018 with complaints of cough, and dyspnea. She states that her cough was productive with white sputum, she denied any fever or chills, denied any chest pain, denied any chest wall tenderness, no nausea or vomiting, no hemoptysis, no lower extremity edema. No abdominal pain, no altered mentation. Chest x- ray showed a left pleural effusion with loculation, left lower lobe pneumonia, slightly improved from the last exam on 07/18/2018. EKG showed normal sinus rhythm without ischemic changes. I work showed white blood cell count of 3.4, hemoglobin of 9.8, INR of 1.6, sodium is 136, potassium is 3.0, chloride is 103 , CO2 is 27, BUN was 7, creatinine was 0.32, plasma lactic acid was within normal limits at 1.0, magnesium was 1.2, LFTs were within normal limits, troponin was negative 1, proBNP was elevated at 6400. Echocardiogram showed mildly impaired left ventricular systolic function with an EF of 45-50%, trace to mild mitral regurgitation, trace tricuspid regurgitation, right sided pressures of less than 35 mmHg, no evidence of pulmonary hypertension. No pericardial effusion. Patient was seen by cardiology for mild exacerbation of congestive heart failure. She was started on empiric antibiotics in the form of Levaquin, and we are asked to see the patient in consultation for shortness of breath, and a loculated left pleural effusion. On 07/24/2018 patient seen in follow-up on selective care unit. She is working with physical therapy, does not appear to be in any acute distress, she states she still has some shortness of breath, but upon my examination patient appears to be fairly comfortable, no use of accessory muscles of breathing, no tachypnea , she is currently on 3 L per nasal cannula her pulse ox is 93%, she is afebrile. No cough, no chest congestion, blood culture showed no growth. Patient is on empiric antibiotic coverage in the form of Levaquin. She is receiving IV diuretics for mild congestive heart failure. Lung sounds are positive for bibasilar crackles. She is diuresing, she is -6.5 kg since admission. Denies any chest pain, no cough or hemoptysis, no chest wall tenderness. We consulted interventional radiology for placement of chest tube for the loculated left pleural effusion, however fluid is organized, and chest tube placement was not feasible. Objective - Vital Signs Vital signs: Vital Signs Temp 97.3 F L 07/24/18 12:00 Pulse 88 07/24/18 12:51 Resp 18 07/24/18 12:00 BP 124/69 07/24/18 12:00 Pulse Ox 93 L 07/24/18 12:00 Intake & Output 07/23/18 07/24/18 07/24/18 18:59 06:59 18:59 Intake Total 120 Balance 120 Weight 101 kg Intake: Oral 120 Other: Voiding Method Diaper Diaper Diaper # Voids 1 1 4 # Bowel Movements 1 0 - Exam GENERAL EXAM: Alert, active, 72-year-old female comfortable in no apparent distress. HEAD: Normocephalic/atraumatic. EYES: Normal reaction of pupils, equal size. Conjunctiva pink, sclera white. NOSE: Clear with pink turbinates. THROAT: No erythema or exudates. NECK: No masses, no JVD, no thyroid enlargement, no adenopathy. CHEST: No chest wall deformity. Symmetrical expansion. LUNGS: Equal air entry with diminished breath sounds at the bases CVS: Regular rate and rhythm, normal S1 and S2, no gallops, no murmurs, no rubs ABDOMEN: Soft, nontender. No hepatosplenomegaly, normal bowel sounds, no guarding or rigidity. EXTREMITIES: No clubbing, no edema, no cyanosis, 2+ pulses and upper and lower extremities. MUSCULOSKELETAL: Muscle strength and tone normal. SPINE: No scoliosis or deformity SKIN: No rashes CENTRAL NERVOUS SYSTEM: Alert and oriented -3. No focal deficits, tone is normal in all 4 extremities. PSYCHIATRIC: Alert and oriented -3. Appropriate affect. Intact judgment and insight. - Labs CBC & Chem 7: 07/22/18 15:30 07/24/18 06:15 Labs: Abnormal Lab Results - Last 24 Hours (Table) 07/23/18 07/23/18 07/24/18 Range/Units 16:37 19:32 06:15 Sodium 135 L (137-145) mmol/L Chloride 97 L (98-107) mmol/L Carbon Dioxide 33 H (22-30) mmol/L Creatinine 0.48 L (0.52-1.04) mg/dL POC Glucose (mg/dL) 129 H 135 H (75-99) mg/dL Calcium 8.1 L (8.4-10.2) mg/dL Magnesium (1.6-2.3) mg/dL 07/24/18 07/24/18 Range/Units 06:15 12:05 Sodium (137-145) mmol/L Chloride (98-107) mmol/L Carbon Dioxide (22-30) mmol/L Creatinine (0.52-1.04) mg/dL POC Glucose (mg/dL) 114 H (75-99) mg/dL Calcium (8.4-10.2) mg/dL Magnesium 1.4 L (1.6-2.3) mg/dL Microbiology - Last 24 Hours (Table) 07/22/18 15:30 Blood Culture - Preliminary Blood No Growth after 24 hours Assessment and Plan Plan: Assessment: #1. Dyspnea, cough, multifactorial, chest x-ray showed loculated left pleural effusion, left lower lobe infiltrate parapneumonic effusion. CT of the chest showed loculated left pleural effusion with very mild thin peripheral enhancement suggesting complexity, anterior fissural fluid suggesting fluid overload, and rounded left basilar consolidation. #2. Recent hospitalization for acute community-acquired left lower lobe pneumonia with parapneumonic pleural effusion, patient did have a left-sided pigtail chest tube placed, with several tPA infusions, with very minimal clear serosanguineous output, nonpurulent, pleural fluid cultures were negative. He was treated with combination of Rocephin and Zithromax, clinically improved, and discharged home on 07/21/2018 #3. Elevated N-terminal proBNP level, suggesting exacerbation of congestive heart failure with mildly impaired left ventricular systolic function with an EF of 45-50%. #4. electrolytes imbalance, hypokalemia and hypomagnesemia. #5. suspect underlying COPD #6. Type 2 diabetes #7. Hypertension #8. Hypothyroidism Plan: Continue current antibiotic coverage, the fluid in the left chest is now organized, and interventional radiology was unable to place a pigtail chest tube. The patient is comfortable, no fever or chills, no uses of accessory muscles of breathing, no tachypnea, no chest wall tenderness, no chest pain no cough or congestion. Cardiology is following, patient is being diuresed. Encourage activity, encourage patient to sit up in the chair, and take deep breaths and cough. Continue with current medical treatment, patient is a poor surgical candidate. I performed a history & physical examination of the patient and discussed their management with my nurse practitioner, Candida Naranjo. I reviewed the nurse practitioner's note and agree with the documented findings and plan of care. Lung sounds are positive for diminished breath sounds to bases. The findings and the impression was discussed with the patient. I attest to the documentation by the nurse practitioner. Time with Patient: Less than 30
[2018-07-24 13:48] VITALS: BMI 37.0
--- NOTE | 2018-07-24 16:28 | P.PN ---
Subjective Progress Note Date: 07/24/18 This is a 72-year-old female with known history of COPD, diabetes, hypertension, hypothyroidism, chronic back pain, who was just recently discharged from the hospital on Monday after a course here with pneumonia, requiring chest tube placement for a left-sided pleural effusion. Patient had been treated with antibiotics, and discharged home. She states that she continues to be very short of breath, almost getting worse than when she was in the hospital, continued to have cough of productive yellow sputum and for this reason she came back to the emergency room for further evaluation. BNP level was obtained in the emergency room which came back to be elevated and for this reason a cardiology consultation had been requested. Chest x-ray this admission showed a left pleural effusion with loculation, left lower lobe pneumonia. Chest slightly improved with prior exam. EKG on admission showed a normal sinus rhythm with no acute changes. The patient has been afebrile here, blood pressure 140/80 with a heart rate in the 80s. White blood cell count 3.4 , hemoglobin 9.8, platelet count 148. Sodium 139, potassium 3.4, BUN 5 creatinine 0.4. Magnesium level I.3. Troponin 0.030. BNP level 6400. At the time of my examination, patient complains of feeling short of breath, continues to have cough. 07/24/2018 Patient seen and examined this morning, still complaining of mild shortness of breath, but appears comfortable overall. Continues to be on IV diuretics, diuresing. Overall looking better today. Interventional radiology has been consulted for placement of chest tube for a loculated left pleural effusion. Objective - Vital Signs Vital signs: Vital Signs Temp 97.3 F L 07/24/18 12:00 Pulse 88 07/24/18 12:51 Resp 18 07/24/18 12:00 BP 124/69 07/24/18 12:00 Pulse Ox 93 L 07/24/18 12:00 Intake & Output 07/23/18 07/24/18 07/24/18 18:59 06:59 18:59 Intake Total 120 120 Balance 120 120 Weight 101 kg 101 kg Intake: Oral 120 120 Other: Voiding Method Diaper Diaper Diaper # Voids 1 1 4 # Bowel Movements 1 0 - Exam PHYSICAL EXAMINATION: GENERAL: 72-year-old female in no acute distress HEENT: Head is atraumatic, normocephalic. Pupils equal, round. Sclera anicteric. Conjunctiva are clear. Mucous membranes of the mouth are moist. Neck is supple. There is no elevated jugular venous pressure. No carotid bruit is heard. HEART EXAMINATION: Heart S1, S2 normal. No murmur or gallop heard. CHEST EXAMINATION: Lungs reveal scattered rhonchi throughout. Diminished air entry to the bases. ABDOMEN: Soft, nontender. Bowel sounds are heard. No organomegaly noted. EXTREMITIES: 2+ peripheral pulses with no evidence of peripheral edema and no calf tenderness noted. NEUROLOGIC patient is awake, alert and oriented 3 . - Labs CBC & Chem 7: 07/22/18 15:30 07/24/18 06:15 Labs: Abnormal Lab Results - Last 24 Hours (Table) 07/23/18 07/23/18 07/24/18 Range/Units 16:37 19:32 06:15 Sodium 135 L (137-145) mmol/L Chloride 97 L (98-107) mmol/L Carbon Dioxide 33 H (22-30) mmol/L Creatinine 0.48 L (0.52-1.04) mg/dL POC Glucose (mg/dL) 129 H 135 H (75-99) mg/dL Calcium 8.1 L (8.4-10.2) mg/dL Magnesium (1.6-2.3) mg/dL 07/24/18 07/24/18 Range/Units 06:15 12:05 Sodium (137-145) mmol/L Chloride (98-107) mmol/L Carbon Dioxide (22-30) mmol/L Creatinine (0.52-1.04) mg/dL POC Glucose (mg/dL) 114 H (75-99) mg/dL Calcium (8.4-10.2) mg/dL Magnesium 1.4 L (1.6-2.3) mg/dL Microbiology - Last 24 Hours (Table) 07/22/18 15:30 Blood Culture - Preliminary Blood No Growth after 24 hours Assessment and Plan Plan: Assessment and plan #1 symptoms of progressively worsening shortness of breath with associated productive cough of yellow sputum, recent hospitalization with acute community- acquired left lower lobe pneumonia with parapneumonic pleural effusion status post chest tube placement. On antibiotics. Likely continuation of the pneumonia, mild congestive heart failure, LV function unknown #2 COPD #3 history of nicotine dependence #4 hypokalemia and hypomagnesemia #5 diabetes #6 hypertension #7 hypothyroidism Plan Echocardiogram with Doppler study was performed which revealed an ejection fraction of 45-50%. Patient has been putting out good urine, overall she does state that her breathing is improved today. We'll continue current dose of IV Lasix, replace magnesium which was 1.4, continue to follow. DNP note has been reviewed, I agree with a documented findings and plan of care. Patient was seen and examined.
[2018-07-24 16:48] LABS: Glucose,Whole Blood 88 mg/dL (75-99)
[2018-07-24] MEDS: MAGNESIUM SULFATE-D5W PMX 1 GM in DEXTROSE/WATER 1 100ML.BAG IVPB SCH ×2 (17:16→18:40)
[2018-07-24] MEDS: LEVOFLOXACIN 500 MG TAB PO SCH (19:47)
[2018-07-24] MEDS: OXYBUTYNIN 15 MG TAB.ER.24 PO SCH (20:06)
[2018-07-24 20:15] LABS: Glucose,Whole Blood 206 mg/dL (75-99)
[2018-07-25 05:56] LABS: Glucose,Whole Blood 187 mg/dL (75-99)
[2018-07-25] MEDS: POTASSIUM CHLORIDE ER 20 MEQ TAB.ER PO SCH ×3 (08:23→21:05)
[2018-07-25] MEDS: ATENOLOL 50 MG TAB PO SCH (08:23)
[2018-07-25] MEDS: carBAMazepine 200 MG TAB PO SCH ×3 (08:23→21:13)
[2018-07-25] MEDS: LEVOTHYROXINE 50 MCG TAB PO SCH (08:23)
[2018-07-25] MEDS: CHLORTHALIDONE 25 MG TAB PO SCH (08:23)
[2018-07-25] MEDS: GABAPENTIN 300 MG CAP PO SCH ×2 (08:23→21:05)
[2018-07-25] MEDS: ALLOPURINOL 300 MG TAB PO SCH (08:24)
[2018-07-25] MEDS: COLCHICINE 0.6 MG EACH PO SCH (08:24)
[2018-07-25] MEDS: SERTRALINE 100 MG TAB PO SCH (08:24)
[2018-07-25] MEDS: LOSARTAN 25 MG TAB PO SCH (08:24)
[2018-07-25] MEDS: FAMOTIDINE 20 MG TAB PO SCH (08:24)
[2018-07-25] MEDS: GLIMEPIRIDE 4 MG TAB PO SCH ×2 (08:25→21:05)
[2018-07-25] MEDS: FUROSEMIDE 10 MG/ML 4 ML VIAL IV SCH ×2 (08:25→21:05)
[2018-07-25] MEDS: IPRATROPIUM-ALBUTEROL 3 ML NEB INHALATION SCH ×4 (08:39→20:41)
[2018-07-25 11:11] LABS: Anion Gap 8 mmol/L; Blood Urea Nitrogen 13 mg/dL (7-17); Calcium 8.5 mg/dL (8.4-10.2); Carbon Dioxide 34 mmol/L (22-30); Chloride 94 mmol/L (98-107); Glucose 177 mg/dL (74-99); Potassium 4.5 mmol/L (3.5-5.1); Sodium 136 mmol/L (137-145)
[2018-07-25 11:38] LABS: Glucose,Whole Blood 143 mg/dL (75-99)
--- NOTE | 2018-07-25 14:21 | P.PN ---
Subjective Progress Note Date: 07/25/18 This is a 72-year-old female with known history of COPD, diabetes, hypertension, hypothyroidism, chronic back pain, who was just recently discharged from the hospital on Monday after a course here with pneumonia, requiring chest tube placement for a left-sided pleural effusion. Patient had been treated with antibiotics, and discharged home. She states that she continues to be very short of breath, almost getting worse than when she was in the hospital, continued to have cough of productive yellow sputum and for this reason she came back to the emergency room for further evaluation. BNP level was obtained in the emergency room which came back to be elevated and for this reason a cardiology consultation had been requested. Chest x-ray this admission showed a left pleural effusion with loculation, left lower lobe pneumonia. Chest slightly improved with prior exam. EKG on admission showed a normal sinus rhythm with no acute changes. The patient has been afebrile here, blood pressure 140/80 with a heart rate in the 80s. White blood cell count 3.4 , hemoglobin 9.8, platelet count 148. Sodium 139, potassium 3.4, BUN 5 creatinine 0.4. Magnesium level I.3. Troponin 0.030. BNP level 6400. At the time of my examination, patient complains of feeling short of breath, continues to have cough. 07/24/2018 Patient seen and examined this morning, still complaining of mild shortness of breath, but appears comfortable overall. Continues to be on IV diuretics, diuresing. Overall looking better today. Interventional radiology has been consulted for placement of chest tube for a loculated left pleural effusion. 07/25/2018 Patient was seen and examined this morning, does state that her breathing is improving overall, blood pressure 130/50 with a heart rate in the 70s. Sodium 136, potassium 4.5, BUN 13, creatinine 0.6, 90. Objective - Vital Signs Vital signs: Vital Signs Temp 98.8 F 07/25/18 12:00 Pulse 72 07/25/18 12:32 Resp 20 07/25/18 12:00 BP 131/53 07/25/18 12:00 Pulse Ox 96 07/25/18 12:00 Intake & Output 07/24/18 07/25/18 07/25/18 18:59 06:59 18:59 Intake Total 240 100 180 Output Total 200 Balance 240 -100 180 Weight 101 kg 101 kg Intake: Intake, IV Titration 100 Amount Magnesium Sulfate-D5w Pmx 100 1 gm In Dextrose/Water 1 100ml.bag @ 100 mls/hr IVPB Q1H REPLACED BY [facility] Rx#: [id number] Oral 240 180 Output: Urine 200 Other: Voiding Method Diaper Diaper # Voids 4 1 2 # Bowel Movements 0 1 - Exam PHYSICAL EXAMINATION: GENERAL: 72-year-old female in no acute distress HEENT: Head is atraumatic, normocephalic. Pupils equal, round. Sclera anicteric. Conjunctiva are clear. Mucous membranes of the mouth are moist. Neck is supple. There is no elevated jugular venous pressure. No carotid bruit is heard. HEART EXAMINATION: Heart S1, S2 normal. No murmur or gallop heard. CHEST EXAMINATION: Lungs reveal scattered rhonchi throughout. Diminished air entry to the bases. ABDOMEN: Soft, nontender. Bowel sounds are heard. No organomegaly noted. EXTREMITIES: 2+ peripheral pulses with no evidence of peripheral edema and no calf tenderness noted. NEUROLOGIC patient is awake, alert and oriented 3 . - Labs CBC & Chem 7: 07/22/18 15:30 07/25/18 05:36 Labs: Abnormal Lab Results - Last 24 Hours (Table) 07/24/18 07/25/18 07/25/18 Range/Units 20:13 05:36 05:54 Sodium 136 L (137-145) mmol/L Chloride 94 L (98-107) mmol/L Carbon Dioxide 34 H (22-30) mmol/L Glucose 177 H (74-99) mg/dL POC Glucose (mg/dL) 206 H 187 H (75-99) mg/dL 07/25/18 Range/Units 11:34 Sodium (137-145) mmol/L Chloride (98-107) mmol/L Carbon Dioxide (22-30) mmol/L Glucose (74-99) mg/dL POC Glucose (mg/dL) 143 H (75-99) mg/dL Microbiology - Last 24 Hours (Table) 07/22/18 15:30 Blood Culture - Preliminary Blood No Growth after 48 hours Assessment and Plan Plan: Assessment and plan #1 symptoms of progressively worsening shortness of breath with associated productive cough of yellow sputum, recent hospitalization with acute community- acquired left lower lobe pneumonia with parapneumonic pleural effusion status post chest tube placement. On antibiotics. Likely continuation of the pneumonia, mild congestive heart failure, LV function unknown #2 COPD #3 history of nicotine dependence #4 hypokalemia and hypomagnesemia #5 diabetes #6 hypertension #7 hypothyroidism Plan Echocardiogram with Doppler study was performed which revealed an ejection fraction of 45-50%. Patient has been putting out good urine, overall she does state that her breathing is improved today. We'll continue current dose of IV Lasix, replace magnesium which was 1.6, continue to follow. DNP note has been reviewed, I agree with a documented findings and plan of care. Patient was seen and examined.
--- NOTE | 2018-07-25 15:08 | PN ---
PROGRESS NOTE CHIEF COMPLAINT: Shortness of breath, congestive heart failure, pneumonitis. HISTORY OF PRESENT ILLNESS: This lady is just about the same. She still is not moving about. She has agreed that she needs to go to rehab. PHYSICAL EXAM: She is slightly pale. Breath sounds are diminished throughout and particularly at the left base. Cardiac exam is normal. Abdomen is soft and nontender. IMPRESSION: 1. Respiratory failure. 2. Congestive heart failure. 3. Pneumonitis is in the left lower lobe with loculated effusion. PLAN: Continue current treatment and start to work on a discharge plan for [facility]. MMODL / IJN: [id number] /
[2018-07-25 16:30] LABS: Glucose,Whole Blood 99 mg/dL (75-99)
--- NOTE | 2018-07-25 19:47 | P.PN ---
Subjective Progress Note Date: 07/25/18 This is a 72-year-old white female patient of Dr. Park that was recently hospitalized for acute community-acquired left lower lobe pneumonia with parapneumonic pleural effusion. We saw this patient in consultation during her last admission for possibility of empyema in the left lung related to pneumonia. Patient underwent is minimal have a pigtail chest tube and had been given several doses of TPA, pleural fluid was minimal and was not purulent. Pleural fluid cultures no growth, patient was treated with a combination of Rocephin and Zithromax. Patient had clinically improved, was discharged home on 07/21/2018 in the care of her daughter with whom she resides. Patient was home for 1 day, she returned per EMS to the emergency department on 07/22/2018 with complaints of cough, and dyspnea. She states that her cough was productive with white sputum, she denied any fever or chills, denied any chest pain, denied any chest wall tenderness, no nausea or vomiting, no hemoptysis, no lower extremity edema. No abdominal pain, no altered mentation. Chest x- ray showed a left pleural effusion with loculation, left lower lobe pneumonia, slightly improved from the last exam on 07/18/2018. EKG showed normal sinus rhythm without ischemic changes. I work showed white blood cell count of 3.4, hemoglobin of 9.8, INR of 1.6, sodium is 136, potassium is 3.0, chloride is 103 , CO2 is 27, BUN was 7, creatinine was 0.32, plasma lactic acid was within normal limits at 1.0, magnesium was 1.2, LFTs were within normal limits, troponin was negative 1, proBNP was elevated at 6400. Echocardiogram showed mildly impaired left ventricular systolic function with an EF of 45-50%, trace to mild mitral regurgitation, trace tricuspid regurgitation, right sided pressures of less than 35 mmHg, no evidence of pulmonary hypertension. No pericardial effusion. Patient was seen by cardiology for mild exacerbation of congestive heart failure. She was started on empiric antibiotics in the form of Levaquin, and we are asked to see the patient in consultation for shortness of breath, and a loculated left pleural effusion. On 07/24/2018 patient seen in follow-up on selective care unit. She is working with physical therapy, does not appear to be in any acute distress, she states she still has some shortness of breath, but upon my examination patient appears to be fairly comfortable, no use of accessory muscles of breathing, no tachypnea , she is currently on 3 L per nasal cannula her pulse ox is 93%, she is afebrile. No cough, no chest congestion, blood culture showed no growth. Patient is on empiric antibiotic coverage in the form of Levaquin. She is receiving IV diuretics for mild congestive heart failure. Lung sounds are positive for bibasilar crackles. She is diuresing, she is -6.5 kg since admission. Denies any chest pain, no cough or hemoptysis, no chest wall tenderness. We consulted interventional radiology for placement of chest tube for the loculated left pleural effusion, however fluid is organized, and chest tube placement was not feasible. On 07/25/2018, the patient is resting comfortably in bed. She has no specific complaints. She is afebrile and she is not showing any signs of septicemia. Atelectatic discussion with the patient. I acknowledge the fact the patient is a loculated left-sided pleural effusion. Nevertheless, interventional radiology has declined to do any drainage procedure due to the chronicity of this pleural effusion and its location. Surgery has also declined to do any surgical intervention at this point in time. Based on this, we'll continue with our medically with antibiotics. I'm hoping that this will gradually improve with time specially the patient is not having any active signs and symptoms of septicemia. Patient is resting comfortably in bed. She is hemodynamically stable. Other significant electrodes imbalance. She is currently on oral Levaquin. She is on DuoNeb nebulized treatments around the clock. She is being diuresis with IV Lasix. Objective - Vital Signs Vital signs: Vital Signs Temp 99.0 F 07/25/18 19:18 Pulse 73 07/25/18 19:18 Resp 18 07/25/18 19:18 BP 103/68 07/25/18 19:18 Pulse Ox 94 L 07/25/18 19:18 Intake & Output 07/25/18 07/25/18 07/26/18 06:59 18:59 06:59 Intake Total 100 180 240 Output Total 200 Balance -100 180 240 Weight 101 kg Intake: Intake, IV Titration 100 Amount Magnesium Sulfate-D5w Pmx 100 1 gm In Dextrose/Water 1 100ml.bag @ 100 mls/hr IVPB Q1H [facility] Rx#: [id number] Oral 180 240 Output: Urine 200 Other: Voiding Method Diaper # Voids 1 2 # Bowel Movements 1 - Exam GENERAL EXAM: Alert, active, 72-year-old female comfortable in no apparent distress. HEAD: Normocephalic/atraumatic. EYES: Normal reaction of pupils, equal size. Conjunctiva pink, sclera white. NOSE: Clear with pink turbinates. THROAT: No erythema or exudates. NECK: No masses, no JVD, no thyroid enlargement, no adenopathy. CHEST: No chest wall deformity. Symmetrical expansion. LUNGS: Equal air entry with diminished breath sounds at the bases CVS: Regular rate and rhythm, normal S1 and S2, no gallops, no murmurs, no rubs ABDOMEN: Soft, nontender. No hepatosplenomegaly, normal bowel sounds, no guarding or rigidity. EXTREMITIES: No clubbing, no edema, no cyanosis, 2+ pulses and upper and lower extremities. MUSCULOSKELETAL: Muscle strength and tone normal. SPINE: No scoliosis or deformity SKIN: No rashes CENTRAL NERVOUS SYSTEM: Alert and oriented -3. No focal deficits, tone is normal in all 4 extremities. PSYCHIATRIC: Alert and oriented -3. Appropriate affect. Intact judgment and insight. - Labs CBC & Chem 7: 07/22/18 15:30 07/25/18 05:36 Labs: Abnormal Lab Results - Last 24 Hours (Table) 07/24/18 07/25/18 07/25/18 Range/Units 20:13 05:36 05:54 Sodium 136 L (137-145) mmol/L Chloride 94 L (98-107) mmol/L Carbon Dioxide 34 H (22-30) mmol/L Glucose 177 H (74-99) mg/dL POC Glucose (mg/dL) 206 H 187 H (75-99) mg/dL 07/25/18 Range/Units 11:34 Sodium (137-145) mmol/L Chloride (98-107) mmol/L Carbon Dioxide (22-30) mmol/L Glucose (74-99) mg/dL POC Glucose (mg/dL) 143 H (75-99) mg/dL Microbiology - Last 24 Hours (Table) 07/22/18 15:30 Blood Culture - Preliminary Blood No Growth after 72 hours Assessment and Plan Plan: #1. Dyspnea, cough, multifactorial, chest x-ray showed loculated left pleural effusion, left lower lobe infiltrate parapneumonic effusion. CT of the chest showed loculated left pleural effusion with very mild thin peripheral enhancement suggesting complexity, anterior fissural fluid suggesting fluid overload, and rounded left basilar consolidation. #2. Recent hospitalization for acute community-acquired left lower lobe pneumonia with parapneumonic pleural effusion, patient did have a left-sided pigtail chest tube placed, with several tPA infusions, with very minimal clear serosanguineous output, nonpurulent, pleural fluid cultures were negative. He was treated with combination of Rocephin and Zithromax, clinically improved, and discharged home on 07/21/2018 #3. Elevated N-terminal proBNP level, suggesting exacerbation of congestive heart failure with mildly impaired left ventricular systolic function with an EF of 45-50%. #4. electrolytes imbalance, hypokalemia and hypomagnesemia. #5. suspect underlying COPD #6. Type 2 diabetes #7. Hypertension #8. Hypothyroidism Plan Based on my discussion with the interventional radiologist and with the surgeons , no further intervention will be done regarding dislocated of the sella pleural effusion for the above-mentioned reasons. The patient will be offered oral antibiotics for now. We'll monitor the findings and repeat the CAT scan a month time to assess the progression of this loculated left-sided pleural effusion. The patient has been drained in the past with subsequent tPA infusions and output was serosanguineous and there was no evidence of any empyema. Candidate, in my opinion, this is a [place] parapneumonic effusion which is probably noninfected but loculated. It may gradually resolve with time. Continue diuretics. Optimize CHF. Discharge planning is in progress. We'll continue to follow.
[2018-07-25 19:57] LABS: Glucose,Whole Blood 153 mg/dL (75-99)
[2018-07-25] MEDS: LEVOFLOXACIN 500 MG TAB PO SCH (21:05)
[2018-07-25] MEDS: OXYBUTYNIN 15 MG TAB.ER.24 PO SCH (21:05)
[2018-07-26 07:13] LABS: Glucose,Whole Blood 172 mg/dL (75-99)
[2018-07-26] MEDS: IPRATROPIUM-ALBUTEROL 3 ML NEB INHALATION SCH ×4 (07:23→20:29)
[2018-07-26] MEDS: SERTRALINE 100 MG TAB PO SCH (07:42)
[2018-07-26] MEDS: FUROSEMIDE 10 MG/ML 4 ML VIAL IV SCH (07:42)
[2018-07-26] MEDS: LEVOTHYROXINE 50 MCG TAB PO SCH (07:43)
[2018-07-26] MEDS: LOSARTAN 25 MG TAB PO SCH (07:43)
[2018-07-26] MEDS: ALLOPURINOL 300 MG TAB PO SCH (07:43)
[2018-07-26] MEDS: CHLORTHALIDONE 25 MG TAB PO SCH (07:43)
[2018-07-26] MEDS: ATENOLOL 50 MG TAB PO SCH (07:43)
[2018-07-26] MEDS: GABAPENTIN 300 MG CAP PO SCH ×2 (07:44→20:42)
[2018-07-26] MEDS: FAMOTIDINE 20 MG TAB PO SCH (07:44)
[2018-07-26] MEDS: POTASSIUM CHLORIDE ER 20 MEQ TAB.ER PO SCH ×3 (07:44→21:25)
[2018-07-26] MEDS: COLCHICINE 0.6 MG EACH PO SCH (07:45)
[2018-07-26] MEDS: carBAMazepine 200 MG TAB PO SCH ×3 (07:45→21:26)
[2018-07-26] MEDS: GLIMEPIRIDE 4 MG TAB PO SCH ×2 (07:46→20:42)
[2018-07-26 11:24] LABS: Anion Gap 9 mmol/L; Blood Urea Nitrogen 18 mg/dL (7-17); Calcium 8.4 mg/dL (8.4-10.2); Carbon Dioxide 38 mmol/L (22-30); Chloride 91 mmol/L (98-107); Glucose 210 mg/dL (74-99); Potassium 3.5 mmol/L (3.5-5.1); Sodium 138 mmol/L (137-145)
[2018-07-26 12:13] LABS: Glucose,Whole Blood 165 mg/dL (75-99)
--- NOTE | 2018-07-26 13:19 | P.PN ---
Subjective Patient is seen and examined sitting up in bed eating breakfast. She states overall she is starting to feel better and her breathing has greatly improved since admission. She denies chest pain, dizziness or palpitations. I&O not accurately documented due to incontinence, however her weight is down 6 kg from admission. Currently maintained on lasix 40 mg IV BID along with antibiotics. Blood pressure 128/78 herat rate 80 afebrile and maintaining oxygen saturation on nasal cannula. Laboratory data reviewed, creatinine 0.72, sodium 138, potassium 3.5. GENERAL: Well-appearing, well-nourished and in no acute distress. NECK: Supple without JVD or thyromegaly. LUNGS: Breath sounds clear to auscultation bilaterally. Respiration equal and unlabored. No wheezes, rales or rhonchi. Diminished bilaterally. HEART: Regular rate and rhythm without murmurs, rubs or gallops. S1 and S2 heard. EXTREMITIES: Normal range of motion, no edema. No clubbing or cyanosis. Peripheral pulses intact. Multiple areas of ecchymosis and procedures feeling. ASSESSMENT Acute community-acquired left lower lobe pneumonia with yellow sputum production and loculated left pleural effusion Mild exacerbation of congestive heart failure with mildly impaired LV function, EF 45-50% Hypertension Dyslipidemia Diabetes mellitus COPD Hyokalemia, resolved Hypomagnesemia, resolved PLAN Transition to PO lasix 40 mg BID. Ongoing medical management of pneumonia. We will see as needed, please feel free to call with further question or concerns. Follow-up with Dr Gill in 2 weeks. Appointment has been made. Nurse Practitioner note has been reviewed, I agree with a documented findings and plan of care. Patient was seen and examined. Objective - Vital Signs Vital signs: Vital Signs Temp 98.7 F 07/26/18 07:51 Pulse 76 07/26/18 11:18 Resp 18 07/26/18 07:51 BP 128/78 07/26/18 07:51 Pulse Ox 92 L 07/26/18 07:51 Intake & Output 07/25/18 07/26/18 07/26/18 18:59 06:59 18:59 Intake Total 180 440 118 Balance 180 440 118 Weight 101.5 kg Intake: Oral 180 440 118 Other: Voiding Method Diaper # Voids 2 1 - Labs CBC & Chem 7: 07/22/18 15:30 07/26/18 10:27 Labs: Abnormal Lab Results - Last 24 Hours (Table) 07/25/18 07/26/18 07/26/18 Range/Units 19:55 06:59 10:27 Chloride 91 L (98-107) mmol/L Carbon Dioxide 38 H (22-30) mmol/L BUN 18 H (7-17) mg/dL Glucose 210 H (74-99) mg/dL POC Glucose (mg/dL) 153 H 172 H (75-99) mg/dL 07/26/18 Range/Units 11:36 Chloride (98-107) mmol/L Carbon Dioxide (22-30) mmol/L BUN (7-17) mg/dL Glucose (74-99) mg/dL POC Glucose (mg/dL) 165 H (75-99) mg/dL Microbiology - Last 24 Hours (Table) 07/22/18 15:30 Blood Culture - Preliminary Blood No Growth after 72 hours
--- NOTE | 2018-07-26 15:10 | P.PN ---
Subjective Progress Note Date: 07/26/18 Principal diagnosis: Loculated left pleural effusion, left lower lobe infiltrate parapneumonic effusion This is a 72-year-old white female patient of Dr. Park that was recently hospitalized for acute community-acquired left lower lobe pneumonia with parapneumonic pleural effusion. We saw this patient in consultation during her last admission for possibility of empyema in the left lung related to pneumonia. Patient underwent is minimal have a pigtail chest tube and had been given several doses of TPA, pleural fluid was minimal and was not purulent. Pleural fluid cultures no growth, patient was treated with a combination of Rocephin and Zithromax. Patient had clinically improved, was discharged home on 07/21/2018 in the care of her daughter with whom she resides. Patient was home for 1 day, she returned per EMS to the emergency department on 07/22/2018 with complaints of cough, and dyspnea. She states that her cough was productive with white sputum, she denied any fever or chills, denied any chest pain, denied any chest wall tenderness, no nausea or vomiting, no hemoptysis, no lower extremity edema. No abdominal pain, no altered mentation. Chest x- ray showed a left pleural effusion with loculation, left lower lobe pneumonia, slightly improved from the last exam on 07/18/2018. EKG showed normal sinus rhythm without ischemic changes. I work showed white blood cell count of 3.4, hemoglobin of 9.8, INR of 1.6, sodium is 136, potassium is 3.0, chloride is 103 , CO2 is 27, BUN was 7, creatinine was 0.32, plasma lactic acid was within normal limits at 1.0, magnesium was 1.2, LFTs were within normal limits, troponin was negative 1, proBNP was elevated at 6400. Echocardiogram showed mildly impaired left ventricular systolic function with an EF of 45-50%, trace to mild mitral regurgitation, trace tricuspid regurgitation, right sided pressures of less than 35 mmHg, no evidence of pulmonary hypertension. No pericardial effusion. Patient was seen by cardiology for mild exacerbation of congestive heart failure. She was started on empiric antibiotics in the form of Levaquin, and we are asked to see the patient in consultation for shortness of breath, and a loculated left pleural effusion. On 07/24/2018 patient seen in follow-up on selective care unit. She is working with physical therapy, does not appear to be in any acute distress, she states she still has some shortness of breath, but upon my examination patient appears to be fairly comfortable, no use of accessory muscles of breathing, no tachypnea , she is currently on 3 L per nasal cannula her pulse ox is 93%, she is afebrile. No cough, no chest congestion, blood culture showed no growth. Patient is on empiric antibiotic coverage in the form of Levaquin. She is receiving IV diuretics for mild congestive heart failure. Lung sounds are positive for bibasilar crackles. She is diuresing, she is -6.5 kg since admission. Denies any chest pain, no cough or hemoptysis, no chest wall tenderness. We consulted interventional radiology for placement of chest tube for the loculated left pleural effusion, however fluid is organized, and chest tube placement was not feasible. On 07/26/2018 patient seen in follow-up on medical surgical floor. She is resting comfortably in bed, in no acute distress, pulse ox on 2 L per nasal cannula is 92%, lung sounds are positive for some bibasilar crackles, patient is being diuresed, I'm status is improving, she is down 6 kg since admission. Patient has been working with physical therapy, she is generally weak. No fever , no chills, no chest congestion, no cough. Cultures show no growth. Patient continues on empiric antibiotics. From pulmonary perspective patient is stable for discharge once she is cleared by cardiology. She'll need outpatient follow- up with another CT chest in the one month time. Objective - Vital Signs Vital signs: Vital Signs Temp 98.6 F 07/26/18 14:22 Pulse 74 07/26/18 14:22 Resp 20 07/26/18 14:22 BP 87/49 07/26/18 14:22 Pulse Ox 97 07/26/18 14:22 Intake & Output 07/25/18 07/26/18 07/26/18 18:59 06:59 18:59 Intake Total 180 440 118 Balance 180 440 118 Weight 101.5 kg Intake: Oral 180 440 118 Other: Voiding Method Diaper # Voids 2 1 2 # Bowel Movements 1 - Exam GENERAL EXAM: Alert, active, 72-year-old female comfortable in no apparent distress. HEAD: Normocephalic/atraumatic. EYES: Normal reaction of pupils, equal size. Conjunctiva pink, sclera white. NOSE: Clear with pink turbinates. THROAT: No erythema or exudates. NECK: No masses, no JVD, no thyroid enlargement, no adenopathy. CHEST: No chest wall deformity. Symmetrical expansion. LUNGS: Equal air entry with diminished breath sounds at the bases CVS: Regular rate and rhythm, normal S1 and S2, no gallops, no murmurs, no rubs ABDOMEN: Soft, nontender. No hepatosplenomegaly, normal bowel sounds, no guarding or rigidity. EXTREMITIES: No clubbing, no edema, no cyanosis, 2+ pulses and upper and lower extremities. MUSCULOSKELETAL: Muscle strength and tone normal. SPINE: No scoliosis or deformity SKIN: No rashes CENTRAL NERVOUS SYSTEM: Alert and oriented -3. No focal deficits, tone is normal in all 4 extremities. PSYCHIATRIC: Alert and oriented -3. Appropriate affect. Intact judgment and insight. - Labs CBC & Chem 7: 07/22/18 15:30 07/26/18 10:27 Labs: Abnormal Lab Results - Last 24 Hours (Table) 07/25/18 07/26/18 07/26/18 Range/Units 19:55 06:59 10:27 Chloride 91 L (98-107) mmol/L Carbon Dioxide 38 H (22-30) mmol/L BUN 18 H (7-17) mg/dL Glucose 210 H (74-99) mg/dL POC Glucose (mg/dL) 153 H 172 H (75-99) mg/dL 07/26/18 Range/Units 11:36 Chloride (98-107) mmol/L Carbon Dioxide (22-30) mmol/L BUN (7-17) mg/dL Glucose (74-99) mg/dL POC Glucose (mg/dL) 165 H (75-99) mg/dL Microbiology - Last 24 Hours (Table) 07/22/18 15:30 Blood Culture - Preliminary Blood No Growth after 72 hours Assessment and Plan Plan: Assessment: #1. Dyspnea, cough, multifactorial, chest x-ray showed loculated left pleural effusion, left lower lobe infiltrate parapneumonic effusion. CT of the chest showed loculated left pleural effusion with very mild thin peripheral enhancement suggesting complexity, anterior fissural fluid suggesting fluid overload, and rounded left basilar consolidation. #2. Recent hospitalization for acute community-acquired left lower lobe pneumonia with parapneumonic pleural effusion, patient did have a left-sided pigtail chest tube placed, with several tPA infusions, with very minimal clear serosanguineous output, nonpurulent, pleural fluid cultures were negative. He was treated with combination of Rocephin and Zithromax, clinically improved, and discharged home on 07/21/2018 #3. Elevated N-terminal proBNP level, suggesting exacerbation of congestive heart failure with mildly impaired left ventricular systolic function with an EF of 45-50%. #4. electrolytes imbalance, hypokalemia and hypomagnesemia. #5. suspect underlying COPD #6. Type 2 diabetes #7. Hypertension #8. Hypothyroidism Plan: We'll continue with oral diuretics, empiric antibiotics, no fever no chills, no worsening dyspnea. Volume status has improved. From pulmonary perspective patient is stable for discharge to [facility] rehab tomorrow. We'll need to follow-up in 7-10 days. I performed a history & physical examination of the patient and discussed their management with my nurse practitioner, Candida Naranjo. I reviewed the nurse practitioner's note and agree with the documented findings and plan of care. Lung sounds are positive for diminished breath sounds to bases. The findings and the impression was discussed with the patient. I attest to the documentation by the nurse practitioner. Time with Patient: Less than 30
[2018-07-26] MEDS: FUROSEMIDE 40 MG TAB PO SCH (16:36)
[2018-07-26 17:07] LABS: Glucose,Whole Blood 164 mg/dL (75-99)
--- NOTE | 2018-07-26 19:24 | PN ---
PROGRESS NOTE CHIEF COMPLAINT: Pneumonitis, failure to thrive. HISTORY OF PRESENT ILLNESS: This lady still remains very weak. She is agreeable to going to a half-way once again. Arrangements will be made. PHYSICAL EXAM: Chest is improved with only occasional rales. Cardiac exam is normal. Abdomen is soft, nontender. IMPRESSION: 1. Shortness of breath. 2. Congestive heart failure. 3. Pneumonitis. PLAN: I work on half-way placement. MMODL / IJN: [id number] /
[2018-07-26 20:12] LABS: Glucose,Whole Blood 125 mg/dL (75-99)
[2018-07-26] MEDS: LEVOFLOXACIN 500 MG TAB PO SCH (20:42)
[2018-07-26] MEDS: OXYBUTYNIN 15 MG TAB.ER.24 PO SCH (20:42)
[2018-07-27 07:00] LABS: Glucose,Whole Blood 113 mg/dL (75-99)
[2018-07-27 07:30] VITALS: RESP 16
[2018-07-27 08:01] LABS: Calcium 8.4 mg/dL (8.4-10.2); Potassium 3.4 mmol/L (3.5-5.1)
[2018-07-27] MEDS: IPRATROPIUM-ALBUTEROL 3 ML NEB INHALATION SCH ×3 (09:19→17:02)
[2018-07-27] MEDS: carBAMazepine 200 MG TAB PO SCH (10:32)
[2018-07-27] MEDS: GLIMEPIRIDE 4 MG TAB PO SCH (10:32)
[2018-07-27] MEDS: SERTRALINE 100 MG TAB PO SCH (10:33)
[2018-07-27] MEDS: ALLOPURINOL 300 MG TAB PO SCH (10:33)
[2018-07-27] MEDS: GABAPENTIN 300 MG CAP PO SCH (10:33)
[2018-07-27] MEDS: FAMOTIDINE 20 MG TAB PO SCH (10:33)
[2018-07-27] MEDS: COLCHICINE 0.6 MG EACH PO SCH (10:33)
[2018-07-27] MEDS: POTASSIUM CHLORIDE ER 20 MEQ TAB.ER PO SCH (10:33)
[2018-07-27] MEDS: LEVOTHYROXINE 50 MCG TAB PO SCH (10:33)
[2018-07-27] MEDS: FUROSEMIDE 40 MG TAB PO SCH (10:33)
[2018-07-27] MEDS: ATENOLOL 50 MG TAB PO SCH (10:33)
[2018-07-27] MEDS: CHLORTHALIDONE 25 MG TAB PO SCH (10:33)
[2018-07-27] MEDS: LOSARTAN 25 MG TAB PO SCH (10:33)
[2018-07-27 11:49] LABS: Glucose,Whole Blood 224 mg/dL (75-99)
[2018-07-27 15:55] VITALS: BP 112/54; PULSE 78; TEMP 98.4
[2018-07-27 16:37] LABS: Glucose,Whole Blood 106 mg/dL (75-99)
--- NOTE | 2018-07-27 17:19 | DS ---
DISCHARGE SUMMARY CHIEF COMPLAINT: Shortness of breath. HISTORY OF PRESENT ILLNESS AND PHYSICAL EXAM: Details of this lady's history and physical can be found in the initial workup. LABORATORY STUDIES: While she was in the hospital she had laboratory studies, details of which can be found laboratory section of her chart. COURSE IN HOSPITAL: After admission, she was placed on bedrest, started on intravenous fluids and treated for congestive heart failure and COPD. Her pneumonitis had not recurred. She remained weak, lethargic and is very sedentary. She agreed that she could not go home under the circumstances and agreed to go to a care home. She will be discharged to [facility] on the . FINAL DIAGNOSES: 1. Exacerbation of chronic obstructive pulmonary disease. 2. Congestive heart failure. 3. Status post recent left lower lobe pneumonitis with pleural effusion. 4. Hypokalemia. 5. Hypomagnesemia. 6. Dehydration. OPERATIONS: None. CONSULTATIONS: Pulmonology and cardiology. She is improved. MMODL / BREONNAN: [id number] /
== END 2018-07-27 16:55 | DRG 291 ==
LOC: EC 15:06 → 3SCARD 17:51 → 4SSUR 07-25 17:50
PROVIDERS: ADMIT Family Medicine; ATTEND Family Medicine
DX: I11.0 Hypertensive heart disease with heart failure (principal); J96.01 Acute respiratory failure with hypoxia; J44.1 Chronic obstructive pulmonary disease with (acute) exacerbation; I50.23 Acute on chronic systolic (congestive) heart failure; E03.9 Hypothyroidism, unspecified; E11.9 Type 2 diabetes mellitus without complications; E78.5 Hyperlipidemia, unspecified; E83.42 Hypomagnesemia; E86.0 Dehydration; E87.6 Hypokalemia; K21.9 Gastro-esophageal reflux disease without esophagitis; R32 Unspecified urinary incontinence; R62.7 Adult failure to thrive; Z96.651 Presence of right artificial knee joint; E66.3 Overweight; Z79.84 Long term (current) use of oral hypoglycemic drugs; Z79.890 Hormone replacement therapy; Z79.899 Other long term (current) drug therapy; Z82.0 Family history of epilepsy and other diseases of the nervous system; Z82.49 Family history of ischemic heart disease and other diseases of the circulatory system; Z85.828 Personal history of other malignant neoplasm of skin; Z87.891 Personal history of nicotine dependence; Z90.710 Acquired absence of both cervix and uterus; Z91.19 Patient's noncompliance with other medical treatment and regimen; Z91.81 History of falling; Z68.36 Body mass index [BMI] 36.0-36.9, adult; Z88.5 Allergy status to narcotic agent; Z87.01 Personal history of pneumonia (recurrent); Z88.8 Allergy status to other drugs, medicaments and biological substances; Z98.42 Cataract extraction status, left eye; Z98.41 Cataract extraction status, right eye
CPT/HCPCS: 36415; 71046; 71270; 80048; 80053; 82550; 82553; 83605; 83735; 83880; 84132; 84484; 85025; 85610; 85730; 87040; 93005; 93306; 94640; 96374; 96375; 99285

== ENCOUNTER → 2018-11-15 | Outpatient (CLI) | payer MEDICARE, OTHER ==
--- NOTE | 2018-11-15 14:00 | CT ---
EXAMINATION TYPE: CT sinus wo con DATE OF EXAM: 11/15/2018 COMPARISON: NONE HISTORY: Chronic sinusitis CT DLP: 581 mGycm. Automated Exposure Control for Dose Reduction was Utilized. TECHNIQUE: CT scan of the sinuses is performed without contrast, axial images are obtained, coronal r eformatted images are also reviewed. FINDINGS: There is a 5 mm left ethmoid mucosal retention cyst versus polyp on series 4 image 25. Caridad david the visualized paranasal sinuses and mastoid air cells are well aerated. Middle ear cavities ar e also well aerated. The ostiomeatal complexes are also well aerated. There is a superior nasal turbi marvel nonobstructive trina bullosa. There is very slight undulation of the nasal septum without signi ficant deviation. There is no nasal turbinate mucosal hypertrophy. The frontal recesses are patent. N o Gregg cells are seen. Mild degenerative changes of the temporomandibular joints symmetrically. Ath erosclerosis is seen of the intracranial vasculature although exam is not optimized for evaluation of intracranial structures. Orbits appear symmetric with surgical absence of the lenses. IMPRESSION: 1. Left ethmoid 5 mm mucosal retention cyst versus polyp. Remainder the paranasal sinuses and mastoid air cells are well aerated without occlusion of the ostia medial complexes nor frontal recesses. 2. Left superior nasal turbinate nonobstructive trina bullosa. 3. Very slight undulation of the nasal septum without significant deviation.
== END ==
LOC: RADCTMAIN 13:09
PROVIDERS: ATTEND Otolaryngology
DX: J32.9 Chronic sinusitis, unspecified (principal)
CPT/HCPCS: 70486

== ENCOUNTER 2019-04-10 17:59 | Emergency (ER) | payer MEDICARE, OTHER ==
[2019-04-10 18:05] VITALS: RESP 18; TEMP 98.3
--- NOTE | 2019-04-10 18:40 | ED ---
Fall HPI - General Chief Complaint: Fall Stated Complaint: fall Time Seen by Provider: 04/10/19 18:04 Source: patient, EMS Mode of arrival: EMS Limitations: no limitations - History of Present Illness Initial Comments: This a 73-year-old female presents emergency department via EMS chief complaint fall, head injury. Patient's reportedly was leaving a restaurant when she states that she tripped fall causing her head struck the wall and the floor. Patient has 2 lacerations. Patient denies any no loss conscious. Denies any neck pain, back pain, hip pain. Patient states that she was able to ambulate. Patient does have mild headache. No blood thinners. Denies any blurred vision, nausea vomiting. - Related Data Home Medications Medication Instructions Recorded Confirmed Allopurinol [Zyloprim] 300 mg PO DAILY 09/27/14 04/10/19 Cholecalciferol [Vitamin D3 (25 1,000 unit PO DAILY 09/27/14 04/10/19 Mcg = 1000 Iu)] Colchicine [Colcrys] 0.6 mg PO DAILY 09/27/14 04/10/19 Glimepiride [Amaryl] 4 mg PO BID 09/27/14 04/10/19 Levothyroxine Sodium [Synthroid] 50 mcg PO AC-[id number] 09/27/14 04/10/19 Ranitidine HCl [Zantac] 150 mg PO DAILY 09/27/14 04/10/19 Sertraline [Zoloft] 200 mg PO DAILY 09/27/14 04/10/19 Albuterol Inhaler [Ventolin Hfa 1 - 2 puff INHALATION RT-QID PRN 09/28/14 04/10/19 Inhaler] Oxybutynin Chloride [Ditropan XL] 15 mg PO HS 10/24/16 04/10/19 Atenolol [Tenormin] 50 mg PO DAILY 05/25/18 04/10/19 Gabapentin 600 mg PO DAILY PRN 05/25/18 04/10/19 HYDROcodone/APAP 7.5-325MG [[place] 1 tab PO TID PRN 05/25/18 04/10/19 7.5-325] Losartan [Cozaar] 50 mg PO DAILY 05/25/18 04/10/19 Famotidine [Pepcid] 20 mg PO DAILY 04/10/19 04/10/19 Ipratropium-Albuterol Nebulize 3 ml INHALATION RT-QID PRN 04/10/19 04/10/19 [Duoneb 0.5 mg-3 mg/3 ml Soln] Naproxen [Naprosyn] 500 mg PO BID PRN 04/10/19 04/10/19 Pioglitazone [Actos] 45 mg PO DAILY 04/10/19 04/10/19 metFORMIN HCL [Glucophage] 500 mg PO BID 04/10/19 04/10/19 Allergies Allergy/AdvReac Type Severity Reaction Status Date / Time morphine AdvReac Nausea & Verified 04/10/19 19:04 Vomiting Avkxmus-Res-Pjj Reductase AdvReac STIFFNESS Verified 04/10/19 19:04 Inhibitor AND MUSCLE PAIN Review of Systems ROS Statement: Those systems with pertinent positive or pertinent negative responses have been documented in the HPI. ROS Other: All systems not noted in ROS Statement are negative. Past Medical History Past Medical History: Cancer, COPD, Diabetes Mellitus, GERD/Reflux, Hypertension, Thyroid Disorder Additional Past Medical History / Comment(s): NEUROPATHY-hands,feet. HX of falls,SKIN CANCER, History of Any Multi-Drug Resistant Organisms: None Reported Past Surgical History: Back Surgery, Hysterectomy, Joint Replacement Additional Past Surgical History / Comment(s): RIGHT KNEE REPLACEMENT, cataract surgery- bilat Past Anesthesia/Blood Transfusion Reactions: No Reported Reaction Past Psychological History: Depression Smoking Status: Former smoker Past Alcohol Use History: None Reported Past Drug Use History: None Reported - Past Family History Mother Family Medical History: Dementia Additional Family Medical History / Comment(s): alzheimers Father Family Medical History: Myocardial Infarction ([place]) Additional Family Medical History / Comment(s): unknown General Exam Limitations: no limitations General appearance: alert, in no apparent distress Head exam: Present: atraumatic, normocephalic. Absent: normal inspection (2 lacerations one 2 cm, second 1 cm) Eye exam: Present: normal appearance, PERRL, EOMI. Absent: scleral icterus, conjunctival injection, periorbital swelling ENT exam: Present: normal exam, normal oropharynx, mucous membranes moist, TM's normal bilaterally Neck exam: Present: normal inspection, full ROM. Absent: tenderness, meningismus, lymphadenopathy Respiratory exam: Present: normal lung sounds bilaterally. Absent: respiratory distress, wheezes, rales, rhonchi, stridor Cardiovascular Exam: Present: regular rate, normal rhythm, normal heart sounds. Absent: systolic murmur, diastolic murmur, rubs, gallop, clicks GI/Abdominal exam: Present: soft, normal bowel sounds. Absent: distended, tenderness, guarding, rebound, rigid Back exam: Absent: CVA tenderness (R), CVA tenderness (L) Neurological exam: Present: alert, oriented X3, CN II-XII intact Skin exam: Present: warm, dry, intact, normal color. Absent: rash Course Vital Signs 04/10/19 18:02 Temperature 98.3 F Pulse Rate 82 Respiratory 18 Rate Blood Pressure 128/70 O2 Sat by Pulse 95 Oximetry Procedures - Laceration Laceration #1 Consent Obtained: verbal consent Indication: laceration Site: scalp Size (cm): 1 Description: linear, avulsion Depth: simple, single layer Type of Sutures: other (Dermal johnna) Number of Sutures: 2 Patient Tolerated Procedure: well, no complications Laceration #2 Consent Obtained: verbal consent Indication: laceration Site: scalp Size (cm): 2 Description: linear Depth: simple, single layer Pre-repair: wound explored, irrigated extensively, deep structures intact Type of Sutures: other (Dermal johnna) Number of Sutures: 2 Patient Tolerated Procedure: well, no complications Medical Decision Making - Medical Decision Making CT of the brain and C-spine are negative for acute abnormality. Patient lacerations were closed using johnna. Wound care instructions given return parameters were given. Disposition Clinical Impression: Fall, Scalp laceration Disposition: HOME SELF-CARE Condition: Stable Instructions (If sedation given, give patient instructions): Head Injury (ED), Staple Care (ED) Additional Instructions: Have johnna removed in 7 days.Please return to the Emergency Department if symptoms worsen or any other concerns. Is patient prescribed a controlled substance at d/c from ED?: No Referrals: Adi Park MD [Primary Care Provider] - 1-2 days Time of Disposition: 19:43
[2019-04-10] MEDS ORDERED: HYDROcodone/APAP 7.5-325MG 1 EACH TAB PO ONE (19:11)
--- NOTE | 2019-04-10 19:22 | CT ---
EXAMINATION TYPE: CT brain wenceslao peters con DATE OF EXAM: 04/10/2019 COMPARISON: 05/26/2018 HISTORY: Fall with posterior head injury and laceration. Headache. Neck pain. CT DLP: 1492 mGycm Automated exposure control for dose reduction was used. TECHNIQUE: CT scan of the head and cervical spine are performed without contrast. FINDINGS: There is some cerebral cortical atrophy. There is no mass effect nor midline shift. There is no sign of intracranial hemorrhage. The calvarium is intact. There is mucosal thickening and flui d level left maxillary sinus. Cervical vertebra have normal alignment. There is old anterior fusion surgery at C5 and C6 and C7 wit h an anterior plate and screws. The posterior elements are intact. There is mild hypertrophic of the level facet arthropathy. The skull base is intact. There is no sign of cervical spine fracture. IMPRESSION: Spondylotic changes in the cervical spine. Previous surgery. No acute abnormality. Cerebral atrophy. No acute intracranial abnormality. Chronic small vessel ischemia. No change. There is new left side maxillary sinusitis compared to old exam.
[2019-04-10] MEDS ORDERED: DIPH,PERTUS(ACELL)TETVAC-LF 0.5 ML VIAL IM ONE (19:41)
[2019-04-10 20:16] VITALS: BP 119/67; PULSE 79
== END 2019-04-10 20:17 | disposition home or self-care (01) ==
LOC: EC 17:59
DX: S01.01XA Laceration without foreign body of scalp, initial encounter (principal); R29.6 Repeated falls; J44.9 Chronic obstructive pulmonary disease, unspecified; E11.42 Type 2 diabetes mellitus with diabetic polyneuropathy; K21.9 Gastro-esophageal reflux disease without esophagitis; I10 Essential (primary) hypertension; E07.9 Disorder of thyroid, unspecified; F32.9 Major depressive disorder, single episode, unspecified; Z87.891 Personal history of nicotine dependence; Z88.5 Allergy status to narcotic agent; Z88.8 Allergy status to other drugs, medicaments and biological substances; Z79.84 Long term (current) use of oral hypoglycemic drugs; Z79.890 Hormone replacement therapy; Z79.899 Other long term (current) drug therapy; Z85.828 Personal history of other malignant neoplasm of skin; Z23 Encounter for immunization; W01.198A Fall on same level from slipping, tripping and stumbling with subsequent striking against other object, initial encounter; Y93.89 Activity, other specified; Y92.511 Restaurant or cafe as the place of occurrence of the external cause
CPT/HCPCS: 12002; 70450; 72125; 90471; 90715; 99284

== ENCOUNTER 2019-09-05 18:13 | Inpatient (IN) | payer MEDICARE, OTHER ==
--- NOTE | 2019-09-05 18:52 | XR ---
EXAMINATION TYPE: XR pelvis AP view DATE OF EXAM: 09/05/2019 COMPARISON: NONE HISTORY: Pain TECHNIQUE: Single view FINDINGS: Pelvic ring is intact. There is acetabular spurring. There are phleboliths in the pelvis. S acroiliac joints are intact. Proximal femurs are intact. IMPRESSION: No acute abnormality of the pelvis. Mild acetabular spurring.
--- NOTE | 2019-09-05 18:54 | XR ---
EXAMINATION TYPE: XR femur RT DATE OF EXAM: 09/05/2019 COMPARISON: NONE HISTORY: Pain TECHNIQUE: 4 views FINDINGS: There is right knee prosthesis. I see no fracture nor dislocation. There is acetabular spur ring. IMPRESSION: Mild spurring of the right acetabulum. No fracture seen.
[2019-09-05] MEDS ORDERED: HYDROmorphone 0.5 MG/0.5 ML SYRINGE IM STA (19:08)
--- NOTE | 2019-09-05 19:11 | ED ---
Lower Extremity Injury HPI - General Source: family Mode of arrival: wheelchair <Steven Barker - Last Filed: 09/05/19 19:37> <Tc Prajapati - Last Filed: 09/05/19 21:14> - General Chief Complaint: Extremity Injury, Lower Stated Complaint: possible broken hip Time Seen by Provider: 09/05/19 18:23 - History of Present Illness Initial Comments: Patient is 74-year-old female presenting to emergency Department with a chief complaint of hip pain. Patient states 4 days ago she was sitting on the side of her bed when she leaned forward to grab something off the ground and fell forward. Patient states she fell towards the right side of her body. Patient denies any loss of consciousness at the time of incident. Patient reports she has not been moving much over the last 3 days. Typically she uses a walker to ambulate. States there is increased pain in the right hip. Limited range of motion due to pain. Also reports ecchymosis that has not improved over the last few days. Does report some radiation of the pain distally of the right hip. Denies any numbness or tingling. States she takes Preston and tramadol daily for pain.. Denies any blood thinners. (Steven Barker) - Related Data Home Medications Medication Instructions Recorded Confirmed Allopurinol [Zyloprim] 300 mg PO DAILY 09/27/14 04/10/19 Cholecalciferol [Vitamin D3 (25 1,000 unit PO DAILY 09/27/14 04/10/19 Mcg = 1000 Iu)] Colchicine [Colcrys] 0.6 mg PO DAILY 09/27/14 04/10/19 Glimepiride [Amaryl] 4 mg PO BID 09/27/14 04/10/19 Levothyroxine Sodium [Synthroid] 50 mcg PO AC-BRKFST 09/27/14 04/10/19 Ranitidine HCl [Zantac] 150 mg PO DAILY 09/27/14 04/10/19 Sertraline [Zoloft] 200 mg PO DAILY 09/27/14 04/10/19 Albuterol Inhaler [Ventolin Hfa 1 - 2 puff INHALATION RT-QID PRN 09/28/14 04/10/19 Inhaler] Oxybutynin Chloride [Ditropan XL] 15 mg PO HS 10/24/16 04/10/19 Atenolol [Tenormin] 50 mg PO DAILY 05/25/18 04/10/19 Gabapentin 600 mg PO DAILY PRN 05/25/18 04/10/19 HYDROcodone/APAP 7.5-325MG [[place] 1 tab PO TID PRN 05/25/18 04/10/19 7.5-325] Losartan [Cozaar] 50 mg PO DAILY 05/25/18 04/10/19 Famotidine [Pepcid] 20 mg PO DAILY 04/10/19 04/10/19 Ipratropium-Albuterol Nebulize 3 ml INHALATION RT-QID PRN 04/10/19 04/10/19 [Duoneb 0.5 mg-3 mg/3 ml Soln] Naproxen [Naprosyn] 500 mg PO BID PRN 04/10/19 04/10/19 Pioglitazone [Actos] 45 mg PO DAILY 04/10/19 04/10/19 metFORMIN HCL [Glucophage] 500 mg PO BID 04/10/19 04/10/19 Allergies Allergy/AdvReac Type Severity Reaction Status Date / Time morphine AdvReac Nausea & Verified 09/05/19 18:22 Vomiting Zzeghzq-Jqn-Hkg Reductase AdvReac STIFFNESS Verified 09/05/19 18:22 Inhibitor AND MUSCLE PAIN Review of Systems ROS Other: All systems not noted in ROS Statement are negative. <Steven Barker - Last Filed: 09/05/19 19:37> ROS Other: All systems not noted in ROS Statement are negative. <Tc Prajapati - Last Filed: 09/05/19 21:14> ROS Statement: Those systems with pertinent positive or pertinent negative responses have been documented in the HPI. Past Medical History Past Medical History: Cancer, COPD, Diabetes Mellitus, GERD/Reflux, Hypertension, Thyroid Disorder Additional Past Medical History / Comment(s): NEUROPATHY-hands,feet. HX of falls,SKIN CANCER, History of Any Multi-Drug Resistant Organisms: None Reported Past Surgical History: Back Surgery, Hysterectomy, Joint Replacement Additional Past Surgical History / Comment(s): RIGHT KNEE REPLACEMENT, cataract surgery- bilat Past Anesthesia/Blood Transfusion Reactions: No Reported Reaction Past Psychological History: Depression Smoking Status: Former smoker Past Alcohol Use History: None Reported Past Drug Use History: None Reported - Past Family History Mother Family Medical History: Dementia Additional Family Medical History / Comment(s): alzheimers Father Family Medical History: Myocardial Infarction ([place]) Additional Family Medical History / Comment(s): unknown <Steven Barker - Last Filed: 09/05/19 19:37> General Exam Limitations: physical limitation General appearance: alert, in no apparent distress, obese Head exam: Present: atraumatic, normocephalic, normal inspection Eye exam: Present: normal appearance, PERRL, EOMI Pupils: Present: normal accommodation ENT exam: Present: normal exam Neck exam: Present: normal inspection, full ROM Respiratory exam: Present: normal lung sounds bilaterally. Absent: respiratory distress, wheezes, rales Cardiovascular Exam: Present: regular rate, normal rhythm, normal heart sounds Extremities exam: Present: tenderness (Tenderness at the lateral aspect of her right hip.), normal capillary refill, other (+2 dorsalis pedis and posterior tibialis). Absent: normal inspection (Right hip ecchymosis measuring approximately 10 cm x 10 cm.), full ROM (Limited range of motion with flexion and extension and abduction due to pain), pedal edema, joint swelling, calf tenderness Back exam: Present: normal inspection, full ROM Neurological exam: Present: alert, oriented X3 Psychiatric exam: Present: normal affect, normal mood Skin exam: Present: warm, dry, intact, normal color <Steven Barker - Last Filed: 09/05/19 19:37> Course <Tc Prajapati - Last Filed: 09/05/19 21:14> Vital Signs 09/05/19 18:17 Temperature 98.9 F Pulse Rate 79 Respiratory 18 Rate Blood Pressure 148/94 O2 Sat by Pulse 97 Oximetry - Reevaluation(s) Reevaluation #1: 09/05/19 21:13 medical record is reviewed (Tc Prajapati) Reevaluation #2: 09/05/19 21:13 pain is controlled (Tc Prajapati) Reevaluation #3: 09/05/19 21:13 patient is able to weight bear, will try DC w pain meds, aware of results (Tc Prajapati) Medical Decision Making <Steven Barker - Last Filed: 09/05/19 19:37> - Radiology Data Radiology results: report reviewed (CT R hip positive for grreater troch fracture), image reviewed <Tc Prajapati - Last Filed: 09/05/19 21:14> - Medical Decision Making Patient is 74-year-old female presenting to the emergency department with chief complaint of right hip pain. On exam patient does have limited range of motion and tenderness along the lateral aspect of her right hip. Ecchymosis present in the region of tenderness as well. X-ray of the femur and pelvis are unremarkable. Acetabular syndrome noted. Patient continues to have pain, CT of right hip pending. She given analgesia. At this time patient will be signed off to (Steven Barker) 74 feamle to the ED sp fall, Greater Trochanter fracture but able to ambulate w pain control and OK for DC (Tc Prajapati) Disposition <Steven Barker - Last Filed: 09/05/19 19:37> Is patient prescribed a controlled substance at d/c from ED?: No <Tc Prajapati - Last Filed: 09/05/19 21:14> Clinical Impression: Fracture of hip, Greater trochanter fracture, Fall, Closed right hip fracture Disposition: HOME SELF-CARE Condition: Good Instructions (If sedation given, give patient instructions): Hip Fracture (ED) Referrals: Adi Park MD [Primary Care Provider] - 1-2 days
--- NOTE | 2019-09-05 20:02 | CT ---
EXAMINATION TYPE: CT hip RT wo con DATE OF EXAM: 09/05/2019 COMPARISON: HISTORY: Pt fall, pain to RT hip. CT DLP: 993 mGycm Automated exposure control for dose reduction was used. Multiple axial sections were obtained from the mid ileum to the mid shaft of the femur with no contra st. Hip joint space is fairly normal. There is mild acetabular spurring. Proximal femur is intact. There is a nondisplaced chip fracture of the greater trochanter of the femur. Fragment measures 2.5 x 1.5 c m. The sacroiliac joint appears intact. I see no pathologic fluid collection. IMPRESSION: Nondisplaced chip fracture of the greater trochanter of the right femur. Minor osteoarthritic changes in the right hip joint.
[2019-09-05] MEDS ORDERED: Acetaminophen-Codeine 300-30mg TAB PO STA (21:11)
[2019-09-05] MEDS ORDERED: ACET/COD 300 MG/30 MG STARTER PACK 6 TAB BTL PO STA (21:11)
[2019-09-05] MEDS ORDERED: SODIUM CHLORIDE 0.9% 1,000 ML IV STA (21:29)
[2019-09-05] MEDS ORDERED: HYDROmorphone 1 MG/ML 1 ML SYRINGE IVP STA (21:29)
[2019-09-05] MEDS ORDERED: SODIUM CHLORIDE 0.9% 1,000 ML IV ONE (21:29)
--- NOTE | 2019-09-05 21:34 | ED ---
Medical Decision Making - Medical Decision Making 74 female presents today for evaluation of fall fall patient does have right greater trochanteric hip fracture, patient is having significant difficulty with ambulation secondary to pain, patient be admitted for pain control fracture did occur on Monday, 4 days ago she was evaluated in the ER at that time and discharged home with negative x-rays Did speak with Dr. Park who agrees to admit patient - Radiology Data Radiology results: report reviewed (CT have does show intertrochanteric hip fracture), image reviewed Disposition Clinical Impression: Fracture of hip, Greater trochanter fracture, Fall, Closed right hip fracture, Intractable pain, Inability to ambulate due to right hip Disposition: ADMITTED IP TO THIS [facility] Condition: Good Instructions (If sedation given, give patient instructions): Hip Fracture (ED) Referrals: Adi Park MD [Primary Care Provider] - 1-2 days
--- NOTE | 2019-09-05 21:56 | XR ---
EXAMINATION TYPE: XR chest 2V DATE OF EXAM: 09/05/2019 COMPARISON: 07/22/2018 HISTORY: Weakness TECHNIQUE: FINDINGS: Heart and mediastinum are normal. Lungs are clear. Diaphragm is normal. Bony thorax appears normal. IMPRESSION: Normal chest. There is clearing of the left pleural fluid and left pulmonary infiltrate c ompared to old exam.
[2019-09-05 22:27] LABS: Basophils % (A) 1 %; Eosinophils # (A) 0.2 k/uL (0-0.7); Eosinophils % (A) 4 %; HCT 36.9 % (34.0-46.0); HGB 12.6 gm/dL (11.4-16.0); Lymphocytes # (A) 1.2 k/uL (1.0-4.8); Lymphocytes % (A) 27 %; MCHC 34.1 g/dL (31.0-37.0); Mean Platelet Volume 10.5; Monocytes # (A) 0.2 k/uL (0-1.0); Monocytes % (A) 4 %; Neutrophils % (A) 63 %; RBC 4.19 m/uL (3.80-5.40); RDW 14.9 % (11.5-15.5); WBC 4.7 k/uL (3.8-10.6)
[2019-09-05 22:34] LABS: ALT 12 U/L (4-34); AST 44 U/L (14-36); African American GFR (CKD) >90 (>60 ml/min/1.73 sqM); Alkaline Phosphatase 112 U/L (38-126); Anion Gap 6 mmol/L; Blood Urea Nitrogen 13 mg/dL (7-17); Calcium 9.4 mg/dL (8.4-10.2); Carbon Dioxide 29 mmol/L (22-30); Chloride 99 mmol/L (98-107); Creatine Kinase 81 U/L (30-135); Glucose 112 mg/dL (74-99); Magnesium 1.4 mg/dL (1.6-2.3); Non-African American GFR(CKD) >90 (>60 ml/min/1.73 sqM); Phosphorus 3.6 mg/dL (2.5-4.5); Potassium 3.9 mmol/L (3.5-5.1); Sodium 134 mmol/L (137-145); Total Bilirubin 0.9 mg/dL (0.2-1.3)
[2019-09-05 23:35] LABS: Platelet Count 81 k/uL (150-450)
[2019-09-06] MEDS: HYDROcodone/APAP 7.5-325MG 1 EACH TAB PO PRN ×2 (00:15→21:07)
[2019-09-06] MEDS: GABAPENTIN 300 MG CAP PO SCH ×4 (00:15→21:07)
[2019-09-06] MEDS: OXYBUTYNIN XL 5 MG TAB.ER.24 PO SCH ×2 (00:15→21:07)
[2019-09-06] MEDS: metFORMIN 500 MG TAB PO SCH ×3 (00:16→21:07)
[2019-09-06] MEDS: GLIMEPIRIDE 4 MG TAB PO SCH ×3 (00:55→23:16)
[2019-09-06 04:09] LABS: Appearance,Urine Cloudy (Clear); Bilirubin,Urine Negative (Negative); Blood,Urine Trace (Negative); Color,Urine Yellow; Glucose,Urine (UA) Negative (Negative); Ketones,Urine Negative (Negative); Leukocyte Esterase,Urine Negative (Negative); Mucus,Urine Rare /hpf; Nitrite,Urine Negative (Negative); Protein,Urine Negative (Negative); RBC,Urine 1 /hpf (0-5); Specific Gravity,Urine 1.013 (1.001-1.035); Squamous Epithelial Cell,Urine 2 /hpf (0-4); Urobilinogen,Urine <2.0 mg/dL (<2.0); WBC,Urine 3 /hpf (0-5)
[2019-09-06] MEDS: LEVOTHYROXINE 50 MCG TAB PO SCH (05:51)
[2019-09-06] MEDS: ALLOPURINOL 300 MG TAB PO SCH (08:07)
[2019-09-06] MEDS: LISINOPRIL 20 MG TAB PO SCH (08:07)
[2019-09-06] MEDS: SERTRALINE 100 MG TAB PO SCH (08:07)
[2019-09-06] MEDS: ATENOLOL 50 MG TAB PO SCH (08:07)
[2019-09-06] MEDS: PIOGLITAZONE 45 MG TAB PO SCH (08:07)
[2019-09-06] MEDS: CHOLECALCIFEROL 1,000 UNIT TAB PO SCH (08:07)
[2019-09-06] MEDS ORDERED: HYDROcodone/APAP 7.5-325MG 1 EACH TAB PO PRN (11:12)
[2019-09-06 14:40] LABS: Glucose,Whole Blood 99 mg/dL (75-99)
[2019-09-06] MEDS ORDERED: GABAPENTIN 300 MG CAP PO SCH (16:00)
--- NOTE | 2019-09-06 17:23 | HP ---
HISTORY AND PHYSICAL CHIEF COMPLAINT: Pain in the right hip. HISTORY OF PRESENT ILLNESS: This is another admission for this 74-year-old white female. She fell out of bed about a week ago and since then has been unable to bear weight on the right hip. She came to the office where x-rays could not be obtained because of her inability to get on the table and bear weight. She was sent to the hospital. In the emergency room, she was found to have a chip fracture of the right superior trochanter. She is minimally ambulatory and spends most of her time at home with a a walker with a seat and is not able to walk or ambulate well under normal circumstances. She is admitted for physical therapy and discharge plans may require rehab. She is overweight. REVIEW OF SYSTEMS: She has had no neurologic problems, trouble with vision or hearing, syncope, chest pain, shortness of breath, cough, hemoptysis, angina, infarctions, orthopnea, PND, abdominal pain, nausea, vomiting, hematemesis, melena, hematochezia, jaundice, hepatitis, cirrhosis, hematuria, frequency, urgency, renal failure, etc. She does have type 2 diabetes. Past medical history, family history, and personal and social histories reveal that SHE CANNOT TAKE STATINS AND MORPHINE. MEDICATIONS: She is on gabapentin 300 mg t.i.d., Vicodin 7.5 t.i.d. p.r.n., glimepiride 4 mg twice a day, losartan 50 mg once a day, Pepcid 20 mg once a day, oxybutynin ER 15 mg once a day, allopurinol 300 mg once a day, metformin 1 gram twice a day, Fiorinal q.4 hours p.r.n., pioglitazone 45 mg once a day, atenolol 50 mg once a day, colchicine 0.6 once a day, sertraline 100 mg once a day, KCl 20 mEq t.i.d., vitamin D3, and Ventolin inhaler. Past medical history, family history and social histories are otherwise unremarkable and are noncontributory. She has had a cholecystectomy and hysterectomy. She has also had a procedure on her knees and a bladder suspension. She used to smoke but has quit. PHYSICAL EXAMINATION: Blood pressure is 160/90 with a pulse of 100, respirations of 18 and temperature 97.2. Weight could not be obtained. Head, ears, eyes, nose, mouth, and throat were normal. Neck veins not distended. Thyroid is not enlarged. Chest is clear. Cardiac exam is normal. The abdomen is protuberant, soft. Right hip is quite irritable and minimal amount of movement in flexion and extension as well as internal and external rotation and she could not bear weight. Extremities: Otherwise normal. Neurologically she is intact. IMPRESSION: She is admitted to the hospital with diagnoses of: 1. Fracture of superior trochanter of the right femur. 2. Type 2 fks-wdctdip-pswflawvq diabetes mellitus. 3. Hypertension. 4. Cervical spondylosis. 5. Hypertension. 6. Mixed incontinence. 7. Obesity. PLAN: 1. Bed rest. 2. IV fluids. 3. Physical therapy. 4. Analgesics. 5. Discharge plan to either rehab or home with physical therapy. JOANNL / MILLA: [id number] /
[2019-09-06] MEDS ORDERED: GLIMEPIRIDE 4 MG TAB PO SCH (21:00)
[2019-09-06] MEDS ORDERED: OXYBUTYNIN 15 MG TAB.ER.24 PO SCH (21:00)
[2019-09-07] MEDS: LEVOTHYROXINE 50 MCG TAB PO SCH (05:54)
[2019-09-07] MEDS ORDERED: LEVOTHYROXINE 50 MCG TAB PO SCH (07:30)
[2019-09-07] MEDS: LISINOPRIL 20 MG TAB PO SCH (08:19)
[2019-09-07] MEDS: GABAPENTIN 300 MG CAP PO SCH ×3 (08:19→21:28)
[2019-09-07] MEDS: metFORMIN 500 MG TAB PO SCH ×2 (08:19→20:24)
[2019-09-07] MEDS: GLIMEPIRIDE 4 MG TAB PO SCH ×2 (08:19→20:24)
[2019-09-07] MEDS: CHOLECALCIFEROL 1,000 UNIT TAB PO SCH (08:19)
[2019-09-07] MEDS: SERTRALINE 100 MG TAB PO SCH (08:19)
[2019-09-07] MEDS: ALLOPURINOL 300 MG TAB PO SCH (08:20)
[2019-09-07] MEDS: PIOGLITAZONE 45 MG TAB PO SCH (08:20)
[2019-09-07] MEDS: HYDROcodone/APAP 7.5-325MG 1 EACH TAB PO PRN ×3 (08:20→23:32)
[2019-09-07] MEDS: ATENOLOL 50 MG TAB PO SCH (08:23)
[2019-09-07] MEDS ORDERED: ATENOLOL 50 MG TAB PO SCH (09:00)
[2019-09-07] MEDS ORDERED: BENAZEPRIL HCL 40 MG PO SCH (09:00)
[2019-09-07] MEDS ORDERED: PIOGLITAZONE 45 MG TAB PO SCH (09:00)
[2019-09-07] MEDS ORDERED: SERTRALINE 100 MG TAB PO SCH (09:00)
[2019-09-07] MEDS ORDERED: ALLOPURINOL 300 MG TAB PO SCH (09:00)
--- NOTE | 2019-09-07 14:24 | PN ---
PROGRESS NOTE CHIEF COMPLAINT: Inability to ambulate secondary to fracture of greater trochanter. HISTORY OF PRESENT ILLNESS: The patient is still having quite a bit of discomfort, but she is otherwise stable. She has no complaints other than hip pain. PHYSICAL EXAMINATION: Her chest is clear. Her cardiac exam is normal. Abdomen is soft and nontender. IMPRESSION: 1. Fractured right greater trochanter. 2. Hypertension. 3. Diabetes. PLAN: 1. Continue with physical therapy. 2. Await rehab placement. MMVICENTEL / BREONNAN: [id number] /
[2019-09-07 20:24] LABS: Glucose,Whole Blood 130 mg/dL (75-99)
[2019-09-07] MEDS: OXYBUTYNIN XL 5 MG TAB.ER.24 PO SCH (20:24)
[2019-09-08] MEDS: LEVOTHYROXINE 50 MCG TAB PO SCH (06:09)
[2019-09-08 06:41] LABS: Glucose,Whole Blood 58 mg/dL (75-99)
[2019-09-08 07:04] LABS: Glucose,Whole Blood 59 mg/dL (75-99)
[2019-09-08 07:25] LABS: Glucose,Whole Blood 73 mg/dL (75-99)
[2019-09-08 07:47] LABS: African American GFR (CKD) >90 (>60 ml/min/1.73 sqM); Anion Gap 6 mmol/L; Calcium 9.1 mg/dL (8.4-10.2); Carbon Dioxide 30 mmol/L (22-30); Chloride 101 mmol/L (98-107); Glucose 53 mg/dL (74-99); Magnesium 1.4 mg/dL (1.6-2.3); Non-African American GFR(CKD) 88 (>60 ml/min/1.73 sqM); Potassium 3.2 mmol/L (3.5-5.1); Sodium 137 mmol/L (137-145)
[2019-09-08 07:48] LABS: Blood Urea Nitrogen 18 mg/dL (7-17)
[2019-09-08] MEDS: GABAPENTIN 300 MG CAP PO SCH ×3 (08:22→22:35)
[2019-09-08] MEDS: ATENOLOL 50 MG TAB PO SCH (09:21)
[2019-09-08] MEDS: LISINOPRIL 20 MG TAB PO SCH (09:21)
[2019-09-08] MEDS: HYDROcodone/APAP 7.5-325MG 1 EACH TAB PO PRN ×2 (09:21→21:08)
[2019-09-08] MEDS: CHOLECALCIFEROL 1,000 UNIT TAB PO SCH (09:21)
[2019-09-08] MEDS: ALLOPURINOL 300 MG TAB PO SCH (09:22)
[2019-09-08] MEDS: SERTRALINE 100 MG TAB PO SCH (09:22)
[2019-09-08 11:36] LABS: Glucose,Whole Blood 166 mg/dL (75-99)
[2019-09-08] MEDS: GLIMEPIRIDE 4 MG TAB PO SCH ×2 (12:33→13:09)
[2019-09-08] MEDS: PIOGLITAZONE 45 MG TAB PO SCH (12:33)
[2019-09-08] MEDS: metFORMIN 500 MG TAB PO SCH ×2 (13:08→13:09)
[2019-09-08] MEDS ORDERED: Potassium Replacement Protocol 1 EACH MISC MISCELLANE PRN (16:24)
[2019-09-08] MEDS ORDERED: Magnesium Replacement Protocol 1 EACH MISC MISCELLANE PRN (16:25)
[2019-09-08 17:02] LABS: Glucose,Whole Blood 80 mg/dL (75-99)
--- NOTE | 2019-09-08 17:32 | PN ---
PROGRESS NOTE CHIEF COMPLAINT: Severe trochanteric fracture. HISTORY OF PRESENT ILLNESS: This lady is having quite a bit of discomfort in her left knee now for some reason. She also was found to have a low potassium, magnesium and this will be replaced. REVIEW OF SYSTEMS: She is otherwise doing fairly well except for the pain. PHYSICAL EXAMINATION: Chest is clear. Cardiac exam is normal. The abdomen is protuberant, soft. The left knee is hypertrophic and warm, but not erythematous. She is not tender. Her right knee is similarly enlarged and painful, but this has been replaced. IMPRESSION: 1. Fracture of the greater trochanter. 2. Acute arthritis of the left knee. 3. Hypokalemia. 4. Hypomagnesemia. PLAN: Replace magnesium and potassium and prepare for her to be discharged to retirement in the next day or so. MMODL / IJN: [id number] /
[2019-09-08] MEDS: POTASSIUM CHLORIDE ER 20 MEQ TAB.ER PO SCH ×2 (18:06→19:47)
[2019-09-08] MEDS: MAGNESIUM SULFATE-D5W PMX 1 GM in DEXTROSE/WATER 1 100ML.BAG IVPB SCH ×3 (19:05→22:28)
[2019-09-08 20:55] LABS: Glucose,Whole Blood 122 mg/dL (75-99)
[2019-09-08] MEDS: OXYBUTYNIN XL 5 MG TAB.ER.24 PO SCH (21:08)
[2019-09-09] MEDS: LEVOTHYROXINE 50 MCG TAB PO SCH (05:31)
[2019-09-09 07:00] LABS: Glucose,Whole Blood 105 mg/dL (75-99)
[2019-09-09] MEDS: LISINOPRIL 20 MG TAB PO SCH (10:19)
[2019-09-09] MEDS: GABAPENTIN 300 MG CAP PO SCH ×3 (10:19→20:23)
[2019-09-09] MEDS: CHOLECALCIFEROL 1,000 UNIT TAB PO SCH (10:19)
[2019-09-09] MEDS: HYDROcodone/APAP 7.5-325MG 1 EACH TAB PO PRN ×2 (10:19→17:57)
[2019-09-09] MEDS: SERTRALINE 100 MG TAB PO SCH (10:19)
[2019-09-09] MEDS: ALLOPURINOL 300 MG TAB PO SCH (10:19)
[2019-09-09] MEDS: ATENOLOL 50 MG TAB PO SCH (10:20)
[2019-09-09 11:26] LABS: Glucose,Whole Blood 140 mg/dL (75-99)
--- NOTE | 2019-09-09 15:59 | DS ---
DISCHARGE SUMMARY CHIEF COMPLAINT: Fall with injury to the right hip. HISTORY OF PRESENT ILLNESS AND PHYSICAL EXAMINATION: Details of this lady's history and physical can be found in the initial workup. LABORATORY STUDIES: While she was in the hospital she had laboratory studies, details of which can be found in the laboratory section of her chart. COURSE IN THE HOSPITAL: After admission she was placed on bedrest, started on intravenous fluids and started on physical therapy and analgesics. A bed was [facility] available at a detention for her on 09/09/2019, and she will be sent there for physical therapy and rehab. FINAL DIAGNOSES: 1. Superior trochanteric fracture on the right. 2. Essential hypertension. 3. Cervical spondylosis. OPERATIONS: None. CONSULTATIONS: None. She is improved. MMODL / IJN: [id number] /
[2019-09-09 16:22] LABS: Glucose,Whole Blood 111 mg/dL (75-99)
[2019-09-09] MEDS: OXYBUTYNIN XL 5 MG TAB.ER.24 PO SCH (20:23)
[2019-09-09 20:28] LABS: Glucose,Whole Blood 114 mg/dL (75-99)
[2019-09-10] MEDS: HYDROcodone/APAP 7.5-325MG 1 EACH TAB PO PRN (04:14)
[2019-09-10] MEDS: LEVOTHYROXINE 50 MCG TAB PO SCH (06:12)
[2019-09-10 07:06] LABS: Glucose,Whole Blood 109 mg/dL (75-99)
[2019-09-10 07:18] VITALS: BP 150/84; PULSE 60; RESP 18; TEMP 97.9
[2019-09-10] MEDS: ALLOPURINOL 300 MG TAB PO SCH (07:58)
[2019-09-10] MEDS: ATENOLOL 50 MG TAB PO SCH (07:58)
[2019-09-10] MEDS: CHOLECALCIFEROL 1,000 UNIT TAB PO SCH (07:58)
[2019-09-10] MEDS: LISINOPRIL 20 MG TAB PO SCH (07:58)
[2019-09-10] MEDS: GABAPENTIN 300 MG CAP PO SCH (07:58)
[2019-09-10] MEDS: SERTRALINE 100 MG TAB PO SCH (07:58)
[2019-09-10 11:32] LABS: Glucose,Whole Blood 128 mg/dL (75-99)
--- NOTE | 2019-09-11 14:33 | PN ---
PROGRESS NOTE DATE OF SERVICE: 09/10/2019 CHIEF COMPLAINT: Fracture of the right greater trochanter. HISTORY OF PRESENT ILLNESS: This lady was to have been discharged and transferred to [facility] yesterday. We sent in her schedule to drugs which were hydrocodone and gabapentin. For some reason, [facility] not [facility] and I was not notified. PHYSICAL EXAMINATION: Unchanged. Chest is clear. Cardiac exam is normal. Abdomen is soft, nontender. Right hip still irritable. IMPRESSION: Fracture of the right greater trochanter. PLAN: It is expected that she will go to [facility] today. MMODL / IJN: [id number] /
== END 2019-09-10 13:08 | DRG 536 ==
LOC: EC 18:13 → 4SSUR 21:29
PROVIDERS: ADMIT Family Medicine; ATTEND Family Medicine
DX: S72.111A Displaced fracture of greater trochanter of right femur, initial encounter for closed fracture (principal); E11.40 Type 2 diabetes mellitus with diabetic neuropathy, unspecified; E07.9 Disorder of thyroid, unspecified; E83.42 Hypomagnesemia; E87.6 Hypokalemia; M47.812 Spondylosis without myelopathy or radiculopathy, cervical region; M17.12 Unilateral primary osteoarthritis, left knee; I10 Essential (primary) hypertension; J44.9 Chronic obstructive pulmonary disease, unspecified; N39.46 Mixed incontinence; F32.9 Major depressive disorder, single episode, unspecified; K21.9 Gastro-esophageal reflux disease without esophagitis; E66.9 Obesity, unspecified; Z68.38 Body mass index [BMI] 38.0-38.9, adult; Z79.84 Long term (current) use of oral hypoglycemic drugs; Z79.890 Hormone replacement therapy; Z79.899 Other long term (current) drug therapy; Z91.81 History of falling; Z87.891 Personal history of nicotine dependence; Z85.828 Personal history of other malignant neoplasm of skin; Z90.710 Acquired absence of both cervix and uterus; Z96.651 Presence of right artificial knee joint; Z98.42 Cataract extraction status, left eye; Z98.41 Cataract extraction status, right eye; Z88.5 Allergy status to narcotic agent; Z88.8 Allergy status to other drugs, medicaments and biological substances; W06.XXXA Fall from bed, initial encounter; Y92.003 Bedroom of unspecified non-institutional (private) residence as the place of occurrence of the external cause; Z82.0 Family history of epilepsy and other diseases of the nervous system; Z82.49 Family history of ischemic heart disease and other diseases of the circulatory system
CPT/HCPCS: 71046; 72170; 80048; 80053; 81001; 82550; 83735; 84100; 84132; 85025; 87324; 93005; 96361; 96372; 96374; 99285

== ENCOUNTER 2019-09-18 15:05 | Observation (INO) | payer MEDICARE, OTHER ==
[2019-09-18] MEDS ORDERED: SODIUM CHLORIDE 0.9% 500 ML 500 ML IV STA (15:36)
--- NOTE | 2019-09-18 15:42 | ED ---
General Adult HPI - General Chief complaint: Upper Respiratory Infection Stated complaint: Fever, cough, sore throat Time Seen by Provider: 09/18/19 15:12 Source: patient Mode of arrival: EMS Limitations: no limitations - History of Present Illness Initial comments: Patient is 74-year-old female with history of COPD, diabetes and hypertension presenting to the emergency department with a chief complaint of cough fever and sore throat. Patient lived in a house until 10 days ago when she suffered a fall with a greater trochanteric chip fracture. She was admitted to the hospital and discharged 2 [facility]. Patient was brought to the ED via EMS from [facility] concern for Covid. Patient states there was a possible Covid patient in the facility where she lives but denies any direct contact with them. Patient reports a chronic dry cough and occasional shortness of breath at baseline. He is not reporting any significant changes over the last few days. States she does report feeling warm and chilly yesterday but never actually obtain a temperature. States she never reported the symptoms to the facility staff. States she also developed a sore throat, especially after attempting to clear her throat. States her mouth is dry. Denies any chest pain, back pain, abdominal pain, nausea vomiting or diarrhea. Denies any one- sided weakness or paresthesias. Denies loss of smell or taste. States she uses an inhaler at home for COPD but not supplemental oxygen. - Related Data Home Medications Medication Instructions Recorded Confirmed Allopurinol [Zyloprim] 300 mg PO DAILY@0800 09/27/14 09/18/19 Cholecalciferol [Vitamin D3 (25 1,000 unit PO DAILY@1700 09/27/14 09/18/19 Mcg = 1000 Iu)] Levothyroxine Sodium [Synthroid] 50 mcg PO DAILY@0600 09/27/14 09/18/19 Sertraline [Zoloft] 200 mg PO DAILY@0809/27/14 09/18/19 Albuterol Inhaler (Bulk) [Ventolin 1 - 2 puff INHALATION RT-QID PRN 09/28/14 09/18/19 Hfa Inhaler (Bulk)] Oxybutynin Chloride [Ditropan XL] 15 mg PO HS@2100 10/24/16 09/18/19 Atenolol [Tenormin] 50 mg PO DAILY@0800 05/25/18 09/18/19 HYDROcodone/APAP 7.5-325MG [[place] 1 tab PO TID PRN 05/25/18 09/18/19 7.5-325] Benazepril HCl 40 mg PO DAILY@0800 09/05/19 09/18/19 Gabapentin [Neurontin] 300 mg PO TID@0600,1400,2200 09/05/19 09/18/19 metFORMIN HCL [Glucophage] 1,000 mg PO BID@0800,1700 09/05/19 09/18/19 Bisacodyl [Dulcolax] 10 mg RECTAL DAILY PRN 09/18/19 09/18/19 Magnesium Hydroxide [Milk of 7,200 mg PO Q48H PRN 09/18/19 09/18/19 Magnesia Concentrate] Na Phos,M-B/Na Phos,Di-Ba [Fleet 133 ml RECTAL DAILY PRN 09/18/19 09/18/19 Adult] hydrOXYzine PAMOATE [Vistaril] 25 mg PO TID PRN 09/18/19 09/18/19 Allergies Allergy/AdvReac Type Severity Reaction Status Date / Time morphine AdvReac Nausea & Verified 09/18/19 16:01 Vomiting Hiaoreb-Owg-Rbl Reductase AdvReac STIFFNESS Verified 09/18/19 16:01 Inhibitor AND MUSCLE PAIN Review of Systems ROS Statement: Those systems with pertinent positive or pertinent negative responses have been documented in the HPI. ROS Other: All systems not noted in ROS Statement are negative. Past Medical History Past Medical History: Cancer, COPD, Diabetes Mellitus, GERD/Reflux, Hypertension, Thyroid Disorder Additional Past Medical History / Comment(s): NEUROPATHY-hands,feet. HX of falls ,SKIN CANCER, Multiple falls History of Any Multi-Drug Resistant Organisms: None Reported Past Surgical History: Back Surgery, Hysterectomy, Joint Replacement Additional Past Surgical History / Comment(s): RIGHT KNEE REPLACEMENT, cataract surgery- bilat Past Anesthesia/Blood Transfusion Reactions: No Reported Reaction Past Psychological History: Depression Smoking Status: Former smoker Past Alcohol Use History: None Reported Past Drug Use History: None Reported - Past Family History Mother Family Medical History: Dementia Additional Family Medical History / Comment(s): alzheimers Father Family Medical History: Myocardial Infarction ([place]) Additional Family Medical History / Comment(s): unknown General Exam Limitations: no limitations General appearance: alert, in no apparent distress, obese Head exam: Present: atraumatic, normocephalic, normal inspection Eye exam: Present: normal appearance, PERRL, EOMI Pupils: Present: normal accommodation ENT exam: Present: normal exam, normal oropharynx (Uvula midline. No tonsillar enlargement or exudates.), mucous membranes dry, TM's normal bilaterally, normal external ear exam Neck exam: Present: normal inspection, full ROM. Absent: lymphadenopathy Respiratory exam: Present: decreased breath sounds. Absent: wheezes, rales, rhonchi Cardiovascular Exam: Present: regular rate, normal rhythm, normal heart sounds Extremities exam: Present: normal inspection, full ROM, tenderness (Mild right hip pain due to a recent injury) Back exam: Present: normal inspection Neurological exam: Present: alert, oriented X3 Psychiatric exam: Present: normal affect, normal mood Skin exam: Present: warm, dry, intact, normal color Course Vital Signs 09/18/19 09/18/19 09/18/19 15:08 15:09 16:00 Temperature 99 F Pulse Rate 63 84 Respiratory 18 18 Rate Blood Pressure 125/58 125/58 O2 Sat by Pulse 97 95 94 L Oximetry 09/18/19 09/18/19 17:14 18:46 Temperature 99.1 F 99.2 F Pulse Rate 68 81 Respiratory 18 18 Rate Blood Pressure 139/85 138/79 O2 Sat by Pulse 99 97 Oximetry EKG Findings - EKG Comments: EKG Findings:: Sinus rhythm. Ventricular rate 65, TN 154, QRS 100, QTC 461 Medical Decision Making - Medical Decision Making Patient is 74-year-old female with history of diabetes, hypertension and COPD presenting to emergency Department with a chief complaint of cough and fever. Patient was sent to the ED from [facility] to rule out Covid. Patient states cough and shortness of breath at baseline secondary to her COPD. Patient does use an inhaler at home but no supplemental oxygen. Patient is currently not in any respiratory distress. Physical examination is unremarkable. Chest x-ray shows no acute processes. Patient did have elevated d-dimer. CT chest angiogram reveals no signs of a pulmonary embolism. Influenza negative. Patient will be admitted for further medical management and Covid rule out. Patient will be admitted. Case discussed with Dr. Hassan.Admitting physician is Dr Blair - Lab Data Result diagrams: 09/18/19 15:30 09/18/19 15:30 Lab Results 09/18/19 09/18/19 09/18/19 Range/Units 15:30 15:30 15:30 WBC 9.0 (3.8-10.6) k/uL RBC 4.31 (3.80-5.40) m/uL Hgb 12.9 (11.4-16.0) gm/dL Hct 38.3 (34.0-46.0) % MCV 88.9 (80.0-100.0) fL MCH 29.8 (25.0-35.0) pg MCHC 33.6 (31.0-37.0) g/dL RDW 14.8 (11.5-15.5) % Plt Count 129 L D (150-450) k/uL Neutrophils % 76 % Lymphocytes % 16 % Monocytes % 4 % Eosinophils % 1 % Basophils % 0 % Neutrophils # 6.8 (1.3-7.7) k/uL Lymphocytes # 1.5 (1.0-4.8) k/uL Monocytes # 0.4 (0-1.0) k/uL Eosinophils # 0.1 (0-0.7) k/uL Basophils # 0.0 (0-0.2) k/uL PT 10.8 (9.0-12.0) sec INR 1.1 (<1.2) APTT 24.1 (22.0-30.0) sec D-Dimer 1.07 H (<0.60) mg/L FEU Sodium 136 L (137-145) mmol/L Potassium 3.9 (3.5-5.1) mmol/L Chloride 98 (98-107) mmol/L Carbon Dioxide 26 (22-30) mmol/L Anion Gap 12 mmol/L BUN 22 H (7-17) mg/dL Creatinine 0.79 (0.52-1.04) mg/dL Est GFR (CKD-EPI)AfAm 85 (>60 ml/min/1.73 sqM) Est GFR (CKD-EPI)NonAf 74 (>60 ml/min/1.73 sqM) Glucose 154 H (74-99) mg/dL Plasma Lactic Acid Joe (0.7-2.0) mmol/L Calcium 9.9 (8.4-10.2) mg/dL Total Bilirubin 0.9 (0.2-1.3) mg/dL AST 24 (14-36) U/L ALT 11 (4-34) U/L Alkaline Phosphatase 105 (38-126) U/L Troponin I (0.000-0.034) ng/mL Total Protein 7.3 (6.3-8.2) g/dL Albumin 4.0 (3.5-5.0) g/dL Influenza Type A RNA (Not Detectd) Influenza Type B (PCR) (Not Detectd) 09/18/19 09/18/19 09/18/19 Range/Units 15:30 15:30 17:03 WBC (3.8-10.6) k/uL RBC (3.80-5.40) m/uL Hgb (11.4-16.0) gm/dL Hct (34.0-46.0) % MCV (80.0-100.0) fL MCH (25.0-35.0) pg MCHC (31.0-37.0) g/dL RDW (11.5-15.5) % Plt Count (150-450) k/uL Neutrophils % % Lymphocytes % % Monocytes % % Eosinophils % % Basophils % % Neutrophils # (1.3-7.7) k/uL Lymphocytes # (1.0-4.8) k/uL Monocytes # (0-1.0) k/uL Eosinophils # (0-0.7) k/uL Basophils # (0-0.2) k/uL PT (9.0-12.0) sec INR (<1.2) APTT (22.0-30.0) sec D-Dimer (<0.60) mg/L FEU Sodium (137-145) mmol/L Potassium (3.5-5.1) mmol/L Chloride (98-107) mmol/L Carbon Dioxide (22-30) mmol/L Anion Gap mmol/L BUN (7-17) mg/dL Creatinine (0.52-1.04) mg/dL Est GFR (CKD-EPI)AfAm (>60 ml/min/1.73 sqM) Est GFR (CKD-EPI)NonAf (>60 ml/min/1.73 sqM) Glucose (74-99) mg/dL Plasma Lactic Acid Joe 2.0 (0.7-2.0) mmol/L Calcium (8.4-10.2) mg/dL Total Bilirubin (0.2-1.3) mg/dL AST (14-36) U/L ALT (4-34) U/L Alkaline Phosphatase (38-126) U/L Troponin I <0.012 (0.000-0.034) ng/mL Total Protein (6.3-8.2) g/dL Albumin (3.5-5.0) g/dL Influenza Type A RNA Not Detected (Not Detectd) Influenza Type B (PCR) Not Detected (Not Detectd) Disposition Clinical Impression: COPD exacerbation Disposition: ADMITTED IP TO THIS HOSP Condition: Good Is patient prescribed a controlled substance at d/c from ED?: No Time of Disposition: 22:28
[2019-09-18 16:04] LABS: Basophils % (A) 0 %; Eosinophils # (A) 0.1 k/uL (0-0.7); Eosinophils % (A) 1 %; HCT 38.3 % (34.0-46.0); HGB 12.9 gm/dL (11.4-16.0); Lymphocytes # (A) 1.5 k/uL (1.0-4.8); Lymphocytes % (A) 16 %; MCH 29.8 pg (25.0-35.0); MCHC 33.6 g/dL (31.0-37.0); MCV 88.9 fL (80.0-100.0); Mean Platelet Volume 10.8; Monocytes # (A) 0.4 k/uL (0-1.0); Monocytes % (A) 4 %; Neutrophils # (A) 6.8 k/uL (1.3-7.7); Neutrophils % (A) 76 %; RBC 4.31 m/uL (3.80-5.40); RDW 14.8 % (11.5-15.5)
[2019-09-18] MEDS ORDERED: HYDROcodone/APAP 7.5-325MG 1 EACH TAB PO ONE (16:05)
--- NOTE | 2019-09-18 16:10 | XR ---
EXAMINATION TYPE: XR chest 1V portable DATE OF EXAM: 09/18/2019 COMPARISON: 09/05/2019 INDICATION: Cough sore throat fever TECHNIQUE: Single frontal view of the chest is obtained. FINDINGS: The heart size is normal. The pulmonary vasculature is normal. The lungs are clear. No suspicious infiltrates are evident. Exam stable from comparison. IMPRESSION: 1. No acute pulmonary process.
[2019-09-18 16:14] LABS: Calcium 9.9 mg/dL (8.4-10.2); Potassium 3.9 mmol/L (3.5-5.1); Total Bilirubin 0.9 mg/dL (0.2-1.3); Total Protein 7.3 g/dL (6.3-8.2)
[2019-09-18 16:20] LABS: Platelet Count 129 k/uL (150-450)
[2019-09-18 16:29] LABS: INR 1.1 (<1.2); Partial Thromboplastin Time 24.1 sec (22.0-30.0); Prothrombin Time 10.8 sec (9.0-12.0)
[2019-09-18 16:30] LABS: D-Dimer 1.07 mg/L FEU (<0.60)
[2019-09-18] MEDS ORDERED: SODIUM CHLORIDE 0.9% 1,000 ML IV STA (16:46)
--- NOTE | 2019-09-18 17:33 | CT ---
CT CHEST FOR PULMONARY EMBOLISM. EXAMINATION TYPE: CT chest angio for PE DATE OF EXAM: 09/18/2019 INDICATION: Positive d-dimer. CT DLP: 778 mGycm, Automated exposure control for dose reduction was used. CONTRAST: Patient injected with 100 mL of Isovue 370. COMPARISON: None TECHNIQUE: CT of the chest is performed on a spiral scan at 2 mm thick sections. Study is performed with intravenous contrast timed for evaluation for pulmonary embolism. This will limit additional po rtions of the evaluation. 3-D MIP images reconstructed by the technologist are reviewed on the compu ter in the coronal and sagittal planes. FINDINGS: No persistent filling defects are evident to suggest an acute pulmonary embolism. No mediastinal or hilar adenopathy enlarged by CT criteria is evident. The ascending aorta diameter at the level of the main pulmonary artery is 3.2 cm. The main pulmonary artery diameter at the bifur cation is 2.7 cm. Some very minimal compressive atelectasis is at the left lung base. 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 Calcified granuloma are present. This would include a 0.5 cm posterior left midlung granuloma. Image 74. Punctate nodularity is at the right apex measuring 0.3 cm. Image 22. Mild to moderate emphysematous changes are evident. Limited CT section through the upper abdomen are unremarkable. IMPRESSIONS: 1. No acute pulmonary embolism. 2. 0.3 cm lateral right apical nodule. 3. Calcified granuloma posterior lateral left midlung. 4. COPD.
[2019-09-18] MEDS ORDERED: GABAPENTIN 300 MG CAP PO STA (17:37)
[2019-09-18] MEDS ORDERED: HYDROmorphone 0.5 MG/0.5 ML SYRINGE IVP PRN (18:18)
[2019-09-18] MEDS ORDERED: ONDANSETRON 4 MG/2 ML VIAL IVP PRN (18:18)
[2019-09-18] MEDS ORDERED: NALOXONE 0.4 MG/ML 1 ML VIAL IV PRN (18:18)
[2019-09-18] MEDS ORDERED: ALPRAZolam 0.25 MG TAB PO PRN (18:18)
[2019-09-18] MEDS ORDERED: HYDROcodone/APAP 5-325MG 1 EACH TAB PO PRN (18:18)
[2019-09-18] MEDS ORDERED: LORazepam 2 MG/ML INJ IV PRN (18:18)
[2019-09-18] MEDS ORDERED: SODIUM CHLORIDE 0.9% 1,000 ML IV SCH (18:30)
[2019-09-18 19:57] LABS: Glucose,Whole Blood 110 mg/dL (75-99)
[2019-09-18] MEDS ORDERED: hydrOXYzine PAMOATE 25 MG CAP PO PRN (20:27)
[2019-09-18] MEDS ORDERED: HYDROcodone/APAP 7.5-325MG 1 EACH TAB PO PRN (20:31)
[2019-09-18] MEDS ORDERED: OXYBUTYNIN 15 MG TAB.ER.24 PO SCH (21:00)
[2019-09-18] MEDS: GABAPENTIN 300 MG CAP PO SCH (22:01)
[2019-09-18] MEDS: oxyCODONE-APAP 5-325MG 1 EACH TAB PO PRN (23:37)
[2019-09-19] MEDS: GABAPENTIN 300 MG CAP PO SCH (05:40)
[2019-09-19] MEDS ORDERED: LEVOTHYROXINE 50 MCG TAB PO SCH (06:00)
[2019-09-19 07:51] VITALS: PULSE 51
[2019-09-19] MEDS ORDERED: ALLOPURINOL 300 MG TAB PO SCH (08:00)
[2019-09-19] MEDS ORDERED: ATENOLOL 50 MG TAB PO SCH (08:00)
[2019-09-19] MEDS ORDERED: SERTRALINE 100 MG TAB PO SCH (08:00)
[2019-09-19] MEDS ORDERED: metFORMIN 500 MG TAB PO SCH (08:00)
[2019-09-19] MEDS ORDERED: LISINOPRIL 20 MG TAB PO SCH (08:00)
[2019-09-19] MEDS: oxyCODONE-APAP 5-325MG 1 EACH TAB PO PRN (09:34)
[2019-09-19] MEDS ORDERED: MAGNESIUM HYDROXIDE 2,400 MG/10 ML CUP PO PRN (11:12)
[2019-09-19] MEDS ORDERED: NA PHOS,M-B/NA PHOS,DI-BA 133 ML ENEMA RECTAL PRN (11:12)
[2019-09-19 11:18] VITALS: BP 108/69; RESP 18; TEMP 98
[2019-09-19] MEDS ORDERED: BENZOCAINE/MENTHOL LOZENG 1 EACH LOZENGE MUCOUS MEM PRN (11:56)
--- NOTE | 2019-09-19 15:36 | HP ---
HISTORY AND PHYSICAL DATE OF SERVICE: 09/18/2019 CHIEF COMPLAINT: Low-grade fever and dry cough. HISTORY OF PRESENT ILLNESS: This lady is transferred from [facility] where she reported that she had a dry cough and she had a temperature just over 99. I was called regarding this to ask me what I thought should be done, an I sent an order over for COVID-19 testing. Several hours later, I received a call from the snf asking me, "what do you want to do." Since the caregivers non medical had ordered a urine, chest x-ray, and influenza A and B swabs. The swabs are negative. I suggested that given the patient's symptoms and being in the snf with a surrounding coronavirus epidemic, that she still should be tested and/or "quarantined." custodial reported that they were unable to quarantine the patient. I insisted that the patient to be tested under the circumstances and they agreed to send her to the hospital. At that time, the individualized I was talking to said that "she would be sent to the hospital for testing and admitted." I suggested that she did not need to be admitted and should be quarantined until the results of the tests are obtained, which is currently taking 2-3 days. Patient went to the hospital. Later that evening, I got a call from the emergency room about situation. The emergency room doctor brought it to the attention of his director. I was also told that the snf would not take the patient back. It is apparent that the snf does not have a policy or procedure as to how to handle patients with possible COVID-19. REVIEW OF SYSTEMS: She has had no headache, myalgias, sputum production, pharyngitis, rhinitis or coryza, etc. She has had no nausea, vomiting, or diarrhea. Past medical history, family history, personal and social histories are all otherwise unremarkable and unchanged from recent admitting and discharge summary. Patient was in the hospital for chip fracture of the right greater trochanter for which she was getting physical therapy and rehab in the snf. PHYSICAL EXAMINATION: Blood pressure is 136/64 with a pulse of 69, respirations of 15 and temperature is 99.2. General description she appeared to be well developed, well nourished, in no acute distress. Skin color is normal, skin is warm, dry. Lymph nodes not enlarged. Head, ears, eyes, nose, mouth, and throat were normal. Neck veins are not distended. Thyroid is not enlarged. Chest is clear. No rales or rhonchi. Cardiac exam demonstrates normal sinus rhythm and no murmurs or extra sounds. The abdomen is soft and slightly protuberant. There are no masses or visceromegaly. Bowel sounds are present. Extremities are normal. Neurologically, she is intact. She is admitted to the hospital with diagnoses: 1. Viral URI and bronchitis. 2. Fracture of the right greater trochanter. 3. Hypertension. 4. Type 2 diabetes mellitus. PLAN: 1. Bed rest. 2. COVID-19 testing. 3. Consult with Strategic Debriefing Specialist and discharge planning. MMODL / IJN: [id number] /
--- NOTE | 2019-09-19 15:51 | DS ---
DISCHARGE SUMMARY CHIEF COMPLAINT: Low-grade fever and cough. HISTORY OF PRESENT ILLNESS AND PHYSICAL EXAM: Details of this lady's history and physical can be found in the initial workup. LABORATORY STUDIES: While she was in a hospital, she had laboratory studies, details of which can be found in the laboratory section of her chart. COURSE IN HOSPITAL: After admission, she was placed on bedrest, started on IV fluids, her usual diet and medications. She did well and she had no problems. The following day, her COVID-19 test came back negative and she was transferred back to [facility] for continued rehab. FINAL DIAGNOSES: 1. Viral upper respiratory infection and bronchitis. 2. Hypertension. 3. Type 2 NIDDM. 4. Obesity. 5. Chip fracture of the right greater trochanter. OPERATIONS: None. CONSULTATION: None. She is improved. CARLA / MILLA: [id number] /
[2019-09-19] MEDS ORDERED: CHOLECALCIFEROL 1,000 UNIT TAB PO SCH (17:00)
--- NOTE | 2019-09-19 18:12 | PN ---
PROGRESS NOTE DATE OF SERVICE: 09/19/2019 CHIEF COMPLAINT: Viral URI and bronchitis. HISTORY OF PRESENT ILLNESS: This lady is doing well. She has had no headache, myalgias, fever, chills, etc. PHYSICAL EXAMINATION: Color is good. Chest is clear. Cardiac exam is normal. Abdomen is soft, nontender. Patient is afebrile. IMPRESSION: 1. Viral upper respiratory tract infection and bronchitis. 2. Diabetes. 3. Fracture of the right greater trochanter. 4. Hypertension. PLAN: I had a discussion with the patient as to whether or not she thought that she would be able to go home. She does live alone but she has a son who is close by. She has been in rehab for about a week or 10 days and she does feel that she could go home. This would be the most appropriate management of her case. She could be home, quarantined until the results of the COVID-19 test came back which should probably be just another day or two. [facility] will not take her back until her test is negative. I discussed this with Senior Compliance Analyst and, for the time being, she will stay in the hospital until we receive a negative test. This case was also discussed with Dr. Cazares and Dr. Jefferson. MMODL / IJN: [id number] /
== END 2019-09-19 15:50 ==
LOC: EC 15:05 → 4SSUR 18:28
PROVIDERS: ADMIT Family Medicine; ATTEND Family Medicine
DX: J44.1 Chronic obstructive pulmonary disease with (acute) exacerbation (principal); J06.9 Acute upper respiratory infection, unspecified; Z03.818 Encounter for observation for suspected exposure to other biological agents ruled out; I10 Essential (primary) hypertension; E66.9 Obesity, unspecified; Z68.37 Body mass index [BMI] 37.0-37.9, adult; R50.9 Fever, unspecified; S72.111D Displaced fracture of greater trochanter of right femur, subsequent encounter for closed fracture with routine healing; R79.89 Other specified abnormal findings of blood chemistry; E07.9 Disorder of thyroid, unspecified; K21.9 Gastro-esophageal reflux disease without esophagitis; E11.40 Type 2 diabetes mellitus with diabetic neuropathy, unspecified; F32.9 Major depressive disorder, single episode, unspecified; Z79.84 Long term (current) use of oral hypoglycemic drugs; Z79.899 Other long term (current) drug therapy; Z79.890 Hormone replacement therapy; Z79.891 Long term (current) use of opiate analgesic; Z88.5 Allergy status to narcotic agent; Z88.8 Allergy status to other drugs, medicaments and biological substances; Z91.81 History of falling; Z85.828 Personal history of other malignant neoplasm of skin; R29.6 Repeated falls; Z87.891 Personal history of nicotine dependence; Z96.651 Presence of right artificial knee joint; Z90.710 Acquired absence of both cervix and uterus; Z82.0 Family history of epilepsy and other diseases of the nervous system; Z82.49 Family history of ischemic heart disease and other diseases of the circulatory system; Z81.8 Family history of other mental and behavioral disorders
CPT/HCPCS: 96360; 96361; 99285; 36415 ×2; 93005; 97162; 97166; 85379; 80053; 83605; 84484; 85025; 85610; 85730; 87040; 87502; 71045; 71275; G0378 ×2; U0002; Q9967

== ENCOUNTER 2020-02-15 03:39 | Emergency (ER) | payer MEDICARE, OTHER ==
[2020-02-15 03:44] VITALS: RESP 18; TEMP 99.5
[2020-02-15] MEDS ORDERED: HYDROcodone/APAP 5-325MG 1 EACH TAB PO STA (03:52)
[2020-02-15] MEDS ORDERED: KETOROLAC 15 MG/ML 1 ML VIAL IM STA (03:52)
--- NOTE | 2020-02-15 04:04 | ED ---
Neck Injury/Pain HPI - General Chief Complaint: Neck Pain/Injury Stated Complaint: Neck pain Time Seen by Provider: 02/15/20 03:43 Source: RN notes reviewed, old records reviewed Mode of arrival: EMS Limitations: no limitations - History of Present Illness Initial Comments: This is a 74-year-old female DF she presents today for evaluation of neck pain a cute on chronic back pain with history of neck surgery patient admits increased stress lately she does have a febrile for sister plan for today. Unable to sleep secondary to pain, patient's pain is unrelated any trauma no fevers. No neurological complaints MD Complaint: neck pain, neck injury -: hour(s) Place: home Radiation: left lateral, left shoulder Severity: moderate Quality: aching Consistency: constant Improves With: none Worsens With: none Associated Symptoms: none Treatments Prior to Arrival: none - Related Data Home Medications Medication Instructions Recorded Confirmed Cholecalciferol [Vitamin D3 (25 1,000 unit PO DAILY@1700 09/27/14 09/18/19 Mcg = 1000 Iu)] Levothyroxine Sodium [Synthroid] 50 mcg PO DAILY@0600 09/27/14 09/18/19 Sertraline [Zoloft] 200 mg PO DAILY@0800 09/27/14 09/18/19 allopurinoL [Zyloprim] 300 mg PO DAILY@0800 09/27/14 09/18/19 Albuterol Inhaler (Mhu) [Ventolin 1 - 2 puff INHALATION RT-QID PRN 09/28/14 09/18/19 Hfa Inhaler (Mhu)] Oxybutynin Chloride [Ditropan XL] 15 mg PO HS@2100 10/24/16 09/18/19 HYDROcodone/APAP 7.5-325MG [[place] 1 tab PO TID PRN 05/25/18 09/18/19 7.5-325] atenoloL [Tenormin] 50 mg PO DAILY@0800 05/25/18 09/18/19 Benazepril HCl 40 mg PO DAILY@0800 09/05/19 09/18/19 Gabapentin [Neurontin] 300 mg PO TID@0600,1400,2200 09/05/19 09/18/19 metFORMIN HCL [Glucophage] 1,000 mg PO BID@0800,1700 09/05/19 09/18/19 Magnesium Hydroxide [Milk of 7,200 mg PO Q48H PRN 09/18/19 09/18/19 Magnesia Concentrate] Na Phos,M-B/Na Phos,Di-Ba [Fleet 133 ml RECTAL DAILY PRN 09/18/19 09/18/19 Adult] bisacodyL [Dulcolax] 10 mg RECTAL DAILY PRN 09/18/19 09/18/19 hydrOXYzine pamoate [Vistaril] 25 mg PO TID PRN 09/18/19 09/18/19 Allergies Allergy/AdvReac Type Severity Reaction Status Date / Time morphine AdvReac Nausea & Verified 09/18/19 16:01 Vomiting Hhgcwkf-Nwd-Gnn Reductase AdvReac STIFFNESS Verified 09/18/19 16:01 Inhibitor AND MUSCLE PAIN Review of Systems ROS Statement: Those systems with pertinent positive or pertinent negative responses have been documented in the HPI. ROS Other: All systems not noted in ROS Statement are negative. Past Medical History Past Medical History: Cancer, COPD, Diabetes Mellitus, GERD/Reflux, Hypertension, Thyroid Disorder Additional Past Medical History / Comment(s): NEUROPATHY-hands,feet. HX of falls,SKIN CANCER, Multiple falls History of Any Multi-Drug Resistant Organisms: None Reported Past Surgical History: Back Surgery, Hysterectomy, Joint Replacement Additional Past Surgical History / Comment(s): RIGHT KNEE REPLACEMENT, cataract surgery- bilat Past Anesthesia/Blood Transfusion Reactions: No Reported Reaction Past Psychological History: Depression Smoking Status: Former smoker Past Alcohol Use History: None Reported Past Drug Use History: None Reported - Past Family History Mother Family Medical History: Dementia Additional Family Medical History / Comment(s): alzheimers Father Family Medical History: Myocardial Infarction ([place]) Additional Family Medical History / Comment(s): unknown General Exam Limitations: no limitations General appearance: alert, in no apparent distress Head exam: Present: atraumatic, normocephalic, normal inspection Eye exam: Present: normal appearance, PERRL, EOMI. Absent: scleral icterus, conjunctival injection, periorbital swelling ENT exam: Present: normal exam, mucous membranes moist Neck exam: Present: normal inspection. Absent: tenderness, meningismus, lymphadenopathy Respiratory exam: Present: normal lung sounds bilaterally. Absent: respiratory distress, wheezes, rales, rhonchi, stridor Cardiovascular Exam: Present: regular rate, normal rhythm, normal heart sounds. Absent: systolic murmur, diastolic murmur, rubs, gallop, clicks GI/Abdominal exam: Present: soft, normal bowel sounds. Absent: distended, tenderness, guarding, rebound, rigid Extremities exam: Present: normal inspection, full ROM, normal capillary refill. Absent: tenderness, pedal edema, joint swelling, calf tenderness Back exam: Present: normal inspection Neurological exam: Present: alert, oriented X3, CN II-XII intact Psychiatric exam: Present: normal affect, normal mood Skin exam: Present: warm, dry, intact, normal color. Absent: rash Course Vital Signs 02/15/20 02/15/20 03:40 04:53 Temperature 99.5 F Pulse Rate 81 85 Respiratory 18 18 Rate Blood Pressure 139/79 124/64 O2 Sat by Pulse 89 L 94 L Oximetry - Reevaluation(s) Reevaluation #1: medical record is reviewed Patient feeling better here in the ER Patient informed of results, questions are answered Patient feels improved and okay for discharge home Medical Decision Making - Medical Decision Making 74 female to the ER for evaluation of neck pain her Neck pain is now improved, patient can be discharged home - EKG Data -: EKG Interpreted by Me (EKG is sinus rhythm 74 [place] 142 QRS 100 QTc 444) - Radiology Data Radiology results: report reviewed (CT cervical spine is negative for acute disease), image reviewed Disposition Clinical Impression: Strain of neck muscle, Chronic neck pain Disposition: HOME SELF-CARE Condition: Good Instructions (If sedation given, give patient instructions): Neck Pain (ED) Is patient prescribed a controlled substance at d/c from ED?: No Referrals: Adi Park MD [Primary Care Provider] - 1-2 days
--- NOTE | 2020-02-15 04:32 | CT ---
EXAMINATION TYPE: CT cervical spine wo con DATE OF EXAM: 02/15/2020 COMPARISON: 04/10/2019 HISTORY: Left Side Neck Pain CT DLP: 547.00 mGycm Automated exposure control for dose reduction was used. Images were obtained from the skull base to T1 vertebra without contrast. There is plate with screws fusing anteriorly the cervical spine from C5 to C7. Vertebra have fairly n ormal alignment. There is mild hypertrophic facet arthropathy throughout the cervical spine. There is no evidence of a fracture. The skull base is intact. Prevertebral soft tissues are intact. Odontoid process appears normal. I see no focal bone destruction. There is anterior spurring at C4-5. IMPRESSION: Previous fusion surgery. No acute abnormality of the cervical spine. Degenerative hypertrophic facet arthropathy. Cervical spine unchanged compared to old exam.
[2020-02-15] MEDS ORDERED: traMADol 50 MG STARTER PACK 3 TAB BTL PO STA (04:38)
[2020-02-15 04:53] VITALS: BP 124/64; PULSE 85
== END 2020-02-15 05:38 | disposition home or self-care (01) ==
LOC: EC 03:39
DX: S16.1XXA Strain of muscle, fascia and tendon at neck level, initial encounter (principal); E11.40 Type 2 diabetes mellitus with diabetic neuropathy, unspecified; I10 Essential (primary) hypertension; J44.9 Chronic obstructive pulmonary disease, unspecified; E07.9 Disorder of thyroid, unspecified; F32.9 Major depressive disorder, single episode, unspecified; Z79.84 Long term (current) use of oral hypoglycemic drugs; Z79.899 Other long term (current) drug therapy; Z79.890 Hormone replacement therapy; Z88.5 Allergy status to narcotic agent; Z88.8 Allergy status to other drugs, medicaments and biological substances; Z98.890 Other specified postprocedural states; Z85.828 Personal history of other malignant neoplasm of skin; Z87.891 Personal history of nicotine dependence; Z96.651 Presence of right artificial knee joint; X58.XXXA Exposure to other specified factors, initial encounter
CPT/HCPCS: 93005; 72125; 99284; 96372; J1885

== ENCOUNTER 2020-10-15 08:36 | Day surgery (SDC) | payer MEDICARE, OTHER ==
[2020-10-14 11:55] VITALS: BMI 36.3
[~2020-10-15 08:36] MED LIST changes: -DEXAMETHASONE SOD PHOSPHATE 10 MG/ML 1 ML VIAL IV ONE; +DEXAMETHASONE SOD PHOSPHATE 4 MG/ML 1 ML VIAL IV PRN; -FAMOTIDINE 20 MG/2 ML VIAL IV ONE; +FAMOTIDINE 20 MG/2 ML VIAL IV PRN; +HYDROmorphone 0.5 MG/0.5 ML SYRINGE IVP PRN; -ONDANSETRON ODT 4 MG TAB PO ONE; -ceFAZolin IN SWFI 2 GM/20 ML SYRINGE IVP ONE; -fentaNYL (PF) 50 MCG/ML 2 ML AMP IV PRN
[2020-10-15] MEDS ORDERED: LIDOCAINE 1% (10MG/ML) FOR IV START INTRADERMA ONE (09:25)
[2020-10-15 09:35] LABS: Glucose,Whole Blood 169 mg/dL (75-99)
[2020-10-15] MEDS ORDERED: MIDAZOLAM 2 MG/2 ML VIAL ONE (10:01)
[2020-10-15] MEDS ORDERED: ePHEDrine SULFATE/0.9% NACL/PF 50 MG/5 ML SYRINGE IV ONE (10:01)
[2020-10-15] MEDS ORDERED: PROPOFOL 10 MG/ML 20 ML VIAL IV ONE (10:01)
[2020-10-15] MEDS ORDERED: SUCCINYLCHOLINE CHLORIDE 100 MG/5 ML SYR IV ONE (10:01)
[2020-10-15] MEDS ORDERED: LIDOCAINE 1% INJ 10MG/ML (20 ML MDV) ONE (10:01)
[2020-10-15] MEDS ORDERED: fentaNYL (PF) 50 MCG/ML 2 ML AMP ONE (10:01)
[2020-10-15] MEDS ORDERED: LIDOCAINE 1%-EPI 1:100,000 20 ML VIAL SUBMUCOSAL ONE ×2 (10:24)
[2020-10-15 11:10] VITALS: TEMP 97.3
[2020-10-15] MEDS ORDERED: LACTATED RINGERS 1,000 ML IV ONE ×2 (11:10)
--- NOTE | 2020-10-15 11:11 | P.OP ---
Date of Procedure: 10/15/20 Preoperative Diagnosis: 2.6 cm right lower lip ulcer, 2.1 cm right lower mandibular ulcer and 2.2 cm left lower mandibulare ulcerative lesion, non healing Postoperative Diagnosis: same Procedure(s) Performed: Excision 2.6 cm x 1 cmright lip ulcer with bilateral advancement flap secondary flap 5.2 cm x 2 cm Excision of a 2.1 cm right lower mandibular ulcer with complex closure Excision of a 2.2 cm left lower mandibular ulcer with complex closure Anesthesia: GETA Surgeon: Damian Nix Estimated Blood Loss (ml): 5 Pathology: other (as above) Condition: stable Disposition: PACU Indications for Procedure: This patient has a nonhealing ulcerative the right lower lip right posterior mandible and left posterior mandible. These ulcers have not healed and surgical removal for biopsy purposes is recommended Operative Findings: 3 nonhealing ulcers right lower lip bilateral mandible Description of Procedure: This patient was taken to the operative room and placed in the supine position a general inhalation anesthetic was administered to the patient by mask and subsequently intubated with a cuffed endotracheal tube by the department of anesthesia with a functioning IV line in place. The patient was monitored th roughout the entire case by the department of anesthesia. The right lower lip was found have a large ulcer measuring 2.6 x 1 cm we anesthetized and then excised this with a 15 blade delicate plastic scissors and a Brown-Adson forceps. The defect caused a puckering of the lip so therefore we elevated a lateral and medial advancement flap following the orbicularis abdi muscle underneath the minor salivary glands we elevated the flap rotated in position and close this in the usual fashion utilizing a 4 rapid Vicryl. We did removed purvi's triangles for closure of the flap rotated nicely the secondary defect measured 5.2 x 2 cm and the flaps were closed and the defect was filled. Attention was then paid to a 2.1 cm x 1 cm right lower mandibular ulcer a 2.2 x 1 cm left lower mandibular ulcer we excised disease with a 15 blade and undermined them in all directions we closed them with a 4-0 Monocryl deeply 4-0 Monocryl in the mid and superficial mucosal layer and the final closure was with the use of a 50 rapid Vicryl in a running nonlocking fashion excellent approximation was obtained the patient tolerated this well follow-up will be in the office in one week the patient is to contact me if any problems should arise.
[2020-10-15 11:54] LABS: Glucose,Whole Blood 190 mg/dL (75-99)
[2020-10-15 13:19] VITALS: BP 127/80; PULSE 79; RESP 16
== END 2020-10-15 13:00 | disposition home or self-care (01) ==
LOC: OR 08:36
PROVIDERS: ATTEND Otolaryngology
DX: L98.499 Non-pressure chronic ulcer of skin of other sites with unspecified severity (principal); K13.0 Diseases of lips; R23.4 Changes in skin texture; Z88.5 Allergy status to narcotic agent; K21.9 Gastro-esophageal reflux disease without esophagitis; M19.90 Unspecified osteoarthritis, unspecified site; J44.9 Chronic obstructive pulmonary disease, unspecified; E11.9 Type 2 diabetes mellitus without complications; I10 Essential (primary) hypertension; E07.9 Disorder of thyroid, unspecified; F32.9 Major depressive disorder, single episode, unspecified; Z82.49 Family history of ischemic heart disease and other diseases of the circulatory system; Z87.891 Personal history of nicotine dependence; Z96.659 Presence of unspecified artificial knee joint; Z88.8 Allergy status to other drugs, medicaments and biological substances; Z85.828 Personal history of other malignant neoplasm of skin; Z79.890 Hormone replacement therapy; Z79.899 Other long term (current) drug therapy
CPT/HCPCS: 14061; 11443 ×2; 13132; J2250; J1100; J2405; J0690; J2001; J3010; J0330; J2704; 88305; 88312

== ENCOUNTER 2020-12-24 17:25 | Emergency (ER) | payer MEDICARE, OTHER ==
[2020-12-24 17:54] VITALS: TEMP 98.4
--- NOTE | 2020-12-24 18:50 | CT ---
EXAMINATION TYPE: CT brain wo con DATE OF EXAM: 12/24/2020 HISTORY: Fall injury with headache. CT DLP: 1099.4 mGycm. Automated Exposure Control for Dose Reduction was Utilized. TECHNIQUE: CT scan of the head is performed without contrast. COMPARISON: CT brain April 10, 2019. FINDINGS: There is no acute intracranial hemorrhage or midline shift identified. There is mild diff use ventricular and sulcal prominence consistent with diffuse cerebral atrophy greatest over bilatera l frontal and temporal lobes. There is moderate low-attenuation in the periventricular white matter consistent with chronic small vessel ischemic change. The globes are intact and the visualized sinus es are clear. IMPRESSION: No acute intracranial hemorrhage or midline shift. There is mild diffuse cerebral atrop hy and moderate chronic small vessel ischemic change redemonstrated. No significant change from prio r.
--- NOTE | 2020-12-24 19:23 | XR ---
EXAMINATION TYPE: XR elbow complete bilateral DATE OF EXAM: 12/24/2020 CLINICAL HISTORY: Pain after football injury. TECHNIQUE: Frontal, lateral and oblique images of the bilateral elbows are obtained. COMPARISON: Prior right elbow x-ray May 25, 2018 FINDINGS: There is no acute fracture/dislocation evident in either elbow. No abnormal fat pad signs are seen bilaterally. Moderate spurring from the medial epicondyles of the distal humeri bilaterally is seen. There is additional spur from the olecranon and distal triceps tendon attachment on the rig ht redemonstrated. The overlying soft tissue appears unremarkable bilaterally. IMPRESSION: There is no acute fracture or dislocation in either elbow.
--- NOTE | 2020-12-24 19:56 | ED ---
Fall HPI - General Source: patient, RN notes reviewed Mode of arrival: ambulatory <Kiel Mcintosh - Last Filed: 12/24/20 20:03> <Phil Kraft - Last Filed: 12/24/20 20:08> - General Chief Complaint: Fall Stated Complaint: Fall Time Seen by Provider: 12/24/20 18:07 - History of Present Illness Initial Comments: Patient is a 75-year-old female that presents to the emergency department complaining of a fall and landing on her bilateral elbows and hitting the back of her head. He notes that she lost her balance and fell backwards while s tanding. She notes that her pain is very mild and is tolerable while sitting up in bed. She notes that she does not take any blood thinners. She notes that her elbows feel fine as she was moving them around fully extending them in bed in exam and full range of motion. She notes that she did hit the back of her head and thought she felt a small goose egg. She denied any other symptoms or complaints. She denied syncope, loss of consciousness, headache nausea vomiting diarrhea constipation fever fatigue chills chest pain shortness of breath. (Kiel Mcintosh) - Related Data Home Medications Medication Instructions Recorded Confirmed Cholecalciferol [Vitamin D3 (25 125 mcg PO DAILY 09/27/14 10/14/20 Mcg = 1000 Iu)] Levothyroxine Sodium [Synthroid] 50 mcg PO DAILY 09/27/14 10/14/20 Sertraline [Zoloft] 100 mg PO DAILY 09/27/14 10/14/20 allopurinoL [Zyloprim] 300 mg PO DAILY 09/27/14 10/14/20 Albuterol Inhaler (Mhu) [Ventolin 1 - 2 puff INHALATION RT-QID PRN 09/28/14 10/14/20 Hfa Inhaler (Mhu)] Oxybutynin Chloride [Ditropan XL] 15 mg PO HS 10/24/16 10/14/20 HYDROcodone/APAP 7.5-325MG [[place] 1 tab PO TID PRN 05/25/18 10/14/20 7.5-325] atenoloL [Tenormin] 50 mg PO DAILY 05/25/18 10/14/20 metFORMIN HCL [Glucophage] 1,000 mg PO BID 09/05/19 10/14/20 Colchicine 0.6 mg PO DAILY 10/14/20 10/14/20 Famotidine [Pepcid] 20 mg PO DAILY 10/14/20 10/14/20 Glimepiride [Amaryl] 4 mg PO BID 10/14/20 10/14/20 Lidocaine Viscous 2% [Xylocaine 1 drop PO BID PRN 10/14/20 10/14/20 Viscous] Losartan [Cozaar] 50 mg PO DAILY 10/14/20 10/14/20 Pioglitazone HCl 45 mg PO DAILY 10/14/20 10/14/20 Potassium Chloride [K-Tab ER] 20 meq PO QID 10/14/20 10/14/20 Semaglutide [Ozempic] 0.5 mg SQ Q7D 10/14/20 10/14/20 Allergies Allergy/AdvReac Type Severity Reaction Status Date / Time morphine AdvReac Nausea & Verified 12/24/20 17:51 Vomiting Qxuyriv-[id number]-Evk Reductase AdvReac STIFFNESS Verified 12/24/20 17:51 Inhibitor AND MUSCLE PAIN Review of Systems ROS Other: All systems not noted in ROS Statement are negative. <Kiel Mcintosh - Last Filed: 12/24/20 20:03> ROS Other: All systems not noted in ROS Statement are negative. <Phil Kraft - Last Filed: 12/24/20 20:08> ROS Statement: Those systems with pertinent positive or pertinent negative responses have been documented in the HPI. Past Medical History Past Medical History: Cancer, COPD, Diabetes Mellitus, GERD/Reflux, Hypertension, Memory Impairment, Thyroid Disorder Additional Past Medical History / Comment(s): mouth lesions,NEUROPATHY- hands,feet. HX SKIN CANCER, Multiple falls-uses walker History of Any Multi-Drug Resistant Organisms: None Reported Past Surgical History: Back Surgery, Hysterectomy, Joint Replacement Additional Past Surgical History / Comment(s): RIGHT KNEE REPLACEMENT, cataract surgery- bilat Past Anesthesia/Blood Transfusion Reactions: Previous Problems w/ Anesthesia Additional Past Anesthesia/Blood Transfusion Reaction / Comment(s): had a hard time waking up after last surgery Past Psychological History: Depression Smoking Status: Former smoker - Past Family History Mother Family Medical History: Dementia Additional Family Medical History / Comment(s): alzheimers Father Family Medical History: Myocardial Infarction ([place]) Additional Family Medical History / Comment(s): unknown <Kiel Mcintosh - Last Filed: 12/24/20 20:03> General Exam Limitations: no limitations General appearance: alert, in no apparent distress, obese Head exam: Present: atraumatic, normocephalic, normal inspection Eye exam: Present: normal appearance, PERRL, EOMI. Absent: scleral icterus, conjunctival injection, periorbital swelling Neck exam: Present: normal inspection Respiratory exam: Present: normal lung sounds bilaterally. Absent: respiratory distress, wheezes, rales, rhonchi, stridor Cardiovascular Exam: Present: regular rate, normal rhythm, normal heart sounds. Absent: systolic murmur, diastolic murmur, rubs, gallop, clicks Extremities exam: Present: normal inspection, full ROM, normal capillary refill, other (Full range of motion of bilateral elbows, no tenderness no erythema no crepitus.). Absent: tenderness, pedal edema, joint swelling, calf tenderness Neurological exam: Present: alert, oriented X3 Psychiatric exam: Present: normal affect, normal mood Skin exam: Present: warm, dry, intact, normal color. Absent: rash <Kiel Mcintosh - Last Filed: 12/24/20 20:03> Course <Phil Kraft - Last Filed: 12/24/20 20:08> Vital Signs 12/24/20 12/24/20 17:51 20:01 Temperature 98.4 F 98.4 F Pulse Rate 90 73 Respiratory 16 18 Rate Blood Pressure 155/87 151/60 O2 Sat by Pulse 95 97 Oximetry - Reevaluation(s) Reevaluation #1: 12/24/20 20:08 PA supervision: I did personally evaluate this case patient did fall getting tangled up while walking. Imaging was done no evidence of acute fracture dislocation. Patient is able ambulate she let go home she'll be discharged. I do agree with this assessment and plan. (Phil Kraft) Medical Decision Making <Kiel Mcintosh - Last Filed: 12/24/20 20:03> - Medical Decision Making 75-year-old female presenting after a fall hitting both of her elbows and the back of her head. X-ray of the bilateral elbows, CT of the brain ordered. Patient declined the need for any pain medication as the pain was very mild. Patient declined taking blood thinners. Given patient's clinical symptoms and negative imaging most likely bilateral elbow contusion and head contusion. Case discussed with Dr. Kraft, patient discharge home with follow-up to primary care. (Kiel Mcintosh) Disposition Is patient prescribed a controlled substance at d/c from ED?: No Time of Disposition: 20:04 <Kiel Mcintosh - Last Filed: 12/24/20 20:03> <Phil Kraft - Last Filed: 12/24/20 20:08> Clinical Impression: Fall, Elbow contusion, Head contusion Disposition: HOME SELF-CARE Condition: Stable Instructions (If sedation given, give patient instructions): Fall Prevention for Older Adults (ED) Additional Instructions: Please return to the Emergency Department if symptoms worsen or any other concerns. Follow-up with primary care in the next several days. Take Tylenol and/or Motrin as needed for pain control. Referrals: Adi Park MD [Primary Care Provider] - 1-2 days
[2020-12-24 20:05] VITALS: BP 151/60; PULSE 73; RESP 18
== END 2020-12-24 20:44 | disposition home or self-care (01) ==
LOC: EC 17:25
DX: S00.93XA Contusion of unspecified part of head, initial encounter (principal); S50.00XA Contusion of unspecified elbow, initial encounter; I10 Essential (primary) hypertension; E11.40 Type 2 diabetes mellitus with diabetic neuropathy, unspecified; J44.9 Chronic obstructive pulmonary disease, unspecified; K21.9 Gastro-esophageal reflux disease without esophagitis; E11.36 Type 2 diabetes mellitus with diabetic cataract; F32.9 Major depressive disorder, single episode, unspecified; Z79.84 Long term (current) use of oral hypoglycemic drugs; Z79.51 Long term (current) use of inhaled steroids; Z79.899 Other long term (current) drug therapy; Z85.828 Personal history of other malignant neoplasm of skin; Z87.891 Personal history of nicotine dependence; Z88.5 Allergy status to narcotic agent; Z88.8 Allergy status to other drugs, medicaments and biological substances; W18.30XA Fall on same level, unspecified, initial encounter; Y93.01 Activity, walking, marching and hiking
CPT/HCPCS: 70450; 99284

== ENCOUNTER 2021-09-13 11:32 | Emergency (ER) | payer MEDICARE, OTHER ==
[2021-09-13 11:41] VITALS: RESP 18; TEMP 98.9
--- NOTE | 2021-09-13 12:39 | CT ---
EXAMINATION TYPE: CT brain wo con DATE OF EXAM: 09/13/2021 COMPARISON: CT dated 12/24/2020 HISTORY: fall. Laceration to back of head CT DLP: 1114.4 mGycm Automated exposure control for dose reduction was used. TECHNIQUE: CT scan of the brain is performed without IV contrast administration. FINDINGS: Brain volume loss changes, likely age-related. Bilateral cerebral white matter hypodensities, likely representing chronic microvascular ischemic changes. Scattered arterial atherosclerotic calcification s. No acute intracranial hemorrhage. No gross acute cortical infarct. No midline shift, herniation or ve ntriculomegaly. Unremarkable jorge-white matter differentiation, basal cisterns, sella and CP angles. No gross space-o ccupying lesion, vasogenic edema or mass effect. Unremarkable orbits. Vertex scalp swelling/hematoma. Clear visualized paranasal sinuses. Opacified le ft inferior mastoid air cells. No definitive calvarial bone fracture identified. IMPRESSION: No acute intracranial posttraumatic sequela or acute calvarial bone fracture. Vertex scalp swelling/h ematoma. Incidental findings as described above.
--- NOTE | 2021-09-13 12:43 | XR ---
EXAMINATION TYPE: XR elbow complete 3 views LT, XR forearm 2 views LT DATE OF EXAM: 09/13/2021 COMPARISON: 12/24/2020 HISTORY: 76-year-old female fall, pain and swelling, laceration to elbow FINDINGS: LEFT ELBOW: Bony spurring at both medial and lateral epicondyles. There is degenerative spurring at both radial c apitellar and ulnar trochlear joints, more so at the ulnotrochlear joint. New density measuring 6 mm along the lateral soft tissues of the elbow. Forearm: No elbow joint effusion. No fracture of the ulna or radius identified. Wrist articulation appears erika ssly intact IMPRESSION (elbow and forearm): 1. New 6 mm density along the lateral soft tissues of the elbow. This could be projectional related t o soft tissue injury if the patient has a deep laceration here. If the laceration is located elsewher e, unable to exclude small avulsion fracture fragments. Correlate for point tenderness relating to th e common extensor tendon origin or lateral ligamentous complex. After cleaning and dressing any lacer ation, consider repeat imaging to assess for any persistence of this density. 2. 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 3. Forearm otherwise without acute osseous abnormality seen.
[2021-09-13] MEDS ORDERED: KETOROLAC 15 MG/ML 1 ML VIAL IM STA (13:12)
--- NOTE | 2021-09-13 13:27 | ED ---
Fall HPI - General Chief Complaint: Fall Stated Complaint: Fall Time Seen by Provider: 09/13/21 11:41 Source: patient, EMS, RN notes reviewed Mode of arrival: EMS - History of Present Illness Initial Comments: A 76-year-old female who presents to the emergency department after sustaining a fall. States that she tripped over her walker, and fell backwards, hitting her head and left elbow. Denies any loss of consciousness, nausea, or vomiting. Patient had no dizziness or shortness of breath chest palpitations or other symptoms prior to the fall. EMS noted minor disorientation following the fall, and that she had difficulty remembering the year. During my examination of the patient, she was alert and oriented 4, and had no difficulty recalling her name, location or year. Patient was very talkative and interactive, with no obvious neurological deficits. Patient is not on any blood thinners. MD Complaint: fall Fall From: standing When Fall Occurred: just prior to arrival Fall Witnessed: no Place Fall Occurred: home Loss of Consciousness: none Symptoms Prior to Fall: none Location: head Location - Extremities: Left: Elbow - Related Data Home Medications Medication Instructions Recorded Confirmed Levothyroxine Sodium [Synthroid] 50 mcg PO DAILY 09/27/14 12/24/20 Sertraline [Zoloft] 200 mg PO DAILY 09/27/14 12/24/20 allopurinoL [Zyloprim] 300 mg PO DAILY 09/27/14 12/24/20 Oxybutynin Chloride [Ditropan XL] 15 mg PO HS 10/24/16 12/24/20 HYDROcodone/APAP 7.5-325MG [[place] 1 tab PO TID PRN 05/25/18 12/24/20 7.5-325] atenoloL [Tenormin] 50 mg PO DAILY 05/25/18 12/24/20 metFORMIN HCL [Glucophage] 1,000 mg PO BID 09/05/19 12/24/20 Famotidine [Pepcid] 20 mg PO DAILY 10/14/20 12/24/20 Glimepiride [Amaryl] 4 mg PO BID 10/14/20 12/24/20 Losartan [Cozaar] 50 mg PO DAILY 10/14/20 12/24/20 Pioglitazone HCl 45 mg PO DAILY 10/14/20 12/24/20 Potassium Chloride [K-Tab ER] 20 meq PO QID 10/14/20 12/24/20 Albuterol Inhaler [Ventolin Hfa 1 - 2 puff INHALATION RT-QID PRN 12/24/20 12/24/20 Inhaler] Cholecalciferol (Vitamin D3) 125 mcg PO DAILY 12/24/20 12/24/20 [Vitamin D3 (5000 Iu)] Colchicine 0.6 mg PO DAILY 12/24/20 12/24/20 Semaglutide [Ozempic] 0.5 mg SQ SA 12/24/20 12/24/20 Previous Rx's Medication Instructions Recorded Diclofenac Sodium [Voltaren] 50 mg PO BID PRN #20 tab 09/13/21 Allergies Allergy/AdvReac Type Severity Reaction Status Date / Time morphine AdvReac Nausea & Verified 09/13/21 11:41 Vomiting [id number]-[id number] Reductase AdvReac STIFFNESS Verified 09/13/21 11:41 Inhibitor AND MUSCLE [Qlmjqpf-Jcn-Ypl Reductase PAIN Inhibitor] Review of Systems ROS Statement: Those systems with pertinent positive or pertinent negative responses have been documented in the HPI. ROS Other: All systems not noted in ROS Statement are negative. Constitutional: Denies: fever, chills ENT: Denies: ear pain, throat pain Respiratory: Denies: cough, dyspnea Cardiovascular: Denies: chest pain, palpitations Gastrointestinal: Denies: abdominal pain, nausea, vomiting, diarrhea Genitourinary: Denies: urgency, dysuria Musculoskeletal: Reports: other (left elbow pain) Skin: Denies: rash Neurological: Reports: headache Past Medical History Past Medical History: Cancer, COPD, Diabetes Mellitus, GERD/Reflux, Hypertension, Memory Impairment, Thyroid Disorder Additional Past Medical History / Comment(s): mouth lesions,NEUROPATHY- hands,feet. HX SKIN CANCER, Multiple falls-uses walker History of Any Multi-Drug Resistant Organisms: None Reported Past Surgical History: Back Surgery, Hysterectomy, Joint Replacement Additional Past Surgical History / Comment(s): RIGHT KNEE REPLACEMENT, cataract surgery- bilat Past Anesthesia/Blood Transfusion Reactions: Previous Problems w/ Anesthesia Additional Past Anesthesia/Blood Transfusion Reaction / Comment(s): had a hard time waking up after last surgery Past Psychological History: Depression Smoking Status: Former smoker - Past Family History Mother Family Medical History: Dementia Additional Family Medical History / Comment(s): alzheimers Father Family Medical History: Myocardial Infarction ([place]) Additional Family Medical History / Comment(s): unknown General Exam Limitations: no limitations General appearance: alert, in no apparent distress Head exam: Present: other (2cm superficial laceration on the occipital aspect of the scalp) Eye exam: Present: normal appearance, PERRL, EOMI. Absent: scleral icterus, conjunctival injection, periorbital swelling ENT exam: Present: normal exam, mucous membranes moist Neck exam: Present: normal inspection. Absent: tenderness, meningismus, lymphadenopathy Respiratory exam: Present: normal lung sounds bilaterally. Absent: respiratory distress, wheezes, rales, rhonchi, stridor Cardiovascular Exam: Present: regular rate, normal rhythm, normal heart sounds. Absent: systolic murmur, diastolic murmur, rubs, gallop, clicks Extremities exam: Present: other (6 cm superficial skin tear on the lateral aspect of the elbow. No active bleeding.) Neurological exam: Present: alert, oriented X3, CN II-XII intact Psychiatric exam: Present: normal affect, normal mood Skin exam: Present: warm, dry, normal color. Absent: rash Course Vital Signs 09/13/21 09/13/21 11:36 13:34 Temperature 98.9 F Pulse Rate 81 73 Respiratory 18 18 Rate Blood Pressure 164/134 174/102 O2 Sat by Pulse 98 95 Oximetry Medical Decision Making - Medical Decision Making This is a 76-year-old female who presents to the emergency department after sustaining a fall. Given her disorientation after the incident, her age, and the fact that she hit the occipital aspect of her skull, computed tomography scan of the brain was obtained, no acute abnormalities such as a bleed were notified. She has a large skin tear on the lateral aspect of the left elbow, this is very superficial and no repair is required. X-ray of the left elbow and forearm obtained. Avulsion fractures were not able to be ruled out, however the irregularities on the xray were noted as also possibly being related to the skin tear. Patient does have full range of motion. Given that the patient needs to use her walker, we will not be able to splint the elbow, the patient is also not interested in this. The patient was offered an arm sling, however she declined. The skin tear was cleansed and wrapped prior to discharge. The laceration to the scalp was thoroughly cleansed with hydrogen peroxide. Evaluation revealed this to be very superficial, with no repair needed. Patient does have a prescription for [place] at home. She was given IM Toradol in the emergency department and a short course of diclofenac to take at home. She is instructed to avoid ibuprofen or other anti-inflammatories with taking the diclofenac. Lab work from last month revealed normal kidney function. Return precautions reviewed in depth, the patient is instructed to return to the emergency department with any new, worsening, or concerning symptoms. Patient verbalized understanding. This case was discussed in detail with the attending ED physician. Presentation, findings, and treatment plan discussed in detail as well. - Radiology Data Radiology results: report reviewed, image reviewed Disposition Clinical Impression: Fall with injury Disposition: HOME SELF-CARE Instructions (If sedation given, give patient instructions): Fall Prevention for Older Adults (ED) Additional Instructions: Return to the emergency department with any new, worsening, or concerning symptoms, including but not limited to, nausea/vomiting, fever/chills. Prescription for diclofenac provided, do not take this with any other anti- inflammatories such as ibuprofen. You can take this with Tylenol. Follow-up with your primary care provider in 1-2 days. Prescriptions: Diclofenac Sodium [Voltaren] 50 mg PO BID PRN #20 tab PRN Reason: Pain Is patient prescribed a controlled substance at d/c from ED?: No Referrals: Adi Park MD [Primary Care Provider] - 1-2 days
[2021-09-13 13:37] VITALS: BP 174/102; PULSE 73
== END 2021-09-13 13:57 | disposition home or self-care (01) ==
LOC: EC 11:32
DX: S51.012A Laceration without foreign body of left elbow, initial encounter (principal); E11.9 Type 2 diabetes mellitus without complications; J44.9 Chronic obstructive pulmonary disease, unspecified; I10 Essential (primary) hypertension; E07.9 Disorder of thyroid, unspecified; Z79.890 Hormone replacement therapy; Z87.891 Personal history of nicotine dependence; Z88.6 Allergy status to analgesic agent; Z88.8 Allergy status to other drugs, medicaments and biological substances; W19.XXXA Unspecified fall, initial encounter
CPT/HCPCS: 73080; 73090; 70450; 99284; 96372; J1885; 99283

== ENCOUNTER 2023-07-16 11:00 | Observation (INO) | payer MEDICARE, OTHER ==
--- NOTE | 2023-07-16 11:26 | ED ---
General Adult HPI - General Chief complaint: Weakness Stated complaint: weak Time Seen by Provider: 07/16/23 11:04 Source: patient, family, EMS, RN notes reviewed Mode of arrival: EMS Limitations: altered mental status, physical limitation - History of Present Illness Initial comments: Patient is a pleasant 77-year-old female present to the emergency department with concerns for general weakness. Patient has had 5 falls in the past month. 2 in the last 2 days. Family had to help patient off the floor yesterday. Patient fell again. They question if patient has been on the floor for up to 24 hours. Patient does have chronic right shoulder pain and believes she hurt her arm a little bit more in the right shoulder. Patient denies head injury or loss of consciousness. Patient feels weak all over. Family questions urinary tract infection. Family does have concerns that patient is not able to take care of herself anymore and may need rehab or placement. Family is also concerned that patient is a little bit more confused than normal - Related Data Home Medications Medication Instructions Recorded Confirmed Levothyroxine Sodium [Synthroid] 50 mcg PO DAILY 09/27/14 03/23/23 allopurinoL [Zyloprim] 300 mg PO DAILY 09/27/14 03/23/23 atenoloL [Tenormin] 50 mg PO DAILY 05/25/18 03/23/23 metFORMIN HCL [Glucophage] 1,000 mg PO BID 09/05/19 03/23/23 Famotidine [Pepcid] 20 mg PO DAILY 10/14/20 03/23/23 Glimepiride [Amaryl] 4 mg PO BID 10/14/20 03/23/23 Losartan [Cozaar] 50 mg PO DAILY 10/14/20 03/23/23 Albuterol Inhaler [Ventolin Hfa 1 - 2 puff INHALATION RT-QID PRN 12/24/20 03/23/23 Inhaler] Dulaglutide [Trulicity] 1.5 mg SQ REMY 03/23/23 03/23/23 Hydrocodone/Acetaminophen 7.5-300 1 tab PO TID PRN 03/23/23 03/23/23 Mg Previous Rx's Medication Instructions Recorded Nystatin 100,000 Unit/gm Powd 1 applic TOPICAL BID #15 gram 03/24/23 [Mycostatin Powder] Allergies Allergy/AdvReac Type Severity Reaction Status Date / Time morphine AdvReac Nausea & Verified 07/16/23 11:17 Vomiting Tbjcueh-XCM-OiG Reductase AdvReac STIFFNESS Verified 07/16/23 11:17 Inhibitor AND MUSCLE [Cgdwnyb-Ofv-Zxp Reductase PAIN Inhibitor] Review of Systems ROS Statement: Those systems with pertinent positive or pertinent negative responses have been documented in the HPI. ROS Other: All systems not noted in ROS Statement are negative. Constitutional: Denies: fever Eyes: Denies: eye pain ENT: Denies: ear pain Respiratory: Denies: cough, dyspnea Cardiovascular: Denies: chest pain Endocrine: Denies: fatigue Gastrointestinal: Denies: abdominal pain Musculoskeletal: Reports: as per HPI. Denies: back pain Neurological: Reports: as per HPI. Denies: headache Past Medical History Past Medical History: Cancer, COPD, Diabetes Mellitus, GERD/Reflux, Hypertension , Memory Impairment, Thyroid Disorder Additional Past Medical History / Comment(s): mouth lesions,NEUROPATHY- hands,feet. HX SKIN CANCER, Multiple falls-uses walker History of Any Multi-Drug Resistant Organisms: None Reported Past Surgical History: Back Surgery, Hysterectomy, Joint Replacement Additional Past Surgical History / Comment(s): RIGHT KNEE REPLACEMENT, cataract surgery- bilat Past Anesthesia/Blood Transfusion Reactions: Previous Problems w/ Anesthesia Additional Past Anesthesia/Blood Transfusion Reaction / Comment(s): had a hard time waking up after last surgery Past Psychological History: Depression Smoking Status: Former smoker Past Alcohol Use History: None Reported Past Drug Use History: None Reported - Past Family History Mother Family Medical History: Dementia Additional Family Medical History / Comment(s): alzheimers Father Family Medical History: Myocardial Infarction (VT) Additional Family Medical History / Comment(s): unknown General Exam Limitations: altered mental status, physical limitation General appearance: alert, in no apparent distress Head exam: Present: atraumatic Eye exam: Present: normal appearance, PERRL, EOMI ENT exam: Present: normal oropharynx Neck exam: Present: normal inspection. Absent: tenderness Respiratory exam: Present: normal lung sounds bilaterally Cardiovascular Exam: Present: regular rate, normal rhythm GI/Abdominal exam: Present: soft. Absent: tenderness Extremities exam: Present: normal inspection, full ROM, tenderness (Right shoulder/proximal humerus), other (Distal extremities are neurovascular intact) Neurological exam: Present: alert, CN II-XII intact. Absent: motor sensory deficit Expanded Neurological exam: Present: protecting the airway Patient oriented to: Present: person, place. Absent: time Motor strength exam: RUE: 5, LUE: 5, RLE: 5, LLE: 5 Eye Response: (4) open spontaneously Motor Response: (6) obeys commands Verbal Response: (4) confused conversation Psychiatric exam: Present: normal affect, normal mood Skin exam: Present: normal color Course Vital Signs 07/16/23 11:06 Temperature 97.6 F Pulse Rate 102 H Respiratory 18 Rate Blood Pressure 156/78 O2 Sat by Pulse 97 Oximetry EKG Findings - EKG Results: EKG: interpreted by ERMD (Q wave V1 and V2), sinus rhythm, normal axis, normal ST/T Medical Decision Making - Medical Decision Making Was pt. sent in by a medical professional or institution (, PA, [facility], urgent care, hospital, or [facility]...) When possible be specific @ -No Did you speak to anyone other than the patient for history (EMS, parent, family, police, friend...)? What history was obtained from this source @ -Family is present and helps provide history including frequent falls and inability to take care of self Did you review nursing and triage notes (agree or disagree)? Why? @ -I reviewed and agree with nursing and triage notes Were old charts reviewed (outside hosp., previous admission, EMS record, old EKG, old radiological studies, urgent care reports/EKG's, [facility] records)? Report findings @ -Previous chest x-ray reviewed Differential Diagnosis (chest pain, altered mental status, abdominal pain women, abdominal pain men, vaginal bleeding, weakness, fever, dyspnea, syncope, headach e, dizziness, GI bleed, back pain, seizure, CVA, palpatations, mental health, musculoskeletal)? @ -Differential Weakness: Hypoglycemia, shock, sepsis, hyponatremia, anemia, infection, VT, ETOH, adverse medicine reaction, overdose, stroke, this is not meant to be an all-inclusive list. EKG interpreted by me (3pts min.). @ -As above X-rays interpreted by me (1pt min.). @ -Chest x-ray shows no acute process. Shoulder x-ray shows no acute process CT interpreted by me (1pt min.). @ -CT brain and cervical spine without acute abnormality U/S interpreted by me (1pt. min.). @ -None done What testing was considered but not performed or refused? (CT, X-rays, U/S, labs)? Why? @ -None What meds were considered but not given or refused? Why? @ -None Did you discuss the management of the patient with other professionals (professionals i.e. , PA, [facility], lab, RT, psych nurse, manager social responsibility, store standards associate, teacher, commercial escrow officer, case planner)? Give summary @ -Dr. Park paged for admission of his patient Was smoking cessation discussed for >3mins.? @ -No Was critical care preformed (if so, how long)? @ -No Were there social determinants of health that impacted care today? How? (Homelessness, low income, unemployed, alcoholism, drug addiction, transportation, low edu. Level, literacy, decrease access to med. care, [facility], rehab)? @ -No Was there de-escalation of care discussed even if they declined (Discuss DNR or withdrawal of care, Hospice)? DNR status @ -No What co-morbidities impacted this encounter? (DM, HTN, Smoking, COPD, CAD, Cancer, CVA, ARF, Chemo, Hep., AIDS, mental health diagnosis, sleep apnea, morbid obesity)? @ -None Was patient admitted / discharged? Hospital course, mention meds given and route, prescriptions, significant lab abnormalities, going to OR and other pertinent info. @ -Patient reevaluated and unchanged. Patient and family updated on results and plan. Patient will be admitted with hydration and probable placement Undiagnosed new problem with uncertain prognosis? @ -No Drug Therapy requiring intensive monitoring for toxicity (Heparin, Nitro, Insulin, Cardizem)? @ -No Were any procedures done? @ -No Diagnosis/symptom? @ -Weakness, dehydration Acute, or Chronic, or Acute on Chronic? @ -Acute, acute Uncomplicated (without systemic symptoms) or Complicated (systemic symptoms)? @ -Default Side effects of treatment? @ -No Exacerbation, Progression, or Severe Exacerbation? @ -No Poses a threat to life or bodily function? How? (Chest pain, USA, VT, pneumonia, PE, COPD, DKA, ARF, appy, cholecystitis, CVA, Diverticulitis, Homicidal, Remy icidal, threat to staff... and all critical care pts) @ -No - Lab Data Result diagrams: 07/16/23 11:40 07/16/23 11:40 Lab Results 07/16/23 07/16/23 07/16/23 Range/Units 11:40 11:40 11:40 WBC 13.8 H (3.8-10.6) k/uL RBC 5.63 H (3.80-5.40) m/uL Hgb 17.2 H (11.4-16.0) gm/dL Hct 51.1 H (34.0-46.0) % MCV 90.7 (80.0-100.0) fL MCH 30.5 (25.0-35.0) pg MCHC 33.6 (31.0-37.0) g/dL RDW 14.5 (11.5-15.5) % Plt Count 157 (150-450) k/uL MPV 11.0 Neutrophils % 84 % Lymphocytes % 12 % Monocytes % 3 % Eosinophils % 0 % Basophils % 0 % Neutrophils # 11.6 H (1.3-7.7) k/uL Lymphocytes # 1.6 (1.0-4.8) k/uL Monocytes # 0.4 (0-1.0) k/uL Eosinophils # 0.0 (0-0.7) k/uL Basophils # 0.0 (0-0.2) k/uL PT 11.8 (10.0-12.5) sec INR 1.1 (<1.2) APTT 20.3 L (22.0-30.0) sec Sodium 136 L (137-145) mmol/L Potassium 4.1 (3.5-5.1) mmol/L Chloride 97 L (98-107) mmol/L Carbon Dioxide 17 L (22-30) mmol/L Anion Gap 22 mmol/L BUN 41 H (7-17) mg/dL Creatinine 0.47 L (0.52-1.04) mg/dL Est GFR (CKD-EPI)AfAm >90 (>60 ml/min/1.73 sqM) Est GFR (CKD-EPI)NonAf >90 (>60 ml/min/1.73 sqM) Glucose 458 H (74-99) mg/dL Plasma Lactic Acid Joe (0.7-2.0) mmol/L Calcium 10.5 H (8.4-10.2) mg/dL Magnesium 1.6 (1.6-2.3) mg/dL Total Bilirubin 1.2 (0.2-1.3) mg/dL AST 40 H (14-36) U/L ALT 38 H (4-34) U/L Alkaline Phosphatase 152 H (38-126) U/L Creatine Kinase 95 (30-135) U/L Troponin I (0.000-0.034) ng/mL Total Protein 7.3 (6.3-8.2) g/dL Albumin 4.2 (3.5-5.0) g/dL 07/16/23 07/16/23 Range/Units 11:40 11:40 WBC (3.8-10.6) k/uL RBC (3.80-5.40) m/uL Hgb (11.4-16.0) gm/dL Hct (34.0-46.0) % MCV (80.0-100.0) fL MCH (25.0-35.0) pg MCHC (31.0-37.0) g/dL RDW (11.5-15.5) % Plt Count (150-450) k/uL MPV Neutrophils % % Lymphocytes % % Monocytes % % Eosinophils % % Basophils % % Neutrophils # (1.3-7.7) k/uL Lymphocytes # (1.0-4.8) k/uL Monocytes # (0-1.0) k/uL Eosinophils # (0-0.7) k/uL Basophils # (0-0.2) k/uL PT (10.0-12.5) sec INR (<1.2) APTT (22.0-30.0) sec Sodium (137-145) mmol/L Potassium (3.5-5.1) mmol/L Chloride (98-107) mmol/L Carbon Dioxide (22-30) mmol/L Anion Gap mmol/L BUN (7-17) mg/dL Creatinine (0.52-1.04) mg/dL Est GFR (CKD-EPI)AfAm (>60 ml/min/1.73 sqM) Est GFR (CKD-EPI)NonAf (>60 ml/min/1.73 sqM) Glucose (74-99) mg/dL Plasma Lactic Acid Joe 2.0 (0.7-2.0) mmol/L Calcium (8.4-10.2) mg/dL Magnesium (1.6-2.3) mg/dL Total Bilirubin (0.2-1.3) mg/dL AST (14-36) U/L ALT (4-34) U/L Alkaline Phosphatase (38-126) U/L Creatine Kinase (30-135) U/L Troponin I 0.021 (0.000-0.034) ng/mL Total Protein (6.3-8.2) g/dL Albumin (3.5-5.0) g/dL Disposition Clinical Impression: Dehydration, Weakness Disposition: ADMITTED IP TO THIS HOSP Is patient prescribed a controlled substance at d/c from ED?: No Referrals: Adi Park MD [Primary Care Provider] - 1-2 days Time of Disposition: 14:58
[2023-07-16 11:54] LABS: Basophils % (A) 0 %; Eosinophils % (A) 0 %; HCT 51.1 % (34.0-46.0); HGB 17.2 gm/dL (11.4-16.0); Lymphocytes # (A) 1.6 k/uL (1.0-4.8); Lymphocytes % (A) 12 %; MCH 30.5 pg (25.0-35.0); MCHC 33.6 g/dL (31.0-37.0); MCV 90.7 fL (80.0-100.0); Monocytes # (A) 0.4 k/uL (0-1.0); Monocytes % (A) 3 %; Neutrophils # (A) 11.6 k/uL (1.3-7.7); Neutrophils % (A) 84 %; Platelet Count 157 k/uL (150-450); RBC 5.63 m/uL (3.80-5.40); RDW 14.5 % (11.5-15.5); WBC 13.8 k/uL (3.8-10.6)
[2023-07-16 12:14] LABS: ALT 38 U/L (4-34); AST 40 U/L (14-36); African American GFR (CKD) >90 (>60 ml/min/1.73 sqM); Albumin 4.2 g/dL (3.5-5.0); Alkaline Phosphatase 152 U/L (38-126); Anion Gap 22 mmol/L; Blood Urea Nitrogen 41 mg/dL (7-17); Calcium 10.5 mg/dL (8.4-10.2); Carbon Dioxide 17 mmol/L (22-30); Chloride 97 mmol/L (98-107); Creatine Kinase 95 U/L (30-135); Glucose 458 mg/dL (74-99); Magnesium 1.6 mg/dL (1.6-2.3); Non-African American GFR(CKD) >90 (>60 ml/min/1.73 sqM); Potassium 4.1 mmol/L (3.5-5.1); Sodium 136 mmol/L (137-145); Total Bilirubin 1.2 mg/dL (0.2-1.3); Total Protein 7.3 g/dL (6.3-8.2)
[2023-07-16 12:16] LABS: INR 1.1 (<1.2); Prothrombin Time 11.8 sec (10.0-12.5)
[2023-07-16 12:18] LABS: Partial Thromboplastin Time 20.3 sec (22.0-30.0)
[2023-07-16] MEDS: SODIUM CHLORIDE 0.9% 1,000 ML IV STA ×2 (12:36→20:46)
[2023-07-16] MEDS ORDERED: ONDANSETRON ODT 4 MG TAB PO STA (12:42)
--- NOTE | 2023-07-16 13:02 | CT ---
EXAMINATION TYPE: CT brain wenceslao weldon DATE OF EXAM: 07/16/2023 COMPARISON: HISTORY: pt found on floor, hx of recent falls CT DLP: 1434.6 mGycm, Automated exposure control for dose reduction was used. CONTRAST: Patient injected with mL of . CT of the brain is performed utilizing 3 mm thick sections through the posterior fossa and 3 mm thick sections through the remaining calvarium. Study is performed within 24 hours of arrival to the hospital. No abnormal hyperdensity is present to suggest an acute intracranial hemorrhage. No mass lesion is evident. No acute infarcts are evident. Periventricular white matter hypodensity is present, likely on the ba sis of chronic white matter ischemic changes. No significant interval change Ventricles and sulci are somewhat prominent for the patient age. Paranasal sinuses and mastoid air cells within the [id number] are clear. IMPRESSIONS: 1. Atrophy with chronic appearing periventricular white matter ischemic type changes. 2. No acute intracranial process. Follow-up MRI can be performed as clinically indicated. CT cervical spine. COMPARISON: None CT of the cervical spine is performed in the axial plane at 2 mm thick sections. Reconstructed image s in the coronal, and sagittal plane are reviewed on the computer. No acute fractures are evident. Vertebral body alignment is normal. Anterior vertebral fusion is evident C5-C7. Prevertebral space ap pears normal. There is loss of disc height through the anterior cervical fusion levels. Vertebral body heights are preserved. No spinal canal stenosis is evident. Uncovertebral joint hypertrophy is contributing to some foraminal narrowing at the lower cervical spi ne. Follow-up can be performed as clinically indicated. IMPRESSION: 1. No acute osseous abnormality.
--- NOTE | 2023-07-16 13:58 | XR ---
EXAMINATION TYPE: XR chest 2V DATE OF EXAM: 07/16/2023 1:23 PM CLINICAL INDICATION:Female, 77 years old with history of weakness. COMPARISON: Chest radiograph 09/18/2019. TECHNIQUE: XR chest 2V Frontal and lateral views of the chest. FINDINGS: Lungs/Pleura: There is no evidence of pleural effusion, focal consolidation, or pneumothorax. Pulmonary vascularity: Unremarkable. Heart/mediastinum: Cardiomediastinal silhouette is unremarkable. Musculoskeletal: No acute osseous pathology. Cervical fusion hardware identified. IMPRESSION: No acute cardiopulmonary disease/process.
--- NOTE | 2023-07-16 14:01 | XR ---
EXAMINATION TYPE: XR shoulder complete RT DATE OF EXAM: 07/16/2023 1:24 PM CLINICAL INDICATION:Female, 77 years old with history of fall. COMPARISON: None. TECHNIQUE: The right shoulder was examined in AP, internally rotated and scapular Y projections. FINDINGS: No evidence of acute osseous pathology, joint dislocation, or soft tissue swelling. Osteoarthritic ch anges of the glenohumeral and acromial clavicular joint are identified. The remaining portions of the visualized chest are unremarkable. IMPRESSION: 1. No acute osseous pathology. 2. Moderate osteoarthritic changes of the glenohumeral and clavicular joints.
[2023-07-16] MEDS ORDERED: NALOXONE 0.4 MG/ML 1 ML VIAL IV PRN (14:58)
[2023-07-16 15:38] LABS: Glucose,Whole Blood 425 mg/dL (70-110)
[2023-07-16] MEDS ORDERED: SODIUM CHLORIDE 0.9% 500 ML 500 ML IV STA (15:38)
[2023-07-16] MEDS ORDERED: INSULIN REGULAR 100 UNIT/ML VIAL (IM/SQ) SQ ONE (15:38)
[2023-07-16 15:42] LABS: Appearance,Urine Clear (Clear); Bacteria,Urine Rare /hpf; Bilirubin,Urine Negative (Negative); Blood,Urine Negative (Negative); Budding Yeast,Urine Occasional /hpf; Color,Urine Colorless; Glucose,Urine (UA) 4+ (Negative); Leukocyte Esterase,Urine Negative (Negative); Mucus,Urine Rare /hpf; Nitrite,Urine Negative (Negative); PH, Urine 5.5 (5.0-8.0); Protein,Urine 1+ (Negative); Specific Gravity,Urine 1.033 (1.001-1.035); Squamous Epithelial Cell,Urine 2 /hpf (0-4); Urobilinogen,Urine <2.0 mg/dL (<2.0); WBC,Urine 13 /hpf (0-5)
[2023-07-16 15:48] LABS: Ketones,Urine 3+ (Negative)
[2023-07-16 17:47] LABS: Glucose,Whole Blood 326 mg/dL (70-110)
[2023-07-16] MEDS: INSULIN ASPART (NovoLOG) 100 UNIT/ML VIAL SQ SCH ×2 (18:35→20:46)
--- NOTE | 2023-07-16 19:13 | HP ---
HISTORY AND PHYSICAL CHIEF COMPLAINT: General debility and multiple falls. HISTORY OF PRESENT ILLNESS: This is another admission for this lady who has been living alone and has been very inactive and sedentary. She has been experiencing multiple falls of late and came into the emergency room after she had fallen 3 times at home and could not get up. She has a history of hypertension, diabetes, and cervical spondylosis. REVIEW OF SYSTEMS: She denies any chest pain, confusion, neurologic deficits, etc. Past medical history, family history, and personal and social histories are all otherwise unremarkable and noncontributory. PHYSICAL EXAMINATION: VITAL SIGNS: Normal. HEAD, EARS, EYES, NOSE, MOUTH AND THROAT: Normal. NECK: Carotids are normal. CHEST: Clear. CARDIAC: Normal. ABDOMEN: Soft, nontender. EXTREMITIES: Normal. NEUROLOGIC: She is intact. ASSESSMENT: She is admitted to the hospital with diagnoses of: 1. Frequent falling. 2. General debility and weakness. 3. Hypertension. PLAN: 1. Bedrest. 2. IV fluids. 3. Exhibits Manager referral for placement. MMVICENTEL / BREONNAN: [id number] /
[2023-07-16 20:40] LABS: Glucose,Whole Blood 340 mg/dL (70-110)
[2023-07-17] MEDS ORDERED: INSULIN DETEMIR (LEVEMIR) 100 UNIT/ML SYR SQ SCH (07:00)
[2023-07-17 07:48] LABS: Glucose,Whole Blood 312 mg/dL (70-110)
[2023-07-17] MEDS: INSULIN ASPART (NovoLOG) 100 UNIT/ML VIAL SQ SCH ×6 (08:24→20:43)
[2023-07-17] MEDS ORDERED: NON FORMULARY DRUG (Dulaglutide [Trulicity] 1.5 MG/0.5 ML Each) SQ SCH (10:15)
[2023-07-17] MEDS: NYSTATIN 100,000 UNIT/GM POWD 15 GM TOPICAL SCH ×2 (10:57→20:44)
[2023-07-17 11:45] LABS: Glucose,Whole Blood 389 mg/dL (70-110)
[2023-07-17 11:52] LABS: Basophils # (A) 0.04 X 10*3/uL (0.00-0.10); Basophils % (A) 0.2 %; Eosinophils # (A) 0.01 X 10*3/uL (0.04-0.35); Eosinophils % (A) 0.1 %; HCT 48.7 % (37.2-46.3); HGB 16.2 g/dL (12.0-15.0); Lymphocytes # (A) 2.37 X 10*3/uL (0.90-5.00); Lymphocytes % (A) 13.7 %; MCH 29.9 pg (27.0-32.0); MCHC 33.3 g/dL (32.0-37.0); MCV 89.9 FL (80.0-97.0); Mean Platelet Volume 12.6 FL (9.5-12.2); Monocytes # (A) 0.98 X 10*3/uL (0.20-1.00); Monocytes % (A) 5.7 %; NRBC Per 100 WBC 0 X 10*3/uL (0.00-0.01); Neutrophils # (A) 13.85 X 10*3/uL (1.80-7.70); Neutrophils % (A) 79.9 %; Platelet Count 141 X 10*3/uL (140-440); RBC 5.42 X 10*6/uL (4.10-5.20); RDW 14.2 % (11.5-14.5); WBC 17.32 X 10*3/uL (4.50-10.00)
[2023-07-17 12:28] LABS: ALT 30 U/L (8-44); AST 37 U/L (13-35); Albumin 3.6 g/dL (3.8-4.9); Albumin/Globulin Ratio 1.38 Ratio (1.60-3.17); Alkaline Phosphatase 110 U/L (41-126); BUN/Creat Ratio 50.38 Ratio (12.00-20.00); Blood Urea Nitrogen 40.3 mg/dL (9.0-27.0); Calcium 9.4 mg/dL (8.7-10.3); Carbon Dioxide 17.9 mmol/L (21.6-31.8); Chloride 97 mmol/L (96-109); Globulin 2.6 g/dL (1.6-3.3); Glucose 353 mg/dL (70-110); Sodium 136 mmol/L (135-145); Total Protein 6.2 g/dL (6.2-8.2)
[2023-07-17] MEDS: GABAPENTIN 300 MG CAP PO PRN (13:59)
[2023-07-17 17:09] LABS: Glucose,Whole Blood 262 mg/dL (70-110)
--- NOTE | 2023-07-17 20:15 | PN ---
PROGRESS NOTE DATE OF SERVICE: 07/17/2023 CHIEF COMPLAINT: Mental status changes, delirium, and frequent falling. HISTORY OF PRESENT ILLNESS: This lady is slightly lethargic. She has no complaints including headache, chest pain, abdominal pain, shortness of breath, etc. PHYSICAL EXAMINATION: VITAL SIGNS: Normal. Blood pressure is up slightly. HEAD, EARS, EYES, NOSE, MOUTH, AND THROAT: Normal. CHEST: Clear. CARDIAC: Normal. ABDOMEN: Soft, nontender. IMPRESSION: 1. General debility and frequent falling. 2. Mental status changes. 3. Elevated blood sugars. 4. History of hypertension. PLAN: 1. Increase insulin management of her diabetes. 2. PT, OT, and Safety Patrol Officer referrals. MMODL / IJN: [id number] /
[2023-07-17 20:17] LABS: Glucose,Whole Blood 195 mg/dL (70-110)
[2023-07-17] MEDS: LOSARTAN 25 MG TAB PO SCH (20:43)
[2023-07-18] MEDS: GABAPENTIN 300 MG CAP PO PRN (02:19)
[2023-07-18] MEDS: LEVOTHYROXINE 50 MCG TAB PO SCH (06:04)
[2023-07-18 07:08] LABS: Glucose,Whole Blood 272 mg/dL (70-110)
[2023-07-18] MEDS: LOSARTAN 25 MG TAB PO SCH ×2 (09:05→20:42)
[2023-07-18] MEDS: allopurinoL 300 MG TAB PO SCH (09:05)
[2023-07-18] MEDS: INSULIN DETEMIR (LEVEMIR) 100 UNIT/ML SYR SQ SCH (09:05)
[2023-07-18] MEDS: FAMOTIDINE 20 MG TAB PO SCH (09:05)
[2023-07-18] MEDS: INSULIN ASPART (NovoLOG) 100 UNIT/ML VIAL SQ SCH ×7 (09:06→20:43)
[2023-07-18] MEDS: NYSTATIN 100,000 UNIT/GM POWD 15 GM TOPICAL SCH ×2 (09:07→20:43)
[2023-07-18] MEDS ORDERED: ZINC OXIDE PASTE (Z-GUARD) 1 APPLIC TOPICAL PRN (10:02)
[2023-07-18 11:56] LABS: Glucose,Whole Blood 289 mg/dL (70-110)
[2023-07-18 17:49] LABS: Glucose,Whole Blood 357 mg/dL (70-110)
[2023-07-18 20:03] LABS: Glucose,Whole Blood 218 mg/dL (70-110)
--- NOTE | 2023-07-18 21:58 | PN ---
PROGRESS NOTE CHIEF COMPLAINT: Frequent falls with mental status changes. HISTORY OF PRESENT ILLNESS: This lady is about the same. She is a little bit more awake and alert. PHYSICAL EXAMINATION: CHEST: Clear. CARDIAC: Normal. ABDOMEN: Soft, nontender. IMPRESSION: 1. Frequent falling. 2. General debility and weakness. 3. Type 2 diabetes. 4. Arthritis. PLAN: Continue to increase her activity with physical and occupational therapies. MMODL / IJN: [id number] /
[2023-07-19] MEDS: LEVOTHYROXINE 50 MCG TAB PO SCH (06:15)
[2023-07-19 07:33] LABS: Glucose,Whole Blood 185 mg/dL (70-110)
[2023-07-19] MEDS: INSULIN DETEMIR (LEVEMIR) 100 UNIT/ML SYR SQ SCH (08:51)
[2023-07-19] MEDS: INSULIN ASPART (NovoLOG) 100 UNIT/ML VIAL SQ SCH ×7 (08:51→20:57)
[2023-07-19] MEDS: GABAPENTIN 300 MG CAP PO PRN (08:54)
[2023-07-19] MEDS: NYSTATIN 100,000 UNIT/GM POWD 15 GM TOPICAL SCH ×2 (11:04→20:09)
[2023-07-19] MEDS: FAMOTIDINE 20 MG TAB PO SCH (11:04)
[2023-07-19] MEDS: LOSARTAN 25 MG TAB PO SCH ×2 (11:04→20:09)
[2023-07-19] MEDS: allopurinoL 300 MG TAB PO SCH (11:04)
[2023-07-19 11:30] LABS: HCT 40.9 % (34.0-46.0); HGB 14.4 gm/dL (11.4-16.0); MCH 31.2 pg (25.0-35.0); MCHC 35.1 g/dL (31.0-37.0); MCV 88.9 fL (80.0-100.0); Mean Platelet Volume 9.9; RDW 13.8 % (11.5-15.5)
[2023-07-19 12:01] LABS: Platelet Count 81 k/uL (150-450)
[2023-07-19 12:05] LABS: Glucose,Whole Blood 221 mg/dL (70-110)
[2023-07-19 17:49] LABS: Glucose,Whole Blood 200 mg/dL (70-110)
[2023-07-19 20:48] LABS: Glucose,Whole Blood 239 mg/dL (70-110)
--- NOTE | 2023-07-20 00:43 | PN ---
PROGRESS NOTE CHIEF COMPLAINT: Syncope, general debility, and failure to thrive. HISTORY OF PRESENT ILLNESS: This lady is more awake and alert. She apparently has a [facility] bed available and is agreeable to go. She is complaining of quite a bit of pain in the right side of her neck radiating into her shoulder. PHYSICAL EXAMINATION: VITAL SIGNS: Normal. GENERAL: She is more awake and alert. CHEST: Clear. CARDIAC: Normal. ABDOMEN: Soft, nontender. EXTREMITIES: She has poor range of motion in the neck, and shoulder exam is normal except for tenderness. IMPRESSION: 1. Syncopal episodes. 2. General debility and weakness with failure to thrive. 3. Possible dementia. 4. Cervical spine sprain and pain in the right shoulder. PLAN: Probably discharge to [facility] tomorrow. MMODL / IJN: [id number] /
[2023-07-20] MEDS: LEVOTHYROXINE 50 MCG TAB PO SCH (05:37)
[2023-07-20] MEDS: GABAPENTIN 300 MG CAP PO PRN (06:44)
[2023-07-20] MEDS ORDERED: INSULIN DETEMIR (LEVEMIR) 100 UNIT/ML SYR SQ SCH (07:00)
[2023-07-20 07:45] LABS: Glucose,Whole Blood 256 mg/dL (70-110)
[2023-07-20] MEDS: INSULIN ASPART (NovoLOG) 100 UNIT/ML VIAL SQ SCH ×4 (08:42→13:11)
[2023-07-20] MEDS: NYSTATIN 100,000 UNIT/GM POWD 15 GM TOPICAL SCH (08:43)
[2023-07-20] MEDS: FAMOTIDINE 20 MG TAB PO SCH (08:43)
[2023-07-20] MEDS: allopurinoL 300 MG TAB PO SCH (08:43)
[2023-07-20] MEDS: LOSARTAN 25 MG TAB PO SCH (08:43)
[2023-07-20 12:16] LABS: Glucose,Whole Blood 259 mg/dL (70-110)
[2023-07-20 16:21] VITALS: BP 134/77; PULSE 86; RESP 17; TEMP 98.3
--- NOTE | 2023-07-20 20:40 | DS ---
DISCHARGE SUMMARY CHIEF COMPLAINT: Frequent falling with general debility, and weakness. HISTORY OF PRESENT ILLNESS AND PHYSICAL EXAMINATION: Details of this lady's history and physical can be found in the initial workup. LABORATORY STUDIES: While she was in the hospital, she had laboratory studies, details of which can be found in the laboratory section of her chart. COURSE IN THE HOSPITAL: After admission, she was placed on bedrest, started on intravenous fluids and frequent monitoring of her neurologic status and vital signs. She had no significant injury. She does complain of some pain in the neck and right shoulder, but x-rays of these areas were normal. She was agreeable to going to a long-term and arrangements were made for her to go there and she will receive physical therapy and rehab. In addition, she will be taken off her analgesics. She was taking high dose, which probably affected her stability. FINAL DIAGNOSES: 1. Frequent falling. 2. General debility and failure to thrive. 3. Cervical spondylosis. 4. Cervical spine sprain. 5. Contusion of the right shoulder. OPERATIONS: None. CONSULTATION: None. She is improved. MMODL / IJN: [id number] /
== END 2023-07-20 17:07 ==
LOC: EC 11:00 → INTOOBSV 14:59 → 5NMEDONC 14:59
PROVIDERS: ADMIT Family Medicine; ATTEND Family Medicine
DX: R54 Age-related physical debility (principal); R62.7 Adult failure to thrive; R29.6 Repeated falls; J44.9 Chronic obstructive pulmonary disease, unspecified; K21.9 Gastro-esophageal reflux disease without esophagitis; I10 Essential (primary) hypertension; E11.40 Type 2 diabetes mellitus with diabetic neuropathy, unspecified; F32.A Depression, unspecified; E86.0 Dehydration; S40.011A Contusion of right shoulder, initial encounter; S13.4XXA Sprain of ligaments of cervical spine, initial encounter; W19.XXXA Unspecified fall, initial encounter; M47.812 Spondylosis without myelopathy or radiculopathy, cervical region; R41.82 Altered mental status, unspecified; E11.65 Type 2 diabetes mellitus with hyperglycemia; Z85.828 Personal history of other malignant neoplasm of skin; Z87.891 Personal history of nicotine dependence; Z79.84 Long term (current) use of oral hypoglycemic drugs; Z79.85 Long-term (current) use of injectable non-insulin antidiabetic drugs; Z79.890 Hormone replacement therapy; Z79.899 Other long term (current) drug therapy; Z88.5 Allergy status to narcotic agent
CPT/HCPCS: 96372 ×6; 99285; 36415; 94760; 93005; 97162; 97166; 80053 ×2; 82550; 83605; 83735; 84484; 85025 ×2; 85027; 85610; 85730; 81001; 73030; 71046; 72125; 70450; G0378 ×6

== ENCOUNTER 2023-08-17 10:33 | Inpatient (IN) | payer MEDICARE, OTHER ==
--- NOTE | 2023-08-17 10:54 | ED ---
Fall HPI - General Source: patient, RN notes reviewed Mode of arrival: EMS Limitations: physical limitation <Linnea Pritchard - Last Filed: 08/17/23 16:15> <Harper Briceño - Last Filed: 08/18/23 22:46> - General Stated Complaint: fall,weakness Time Seen by Provider: 08/17/23 10:54 - History of Present Illness Initial Comments: Patient is a 78-year-old female presented to ER with a chief complaint of a fall. Patient states she rolled out of bed last night. She reports she did hit her head but denies loss of consciousness or blood thinner use. Patient also was endorsing left shoulder, hip and knee pain. Patient states she falls a lot. Per EMS patient recently released from [facility] for rehab. Patient denies any other complaints at this time. (Linnea Pritchard) - Related Data Home Medications Medication Instructions Recorded Confirmed Levothyroxine Sodium [Synthroid] 50 mcg PO DAILY 09/27/14 08/17/23 allopurinoL [Zyloprim] 300 mg PO DAILY 09/27/14 08/17/23 Famotidine [Pepcid] 20 mg PO DAILY 10/14/20 08/17/23 Dulaglutide [Trulicity] 1.5 mg SQ NICOLAS 03/23/23 08/17/23 Gabapentin 600 mg PO TID 07/16/23 08/17/23 Losartan [Cozaar] 25 mg PO BID 07/16/23 08/17/23 Glimepiride [Amaryl] 4 mg PO AC-BID 08/17/23 08/17/23 Hydrocodone/Acetaminophen 7.5-300mg 1 tab PO TID PRN 08/17/23 08/17/23 Oxybutynin Chloride [oxyBUTYnin 15 mg PO DAILY 08/17/23 08/17/23 chloride ER] Potassium Chloride ER [K-Dur 20] 20 meq PO DAILY 08/17/23 08/17/23 Sertraline [Zoloft] 100 mg PO BID 08/17/23 08/17/23 metFORMIN HCL 1,000 mg PO BID 08/17/23 08/17/23 Allergies Allergy/AdvReac Type Severity Reaction Status Date / Time morphine AdvReac Nausea & Verified 08/17/23 12:31 Vomiting Nkjepce-TKI-JuS Reductase AdvReac STIFFNESS Verified 08/17/23 12:31 Inhibitor AND MUSCLE [Zcmnzfm-Uuy-Lml Reductase PAIN Inhibitor] Review of Systems ROS Other: All systems not noted in ROS Statement are negative. <Linnea Pritchard - Last Filed: 08/17/23 16:15> ROS Other: All systems not noted in ROS Statement are negative. <KeyannaHarper Ki - Last Filed: 08/18/23 22:46> ROS Statement: Those systems with pertinent positive or pertinent negative responses have been documented in the HPI. Past Medical History Past Medical History: Cancer, COPD, Diabetes Mellitus, GERD/Reflux, Hypertension, Memory Impairment, Thyroid Disorder Additional Past Medical History / Comment(s): mouth lesions,NEUROPATHY- hands,feet. HX SKIN CANCER, Multiple falls-uses walker History of Any Multi-Drug Resistant Organisms: None Reported Past Surgical History: Back Surgery, Hysterectomy, Joint Replacement Additional Past Surgical History / Comment(s): RIGHT KNEE REPLACEMENT, cataract surgery- bilat Past Anesthesia/Blood Transfusion Reactions: Previous Problems w/ Anesthesia Additional Past Anesthesia/Blood Transfusion Reaction / Comment(s): had a hard time waking up after last surgery Past Psychological History: Depression Additional Psychological History / Comment(s): lives alone Smoking Status: Former smoker Past Alcohol Use History: None Reported Additional Past Alcohol Use History / Comment(s): STARTED SMOKING AT AGE 17 QUIT IN 2001 SMOKED 1-2 PPD Past Drug Use History: None Reported - Past Family History Mother Family Medical History: Dementia Additional Family Medical History / Comment(s): alzheimers Father Family Medical History: Myocardial Infarction (ME) Additional Family Medical History / Comment(s): unknown <Linnea Pritchard - Last Filed: 08/17/23 16:15> General Exam General appearance: alert, in no apparent distress Head exam: Present: atraumatic, normocephalic, normal inspection Eye exam: Present: normal appearance, PERRL, EOMI. Absent: scleral icterus, conjunctival injection, periorbital swelling Pupils: Present: normal accommodation ENT exam: Present: normal exam, normal oropharynx, mucous membranes moist Neck exam: Present: normal inspection. Absent: tenderness, meningismus, lymphadenopathy Respiratory exam: Present: normal lung sounds bilaterally. Absent: respiratory distress, wheezes, rales, rhonchi, stridor Cardiovascular Exam: Present: regular rate, normal rhythm, normal heart sounds. Absent: systolic murmur, diastolic murmur, rubs, gallop, clicks GI/Abdominal exam: Present: soft, normal bowel sounds. Absent: distended, tenderness, guarding, rebound, rigid Extremities exam: Present: tenderness (Left leg roll. 2+ bilateral dorsalis pedis pulse. Sensation intact.) Neurological exam: Present: alert, oriented X3, CN II-XII intact Psychiatric exam: Present: normal affect, normal mood Skin exam: Present: warm, dry, intact, normal color. Absent: rash <Linnea Pritchard - Last Filed: 08/17/23 16:15> Course <Linnea Pritchard - Last Filed: 08/17/23 16:15> Vital Signs 08/17/23 08/17/23 08/17/23 11:07 13:10 15:14 Temperature 98 F 98.8 F Pulse Rate 76 74 72 Respiratory 18 18 18 Rate Blood Pressure 119/70 115/71 115/59 O2 Sat by Pulse 95 95 95 Oximetry 08/17/23 08/17/23 08/17/23 18:42 19:45 21:00 Temperature 98.1 F Pulse Rate 78 74 76 Respiratory 18 18 18 Rate Blood Pressure 135/72 132/74 130/70 O2 Sat by Pulse 95 95 96 Oximetry - Reevaluation(s) Reevaluation #1: 08/17/23 13:11 Daughter, at bedside, reports patient released from [facility] last week. Patient lives at home alone. Patient has had 3 falls in the past 24 hours. She would like patient admitted for placement. 08/17/23 16:[address] Park who accepts medical management. (Linnea Pritchard) Medical Decision Making - Lab Data Result diagrams: 08/17/23 12:38 08/17/23 12:38 - EKG Data -: EKG Interpreted by Oh - Radiology Data Radiology results: report reviewed, image reviewed <Linnea Pritchard - Last Filed: 08/17/23 16:15> - Lab Data Result diagrams: 08/17/23 12:38 08/17/23 12:38 <Harper Briceño - Last Filed: 08/18/23 22:46> - Medical Decision Making Was pt. sent in by a medical professional or institution ([facility], [employer], urgent care, hospital, or shelter...) When possible be specific @ -No Did you speak to anyone other than the patient for history (EMS, parent, family, police, friend...)? What history was obtained from this source @ -No Did you review nursing and triage notes (agree or disagree)? Why? @ -I reviewed and agree with nursing and triage notes Were old charts reviewed (outside hosp., previous admission, EMS record, old EKG, old radiological studies, urgent care reports/EKG's, shelter records)? Report findings @ -No old charts were reviewed Differential Diagnosis (chest pain, altered mental status, abdominal pain women, abdominal pain men, vaginal bleeding, weakness, fever, dyspnea, syncope, headache, dizziness, GI bleed, back pain, seizure, CVA, palpatations, mental health, musculoskeletal)? @ -Differential Weakness: Hypoglycemia, shock, sepsis, hyponatremia, anemia, infection, ME, ETOH, adverse medicine reaction, overdose, stroke, this is not meant to be an all-inclusive list. EKG interpreted by me (3pts min.). @ -As above X-rays interpreted by me (1pt min.). @ -Left knee negative for acute process. AP pelvis and left hip no displaced fracture. Right shoulder shows soft tissue swelling over acromion. No acute fractures or dislocations. CT interpreted by me (1pt min.). @ -CT brain C-spine interpreted by me shows no acute process. U/S interpreted by me (1pt. min.). @ -None done What testing was considered but not performed or refused? (CT, X-rays, U/S, labs)? Why? @ -None What meds were considered but not given or refused? Why? @ -None Did you discuss the management of the patient with other professionals (professionals i.e. [facility], [employer], lab, RT, psych nurse, school social worker, veterinarian assistant, teacher, grant officer, wrapper caser)? Give summary @ -Yes, Case discussed with Dr. Park who accepted medical management. Was smoking cessation discussed for >3mins.? @ -No Was critical care preformed (if so, how long)? @ -No Were there social determinants of health that impacted care today? How? (Homelessness, low income, unemployed, alcoholism, drug addiction, transportation, low edu. Level, literacy, decrease access to med. care, longterm, rehab)? @ -Recently released from [facility] for rehab Was there de-escalation of care discussed even if they declined (Discuss DNR or withdrawal of care, Hospice)? DNR status @ -No What co-morbidities impacted this encounter? (DM, HTN, Smoking, COPD, CAD, Cancer, CVA, ARF, Chemo, Hep., AIDS, mental health diagnosis, sleep apnea, morbid obesity)? @ -Diabetes, obese, HTN, thyroid disorder Was patient admitted / discharged? Hospital course, mention meds given and route, prescriptions, significant lab abnormalities, going to OR and other pertinent info. @ -Admitted. Patient is a 78-year-old female presented to ER with chief complaint of a fall. Per family patient has had 3 falls in the past 24 hours and was recently discharged from [facility]. History and physical exam completed. Vitals stable. Patient neurovascularly intact. No acute neurological findings on exam. Patient no signs of acute distress and resting comfortably in exam room. Non-toxic appearing. Imaging completed in the ER negative for acute process. Labs obtained show a lactic of 2.8 for which patient received 1 L IV fluids. Urine significant infection with positive nitrates. COVID, influenza, RSV negative. EKG without acute signs of infarct or ischemia. Patient started on IV Rocephin, blood cultures obtained. Admission considered for placement and IV antibiotics. Case discussed with Dr. Park, who accepted medical management. ID, PT, OT on consult. Patient and family, daughter Francia at bedside, agreeable to admission. Patient admitted in stable c ondition for further management. Undiagnosed new problem with uncertain prognosis? @ -No Drug Therapy requiring intensive monitoring for toxicity (Heparin, Nitro, Insulin, Cardizem)? @ -No Were any procedures done? @ -No Diagnosis/symptom? @ -UTI/lactic acidosis/recurrent falls Acute, or Chronic, or Acute on Chronic? @ -Acute Uncomplicated (without systemic symptoms) or Complicated (systemic symptoms)? @ -Uncomplicated Side effects of treatment? @ -No Exacerbation, Progression, or Severe Exacerbation? @ -No Poses a threat to life or bodily function? How? (Chest pain, USA, ME, pneumonia, PE, COPD, DKA, ARF, appy, cholecystitis, CVA, Diverticulitis, Homicidal, Suicidal, threat to staff... and all critical care pts) @ -No (Linnea Pritchard) - Lab Data Lab Results 08/17/23 08/17/23 08/17/23 Range/Units 11:11 12:38 12:38 WBC 7.0 (3.8-10.6) k/uL RBC 4.36 (3.80-5.40) m/uL Hgb 14.0 (11.4-16.0) gm/dL Hct 38.3 (34.0-46.0) % MCV 87.8 (80.0-100.0) fL MCH 32.2 (25.0-35.0) pg MCHC 36.6 (31.0-37.0) g/dL RDW 15.2 (11.5-15.5) % Plt Count 119 L (150-450) k/uL MPV 9.4 Poikilocytosis Slight Sodium 141 (137-145) mmol/L Potassium 2.9 L (3.5-5.1) mmol/L Chloride 105 (98-107) mmol/L Carbon Dioxide 25 (22-30) mmol/L Anion Gap 11 mmol/L BUN 22 H (7-17) mg/dL Creatinine 0.56 (0.52-1.04) mg/dL Est GFR (CKD-EPI)AfAm >90 (>60 ml/min/1.73 sqM) Est GFR (CKD-EPI)NonAf 89 (>60 ml/min/1.73 sqM) Glucose 198 H (74-99) mg/dL Lactic Ac Sepsis Rflx Plasma Lactic Acid Joe (0.7-2.0) mmol/L Calcium 9.4 (8.4-10.2) mg/dL Total Bilirubin 1.1 (0.2-1.3) mg/dL AST 29 (14-36) U/L ALT 15 (4-34) U/L Alkaline Phosphatase 101 (38-126) U/L Total Protein 6.8 (6.3-8.2) g/dL Albumin 3.9 (3.5-5.0) g/dL Urine Color Yellow Urine Appearance Cloudy H (Clear) Urine pH 5.0 (5.0-8.0) Ur Specific [place] 1.024 (1.001-1.035) Urine Protein 1+ H (Negative) Urine Glucose (UA) Negative (Negative) Urine Ketones Negative (Negative) Urine Blood Negative (Negative) Urine Nitrite Positive H (Negative) Urine Bilirubin Negative (Negative) Urine Urobilinogen <2.0 (<2.0) mg/dL Ur Leukocyte Esterase Trace H (Negative) Urine RBC 4 (0-5) /hpf Urine WBC 7 H (0-5) /hpf Urine Bacteria Many H (None) /hpf Hyaline Casts 28 H (0-2) /lpf Urine Mucus Many H (None) /hpf Urine Yeast (Budding) Occasional H (None) /hpf Influenza Type A (PCR) (Not Detectd) Influenza Type B (PCR) (Not Detectd) RSV (PCR) (Not Detectd) SARS-CoV-2 (PCR) (Not Detectd) 08/17/23 08/17/23 08/17/23 Range/Units 12:38 12:43 13:26 WBC (3.8-10.6) k/uL RBC (3.80-5.40) m/uL Hgb (11.4-16.0) gm/dL Hct (34.0-46.0) % MCV (80.0-100.0) fL MCH (25.0-35.0) pg MCHC (31.0-37.0) g/dL RDW (11.5-15.5) % Plt Count (150-450) k/uL MPV Poikilocytosis Sodium (137-145) mmol/L Potassium (3.5-5.1) mmol/L Chloride (98-107) mmol/L Carbon Dioxide (22-30) mmol/L Anion Gap mmol/L BUN (7-17) mg/dL Creatinine (0.52-1.04) mg/dL Est GFR (CKD-EPI)AfAm (>60 ml/min/1.73 sqM) Est GFR (CKD-EPI)NonAf (>60 ml/min/1.73 sqM) Glucose (74-99) mg/dL Lactic Ac Sepsis Rflx Y Plasma Lactic Acid Joe 2.8 H* (0.7-2.0) mmol/L Calcium (8.4-10.2) mg/dL Total Bilirubin (0.2-1.3) mg/dL AST (14-36) U/L ALT (4-34) U/L Alkaline Phosphatase (38-126) U/L Total Protein (6.3-8.2) g/dL Albumin (3.5-5.0) g/dL Urine Color Urine Appearance (Clear) Urine pH (5.0-8.0) Ur Specific [place] (1.001-1.035) Urine Protein (Negative) Urine Glucose (UA) (Negative) Urine Ketones (Negative) Urine Blood (Negative) Urine Nitrite (Negative) Urine Bilirubin (Negative) Urine Urobilinogen (<2.0) mg/dL Ur Leukocyte Esterase (Negative) Urine RBC (0-5) /hpf Urine WBC (0-5) /hpf Urine Bacteria (None) /hpf Hyaline Casts (0-2) /lpf Urine Mucus (None) /hpf Urine Yeast (Budding) (None) /hpf Influenza Type A (PCR) Not Detected (Not Detectd) Influenza Type B (PCR) Not Detected (Not Detectd) RSV (PCR) Not Detected (Not Detectd) SARS-CoV-2 (PCR) Not Detected (Not Detectd) - EKG Data EKG Comments: EKG taken at 11: 04 shows sinus rhythm with frequent PVCs. No acute ST segment or T wave abnormalities. Ventricular rate 77, CA interval 186, QRS duration 107, QT/QTc 407/438. (Linnea Pritchard) Disposition Time of Disposition: 14:18 <Linnea Pritchard - Last Filed: 08/17/23 16:15> <Harper Briceño - Last Filed: 08/18/23 22:46> Clinical Impression: Urinary tract infection, Recurrent falls, Lactic acidosis Disposition: ADMITTED IP TO THIS HOSP Condition: Fair
[2023-08-17] MEDS: ACETAMINOPHEN TAB 325 MG TAB PO STA (11:26)
[2023-08-17 11:36] LABS: Appearance,Urine Cloudy (Clear); Bacteria,Urine Many /hpf; Bilirubin,Urine Negative (Negative); Blood,Urine Negative (Negative); Budding Yeast,Urine Occasional /hpf; Color,Urine Yellow; Glucose,Urine (UA) Negative (Negative); Hyaline Casts,Urine 28 /lpf (0-2); Ketones,Urine Negative (Negative); Leukocyte Esterase,Urine Trace (Negative); Mucus,Urine Many /hpf; Nitrite,Urine Positive (Negative); Protein,Urine 1+ (Negative); RBC,Urine 4 /hpf (0-5); Specific Gravity,Urine 1.024 (1.001-1.035); Urobilinogen,Urine <2.0 mg/dL (<2.0); WBC,Urine 7 /hpf (0-5)
--- NOTE | 2023-08-17 11:55 | CT ---
EXAMINATION TYPE: CT brain wenceslao weldon DATE OF EXAM: 08/17/2023 COMPARISON: None HISTORY: Fall, head injury CT DLP: 1381 mGycm, Automated exposure control for dose reduction was used. CONTRAST: Patient injected with 0 mL of Isovue 300. CT of the brain is performed utilizing 3 mm thick sections through the posterior fossa and 3 mm thick sections through the remaining calvarium. Study is performed within 24 hours of arrival to the hospital. No abnormal hyperdensity is present to suggest an acute intracranial hemorrhage. No mass lesion is evident. No acute infarcts are evident. Periventricular white matter hypodensity is present, likely on the ba sis of chronic white matter ischemic changes. Ventricles and sulci are prominent for the patient age. Paranasal sinuses and mastoid air cells within the [id number] are clear. IMPRESSIONS: 1. Atrophy with chronic appearing periventricular white matter ischemic type changes CT cervical spine. COMPARISON: None CT of the cervical spine is performed in the axial plane at 2 mm thick sections. Reconstructed image s in the coronal, and sagittal plane are reviewed on the computer. Anterior cervical fusion is present C5-C7. There is loss of disc height at those levels. Beam hardeni ng artifact is present through these levels. No acute fractures are evident. Vertebral body alignment is normal. At C4-5 there is uncovertebral joint hypertrophy with mild bilateral foraminal narrowing. Severe righ t foraminal narrowing is present C5-6 moderate narrowing is present on the left at C6-7 Vertebral body heights are preserved. No spinal canal stenosis is evident. Diffuse degenerative disc changes are present away from the anterior cervical fusion. IMPRESSION: 1. Degenerative changes. No acute osseous abnormality is evident. Follow-up can be performed as clini missy indicated.
--- NOTE | 2023-08-17 12:22 | XR ---
EXAMINATION TYPE: XR shoulder complete 3 views RT, XR Hip 2 views LT and AP Pelvis, XR knee complete 3 views LT DATE OF EXAM: 08/17/2023 Comparison: Right shoulder 07/16/2023 Clinical History: 78-year-old female pain after falling Findings: Right shoulder: There seems to be some soft tissue swelling overlying the acromion. Moderate degenerative joint space narrowing and marginal spurring at the acromioclavicular joint. Subacromial space is preserved. Mild degenerative changes glenohumeral joint. No acute fracture, subluxation or dislocation. Pelvis and left hip: SI joints appear symmetric and intact but with some degenerative change. Vook-zb-iiprdias degenerativ e spurring at both hips but with relatively preserved joint spaces on both sides. Limited visualizati on of the right femoral neck due to external rotation of the hip. No displaced fracture is seen. Lami nectomy change in the lower lumbar spine. Left knee: Tricompartmental degenerative change, severe within the medial compartment and moderate to severe in both lateral and patellofemoral compartments. Loose bodies in both the infrapatellar space and suprap atellar pouch. Extensor mechanism is intact. Trace knee joint effusion. No acute fracture, subluxatio n, dislocation is seen. Impression: 1. Right shoulder: Prominent soft tissue swelling overlying the acromion could reflect soft tissue co ntusion. No acute fracture is seen. No abnormal widening or offset at the AC joint to suggest AC join t sprain/separation. 2. Pelvis and left hip: Limitation in assessment of the right femoral neck due to external rotation o f the hip. Otherwise, mild degenerative change both hips and SI joints. No displaced fracture seen. 3. Left knee: Moderate to severe tricompartmental OA. Trace knee joint effusion probably reactive. Scattered small loose bodies. No acute osseous abnormality seen.
[2023-08-17] MEDS: HYDROcodone/APAP 5-325MG 1 EACH TAB PO STA (12:40)
[2023-08-17 12:57] LABS: HCT 38.3 % (34.0-46.0); MCH 32.2 pg (25.0-35.0); MCHC 36.6 g/dL (31.0-37.0); MCV 87.8 fL (80.0-100.0); Mean Platelet Volume 9.4; Platelet Count 119 k/uL (150-450); Poikilocytosis Slight; RBC 4.36 m/uL (3.80-5.40); RDW 15.2 % (11.5-15.5)
[2023-08-17 13:20] LABS: ALT 15 U/L (4-34); AST 29 U/L (14-36); African American GFR (CKD) >90 (>60 ml/min/1.73 sqM); Albumin 3.9 g/dL (3.5-5.0); Alkaline Phosphatase 101 U/L (38-126); Anion Gap 11 mmol/L; Blood Urea Nitrogen 22 mg/dL (7-17); Calcium 9.4 mg/dL (8.4-10.2); Carbon Dioxide 25 mmol/L (22-30); Chloride 105 mmol/L (98-107); Glucose 198 mg/dL (74-99); Non-African American GFR(CKD) 89 (>60 ml/min/1.73 sqM); Potassium 2.9 mmol/L (3.5-5.1); Sodium 141 mmol/L (137-145); Total Bilirubin 1.1 mg/dL (0.2-1.3); Total Protein 6.8 g/dL (6.3-8.2)
[2023-08-17] MEDS ORDERED: NALOXONE 0.4 MG/ML 1 ML VIAL IV PRN (14:13)
[2023-08-17] MEDS ORDERED: ONDANSETRON 4 MG/2 ML VIAL IVP PRN (14:13)
[2023-08-17] MEDS ORDERED: DEXTROSE 50% SYRINGE 50 ML IVP PRN ×2 (14:14)
[2023-08-17] MEDS: SODIUM CHLORIDE 0.9% 1,000 ML IV SCH (14:26)
[2023-08-17] MEDS: SODIUM CHLORIDE 0.9% 1,000 ML IV STA (14:26)
[2023-08-17] MEDS: cefTRIAXone IN SWFI 1,000 MG/10 ML SYRINGE IVP STA (14:26)
[2023-08-17] MEDS ORDERED: INSULIN ASPART (NovoLOG) 100 UNIT/ML VIAL SQ SCH (17:30)
[2023-08-17 17:47] LABS: Glucose,Whole Blood 202 mg/dL (70-110)
[2023-08-17] MEDS: INSULIN ASPART (NovoLOG) 100 UNIT/ML VIAL SQ SCH (17:51)
[2023-08-17] MEDS: GABAPENTIN 300 MG CAP PO SCH (17:51)
--- NOTE | 2023-08-17 19:41 | HP ---
HISTORY AND PHYSICAL CHIEF COMPLAINT: Multiple falls and urinary tract infection. HISTORY OF PRESENT ILLNESS: This is another admission for this 78-year-old white female, who is living poorly at home. She was falling frequently and came into the hospital and eventually was discharged to a longterm. She was there for short periods of time and then discharged home and she keeps falling. She came in on the day of admission, having fallen 3 times at home. She also has urinary tract infection. REVIEW OF SYSTEMS: She denies any injuries. She denies any headaches, palpitations, chest pain, dizziness, lightheadedness, abdominal pain, nausea, vomiting, diarrhea, melena, urinary complaints, seizures, etc. Past medical history, family history, and personal and social histories are all otherwise unremarkable and noncontributory, and unchanged. It is not clear how much analgesia she is taking at home, but she has abused this in the past. PHYSICAL EXAMINATION: VITAL SIGNS: Normal. HEAD, EARS, EYES, NOSE, MOUTH AND THROAT: Normal. NECK: Very stiff due to chronic and severe cervical spondylosis. CHEST: Clear. CARDIAC: Normal with no irregularities. ABDOMEN: Soft and nontender. EXTREMITIES: Normal. NEUROLOGICAL: She is intact. IMPRESSION: 1. General debility and failure to thrive. 2. Frequent falls. 3. 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 4. History of hypertension. PLAN: 1. Bedrest. 2. IV fluids. 3. To look for other etiologies of syncope and falling and then request discharge planning again. MMODL / BREONNAN: [id number] /
[2023-08-17] MEDS: SERTRALINE 100 MG TAB PO SCH (21:08)
[2023-08-17 22:23] LABS: Glucose,Whole Blood 165 mg/dL (70-110)
--- NOTE | 2023-08-17 23:01 | P.CONS ---
History of Present Illness - Reason for Consult Consult date: 08/17/23 - History of Present Illness Patient is a 78-year-old female with a past medical history significant for diabetes mellitus hypertension reflux memory impairment, COPD patient was brought into the hospital after the patient did have a fall patient mention she rolled out of her bed last night and apparently did hit her head but denies any loss of consciousness patient has been complaining of some left shoulder knee and hip pain and also complaining of significant weakness no energy patient denies high-grade fever or any chills denies any URI symptoms no chest pain shortness of breath or cough patient complaining of some nausea but did not have any vomiting some left-sided abdominal pain but denies any diarrhea or constipation not very clear about her urinary symptoms of any burning or frequency with the symptoms the patient was evaluated on presentation to the hospital patient was afebrile and no fever have recorded subsequently patient did have white count of 7.0 creatinine was normal lactic acid was elevated influenza RSV COVID testing was negative patient did have a positive UA, patient was given a dose of Rocephin and admitted to hospital infectious disease was consulted for further management of antibiotic therapy Past Medical History Past Medical History: Cancer, COPD, Diabetes Mellitus, GERD/Reflux, Hypertension, Memory Impairment, Thyroid Disorder Additional Past Medical History / Comment(s): mouth lesions,NEUROPATHY-h ands,feet. HX SKIN CANCER, Multiple falls-uses walker History of Any Multi-Drug Resistant Organisms: None Reported Past Surgical History: Back Surgery, Hysterectomy, Joint Replacement Additional Past Surgical History / Comment(s): RIGHT KNEE REPLACEMENT, cataract surgery- bilat Past Anesthesia/Blood Transfusion Reactions: Previous Problems w/ Anesthesia Additional Past Anesthesia/Blood Transfusion Reaction / Comm: had a hard time waking up after last surgery Past Psychological History: Depression Additional Psychological History / Comment(s): lives alone Smoking Status: Former smoker Past Alcohol Use History: None Reported Additional Past Alcohol Use History / Comment(s): STARTED SMOKING AT AGE 17 QUIT IN 2001 SMOKED 1-2 PPD Past Drug Use History: None Reported - Past Family History Mother Family Medical History: Dementia Additional Family Medical History / Comment(s): alzheimers Father Family Medical History: Myocardial Infarction ([place]) Additional Family Medical History / Comment(s): unknown Medications and Allergies Home Medications Medication Instructions Recorded Confirmed Type Levothyroxine Sodium [Synthroid] 50 mcg PO DAILY 09/27/14 08/17/23 History allopurinoL [Zyloprim] 300 mg PO DAILY 09/27/14 08/17/23 History Famotidine [Pepcid] 20 mg PO DAILY 10/14/20 08/17/23 History Dulaglutide [Trulicity] 1.5 mg SQ NICOLAS 03/23/23 08/17/23 History Gabapentin 600 mg PO TID 07/16/23 08/17/23 History Losartan [Cozaar] 25 mg PO BID 07/16/23 08/17/23 History Glimepiride [Amaryl] 4 mg PO AC-BID 08/17/23 08/17/23 History Hydrocodone/Acetaminophen 7.5-300mg 1 tab PO TID PRN 08/17/23 08/17/23 History Oxybutynin Chloride [oxyBUTYnin 15 mg PO DAILY 08/17/23 08/17/23 History chloride ER] Potassium Chloride ER [K-Dur 20] 20 meq PO DAILY 08/17/23 08/17/23 History Sertraline [Zoloft] 100 mg PO BID 08/17/23 08/17/23 History metFORMIN HCL 1,000 mg PO BID 08/17/23 08/17/23 History Allergies Allergy/AdvReac Type Severity Reaction Status Date / Time morphine AdvReac Nausea & Verified 08/17/23 12:31 Vomiting Nqgvqdc-PBY-HiC Reductase AdvReac STIFFNESS Verified 08/17/23 12:31 Inhibitor AND MUSCLE [Mgygmre-Zkm-Ykc Reductase PAIN Inhibitor] Physical Exam Vitals: Vital Signs Temp Pulse Resp BP Pulse Ox 08/17/23 13:10 74 18 115/71 95 08/17/23 11:07 98 F 76 18 119/70 95 Intake and Output 08/16/23 08/17/23 08/17/23 22:59 06:59 14:59 Other: Weight 108.862 kg Results CBC & Chem 7: 08/17/23 12:38 08/17/23 12:38 Labs: Abnormal Lab Results - Last 24 Hours (Table) 08/17/23 08/17/23 08/17/23 Range/Units 11:11 12:38 12:38 Plt Count 119 L (150-450) k/uL Potassium 2.9 L (3.5-5.1) mmol/L BUN 22 H (7-17) mg/dL Glucose 198 H (74-99) mg/dL Plasma Lactic Acid Joe (0.7-2.0) mmol/L Urine Appearance Cloudy H (Clear) Urine Protein 1+ H (Negative) Urine Nitrite Positive H (Negative) Ur Leukocyte Esterase Trace H (Negative) Urine WBC 7 H (0-5) /hpf Urine Bacteria Many H (None) /hpf Hyaline Casts 28 H (0-2) /lpf Urine Mucus Many H (None) /hpf Urine Yeast (Budding) Occasional H (None) /hpf 08/17/23 Range/Units 12:38 Plt Count (150-450) k/uL Potassium (3.5-5.1) mmol/L BUN (7-17) mg/dL Glucose (74-99) mg/dL Plasma Lactic Acid Joe 2.8 H* (0.7-2.0) mmol/L Urine Appearance (Clear) Urine Protein (Negative) Urine Nitrite (Negative) Ur Leukocyte Esterase (Negative) Urine WBC (0-5) /hpf Urine Bacteria (None) /hpf Hyaline Casts (0-2) /lpf Urine Mucus (None) /hpf Urine Yeast (Budding) (None) /hpf Assessment and Plan Plan: 1patient presented to hospital with weakness fall did have some nausea flank pain positive UA concerning for symptomatic urinary tract infection likely from enteric gram-negative pathogen 2-we will continue the patient on Rocephin 1 g daily while waiting for the culture to finalize 3-gentle IV fluid We will follow on clinical condition and cultures to further adjust medication if needed Thank you for this consultation we will follow the patient along with you Dictation was produced using [employer] dictation software. please excuse any grammatical, word or spelling errors. Time with Patient: Greater than 30
[2023-08-18] MEDS: LEVOTHYROXINE 50 MCG TAB PO SCH (05:36)
[2023-08-18 08:19] LABS: Glucose,Whole Blood 154 mg/dL (70-110)
[2023-08-18] MEDS: FAMOTIDINE 20 MG TAB PO SCH (08:53)
[2023-08-18] MEDS: HYDROcodone/APAP 5-325MG 1 EACH TAB PO PRN (08:53)
[2023-08-18] MEDS: allopurinoL 300 MG TAB PO SCH (08:53)
[2023-08-18 11:53] LABS: Glucose,Whole Blood 175 mg/dL (70-110)
[2023-08-18] MEDS ORDERED: INSULIN ASPART (NovoLOG) 100 UNIT/ML VIAL SQ SCH (12:30)
[2023-08-18] MEDS: NYSTATIN 100,000 UNIT/GM POWD 15 GM TOPICAL SCH (12:41)
[2023-08-18] MEDS: POTASSIUM CHLORIDE ER 20 MEQ TAB.ER PO SCH (12:42)
--- NOTE | 2023-08-18 16:40 | P.PN ---
Subjective Progress Note Date: 08/18/23 Principal diagnosis: Reason for follow-up is UTI, groin and bilateral breast fold cutaneous candidiasis Patient is a 78-year-old female with a past medical history signi ficant for diabetes mellitus hypertension reflux memory impairment, COPD patient was brought into the hospital after the patient did have a fall, patient complaining of weakness did have a positive UA concerning for UTI. On today's evaluation that is 08/18/2023,the patient denies any fever or any ch ills, patient is breathing comfortably on room air, the patient denies chest pain shortness of breath and no significant cough, patient denies abdominal pain, no nausea vomiting or diarrhea. Patient noted to have significant excoriation to the breast fold as well as groin fold by the nurse aide No new labs obtained today Objective - Vital Signs Vital signs: Vital Signs Temp 98.0 F 08/18/23 16:09 Pulse 84 08/18/23 16:09 Resp 20 08/18/23 16:09 BP 137/74 08/18/23 16:09 Pulse Ox 96 08/18/23 16:09 FiO2 Intake & Output 08/17/23 08/18/23 08/18/23 18:59 06:59 18:59 Intake Total 590 360 Balance 590 360 Weight 108.862 kg 108.862 kg Intake: Oral 590 360 Other: Voiding Method Toilet Toilet Bedside Commode Bedside Commode Diaper Diaper # Voids 2 # Bowel Movements 0 - Exam GENERAL DESCRIPTION: An elderly male lying in bed in no distress RESPIRATORY SYSTEM: Unlabored breathing , decreased breath sounds at bases HEART: S1 S2 regular rate and rhythm , ABDOMEN: Soft , no tenderness EXTREMITIES: No edema feet skin did have extensive excoriation to the breast fold and groin area - Labs CBC & Chem 7: 08/17/23 12:38 08/17/23 12:38 Labs: Abnormal Lab Results - Last 24 Hours (Table) 08/17/23 08/17/23 08/18/23 Range/Units 17:45 22:20 08:05 POC Glucose (mg/dL) 202 H 165 H 154 H (70-110) mg/dL 08/18/23 Range/Units 11:31 POC Glucose (mg/dL) 175 H (70-110) mg/dL Assessment and Plan (1) Cutaneous candidiasis Current Visit: Yes Status: Acute Code(s): B37.2 - CANDIDIASIS OF SKIN AND NAIL SNOMED Code(s): 32895113 (2) Urinary tract infection Current Visit: Yes Status: Acute Code(s): N39.0 - URINARY TRACT INFECTION, SITE NOT SPECIFIED SNOMED Code(s): 86143002 Plan: 1patient presented to hospital with weakness fall did have some nausea flank pain positive UA concerning for symptomatic urinary tract infection likely from enteric gram-negative pathogen 2-we will continue the patient on Rocephin 1 g daily while waiting for the culture to finalize 3-we will apply nystatin powder to the breast and groin fold area twice a day Dictation was produced using [employer] dictation software. please excuse any grammatical, word or spelling errors. Time with Patient: Less than 30
[2023-08-18 17:06] LABS: Glucose,Whole Blood 159 mg/dL (70-110)
[2023-08-18 19:56] LABS: Glucose,Whole Blood 271 mg/dL (70-110)
[2023-08-19 07:34] LABS: Glucose,Whole Blood 133 mg/dL (70-110)
--- NOTE | 2023-08-19 11:16 | PN ---
PROGRESS NOTE DATE OF SERVICE: 08/18/2023 CHIEF COMPLAINT: 1. Frequent falling. 2. Injury to the right shoulder. 3. Hypokalemia. 4. General debility. HISTORY OF PRESENT ILLNESS: This lady is having quite a bit of discomfort in the right shoulder. X-rays are normal. Potassium is also low, and this could be corrected. PHYSICAL EXAMINATION: EXTREMITIES: The right shoulder is swollen. She has pain with any movement of range of motion. CHEST: Clear. CARDIAC: Normal. ABDOMEN: Soft, nontender. IMPRESSION: 1. General debility with frequent falls. 2. Injury to the right shoulder. 3. Hypokalemia. 4. Arthritis of the low back and neck. PLAN: Correct hypokalemia and look into a different discharge plan. CARLA / BREONNAN: [id number] /
[2023-08-19 12:33] LABS: Glucose,Whole Blood 199 mg/dL (70-110)
--- NOTE | 2023-08-19 16:44 | PN ---
PROGRESS NOTE CHIEF COMPLAINT: Frequent falling and general debility. HISTORY OF PRESENT ILLNESS: This lady is doing fairly well and has no complaints other than her shoulder. PHYSICAL EXAM: Her shoulder is quite swollen. It is tender. Chest is clear. Cardiac exam is normal. IMPRESSION: 1. Frequent falling. 2. General debility. 3. Analgesic abuse. PLAN: Await discharge planning. She would like to go back to [facility]. MMODL / IJN: [id number] /
[2023-08-19 17:15] LABS: Glucose,Whole Blood 191 mg/dL (70-110)
[2023-08-19 20:23] LABS: Glucose,Whole Blood 199 mg/dL (70-110)
--- NOTE | 2023-08-19 21:56 | P.PN ---
Subjective Progress Note Date: 08/19/23 Principal diagnosis: Reason for follow-up is UTI, groin and bilateral breast fold cutaneous candidiasis Patient is a 78-year-old female with a past medical history signi ficant for diabetes mellitus hypertension reflux memory impairment, COPD patient was brought into the hospital after the patient did have a fall, patient complaining of weakness did have a positive UA concerning for UTI. On today's evaluation that is 08/19/2023,the patient remains to be afebrile, pablo anabel is on room air not requiring supplemental oxygen and denies any shortness of breath no chest pain or cough.Patient denies having any nausea or vomiting, no abdominal pain and no diarrhea has been reported. No new labs has been obtained today cultures currently pending Objective - Vital Signs Vital signs: Vital Signs Temp 97.9 F 08/19/23 19:48 Pulse 70 08/19/23 19:48 Resp 20 08/19/23 19:48 BP 180/73 08/19/23 19:48 Pulse Ox 91 L 08/19/23 19:48 FiO2 Intake & Output 08/19/23 08/19/23 08/20/23 06:59 18:59 06:59 Intake Total 900 Balance 900 Intake: Intake, IV Titration 900 Amount Sodium Chloride 0.9% 1, 900 000 ml @ 75 mls/hr IV . [id number] [facility] Rx#:[id number] Other: Voiding Method Bedside Commode Diaper # Voids 1 1 1 - Exam GENERAL DESCRIPTION: An elderly male lying in bed in no distress RESPIRATORY SYSTEM: Unlabored breathing , decreased breath sounds at bases HEART: S1 S2 regular rate and rhythm , ABDOMEN: Soft , no tenderness EXTREMITIES: No edema feet skin did have extensive excoriation to the breast fold and groin area - Labs CBC & Chem 7: 08/17/23 12:38 08/17/23 12:38 Labs: Abnormal Lab Results - Last 24 Hours (Table) 08/19/23 08/19/23 08/19/23 Range/Units 07:32 12:32 17:14 POC Glucose (mg/dL) 133 H 199 H 191 H (70-110) mg/dL 08/19/23 Range/Units 20:08 POC Glucose (mg/dL) 199 H (70-110) mg/dL Microbiology - Last 24 Hours (Table) 08/17/23 14:10 Blood Culture - Preliminary Blood 08/17/23 14:15 Blood Culture - Preliminary Blood Assessment and Plan (1) Cutaneous candidiasis Current Visit: Yes Status: Acute Code(s): B37.2 - CANDIDIASIS OF SKIN AND NAIL SNOMED Code(s): 35799282 (2) Urinary tract infection Current Visit: Yes Status: Acute Code(s): N39.0 - URINARY TRACT INFECTION, SITE NOT SPECIFIED SNOMED Code(s): 12619195 Plan: 1patient presented to hospital with weakness fall did have some nausea flank pain positive UA concerning for symptomatic urinary tract infection likely from enteric gram-negative pathogen 2-patient to continue with Rocephin 1 g daily while waiting for the culture to finalize 3-continue with nystatin powder to the breast and groin fold area twice a day Dictation was produced using [employer] dictation software. please excuse any grammatical, word or spelling errors. Time with Patient: Less than 30
[2023-08-20 08:04] LABS: Glucose,Whole Blood 141 mg/dL (70-110)
[2023-08-20] MEDS: NON FORMULARY DRUG (Dulaglutide [Trulicity] 1.5 MG/0.5 ML Each) SQ SCH (08:12)
[2023-08-20 12:03] LABS: Glucose,Whole Blood 187 mg/dL (70-110)
--- NOTE | 2023-08-20 12:24 | P.PN ---
Subjective Progress Note Date: 08/20/23 Principal diagnosis: Reason for follow-up is UTI, groin and bilateral breast fold cutaneous candidiasis Patient is a 78-year-old female with a past medical history signi ficant for diabetes mellitus hypertension reflux memory impairment, COPD patient was brought into the hospital after the patient did have a fall, patient complaining of weakness did have a positive UA concerning for UTI. On today's evaluation that is 08/20/2023, the patient continues to be afebrile, the patient is on room air and breathing comfortably, the Pt denies having any chest pain or cough, the patient denies having any abdominal pain no vomiting or any diarrhea has been reported by the nursing staff No new labs obtained today blood culture negative Objective - Vital Signs Vital signs: Vital Signs Temp 98.2 F 08/20/23 12:17 Pulse 69 08/20/23 12:17 Resp 20 08/20/23 12:17 BP 156/86 08/20/23 12:17 Pulse Ox 93 L 08/20/23 12:17 FiO2 Intake & Output 08/19/23 08/20/23 08/20/23 18:59 06:59 18:59 Intake Total 900 Balance 900 Intake: Intake, IV Titration 900 Amount Sodium Chloride 0.9% 1, 900 000 ml @ 75 mls/hr IV . [id number] [facility] Rx#:[id number] Other: Voiding Method Bedside Commode Bedside Commode Bedside Commode Diaper Diaper # Voids 1 3 - Exam GENERAL DESCRIPTION: An elderly male lying in bed in no distress RESPIRATORY SYSTEM: Unlabored breathing , decreased breath sounds at bases HEART: S1 S2 regular rate and rhythm , ABDOMEN: Soft , no tenderness EXTREMITIES: No edema feet skin did have extensive excoriation to the breast fold and groin area - Labs CBC & Chem 7: 08/17/23 12:38 08/17/23 12:38 Labs: Abnormal Lab Results - Last 24 Hours (Table) 08/19/23 08/19/23 08/19/23 Range/Units 12:32 17:14 20:08 POC Glucose (mg/dL) 199 H 191 H 199 H (70-110) mg/dL 08/20/23 08/20/23 Range/Units 08:03 11:59 POC Glucose (mg/dL) 141 H 187 H (70-110) mg/dL Microbiology - Last 24 Hours (Table) 08/17/23 14:10 Blood Culture - Preliminary Blood 08/17/23 14:15 Blood Culture - Preliminary Blood Assessment and Plan (1) Cutaneous candidiasis Current Visit: Yes Status: Acute Code(s): B37.2 - CANDIDIASIS OF SKIN AND NAIL SNOMED Code(s): 83549300 (2) Urinary tract infection Current Visit: Yes Status: Acute Code(s): N39.0 - URINARY TRACT INFECTION, SITE NOT SPECIFIED SNOMED Code(s): 67772731 Plan: 1patient presented to hospital with weakness fall did have some nausea flank pain positive UA concerning for symptomatic urinary tract infection likely from enteric gram-negative pathogen 2-patient to continue with Rocephin 1 g daily, short course of Ceftin on discharge 3-patient to continue with nystatin powder to the breast and groin fold area twi ce a day Currently waiting for placement Dictation was produced using [employer] dictation software. please excuse any grammatical, word or spelling errors. Time with Patient: Less than 30
[2023-08-20 17:12] LABS: Glucose,Whole Blood 175 mg/dL (70-110)
[2023-08-20 20:52] LABS: Glucose,Whole Blood 189 mg/dL (70-110)
--- NOTE | 2023-08-20 23:55 | PN ---
PROGRESS NOTE CHIEF COMPLAINT: General debility with frequent falls. HISTORY OF PRESENT ILLNESS: This lady is stable and will be working on relocation again in the beginning of the week. PHYSICAL EXAMINATION: VITAL SIGNS: Normal. GENERAL: She is awake and alert. CHEST: Clear. CARDIAC: Normal. ABDOMEN: Soft, nontender. IMPRESSION: 1. General debility with frequent falling. 2. Arthritis. 3. Sprain of the right shoulder. PLAN: Continue with physical therapy and rehab and replacement. MMODL / IJN: [id number] /
[2023-08-21 09:15] LABS: Glucose,Whole Blood 234 mg/dL (70-110)
[2023-08-21] MEDS: INSULIN DETEMIR (LEVEMIR) 100 UNIT/ML SYR SQ SCH (09:20)
[2023-08-21 12:03] LABS: Glucose,Whole Blood 249 mg/dL (70-110)
[2023-08-21 17:14] LABS: Glucose,Whole Blood 229 mg/dL (70-110)
[2023-08-21 20:22] LABS: Glucose,Whole Blood 259 mg/dL (70-110)
--- NOTE | 2023-08-22 05:56 | PN ---
PROGRESS NOTE CHIEF COMPLAINT: General debility and failure to thrive with frequent falling and injury to the right shoulder. HISTORY OF PRESENT ILLNESS: This lady has been stable and has had no problems otherwise. She does have significant pain and swelling in the right shoulder. X-rays are negative. This probably is indicative of either rotator cuff tendinitis, a tendon tear, or subluxation of the right shoulder. PHYSICAL EXAMINATION: GENERAL: She remains slightly pale. She is awake and alert. CHEST: Clear. CARDIAC: Normal. ABDOMEN: Soft, nontender. IMPRESSION: 1. General debility and failure to thrive. 2. Frequent falling. 3. Injury to the right shoulder. PLAN: Continue PT and OT and looking into discharge plan. She wants to go back to [facility]. MMODL / BREONNAN: [id number] /
[2023-08-22 07:43] LABS: Glucose,Whole Blood 195 mg/dL (70-110)
[2023-08-22 12:46] LABS: Glucose,Whole Blood 244 mg/dL (70-110)
[2023-08-22 13:17] VITALS: RESP 16
--- NOTE | 2023-08-22 15:19 | P.PN ---
Subjective Progress Note Date: 08/21/23 Principal diagnosis: Reason for follow-up is UTI, groin and bilateral breast fold cutaneous candidiasis Patient is a 78-year-old female with a past medical history signi ficant for diabetes mellitus hypertension reflux memory impairment, COPD patient was brought into the hospital after the patient did have a fall, patient complaining of weakness did have a positive UA concerning for UTI. On today's evaluation that is 08/21/2023, Patient is afebrile patient is curren tly on room air and denies having any shortness of breath, the patient denies any chest pain or cough, the patient denies any nausea vomiting did not have any abdominal pain and no diarrhea. No new labs has been repeated today Objective - Vital Signs Vital signs: Vital Signs Temp 97.8 F 08/21/23 07:35 Pulse 65 08/21/23 07:35 Resp 18 08/21/23 07:35 BP 151/61 08/21/23 07:35 Pulse Ox 93 L 08/21/23 07:35 FiO2 Intake & Output 08/20/23 08/21/23 08/21/23 18:59 06:59 18:59 Intake Total 118 Output Total 850 Balance 118 -850 Intake: Oral 118 Output: Urine 850 Other: Voiding Method Bedside Commode Bedside Commode Bedside Commode External Catheter # Voids 2 4 - Exam GENERAL DESCRIPTION: An elderly male lying in bed in no distress RESPIRATORY SYSTEM: Unlabored breathing , decreased breath sounds at bases HEART: S1 S2 regular rate and rhythm , ABDOMEN: Soft , no tenderness EXTREMITIES: No edema feet skin did have extensive excoriation to the breast fold and groin area - Labs CBC & Chem 7: 08/17/23 12:38 08/22/23 10:55 Labs: Abnormal Lab Results - Last 24 Hours (Table) 08/20/23 08/20/23 08/21/23 Range/Units 17:11 20:50 09:12 POC Glucose (mg/dL) 175 H 189 H 234 H (70-110) mg/dL 08/21/23 Range/Units 11:57 POC Glucose (mg/dL) 249 H (70-110) mg/dL Microbiology - Last 24 Hours (Table) 08/17/23 14:10 Blood Culture - Preliminary Blood 08/17/23 14:15 Blood Culture - Preliminary Blood Assessment and Plan (1) Cutaneous candidiasis Current Visit: Yes Status: Acute Code(s): B37.2 - CANDIDIASIS OF SKIN AND NAIL SNOMED Code(s): 90900199 (2) Urinary tract infection Current Visit: Yes Status: Acute Code(s): N39.0 - URINARY TRACT INFECTION, SITE NOT SPECIFIED SNOMED Code(s): 62025141 Plan: 1patient presented to hospital with weakness fall did have some nausea flank pain positive UA concerning for symptomatic urinary tract infection likely from enteric gram-negative pathogen 2-patient to continue with Rocephin 1 g daily culture still pending 3-patient to continue with nystatin powder to the breast and groin fold area twice a day Monitor clinical course closely Dictation was produced using [employer] dictation software. please excuse any grammatical, word or spelling errors. Time with Patient: Less than 30
--- NOTE | 2023-08-22 15:20 | P.PN ---
Subjective Progress Note Date: 08/22/23 Principal diagnosis: Reason for follow-up is UTI, groin and bilateral breast fold cutaneous candidiasis Patient is a 78-year-old female with a past medical history signi ficant for diabetes mellitus hypertension reflux memory impairment, COPD patient was brought into the hospital after the patient did have a fall, patient complaining of weakness did have a positive UA concerning for UTI. On today's evaluation that is 08/22/2023,the patient denies any fever or any ch ills, patient is breathing comfortably on room air, the patient denies chest pain shortness of breath and no significant cough, patient denies abdominal pain, no nausea vomiting or diarrhea Blood culture has been negative urine is growing a VRE but sensitive to penicillin Objective - Vital Signs Vital signs: Vital Signs Temp 98.9 F 08/22/23 12:40 Pulse 67 08/22/23 12:40 Resp 16 08/22/23 12:40 BP 157/89 08/22/23 12:40 Pulse Ox 93 L 08/22/23 12:40 FiO2 Intake & Output 08/21/23 08/22/23 08/22/23 18:59 06:59 18:59 Output Total 800 500 Balance -800 -500 Output: Urine 800 500 Other: Voiding Method Bedside Commode Diaper External Catheter # Voids 1 4 - Exam GENERAL DESCRIPTION: An elderly male lying in bed in no distress RESPIRATORY SYSTEM: Unlabored breathing , decreased breath sounds at bases HEART: S1 S2 regular rate and rhythm , ABDOMEN: Soft , no tenderness EXTREMITIES: No edema feet skin did have extensive excoriation to the breast fold and groin area - Labs CBC & Chem 7: 08/17/23 12:38 08/22/23 10:55 Labs: Abnormal Lab Results - Last 24 Hours (Table) 08/21/23 08/21/23 08/22/23 Range/Units 17:07 20:19 07:37 POC Glucose (mg/dL) 229 H 259 H 195 H (70-110) mg/dL 08/22/23 Range/Units 12:43 POC Glucose (mg/dL) 244 H (70-110) mg/dL Microbiology - Last 24 Hours (Table) 08/18/23 22:15 Urine Culture - Final Urine,Voided Enterococcus faecalis VRE Assessment and Plan (1) Cutaneous candidiasis Current Visit: Yes Status: Acute Code(s): B37.2 - CANDIDIASIS OF SKIN AND NAIL SNOMED Code(s): 39215652 (2) Urinary tract infection Current Visit: Yes Status: Acute Code(s): N39.0 - URINARY TRACT INFECTION, SITE NOT SPECIFIED SNOMED Code(s): 28253942 (3) VRE (vancomycin resistant enterococcus) culture positive Current Visit: Yes Status: Acute Code(s): Z22.39 - CARRIER OF OTHER SPECIFIED BACTERIAL DISEASES SNOMED Code(s): 886678506 Plan: 1patient presented to hospital with weakness fall did have some nausea flank pain positive UA concerning for symptomatic urinary tract infection likely from enteric gram-negative pathogen 2--patient to continue with nystatin powder to the breast and groin fold area twice a day 3patient urine culture has been finalized with VRE but penicillin sensitive we will discuss Rocephin and start the patient on Unasyn Dictation was produced using [employer] dictation software. please excuse any grammatical, word or spelling errors.
[2023-08-22 17:12] LABS: Glucose,Whole Blood 310 mg/dL (70-110)
[2023-08-22] MEDS: AMPICILLIN-SULBACTAM 3 GM in SODIUM CHLORIDE 0.9% 100 ML IVPB SCH (17:55)
[2023-08-22 20:10] LABS: Glucose,Whole Blood 233 mg/dL (70-110)
--- NOTE | 2023-08-23 01:23 | PN ---
PROGRESS NOTE CHIEF COMPLAINT: Frequent falling, general debility, and failure to thrive. HISTORY OF PRESENT ILLNESS: This lady remains stable. Shoulder is still uncomfortable, but the swelling is going down. We are waiting for Plastic Cutter to help with the discharge plan. PHYSICAL EXAMINATION: GENERAL: She is awake and alert. VITAL SIGNS: Normal. CHEST: Clear. CARDIAC: Normal. ABDOMEN: Soft, nontender. IMPRESSION: 1. General debility and weakness. 2. Frequent falling. 3. Probable rotator cuff tendinitis of the right shoulder. PLAN: Await for hospital to establish a discharge plan. MMODL / IJN: [id number] /
[2023-08-23 07:39] LABS: Glucose,Whole Blood 193 mg/dL (70-110)
[2023-08-23] MEDS: INSULIN DETEMIR (LEVEMIR) 100 UNIT/ML SYR SQ SCH (09:40)
--- NOTE | 2023-08-23 10:54 | P.DS ---
Providers Date of admission: 08/17/23 13:57 Attending physician: Adi Park Consults: 08/17/23 14:13 Consult Physician Stat Consulting Provider: Brenden Spaulding Consult Reason/Comments: uti Do you want consulting provider notified?: Yes Primary care physician: Adi Park Hospital Course: Diagnosis: Acute urinary tract infection secondary to VRE. The patient will be discharged on antibiotic Fall at home Blunt shoulder trauma with x-ray showing no fracture. Follow-up with MRI as an outpatient COPD with no exacerbation GERD Hypertension Memory problems Hypothyroidism Hospital course: This is a pleasant 78 years old female with multiple medical problems who presents initially because she fell at home. Where she lives alone with her cat and dog. Currently she has a daughter at bedside and she want her to go to more secured living situation. Patient was found to have acute urinary tract infection secondary to VRE. Patient can be discharged on Augmentin x 5 days per ID team Also she has right shoulder pain secondary to the fall, shoulder x-ray were negative for acute process for fracture although she has some soft tissue swelling of the right shoulder her PCP Dr. Park schedule her for MRI this Monday, the patient and daughter at bedside aware and they told me about this appointment today that they intend to follow-up with. Physical therapy recommended rehab which patient agrees to and she is given to be discharged today to [facility]. Patient agrees to be discharged today. She denies headache. No dizziness weakness or numbness in extremities. No chest pain or dyspnea or coughing. No abdominal pain vomiting or diarrhea. No dysuria or change in frequency. Patient is hemodynamically stable. Labs reviewed and they are unremarkable. Low potassium has been replaced and improved up to 3.6. Influenza A and type B, RSV, SARS (coronavirus) are and detected CT of the brain showing atrophy with chronic appearing changes and no acute process. CTA of the neck showing degenerative changes with no acute osseous process. Patient was cleared for discharge by ID team Problems and management plan were discussed with the patient and he verbalized understanding and acceptance Patient was found stable and can be discharged home in guarded prognosis however he needs follow-up as an outpatient. Patient was instructed to follow up with PCP Dr. Park within one week and patient agrees Patient instructed to follow-up for her MRI of the right shoulder this coming Monday and then with Dr. Alvaro and she agrees Physical exam -Gen: patient is a AAOx3, no distress. Obese. Generally weak CVS: S1-S2, RRR, no murmur Lungs: B/L CTA, no wheezing Abdomen: soft, no distention, no tenderness, positive bowel sounds -Extremity: no leg edema or induration. Right shoulder mild tenderness Time spent more than 35 minutes Patient Condition at Discharge: Fair Plan - Discharge Summary Discharge Rx Participant: No New Discharge Prescriptions: No Action Levothyroxine Sodium [Synthroid] 50 mcg PO DAILY allopurinoL [Zyloprim] 300 mg PO DAILY Gabapentin 600 mg PO TID Losartan [Cozaar] 25 mg PO BID Glimepiride [Amaryl] 4 mg PO AC-BID Potassium Chloride ER [K-Dur 20] 20 meq PO DAILY Hydrocodone/Acetaminophen 7.5-300mg 1 tab PO TID PRN PRN Reason: Pain metFORMIN HCL 1,000 mg PO BID Oxybutynin Chloride [oxyBUTYnin chloride ER] 15 mg PO DAILY Famotidine [Pepcid] 20 mg PO DAILY Dulaglutide [Trulicity] 1.5 mg SQ NICOLAS Sertraline [Zoloft] 100 mg PO BID Discharge Medication List Levothyroxine Sodium [Synthroid] 50 mcg PO DAILY 09/27/14 [History] allopurinoL [Zyloprim] 300 mg PO DAILY 09/27/14 [History] Famotidine [Pepcid] 20 mg PO DAILY 10/14/20 [History] Dulaglutide [Trulicity] 1.5 mg SQ NICOLAS 03/23/23 [History] Gabapentin 600 mg PO TID 07/16/23 [History] Losartan [Cozaar] 25 mg PO BID 07/16/23 [History] Glimepiride [Amaryl] 4 mg PO AC-BID 08/17/23 [History] Hydrocodone/Acetaminophen 7.5-300mg 1 tab PO TID PRN 08/17/23 [History] Oxybutynin Chloride [oxyBUTYnin chloride ER] 15 mg PO DAILY 08/17/23 [History] Potassium Chloride ER [K-Dur 20] 20 meq PO DAILY 08/17/23 [History] Sertraline [Zoloft] 100 mg PO BID 08/17/23 [History] metFORMIN HCL 1,000 mg PO BID 08/17/23 [History] Follow up Appointment(s)/Referral(s): Adi Park MD [Primary Care Provider] - 1-2 days
[2023-08-23 12:01] LABS: Glucose,Whole Blood 237 mg/dL (70-110)
[2023-08-23 12:47] VITALS: BP 177/78; PULSE 69; TEMP 98.4
== END 2023-08-23 15:27 | DRG 690 ==
LOC: EC 10:33 → 5NMEDONC 13:57
PROVIDERS: ADMIT Family Medicine; ATTEND Family Medicine
DX: N39.0 Urinary tract infection, site not specified (principal); Z16.21 Resistance to vancomycin; R53.1 Weakness; R29.6 Repeated falls; R62.7 Adult failure to thrive; E66.9 Obesity, unspecified; E87.6 Hypokalemia; B37.2 Candidiasis of skin and nail; I10 Essential (primary) hypertension; S43.401A Unspecified sprain of right shoulder joint, initial encounter; W06.XXXA Fall from bed, initial encounter; B95.2 Enterococcus as the cause of diseases classified elsewhere; E03.9 Hypothyroidism, unspecified; Z79.890 Hormone replacement therapy; J44.9 Chronic obstructive pulmonary disease, unspecified; K21.9 Gastro-esophageal reflux disease without esophagitis; G62.9 Polyneuropathy, unspecified; Y92.018 Other place in single-family (private) house as the place of occurrence of the external cause; F55.8 Abuse of other non-psychoactive substances; M47.812 Spondylosis without myelopathy or radiculopathy, cervical region; R41.3 Other amnesia; M75.91 Shoulder lesion, unspecified, right shoulder; Y92.003 Bedroom of unspecified non-institutional (private) residence as the place of occurrence of the external cause; Z79.899 Other long term (current) drug therapy; Z79.84 Long term (current) use of oral hypoglycemic drugs; Z85.828 Personal history of other malignant neoplasm of skin; Z82.49 Family history of ischemic heart disease and other diseases of the circulatory system; Z90.710 Acquired absence of both cervix and uterus; Z96.651 Presence of right artificial knee joint; Z98.42 Cataract extraction status, left eye; Z98.41 Cataract extraction status, right eye; Z88.5 Allergy status to narcotic agent
CPT/HCPCS: 36415; 70450; 72125; 73502; 80053; 81001; 83605; 84132; 85027; 87040; 87077; 87086; 87186; 87636; 93005; 96361; 96374; 99285

== ENCOUNTER → 2023-08-25 | Outpatient (CLI) | payer MEDICARE, OTHER ==
--- NOTE | 2023-09-01 16:40 | MR ---
EXAMINATION TYPE: MR shoulder RT wo con DATE OF EXAM: 08/25/2023 COMPARISON: Radiograph 08/17/2023 HISTORY: 78-year-old female M25.519, right shoulder pain TECHNIQUE: Multiplanar, multisequence imaging of the right shoulder is performed without contrast. FINDINGS: Excessive noise artifact limiting exam resolution. Unable to adequately assess the intracapsular port ion of the long head biceps tendon. There appears to be some attritional tear of the superior subscap ularis tendon that allows for slight medial subluxation in the upper bicipital groove. Partial tear o f the inferior third fibers of the subscapularis tendon insertion. There is moderate tenosynovial flu id along the bicipital groove. There is a massive rotator cuff tear involving the entire supraspinatus and infraspinatus tendons. St diana fibers and debris is located within the intervening gap which measures at least 2.3 cm long and extends from front to back. Edema tracks along the superior aspect of the subscapularis muscle belly and throughout the supraspin atus and infraspinatus muscle bellies. There are minimal fatty streaks throughout the musculature. Moderate diffuse cartilage thinning throughout the glenohumeral joint with marginal spurring. Degenerative signal throughout the superior and posterior labrum with a moderate joint effusion. Some debris within the axillary recess. There is moderate degenerative change of the AC joint with prominent inferior spurring. No Hill-Sachs deformity or os acromiale. No suspicious bone marrow replacement. IMPRESSION: 1. Excessive noise artifact limiting the exam. 2. Massive rotator cuff tear involving essentially the entire supraspinatus and infraspinatus tendons . Minimal strandy fibers and debris are located within the intervening gap which measures at least 2. 3 cm long. 3. Attritional tearing of the superior subscapularis tendon. Partial tear involving the inferior thir d subscapularis tendon. The majority of the tendon appears intact. 4. Reactive edema especially within the supraspinatus and infraspinatus musculature with only minimal fatty streaks. No significant fatty atrophy. 5. Intracapsular portion of the long head biceps tendon cannot be adequately evaluated due to exam li mitations. 6. Suspect mild to moderate glenohumeral joint OA with loose bodies in the axillary recess and a mode rate joint effusion. 7. Additional moderate AC joint OA with prominent inferior spurring
== END | disposition home or self-care (01) ==
LOC: RADMRIMAIN 11:10
PROVIDERS: ATTEND Family Medicine
DX: M19.011 Primary osteoarthritis, right shoulder (principal); M75.111 Incomplete rotator cuff tear or rupture of right shoulder, not specified as traumatic; R60.0 Localized edema

== ENCOUNTER 2023-09-01 12:16 | Emergency (ER) | payer MEDICARE, OTHER ==
[2023-09-01 12:28] LABS: Glucose,Whole Blood 157 mg/dL (70-110)
[2023-09-01 12:35] VITALS: RESP 18; TEMP 98.5
--- NOTE | 2023-09-01 13:10 | CT ---
EXAMINATION TYPE: CT brain cspine wo con DATE OF EXAM: 09/01/2023 COMPARISON: 08/17/2023. HISTORY: Fall. CT DLP: 1467.6 mGycm Automated exposure control for dose reduction was used. TECHNIQUE: CT scan of the head and cervical spine are performed without contrast. FINDINGS: There is no acute intracranial hemorrhage, mass effect, or midline shift identified. Ther e is mild hypoattenuation in the periventricular, subcortical and deep white matter which likely rela domenico to chronic ischemic small vessel change. There is no acute major vessel infarct. The ventricles a nd sulci are within normal limits in size. The globes are intact and the visualized sinuses are marva r. Cervical spine is visualized in its entirety from C1 through upper thoracic levels and demonstrates s atisfactory alignment without evidence of acute fracture or dislocation. Prevertebral soft tissue ap pears within normal limits. The C1-C2 articulation is unremarkable. There is an anterior cervical s pine fusion between the levels of C5 and C7. Scattered degenerative facet, disc and uncovertebral shayy nt changes are otherwise noted. Other: Mild centrilobular emphysema is seen at the visualized lung apices. Calcified granulomas also seen in the left upper lobe. IMPRESSION: 1. There is no acute fracture or dislocation evident in the cervical spine. 2. No acute intracranial hemorrhage, mass effect, or midline shift is seen.
--- NOTE | 2023-09-01 13:54 | XR ---
EXAMINATION TYPE: XR shoulder complete RT, XR humerus RT DATE OF EXAM: 09/01/2023 1:40 PM CLINICAL INDICATION:Female, 78 years old with history of fall, pain; COMPARISON: 09/01/2023 TECHNIQUE: XR shoulder complete RT, XR humerus RT; examined in AP, internally rotated and scapular Y projections. Frontal and lateral views FINDINGS: No evidence of acute osseous pathology, joint dislocation, or soft tissue swelling. The remaining po rtions of the visualized chest are unremarkable. Mild degeneration changes of the acromion, distal c lavicle with osteophyte formation. There is osteophyte formation of the glenoid and humeral head. The re is joint space narrowing of glenohumeral joint IMPRESSION: 1. No acute osseous pathology. 2. 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
--- NOTE | 2023-09-01 14:17 | ED ---
Fall HPI - General Chief Complaint: Fall Stated Complaint: Fall Time Seen by Provider: 09/01/23 12:20 Source: patient, EMS Mode of arrival: EMS - History of Present Illness Initial Comments: 78-year-old female who presents to the emergency department as a transfer from [facility]. Patient was just sent to [facility] because of multiple falls at home. Patient states that she was attempting to get out of bed today when she fell again. She did not have her walker by her. She reports to falling on her right arm and has right shoulder injury. Patient has had chronic right shoulder pain and had an MRI done on the eighth. She is still waiting for her results. States that she feels like her pain is worse since the fall. She is unsure if she hit her head but is complaining of some mild neck pain. She denies any headache or visual changes. No nausea or vomiting. Patient does not take a blood thinner. She denies using consciousness. No other alleviating, precipitating or modifying factors - Related Data Home Medications Medication Instructions Recorded Confirmed Levothyroxine Sodium [Synthroid] 50 mcg PO DAILY 09/27/14 09/01/23 allopurinoL [Zyloprim] 300 mg PO DAILY 09/27/14 09/01/23 Famotidine [Pepcid] 20 mg PO DAILY 10/14/20 09/01/23 Dulaglutide [Trulicity] 1.5 mg SQ NICOLAS 03/23/23 09/01/23 Losartan [Cozaar] 25 mg PO BID 07/16/23 09/01/23 Oxybutynin Chloride [oxyBUTYnin 15 mg PO DAILY 08/17/23 09/01/23 chloride ER] Potassium Chloride ER [K-Dur 20] 20 meq PO DAILY 08/17/23 09/01/23 Sertraline [Zoloft] 100 mg PO BID 08/17/23 09/01/23 metFORMIN HCL 1,000 mg PO BID 08/17/23 09/01/23 Gabapentin 600 mg PO TID@0600,1400,2200 09/01/23 09/01/23 Glimepiride [Amaryl] 2 mg PO BID 09/01/23 09/01/23 HYDROcodone/APAP 5-325MG [[place] 1 tab PO Q8HR PRN 09/01/23 09/01/23 5-325] Allergies Allergy/AdvReac Type Severity Reaction Status Date / Time morphine AdvReac Nausea & Verified 09/01/23 15:32 Vomiting Bxarnse-OVN-HfY Reductase AdvReac STIFFNESS Verified 09/01/23 15:32 Inhibitor AND MUSCLE [Vqrcpay-Fpe-Cvz Reductase PAIN Inhibitor] Review of Systems ROS Statement: Those systems with pertinent positive or pertinent negative responses have been documented in the HPI. ROS Other: All systems not noted in ROS Statement are negative. Past Medical History Past Medical History: Cancer, COPD, Diabetes Mellitus, GERD/Reflux, Hypertension, Memory Impairment, Thyroid Disorder Additional Past Medical History / Comment(s): mouth lesions,NEUROPATHY- hands,feet. HX SKIN CANCER, Multiple falls-uses walker History of Any Multi-Drug Resistant Organisms: None Reported Past Surgical History: Back Surgery, Hysterectomy, Joint Replacement Additional Past Surgical History / Comment(s): RIGHT KNEE REPLACEMENT, cataract surgery- bilat Past Anesthesia/Blood Transfusion Reactions: Previous Problems w/ Anesthesia Additional Past Anesthesia/Blood Transfusion Reaction / Comment(s): had a hard time waking up after last surgery Past Psychological History: Depression Smoking Status: Former smoker Past Alcohol Use History: None Reported Past Drug Use History: None Reported - Past Family History Mother Family Medical History: Dementia Additional Family Medical History / Comment(s): alzheimers Father Family Medical History: Myocardial Infarction (CA) Additional Family Medical History / Comment(s): unknown General Exam Limitations: no limitations General appearance: alert, in no apparent distress Head exam: Present: atraumatic, normocephalic, normal inspection Eye exam: Present: normal appearance, PERRL, EOMI. Absent: scleral icterus, conjunctival injection, periorbital swelling ENT exam: Present: normal exam, mucous membranes moist Neck exam: Present: normal inspection. Absent: tenderness, meningismus, lymphadenopathy Respiratory exam: Present: normal lung sounds bilaterally. Absent: respiratory distress, wheezes, rales, rhonchi, stridor Cardiovascular Exam: Present: regular rate, normal rhythm, normal heart sounds. Absent: systolic murmur, diastolic murmur, rubs, gallop, clicks GI/Abdominal exam: Present: soft, normal bowel sounds. Absent: distended, tenderness, guarding, rebound, rigid Extremities exam: Present: tenderness (Patient has significant tenderness to palpation of the glenohumeral joint on the right. Patient has extremely limited range of motion at the right shoulder. Mild tenderness to palpation of the proximal humerus. Denies any distal humeral pain. No elbow pain. Intact sensation. 2+ radial and ulna), normal capillary refill. Absent: pedal edema, joint swelling, calf tenderness Back exam: Present: normal inspection Neurological exam: Present: alert, oriented X3, CN II-XII intact Psychiatric exam: Present: normal affect, normal mood Skin exam: Present: warm, dry, intact, normal color. Absent: rash Course Vital Signs 09/01/23 09/01/23 12:19 14:53 Temperature 98.5 F Pulse Rate 83 78 Respiratory 18 18 Rate Blood Pressure 119/83 113/59 O2 Sat by Pulse 92 L 97 Oximetry Medical Decision Making - Medical Decision Making Was pt. sent in by a medical professional or institution (, PA, IT ARCHITECT, urgent care, hospital, or jail...) When possible be specific @ -Patient was sent in by her ECF for fall Did you speak to anyone other than the patient for history (EMS, parent, family, police, friend...)? What history was obtained from this source @ -EMS gave history Did you review nursing and triage notes (agree or disagree)? Why? @ -I reviewed and agree with nursing and triage notes Were old charts reviewed (outside hosp., previous admission, EMS record, old EKG, old radiological studies, urgent care reports/EKG's, jail records)? Report findings @ -I reviewed patient's recent discharge summary as she was hospitalized for multiple falls and sent to rehab Differential Diagnosis (chest pain, altered mental status, abdominal pain women, abdominal pain men, vaginal bleeding, weakness, fever, dyspnea, syncope, headache, dizziness, GI bleed, back pain, seizure, CVA, palpatations, mental health, musculoskeletal)? @ -Differential Musculoskeletal Muscular strain, contusion, ligament sprain, fracture, arthritis, septic arthritis, bursitis, cellulitis, muscle spasm, nerve compression, DVT, arterial occlusion, herpes zoster, electrolyte abnormality, tumor.... This is not meant to be in all inclusive list EKG interpreted by me (3pts min.). @ -Not done X-rays interpreted by me (1pt min.). @ -Yes and demonstrates no acute injury CT interpreted by me (1pt min.). @ -Yes and demonstrates no acute intracranial process U/S interpreted by me (1pt. min.). @ -None done What testing was considered but not performed or refused? (CT, X-rays, U/S, labs)? Why? @ -None What meds were considered but not given or refused? Why? @ -None Did you discuss the management of the patient with other professionals (professionals i.e. Dr., PA, IT ARCHITECT, lab, RT, psych nurse, high school social studies teacher, germ drier, teacher, conservation officer, home health care case manager)? Give summary @ -No Was smoking cessation discussed for >3mins.? @ -No Was critical care preformed (if so, how long)? @ -No Were there social determinants of health that impacted care today? How? (Homelessness, low income, unemployed, alcoholism, drug addiction, transportation, low edu. Level, literacy, decrease access to med. care, usp, rehab)? @ -No Was there de-escalation of care discussed even if they declined (Discuss DNR or withdrawal of care, Hospice)? DNR status @ -No What co-morbidities impacted this encounter? (DM, HTN, Smoking, COPD, CAD, Cancer, CVA, ARF, Chemo, Hep., AIDS, mental health diagnosis, sleep apnea, morbid obesity)? @ -Multiple falls Was patient admitted / discharged? Hospital course, mention meds given and route, prescriptions, significant lab abnormalities, going to OR and other pertinent info. @ -Upon arrival patient was placed into room 27. Thorough history and physical exam was performed. Patient is sent for CT of her head and cervical spine. X- rays were performed of the patient's right shoulder. Her MRI is still pending at this time. I did speak with the radiologist who states that he will read the imaging study later today. Patient was given a [place] for her pain. Upon return of the results they are discussed the patient. No acute injuries at this time. Patient is stable for transfer back to her ECF with fall precautions. She will continue to wear her sling. She needs to follow-up with the orthopedic surgeon for further MRI report progress. Instructed to return for any new or worsening symptoms. Patient agreeable to plan she was discharged in stable condition Undiagnosed new problem with uncertain prognosis? @ -No Drug Therapy requiring intensive monitoring for toxicity (Heparin, Nitro, Insulin, Cardizem)? @ -No Were any procedures done? @ -No Diagnosis/symptom? @ -Acute fall, exacerbation of right shoulder pain, suspected rotator cuff injury Acute, or Chronic, or Acute on Chronic? @ -Acute Uncomplicated (without systemic symptoms) or Complicated (systemic symptoms)? @ -Complicated Side effects of treatment? @ -No Exacerbation, Progression, or Severe Exacerbation? @ -No Poses a threat to life or bodily function? How? (Chest pain, [place], CA, pneumonia, PE, COPD, DKA, ARF, appy, cholecystitis, CVA, Diverticulitis, Homicidal, Suicidal, threat to staff... and all critical care pts) @ -No - Lab Data Lab Results 09/01/23 Range/Units 12:26 POC Glucose (mg/dL) 157 H (70-110) mg/dL POC Glu Buckle Wire Inserter ID Angel Ragsdale Disposition Clinical Impression: Fall, Right shoulder pain Disposition: HOME SELF-CARE Condition: Stable Instructions (If sedation given, give patient instructions): Fall Prevention for Older Adults (ED) Additional Instructions: Your MRI of your shoulder will be read later today. Please take your pain medications as directed and follow-up with your doctor for any new or worsening symptoms Is patient prescribed a controlled substance at d/c from ED?: No Referrals: Adi Park MD [Primary Care Provider] - 1-2 days Time of Disposition: 14:17
[2023-09-01] MEDS: HYDROcodone/APAP 10-325MG 1 EACH TAB PO ONE (14:52)
[2023-09-01 15:29] VITALS: BP 113/59; PULSE 78
== END 2023-09-01 16:12 | disposition home or self-care (01) ==
LOC: EC 12:16
DX: M25.511 Pain in right shoulder (principal); Z88.5 Allergy status to narcotic agent; Z88.8 Allergy status to other drugs, medicaments and biological substances; Z87.891 Personal history of nicotine dependence; W06.XXXA Fall from bed, initial encounter
CPT/HCPCS: 36415; 70450; 72125; 99285

== ENCOUNTER 2023-11-22 14:31 | Emergency (ER) | payer MEDICARE, OTHER ==
[2023-11-22 14:38] VITALS: TEMP 97.9
--- NOTE | 2023-11-22 14:57 | ED ---
Recheck HPI - General Chief Complaint: Altered Mental Status Stated Complaint: AMS Time Seen by Provider: 11/22/23 14:43 Source: EMS, RN notes reviewed, old records reviewed Mode of arrival: EMS Limitations: altered mental status - History of Present Illness Initial Comments: This is a 78-year-old female to ER for altered mental status persistent altera tion of mental status here in the emergency department, patient sent in for evaluation of significant change in mental status although EMS states patient's mental status is at her baseline. This patient is unable to provide history is a poor historian EMS states patient is at patient's baseline again. MD Complaint: other (Altered mental status) -: unknown Returns Today for: other (Altered mental status) Symptoms Since Prior Visit: no new symptoms Associated Symptoms: none Treatments Prior to Arrival: other - Related Data Home Medications Medication Instructions Recorded Confirmed Levothyroxine Sodium [Synthroid] 50 mcg PO DAILY@0600 09/27/14 11/22/23 allopurinoL [Zyloprim] 300 mg PO DAILY 09/27/14 11/22/23 Famotidine [Pepcid] 20 mg PO DAILY@0600 10/14/20 11/22/23 Losartan [Cozaar] 25 mg PO BID 07/16/23 11/22/23 Oxybutynin Chloride [oxyBUTYnin 15 mg PO DAILY 08/17/23 11/22/23 chloride ER] Potassium Chloride ER [K-Dur 20] 20 meq PO DAILY 08/17/23 11/22/23 Sertraline [Zoloft] 100 mg PO BID 08/17/23 11/22/23 metFORMIN HCL 1,000 mg PO BID 08/17/23 11/22/23 Gabapentin 600 mg PO TID@0600,1400,2200 09/01/23 11/22/23 Glimepiride [Amaryl] 2 mg PO BID 09/01/23 11/22/23 HYDROcodone/APAP 5-325MG [[place] 1 tab PO Q4H PRN 09/01/23 11/22/23 5-325] Dulaglutide [Trulicity] 0.75 mg SQ WE 11/22/23 11/22/23 Ibuprofen [Motrin] 800 mg PO Q6H 11/22/23 11/22/23 Loperamide [Imodium] 2 mg PO QID PRN 11/22/23 11/22/23 Allergies Allergy/AdvReac Type Severity Reaction Status Date / Time morphine AdvReac Nausea & Verified 11/22/23 16:21 Vomiting Huzyqix-HEK-VcW Reductase AdvReac STIFFNESS Verified 11/22/23 16:21 Inhibitor AND MUSCLE [Qmcfpmq-Lns-Wfl Reductase PAIN Inhibitor] Review of Systems ROS Statement: Those systems with pertinent positive or pertinent negative responses have been documented in the HPI. ROS Other: All systems not noted in ROS Statement are negative. Past Medical History Past Medical History: Cancer, COPD, Diabetes Mellitus, GERD/Reflux, Hypertension, Memory Impairment, Thyroid Disorder Additional Past Medical History / Comment(s): mouth lesions,NEUROPATHY-rodas nds,feet. HX SKIN CANCER, Multiple falls-uses walker History of Any Multi-Drug Resistant Organisms: None Reported Past Surgical History: Back Surgery, Hysterectomy, Joint Replacement Additional Past Surgical History / Comment(s): RIGHT KNEE REPLACEMENT, cataract surgery- bilat Past Anesthesia/Blood Transfusion Reactions: Previous Problems w/ Anesthesia Additional Past Anesthesia/Blood Transfusion Reaction / Comment(s): had a hard time waking up after last surgery Past Psychological History: Depression Smoking Status: Former smoker Past Alcohol Use History: None Reported Past Drug Use History: None Reported - Past Family History Mother Family Medical History: Dementia Additional Family Medical History / Comment(s): alzheimers Father Family Medical History: Myocardial Infarction ([place]) Additional Family Medical History / Comment(s): unknown General Exam Limitations: altered mental status General appearance: alert, in no apparent distress Head exam: Present: atraumatic, normocephalic, normal inspection Eye exam: Present: normal appearance, PERRL, EOMI. Absent: scleral icterus, conjunctival injection, periorbital swelling ENT exam: Present: normal exam, mucous membranes moist Neck exam: Present: normal inspection. Absent: tenderness, meningismus, lymphadenopathy Respiratory exam: Present: normal lung sounds bilaterally. Absent: respiratory distress, wheezes, rales, rhonchi, stridor Cardiovascular Exam: Present: regular rate, normal rhythm, normal heart sounds. Absent: systolic murmur, diastolic murmur, rubs, gallop, clicks GI/Abdominal exam: Present: soft, normal bowel sounds. Absent: distended, tenderness, guarding, rebound, rigid Extremities exam: Present: normal inspection, full ROM, normal capillary refill. Absent: tenderness, pedal edema, joint swelling, calf tenderness Back exam: Present: normal inspection Neurological exam: Present: alert, oriented X3, CN II-XII intact Psychiatric exam: Present: normal affect, normal mood Skin exam: Present: warm, dry, intact, normal color. Absent: rash Course Vital Signs 11/22/23 11/22/23 11/22/23 14:32 15:00 16:00 Temperature 97.9 F Pulse Rate 122 H 116 H 121 H Respiratory 18 14 17 Rate Blood Pressure 123/53 123/53 140/60 O2 Sat by Pulse 92 L 92 L Oximetry 11/22/23 18:20 Temperature Pulse Rate 78 Respiratory 18 Rate Blood Pressure 120/44 O2 Sat by Pulse 98 Oximetry - Reevaluation(s) Reevaluation #1: Medical records reviewed Reevaluation #2: Patient symptoms unchanged Reevaluation #3: Patient informed of results questions answered Reevaluation #4: Was pt. sent in by a medical professional or institution (, PA, CRITICAL CARE REGISTERED NURSE, urgent care, hospital, or jail...) When possible be specific @ -no Did you speak to anyone other than the patient for history (EMS, parent, family, police, friend...)? What history was obtained from this source @ -no Did you review nursing and triage notes (agree or disagree)? Why? @ -agree Are old charts reviewed (outside hosp., previous admission, EMS record, old EKG, old radiological studies, urgent care reports/EKG's, jail records)? Report findings @ -yes Differential Diagnosis (chest pain, altered mental status, abdominal pain women, abdominal pain men, vaginal bleeding, weakness, fever, dyspnea, syncope, headac he, dizziness, GI bleed, back pain, seizure, CVA, palpatations, mental health, musculoskeletal)? @ -prior EKG interpreted by me (3pts min.). @ -yes X-rays interpreted by me (1pt min.). @ -no CT interpreted by me (1pt min.). @ -no U/S interpreted by me (1pt. min.). @ -no What testing was considered but not performed or refused? (CT, X-rays, U/S, labs)? Why? @ -none What meds were considered but not given or refused? Why? @ -none Did you discuss the management of the patient with other professionals (professionals i.e. , PA, CRITICAL CARE REGISTERED NURSE, lab, RT, psych nurse, social sciences professor, instrument designer, teacher, agricultural technical officer, social work case manager)? Give summary @ -no Was smoking cessation discussed for >3mins.? @ -no Was critical care preformed (if so, how long)? @ -no Were there social determinants of health that impacted care today? How? (Homelessness, low income, unemployed, alcoholism, drug addiction, transp ortation, low edu. Level, literacy, decrease access to med. care, fci, rehab)? @ -none Was there de-escalation of care discussed even if they declined (Discuss DNR or withdrawal of care, Hospice)? DNR status @ -no What co-morbidities impacted this encounter? (DM, HTN, Smoking, COPD, CAD, Cancer, CVA, ARF, Chemo, Hep., AIDS, mental health diagnosis, sleep apnea, morbid obesity)? @ -none Was patient admitted / discharged? Hospital course, mention meds given and route, prescriptions, significant lab abnormalities, going to OR and other pertinent info. @ - 78 female to ER for altered mental status with unknown change from baseline. Patient remains a poor historian throughout ER stay and will be discharged home back to care facility Discharge Undiagnosed new problem with uncertain prognosis? @ -no Drug Therapy requiring intensive monitoring for toxicity (Heparin, Nitro, Insulin, Cardizem)? @ -no Were any procedures done? @ -no Diagnosis/symptom? @ -Altered mental status Acute, or Chronic, or Acute on Chronic? @ -Acute Uncomplicated (without systemic symptoms) or Complicated (systemic symptoms)? @ -Complicated Side effects of treatment? @ -no Exacerbation, Progression, or Severe Exacerbation? @ -exacerbation Poses a threat to life or bodily function? How? (Chest pain, [place], [place], pneumonia, PE, COPD, DKA, ARF, appy, cholecystitis, CVA, Diverticulitis, Homicidal, Suicidal, threat to staff... and all critical care pts) @ -yes with extremes of age Medical Decision Making - Medical Decision Making 78 female to ER for altered mental status with unknown change from baseline. Patient remains a poor historian throughout ER stay and will be discharged home back to care facility - Lab Data Result diagrams: 11/22/23 15:04 11/22/23 15:52 Lab Results 11/22/23 11/22/23 11/22/23 Range/Units 15:04 15:04 15:04 WBC 10.5 (3.8-10.6) k/uL RBC 5.25 (3.80-5.40) m/uL Hgb 15.2 (11.4-16.0) gm/dL Hct 47.9 H (34.0-46.0) % MCV 91.2 (80.0-100.0) fL MCH 29.0 (25.0-35.0) pg MCHC 31.8 (31.0-37.0) g/dL RDW 14.8 (11.5-15.5) % Plt Count 209 (150-450) k/uL MPV 8.8 Neutrophils % 74 % Lymphocytes % 21 % Monocytes % 3 % Eosinophils % 0 % Basophils % 0 % Neutrophils # 7.8 H (1.3-7.7) k/uL Lymphocytes # 2.2 (1.0-4.8) k/uL Monocytes # 0.4 (0-1.0) k/uL Eosinophils # 0.0 (0-0.7) k/uL Basophils # 0.0 (0-0.2) k/uL PT 13.0 H (10.0-12.5) sec INR 1.2 H (<1.2) APTT 23.7 (22.0-30.0) sec Sodium (137-145) mmol/L Potassium (3.5-5.1) mmol/L Chloride (98-107) mmol/L Carbon Dioxide (22-30) mmol/L Anion Gap mmol/L BUN (7-17) mg/dL Creatinine (0.52-1.04) mg/dL Est GFR (CKD-EPI)AfAm (>60 ml/min/1.73 sqM) Est GFR (CKD-EPI)NonAf (>60 ml/min/1.73 sqM) Glucose (74-99) mg/dL Calcium (8.4-10.2) mg/dL Phosphorus (2.5-4.5) mg/dL Magnesium (1.6-2.3) mg/dL Total Bilirubin (0.2-1.3) mg/dL AST (14-36) U/L ALT (4-34) U/L Alkaline Phosphatase (38-126) U/L Troponin I 0.021 (0.000-0.034) ng/mL NT-Pro-B Natriuret Pep pg/mL Total Protein (6.3-8.2) g/dL Albumin (3.5-5.0) g/dL 11/22/23 Range/Units 15:52 WBC (3.8-10.6) k/uL RBC (3.80-5.40) m/uL Hgb (11.4-16.0) gm/dL Hct (34.0-46.0) % MCV (80.0-100.0) fL MCH (25.0-35.0) pg MCHC (31.0-37.0) g/dL RDW (11.5-15.5) % Plt Count (150-450) k/uL MPV Neutrophils % % Lymphocytes % % Monocytes % % Eosinophils % % Basophils % % Neutrophils # (1.3-7.7) k/uL Lymphocytes # (1.0-4.8) k/uL Monocytes # (0-1.0) k/uL Eosinophils # (0-0.7) k/uL Basophils # (0-0.2) k/uL PT (10.0-12.5) sec INR (<1.2) APTT (22.0-30.0) sec Sodium 144 (137-145) mmol/L Potassium 5.9 H (3.5-5.1) mmol/L Chloride 118 H (98-107) mmol/L Carbon Dioxide 9 L* (22-30) mmol/L Anion Gap 17 mmol/L BUN 88 H (7-17) mg/dL Creatinine 2.13 H (0.52-1.04) mg/dL Est GFR (CKD-EPI)AfAm 25 (>60 ml/min/1.73 sqM) Est GFR (CKD-EPI)NonAf 22 (>60 ml/min/1.73 sqM) Glucose 211 H (74-99) mg/dL Calcium 8.3 L (8.4-10.2) mg/dL Phosphorus 5.3 H (2.5-4.5) mg/dL Magnesium 1.3 L (1.6-2.3) mg/dL Total Bilirubin 0.7 (0.2-1.3) mg/dL AST 36 (14-36) U/L ALT 24 (4-34) U/L Alkaline Phosphatase 142 H (38-126) U/L Troponin I (0.000-0.034) ng/mL NT-Pro-B Natriuret Pep 1440 pg/mL Total Protein 6.7 (6.3-8.2) g/dL Albumin 3.5 (3.5-5.0) g/dL - EKG Data -: EKG Interpreted by Me (Sinus tachycardia 119 [place] 161 QRS 106 QTc 365) Disposition Clinical Impression: Delirium due to general medical condition, Dementia, Weakness Disposition: HOME SELF-CARE Condition: Fair Instructions (If sedation given, give patient instructions): Altered Mental Status (ED) Is patient prescribed a controlled substance at d/c from ED?: No Referrals: Adi Park MD [Primary Care Provider] - 1-2 days Time of Disposition: 16:00
[2023-11-22] MEDS: SODIUM CHLORIDE 0.9% 500 ML 500 ML IV STA (15:16)
[2023-11-22 15:24] LABS: INR 1.2 (<1.2); Partial Thromboplastin Time 23.7 sec (22.0-30.0)
[2023-11-22 15:35] LABS: Basophils % (A) 0 %; Eosinophils % (A) 0 %; HCT 47.9 % (34.0-46.0); HGB 15.2 gm/dL (11.4-16.0); Lymphocytes # (A) 2.2 k/uL (1.0-4.8); Lymphocytes % (A) 21 %; MCHC 31.8 g/dL (31.0-37.0); MCV 91.2 fL (80.0-100.0); Mean Platelet Volume 8.8; Monocytes # (A) 0.4 k/uL (0-1.0); Monocytes % (A) 3 %; Neutrophils # (A) 7.8 k/uL (1.3-7.7); Neutrophils % (A) 74 %; Platelet Count 209 k/uL (150-450); RBC 5.25 m/uL (3.80-5.40); RDW 14.8 % (11.5-15.5); WBC 10.5 k/uL (3.8-10.6)
[2023-11-22 16:23] LABS: ALT 24 U/L (4-34); AST 36 U/L (14-36); African American GFR (CKD) 25 (>60 ml/min/1.73 sqM); Albumin 3.5 g/dL (3.5-5.0); Alkaline Phosphatase 142 U/L (38-126); Anion Gap 17 mmol/L; Blood Urea Nitrogen 88 mg/dL (7-17); Calcium 8.3 mg/dL (8.4-10.2); Chloride 118 mmol/L (98-107); Glucose 211 mg/dL (74-99); Magnesium 1.3 mg/dL (1.6-2.3); Non-African American GFR(CKD) 22 (>60 ml/min/1.73 sqM); Phosphorus 5.3 mg/dL (2.5-4.5); Potassium 5.9 mmol/L (3.5-5.1); Sodium 144 mmol/L (137-145); Total Bilirubin 0.7 mg/dL (0.2-1.3); Total Protein 6.7 g/dL (6.3-8.2)
[2023-11-22 16:29] LABS: NT-Pro-B-Type Natriuretic Pept 1440 pg/mL
[2023-11-22 16:49] LABS: Carbon Dioxide 9 mmol/L (22-30)
[2023-11-22 18:22] VITALS: BP 120/44; PULSE 78; RESP 18
== END 2023-11-22 18:22 | disposition home or self-care (01) ==
LOC: EC 14:31
DX: R41.82 Altered mental status, unspecified (principal); F03.90 Unspecified dementia, unspecified severity, without behavioral disturbance, psychotic disturbance, mood disturbance, and anxiety; F05 Delirium due to known physiological condition; R53.1 Weakness; Z87.891 Personal history of nicotine dependence; Z88.5 Allergy status to narcotic agent; Z88.8 Allergy status to other drugs, medicaments and biological substances
CPT/HCPCS: 36415; 80053; 83735; 83880; 84100; 84484; 85025; 85610; 85730; 93005; 99285

== ENCOUNTER → 2024-01-26 | Outpatient (CLI) | payer MEDICARE, OTHER | END | disposition home or self-care (01) | LOC: LABPRL 10:25 | PROVIDERS: ATTEND Family Medicine | CPT/HCPCS: 87636 ==

== ENCOUNTER 2024-04-26 11:08 | Inpatient (IN) | payer MEDICARE, OTHER ==
[2024-04-26 11:25] LABS: Glucose,Whole Blood 192 mg/dL (70-110)
[2024-04-26] MEDS: SODIUM CHLORIDE 0.9% 500 ML 500 ML IV ONE (12:11)
[2024-04-26 12:18] LABS: Basophils % (A) 0 %; Eosinophils % (A) 0 %; HCT 38.5 % (34.0-46.0); HGB 12.7 gm/dL (11.4-16.0); Lymphocytes # (A) 1.4 k/uL (1.0-4.8); Lymphocytes % (A) 21 %; MCH 28.9 pg (25.0-35.0); MCHC 32.9 g/dL (31.0-37.0); MCV 87.7 fL (80.0-100.0); Mean Platelet Volume 8.9; Monocytes # (A) 0.2 k/uL (0-1.0); Monocytes % (A) 2 %; Neutrophils % (A) 76 %; Platelet Count 157 k/uL (150-450); RBC 4.39 m/uL (3.80-5.40); RDW 15.2 % (11.5-15.5); WBC 6.6 k/uL (3.8-10.6)
--- NOTE | 2024-04-26 12:25 | ED ---
Altered Mental Status HPI - General Chief Complaint: Altered Mental Status Stated Complaint: Failure to Thrive Time Seen by Provider: 04/26/24 11:23 Source: patient, EMS, RN notes reviewed Mode of arrival: EMS Limitations: altered mental status - History of Present Illness Initial Comments: 78 year old female presents to the ED via EMS for altered mental status. Per EMS, she lives at [facility] and is normally A/O x 2-3, today she was found to be completely disoriented. Per EMS she is incomprehensible, hypotensive, tachycardic, and febrile upon arrival. Per EMS, she has recently been treated for UTI. - Related Data Home Medications Medication Instructions Recorded Confirmed Levothyroxine Sodium [Synthroid] 50 mcg PO DAILY@0600 09/27/14 04/26/24 allopurinoL [Zyloprim] 300 mg PO DAILY 09/27/14 04/26/24 Famotidine [Pepcid] 20 mg PO DAILY@0600 10/14/20 04/26/24 Losartan [Cozaar] 25 mg PO BID 07/16/23 04/26/24 Oxybutynin Chloride [oxyBUTYnin 15 mg PO DAILY 08/17/23 04/26/24 chloride ER] Potassium Chloride ER [K-Dur 20] 20 meq PO DAILY 08/17/23 04/26/24 Sertraline [Zoloft] 100 mg PO BID 08/17/23 04/26/24 metFORMIN HCL 1,000 mg PO BID 08/17/23 04/26/24 Glimepiride [Amaryl] 2 mg PO DAILY 09/01/23 04/26/24 HYDROcodone/APAP 5-325MG [Vining 1 tab PO Q6H PRN 09/01/23 04/26/24 5-325] Dulaglutide [Trulicity] 0.75 mg SQ WE 11/22/23 04/26/24 Apixaban [Eliquis] 5 mg PO BID 04/26/24 04/26/24 Ferrous Sulfate [Feosol] 325 mg PO DAILY 04/26/24 04/26/24 Gabapentin [Neurontin] 600 mg PO TID 04/26/24 04/26/24 Ibuprofen [Motrin] 800 mg PO Q6H PRN 04/26/24 04/26/24 Magnesium Oxide [Mag-Ox] 400 mg PO BID 04/26/24 04/26/24 Memantine [Namenda] 5 mg PO DAILY 04/26/24 04/26/24 Metoprolol Tartrate [Lopressor] 50 mg PO TID 04/26/24 04/26/24 QUEtiapine [SEROquel] 50 mg PO BID 04/26/24 04/26/24 Sennosides [Senokot] 8.6 mg PO BID 04/26/24 04/26/24 Sooth & Cool Powder 1 applic TOPICAL BID 04/26/24 04/26/24 Z-Guard 1 applic TOPICAL BID 04/26/24 04/26/24 Allergies Allergy/AdvReac Type Severity Reaction Status Date / Time morphine AdvReac Nausea & Verified 04/26/24 15:02 Vomiting Uyunkks-QJG-WuA Reductase AdvReac STIFFNESS Verified 04/26/24 15:02 Inhibitor AND MUSCLE [Jsucenj-Ehf-Lxd Reductase PAIN Inhibitor] Review of Systems ROS Statement: Those systems with pertinent positive or pertinent negative responses have been documented in the HPI. ROS Other: All systems not noted in ROS Statement are negative. Past Medical History Past Medical History: Cancer, COPD, Diabetes Mellitus, GERD/Reflux, Hyper tension, Memory Impairment, Thyroid Disorder Additional Past Medical History / Comment(s): mouth lesions,NEUROPATHY- hands,feet. HX SKIN CANCER, Multiple falls-uses walker History of Any Multi-Drug Resistant Organisms: ESBL Date of last positivie culture/infection: 04/08/24 MDRO Source:: URINE Past Surgical History: Back Surgery, Hysterectomy, Joint Replacement Additional Past Surgical History / Comment(s): RIGHT KNEE REPLACEMENT, cataract surgery- bilat Past Anesthesia/Blood Transfusion Reactions: Previous Problems w/ Anesthesia Additional Past Anesthesia/Blood Transfusion Reaction / Comment(s): had a hard time waking up after last surgery Past Psychological History: Depression Smoking Status: Former smoker Past Alcohol Use History: None Reported Past Drug Use History: None Reported - Past Family History Mother Family Medical History: Dementia Additional Family Medical History / Comment(s): alzheimers Father Family Medical History: Myocardial Infarction (OR) Additional Family Medical History / Comment(s): unknown General Exam Limitations: altered mental status General appearance: cachectic Head exam: Present: atraumatic, normocephalic, normal inspection Eye exam: Present: normal appearance, PERRL, EOMI. Absent: scleral icterus, conjunctival injection, periorbital swelling ENT exam: Present: mucous membranes dry, mucous membranes moist Neck exam: Present: normal inspection. Absent: tenderness, meningismus, lymphadenopathy Respiratory exam: Present: normal lung sounds bilaterally. Absent: respiratory distress, wheezes, rales, rhonchi, stridor Cardiovascular Exam: Present: regular rate, normal rhythm, normal heart sounds. Absent: systolic murmur, diastolic murmur, rubs, gallop, clicks GI/Abdominal exam: Present: soft, normal bowel sounds. Absent: distended, tenderness, guarding, rebound, rigid Extremities exam: Present: normal inspection, full ROM, normal capillary refill. Absent: tenderness, pedal edema, joint swelling, calf tenderness Back exam: Present: normal inspection Neurological exam: Present: altered Expanded Neurological exam: Present: inattentive Speech: Present: expressive aphasia Eye Response: (4) open spontaneously Motor Response: (1) no motor response Verbal Response: incomprehensible sounds Psychiatric exam: Present: flat affect Skin exam: Present: warm, dry, intact, normal color. Absent: rash Course Vital Signs 04/26/24 04/26/24 11:11 13:30 Temperature 100.2 F H Pulse Rate 86 79 Respiratory 17 15 Rate Blood Pressure 119/66 122/66 O2 Sat by Pulse 93 L 95 Oximetry Medical Decision Making - Medical Decision Making Was pt. sent in by a medical professional or institution (, PA, WHEELABRATOR OPERATOR, urgent care, hospital, or long term...) When possible be specific @ -alf Did you speak to anyone other than the patient for history (EMS, parent, family, police, friend...)? What history was obtained from this source @ -No Did you review nursing and triage notes (agree or disagree)? Why? @ -I reviewed and agree with nursing and triage notes Were old charts reviewed (outside hosp., previous admission, EMS record, old EKG, old radiological studies, urgent care reports/EKG's, long term records)? Report findings @ -No old charts were reviewed Differential Diagnosis (chest pain, altered mental status, abdominal pain women, abdominal pain men, vaginal bleeding, weakness, fever, dyspnea, syncope, headache, dizziness, GI bleed, back pain, seizure, CVA, palpatations, mental hea lth, musculoskeletal)? @ -Not applicable EKG interpreted by me (3pts min.). @ -As above X-rays interpreted by me (1pt min.). @ -None done CT interpreted by me (1pt min.). @ -None done U/S interpreted by me (1pt. min.). @ -None done What testing was considered but not performed or refused? (CT, X-rays, U/S, labs)? Why? @ -None What meds were considered but not given or refused? Why? @ -None Did you discuss the management of the patient with other professionals (professionals i.e. , PA, WHEELABRATOR OPERATOR, lab, RT, psych nurse, rn social services, sole layer, teacher, medical officer, case filler)? Give summary @ -Dr. Park for admission Was smoking cessation discussed for >3mins.? @ -No Was critical care preformed (if so, how long)? @ -No Were there social determinants of health that impacted care today? How? (Homelessness, low income, unemployed, alcoholism, drug addiction, transportation, low edu. Level, literacy, decrease access to med. care, alf, rehab)? @ -No Was there de-escalation of care discussed even if they declined (Discuss DNR or withdrawal of care, Hospice)? DNR status @ -No What co-morbidities impacted this encounter? (DM, HTN, Smoking, COPD, CAD, Cancer, CVA, ARF, Chemo, Hep., AIDS, mental health diagnosis, sleep apnea, morbid obesity)? @ -None Was patient admitted / discharged? Hospital course, mention meds given and route, prescriptions, significant lab abnormalities, going to OR and other pertinent info. @ -In the patient found to have UTI, possible UTI with bacteremia. Patient is febrile patient was given fluid bolus, started on Zosyn based on prior urine cultures have multiple resistant organisms. Patient did have urine culture and blood culture sent. Patient had negative lactic acid. Undiagnosed new problem with uncertain prognosis? @ -No Drug Therapy requiring intensive monitoring for toxicity (Heparin, Nitro, Insulin, Cardizem)? @ -No Were any procedures done? @ -No Diagnosis/symptom? @ -UTI, AMS Acute, or Chronic, or Acute on Chronic? @ -Acute Uncomplicated (without systemic symptoms) or Complicated (systemic symptoms)? @ -Complicated Side effects of treatment? @ -No Exacerbation, Progression, or Severe Exacerbation? @ -No Poses a threat to life or bodily function? How? (Chest pain, USA, OR, pneumonia, PE, COPD, DKA, ARF, appy, cholecystitis, CVA, Diverticulitis, Homicidal, Suicidal, threat to staff... and all critical care pts) @ -Yes possible urosepsis causing endorgan failure - Lab Data Result diagrams: 04/26/24 11:04/26/24: Lab Results 04/26/24 04/26/24 04/26/24 Range/Units : 11:18 05: WBC 6.6 (3.8-10.6) k/uL RBC 4.39 (3.80-5.40) m/uL Hgb 12.7 (11.4-16.0) gm/dL Hct 38.5 (34.0-46.0) % MCV 87.7 (80.0-100.0) fL MCH 28.9 (25.0-35.0) pg MCHC 32.9 (31.0-37.0) g/dL RDW 15.2 (11.5-15.5) % Plt Count 157 (150-450) k/uL MPV 8.9 Neutrophils % 76 % Lymphocytes % 21 % Monocytes % 2 % Eosinophils % 0 % Basophils % 0 % Neutrophils # 5.0 (1.3-7.7) k/uL Lymphocytes # 1.4 (1.0-4.8) k/uL Monocytes # 0.2 (0-1.0) k/uL Eosinophils # 0.0 (0-0.7) k/uL Basophils # 0.0 (0-0.2) k/uL PT 13.2 H (10.0-12.5) sec INR 1.3 H (<1.2) APTT 31.2 H (22.0-30.0) sec Sodium (137-145) mmol/L Potassium (3.5-5.1) mmol/L Chloride (98-107) mmol/L Carbon Dioxide (22-30) mmol/L Anion Gap mmol/L BUN (7-17) mg/dL Creatinine (0.52-1.04) mg/dL Est GFR (CKD-EPI)AfAm (>60 ml/min/1.73 sqM) Est GFR (CKD-EPI)NonAf (>60 ml/min/1.73 sqM) Glucose (74-99) mg/dL POC Glucose (mg/dL) 192 H (70-110) mg/dL POC Glu Mass Spectrometry Specialist ID Corey Main Plasma Lactic Acid Joe (0.7-2.0) mmol/L Calcium (8.4-10.2) mg/dL Total Bilirubin (0.2-1.3) mg/dL AST (14-36) U/L ALT (4-34) U/L Alkaline Phosphatase (38-126) U/L Troponin I (0.000-0.034) ng/mL Total Protein (6.3-8.2) g/dL Albumin (3.5-5.0) g/dL Urine Color Urine Appearance (Clear) Urine pH (5.0-8.0) Ur Specific [place] (1.001-1.035) Urine Protein (Negative) Urine Glucose (UA) (Negative) Urine Ketones (Negative) Urine Blood (Negative) Urine Nitrite (Negative) Urine Bilirubin (Negative) Urine Urobilinogen (<2.0) mg/dL Ur Leukocyte Esterase (Negative) Urine RBC (0-5) /hpf Urine WBC (0-5) /hpf Ur Squamous Epith Cells (0-4) /hpf Urine Bacteria (None) /hpf Urine Mucus (None) /hpf 04/26/24 04/26/24 04/26/24 Range/Units 11:30 11:30 11:30 WBC (3.8-10.6) k/uL RBC (3.80-5.40) m/uL Hgb (11.4-16.0) gm/dL Hct (34.0-46.0) % MCV (80.0-100.0) fL MCH (25.0-35.0) pg MCHC (31.0-37.0) g/dL RDW (11.5-15.5) % Plt Count (150-450) k/uL MPV Neutrophils % % Lymphocytes % % Monocytes % % Eosinophils % % Basophils % % Neutrophils # (1.3-7.7) k/uL Lymphocytes # (1.0-4.8) k/uL Monocytes # (0-1.0) k/uL Eosinophils # (0-0.7) k/uL Basophils # (0-0.2) k/uL PT (10.0-12.5) sec INR (<1.2) APTT (22.0-30.0) sec Sodium 142 (137-145) mmol/L Potassium 4.4 (3.5-5.1) mmol/L Chloride 107 (98-107) mmol/L Carbon Dioxide 26 (22-30) mmol/L Anion Gap 9 mmol/L BUN 38 H (7-17) mg/dL Creatinine 0.54 (0.52-1.04) mg/dL Est GFR (CKD-EPI)AfAm >90 (>60 ml/min/1.73 sqM) Est GFR (CKD-EPI)NonAf >90 (>60 ml/min/1.73 sqM) Glucose 180 H (74-99) mg/dL POC Glucose (mg/dL) (70-110) mg/dL POC Glu Mass Spectrometry Specialist ID Plasma Lactic Acid Joe 1.4 (0.7-2.0) mmol/L Calcium 9.5 (8.4-10.2) mg/dL Total Bilirubin 0.8 (0.2-1.3) mg/dL AST 37 H (14-36) U/L ALT 17 (4-34) U/L Alkaline Phosphatase 151 H (38-126) U/L Troponin I <0.012 (0.000-0.034) ng/mL Total Protein 6.8 (6.3-8.2) g/dL Albumin 3.5 (3.5-5.0) g/dL Urine Color Urine Appearance (Clear) Urine pH (5.0-8.0) Ur Specific [place] (1.001-1.035) Urine Protein (Negative) Urine Glucose (UA) (Negative) Urine Ketones (Negative) Urine Blood (Negative) Urine Nitrite (Negative) Urine Bilirubin (Negative) Urine Urobilinogen (<2.0) mg/dL Ur Leukocyte Esterase (Negative) Urine RBC (0-5) /hpf Urine WBC (0-5) /hpf Ur Squamous Epith Cells (0-4) /hpf Urine Bacteria (None) /hpf Urine Mucus (None) /hpf 04/26/24 Range/Units 11:45 WBC (3.8-10.6) k/uL RBC (3.80-5.40) m/uL Hgb (11.4-16.0) gm/dL Hct (34.0-46.0) % MCV (80.0-100.0) fL MCH (25.0-35.0) pg MCHC (31.0-37.0) g/dL RDW (11.5-15.5) % Plt Count (150-450) k/uL MPV Neutrophils % % Lymphocytes % % Monocytes % % Eosinophils % % Basophils % % Neutrophils # (1.3-7.7) k/uL Lymphocytes # (1.0-4.8) k/uL Monocytes # (0-1.0) k/uL Eosinophils # (0-0.7) k/uL Basophils # (0-0.2) k/uL PT (10.0-12.5) sec INR (<1.2) APTT (22.0-30.0) sec Sodium (137-145) mmol/L Potassium (3.5-5.1) mmol/L Chloride (98-107) mmol/L Carbon Dioxide (22-30) mmol/L Anion Gap mmol/L BUN (7-17) mg/dL Creatinine (0.52-1.04) mg/dL Est GFR (CKD-EPI)AfAm (>60 ml/min/1.73 sqM) Est GFR (CKD-EPI)NonAf (>60 ml/min/1.73 sqM) Glucose (74-99) mg/dL POC Glucose (mg/dL) (70-110) mg/dL POC Glu Mass Spectrometry Specialist ID Plasma Lactic Acid Joe (0.7-2.0) mmol/L Calcium (8.4-10.2) mg/dL Total Bilirubin (0.2-1.3) mg/dL AST (14-36) U/L ALT (4-34) U/L Alkaline Phosphatase (38-126) U/L Troponin I (0.000-0.034) ng/mL Total Protein (6.3-8.2) g/dL Albumin (3.5-5.0) g/dL Urine Color Yellow Urine Appearance Cloudy H (Clear) Urine pH 6.0 (5.0-8.0) Ur Specific [place] 1.027 (1.001-1.035) Urine Protein 1+ H (Negative) Urine Glucose (UA) Negative (Negative) Urine Ketones 1+ H (Negative) Urine Blood Moderate H (Negative) Urine Nitrite Positive H (Negative) Urine Bilirubin Negative (Negative) Urine Urobilinogen <2.0 (<2.0) mg/dL Ur Leukocyte Esterase Large H (Negative) Urine RBC 10 H (0-5) /hpf Urine WBC >182 H (0-5) /hpf Ur Squamous Epith Cells 1 (0-4) /hpf Urine Bacteria Many H (None) /hpf Urine Mucus Many H (None) /hpf - EKG Data -: EKG Interpreted by Me EKG Comments: EKG performed at 12: 17 sinus rhythm rate 78 NJ 147 QRS 111 QT/QTc 410/443 Disposition Clinical Impression: Weakness, Altered mental status, UTI (urinary tract infection) Disposition: ADMITTED IP TO THIS HOSP Condition: Poor Referrals: Adi Park MD [Primary Care Provider] - 1-2 days Time of Disposition: 15:09
[2024-04-26 12:32] LABS: INR 1.3 (<1.2); Prothrombin Time 13.2 sec (10.0-12.5)
[2024-04-26 12:33] LABS: Partial Thromboplastin Time 31.2 sec (22.0-30.0)
[2024-04-26 13:56] LABS: ALT 17 U/L (4-34); AST 37 U/L (14-36); African American GFR (CKD) >90 (>60 ml/min/1.73 sqM); Albumin 3.5 g/dL (3.5-5.0); Alkaline Phosphatase 151 U/L (38-126); Anion Gap 9 mmol/L; Blood Urea Nitrogen 38 mg/dL (7-17); Calcium 9.5 mg/dL (8.4-10.2); Carbon Dioxide 26 mmol/L (22-30); Chloride 107 mmol/L (98-107); Glucose 180 mg/dL (74-99); Non-African American GFR(CKD) >90 (>60 ml/min/1.73 sqM); Potassium 4.4 mmol/L (3.5-5.1); Sodium 142 mmol/L (137-145); Total Bilirubin 0.8 mg/dL (0.2-1.3); Total Protein 6.8 g/dL (6.3-8.2)
--- NOTE | 2024-04-26 14:31 | XR ---
EXAMINATION TYPE: XR chest 2V DATE OF EXAM: 04/26/2024 COMPARISON: 07/16/2023 CLINICAL INDICATION: Female, 78 years old with history of altered mental status; , TECHNIQUE: XR chest 2V views of the chest. FINDINGS: AC joint arthropathy and postsurgical change cervical spine. Surgical clips or metallic density soft tissue left neck. AP view the lungs are clear. On the lateral view there is a prominent tubular struc ture posteriorly. Difficult to determine if this is related to the aorta or superimposed structures. IMPRESSION: 1. Frontal view demonstrates no acute consolidation. There is prominent soft tissue on the lateral vi ew extending along the posterior vertebral column. This is of indeterminate etiology. Consider follow -up CT chest as clinically warranted. [facility], , 04/26/2024 2:29 PM
[2024-04-26 14:32] LABS: Appearance,Urine Cloudy (Clear); Bacteria,Urine Many /hpf; Bilirubin,Urine Negative (Negative); Blood,Urine Moderate (Negative); Color,Urine Yellow; Glucose,Urine (UA) Negative (Negative); Ketones,Urine 1+ (Negative); Leukocyte Esterase,Urine Large (Negative); Mucus,Urine Many /hpf; Nitrite,Urine Positive (Negative); Protein,Urine 1+ (Negative); RBC,Urine 10 /hpf (0-5); Specific Gravity,Urine 1.027 (1.001-1.035); Squamous Epithelial Cell,Urine 1 /hpf (0-4); Urobilinogen,Urine <2.0 mg/dL (<2.0); WBC,Urine >182 /hpf (0-5)
[2024-04-26] MEDS ORDERED: NALOXONE 0.4 MG/ML 1 ML VIAL IV PRN (15:44)
[2024-04-26] MEDS: PIPERACILLIN-TAZOBACTAM 3.375 GM in SODIUM CHLORIDE 0.9% 100 ML IVPB SCH (16:20)
[2024-04-26] MEDS: SODIUM CHLORIDE 0.9% 1,000 ML IV ONE (16:22)
[2024-04-26] MEDS: GABAPENTIN 300 MG CAP PO SCH (16:25)
[2024-04-26] MEDS: METOPROLOL TARTRATE 50 MG TAB PO SCH (16:32)
[2024-04-26] MEDS: HYDROcodone/APAP 5-325MG 1 EACH TAB PO PRN (16:41)
[2024-04-26 17:41] LABS: Glucose,Whole Blood 126 mg/dL (70-110)
[2024-04-26] MEDS: SODIUM CHLORIDE 0.9% 1,000 ML IV SCH (19:40)
[2024-04-26] MEDS: metFORMIN 500 MG TAB PO SCH (19:44)
[2024-04-26] MEDS: MAGNESIUM OXIDE 400 MG TAB PO SCH (21:24)
[2024-04-26] MEDS: SERTRALINE 100 MG TAB PO SCH (21:24)
[2024-04-26] MEDS: LOSARTAN 25 MG TAB PO SCH (21:24)
[2024-04-26] MEDS: QUEtiapine 50 MG TAB PO SCH (21:24)
[2024-04-26] MEDS: APIXABAN 5 MG TAB PO SCH (21:24)
[2024-04-27] MEDS: LEVOTHYROXINE 50 MCG TAB PO SCH (06:24)
[2024-04-27] MEDS: FAMOTIDINE 20 MG TAB PO SCH (06:24)
[2024-04-27] MEDS: GLIMEPIRIDE 2 MG TAB PO SCH (08:45)
[2024-04-27] MEDS: FERROUS SULFATE 325 MG TAB PO SCH (08:45)
[2024-04-27] MEDS: POTASSIUM CHLORIDE ER 20 MEQ TAB.ER PO SCH (08:45)
[2024-04-27] MEDS: MEMANTINE 5 MG TAB PO SCH (08:47)
[2024-04-27] MEDS: allopurinoL 300 MG TAB PO SCH (08:47)
[2024-04-27] MEDS: OXYBUTYNIN 15 MG TAB.ER.24 PO SCH (11:36)
[2024-04-27 19:02] LABS: Glucose,Whole Blood 54 mg/dL (70-110)
[2024-04-27] MEDS: DEXTROSE 50% SYRINGE 50 ML IVP STA (19:06)
[2024-04-27 22:46] LABS: Glucose,Whole Blood 95 mg/dL (70-110)
[2024-04-28] MEDS: ACETAMINOPHEN TAB 325 MG TAB PO PRN (00:51)
[2024-04-28 07:23] LABS: Glucose,Whole Blood 65 mg/dL (70-110)
[2024-04-28 07:39] LABS: Glucose,Whole Blood 91 mg/dL (70-110)
[2024-04-28 12:22] LABS: Glucose,Whole Blood 111 mg/dL (70-110)
[2024-04-28 17:07] LABS: Glucose,Whole Blood 93 mg/dL (70-110)
[2024-04-28 20:11] LABS: Glucose,Whole Blood 118 mg/dL (70-110)
--- NOTE | 2024-04-29 02:00 | HP ---
HISTORY AND PHYSICAL CHIEF COMPLAINT: Mental status changes and urinary tract infection. HISTORY OF PRESENT ILLNESS: This lady is transferred in from the [place] [facility] where she has become lethargic. She was having agitated behavior and was found to have urinary tract infection and started on antibiotics, but she is continued to become more lethargic. She is dehydrated. REVIEW OF SYSTEMS: Unobtainable. Past medical history, family history, and personal and social histories are unobtainable and can be found in documents accompanying her from the [place] [facility]. She does have a history of hypertension and diabetes. PHYSICAL EXAMINATION: VITAL SIGNS: Normal. HEAD, EARS, EYES, NOSE, MOUTH AND THROAT: Normal as well as can be examined. GENERAL: She is very lethargic. CHEST: Clear. CARDIAC: Normal. ABDOMEN: Seems soft. EXTREMITIES: Normal. IMPRESSION: 1. Urinary tract infection. 2. Mental status changes. 3. Dehydration. 4. History of hypertension. 5. History of type 2 diabetes. PLAN: 1. Bed rest. 2. IV fluids. 3. Rehydrate. 4. Antibiotics. MMODL / IJN: [id number] /
--- NOTE | 2024-04-29 05:06 | PN ---
PROGRESS NOTE CHIEF COMPLAINT: Urinary tract infection with dehydration and mental status changes. HISTORY OF PRESENT ILLNESS: This lady is doing better. She is more awake and alert as her hydration improves. PHYSICAL EXAMINATION: CHEST: Clear. CARDIAC: Normal. ABDOMEN: Soft, nontender. IMPRESSION: 1. Urinary tract infection. 2. Dehydration. 3. Delirium. 4. Dementia. 5. Diabetes. PLAN: Continue with the antibiotic regimen and IV fluids. MMODL / IJN: [id number] /
--- NOTE | 2024-04-29 06:03 | PN ---
PROGRESS NOTE CHIEF COMPLAINT: Mental status changes, urinary tract infection, dehydration. HISTORY OF PRESENT ILLNESS: This lady is doing slightly better. Rehydration continues and she is a little bit more alert. PHYSICAL EXAM: CHEST: She has good breath sounds bilaterally. CARDIAC: Normal. ABDOMEN: Soft, nontender. IMPRESSION: 1. Mental status changes. 2. Dementia. 3. Dehydration. 4. Urinary tract infection. PLAN: 1. Continue with IV fluids. 2. IV antibiotics. MMODL / IJN: [id number] /
[2024-04-29 07:31] LABS: Glucose,Whole Blood 116 mg/dL (70-110)
[2024-04-29 12:37] LABS: Glucose,Whole Blood 114 mg/dL (70-110)
--- NOTE | 2024-04-29 13:14 | CDI ---
Documentation Clarification Form Date: 04/29/2024 From: Jeni Bernard RN CCDS Phone: [phone] Admit Date: 04/26/2024 03:40:00 PM Patient Name: Maria Victoria Morley Visit Number: [id number] Discharge Date: ATTENTION: The Clinical Documentation Specialists (CDI) and [facility] Coding Staff appreciate your assistance in clarifying documentation. Please respond to the clarification below the line at the bottom and electronically sign. The CDI & [facility] Coding staff will review the response and follow-up if needed. Please note: Queries are made part of the Legal Health Record. If you have any questions, please contact the author of this message via ITS. Doctor/Provider: Adi Park MD: Your patient has the documented symptom of Altered Mental Status in the ED note 04/26. Additional clarification regarding the etiology/cause of this symptom is requested. History/Risk Factors: 78-year-old female with a history of COPD, HTN and DM who presents with AMS and UTI Clinical Indicators: 04/26 ED note, Clinical Impression: "Weakness, Altered mental status, UTI (urinary tract infection)" 04/28 IM PN, Impression: 1. Mental status changes, 2. Dementia" 04/29 H&P, Impression: "2. Mental status changes." 04/26 BUN: 38 04/26 Urinalysis: Color: Yellow, Appearance: Cloudy, Ketones: 1+, Blood: Moderate, Nitrite: Positive, Leukocyte Esterase: Large, RBC: 10, WBC: >182, Bacteria: Many 04/26 Urine Culture: Escherichia coli Treatment: Normal Saline 75cc/hour star 04/26 Zosyn 3.375gram IV [id number] start 04/26 Seroquel 50mg oral BID start 04/26- AM doses held 04/28-04/29 Please clarify the etiology of the symptom of Altered Mental Status: [ ] Metabolic Encephalopathy due to UTI [ ] Metabolic Encephalopathy due to UTI superimposed on dementia [ ] Dementia (if know, specify Type and if with/without Behavioral Disturbance) [ ] Other condition (please specify) [ ] Unable to determine MTDD
[2024-04-29 17:13] LABS: Glucose,Whole Blood 167 mg/dL (70-110)
[2024-04-29 20:49] LABS: Glucose,Whole Blood 143 mg/dL (70-110)
[2024-04-30 07:21] LABS: Glucose,Whole Blood 135 mg/dL (70-110)
[2024-04-30 12:29] LABS: Glucose,Whole Blood 125 mg/dL (70-110)
[2024-04-30 16:28] VITALS: BMI 27.3
[2024-04-30 17:21] LABS: Glucose,Whole Blood 154 mg/dL (70-110)
[2024-04-30 20:04] LABS: Glucose,Whole Blood 129 mg/dL (70-110)
[2024-05-01 07:10] LABS: Glucose,Whole Blood 128 mg/dL (70-110)
[2024-05-01 12:32] LABS: Glucose,Whole Blood 155 mg/dL (70-110)
[2024-05-01] MEDS ORDERED: NON FORMULARY DRUG (Dulaglutide [Trulicity] 0.75 MG/0.5 ML Each) SQ SCH (15:14)
[2024-05-01 17:42] LABS: Glucose,Whole Blood 90 mg/dL (70-110)
[2024-05-01 20:40] LABS: Glucose,Whole Blood 104 mg/dL (70-110)
[2024-05-01] MEDS: NITROFURANTOIN MONOHYD/M-CRYST 100 MG CAP PO SCH (21:30)
[2024-05-02 07:13] LABS: Glucose,Whole Blood 92 mg/dL (70-110)
[2024-05-02 07:40] VITALS: RESP 18
[2024-05-02 12:19] LABS: Glucose,Whole Blood 77 mg/dL (70-110)
[2024-05-02 12:48] LABS: Glucose,Whole Blood 86 mg/dL (70-110)
[2024-05-02 13:07] VITALS: BP 154/75; PULSE 69; TEMP 98.3
--- NOTE | 2024-05-02 13:50 | DS ---
DISCHARGE SUMMARY CHIEF COMPLAINT: Mental status changes and urinary tract infection. HISTORY OF PRESENT ILLNESS AND PHYSICAL EXAMINATION: Details of this lady's history and physical can be found in the initial workup. LABORATORY STUDIES: While she is in the hospital, she had laboratory studies, details of which can be found in the laboratory section of her chart. COURSE IN THE HOSPITAL: After admission, she was placed on bedrest and started intravenous fluids and IV antibiotics. Fry catheter was placed. She grew out an organism that was resistant to almost everything. She was sensitive to Zosyn, and this was employed. She was treated and rehydrated. She became more awake and alert. She was stable and doing well and it was felt that she could go back to the [facility] on the , but her discharge was put off until the , for some reason. She will go there on Macrodantin 100 mg twice a day for 30 days. This is the only oral antibiotic that the Bactrim was sensitive to. She is at risk for recurrent infections. FINAL DIAGNOSES: 1. Mental status changes. 2. Urinary tract infection. 3. Delirium. 4. Dementia. 5. Dehydration. 6. Cervical spondylosis. 7. Type 2 diabetes. OPERATIONS: None. CONSULTATION: None. She is improved. MMODL / IJN: [id number] /
--- NOTE | 2024-05-02 14:08 | CDI ---
Documentation Clarification Form Date: 05/02/2024 From: Jeni Bernard RN CCDS Phone: [phone] Admit Date: 04/26/2024 03:40:00 PM Patient Name: Maria Victoria Morley Visit Number: [id number] Discharge Date: ATTENTION: The Clinical Documentation Specialists (CDI) and [facility] Coding Staff appreciate your assistance in clarifying documentation. Please respond to the clarification below the line at the bottom and electronically sign. The CDI & [facility] Coding staff will review the response and follow-up if needed. Please note: Queries are made part of the Legal Health Record. If you have any questions, please contact the author of this message via ITS. Doctor/Provider: Adi Park MD: Your patient has the documented symptom of Altered Mental Status in the ED note 04/26. Additional clarification regarding the etiology/cause of this symptom is requested. History/Risk Factors: 78-year-old female with a history of COPD, HTN and DM who presents with AMS and UTI Clinical Indicators: 04/26 ED note, Clinical Impression: "Weakness, Altered mental status, UTI (urinary tract infection)" 04/28 IM PN, Impression: 1. Mental status changes, 2. Dementia" 04/29 H&P, Impression: "2. Mental status changes." 04/26 BUN: 38 04/26 Urinalysis: Color: Yellow, Appearance: Cloudy, Ketones: 1+, Blood: Moderate, Nitrite: Positive, Leukocyte Esterase: Large, RBC: 10, WBC: >182, Bacteria: Many 04/26 Urine Culture: Escherichia coli Treatment: Normal Saline 75cc/hour star 04/26 Zosyn 3.375gram IV [id number] start 04/26 Seroquel 50mg oral BID start 04/26- AM doses held 04/28-04/29 Please clarify the etiology of the symptom of Altered Mental Status: [ ] Metabolic Encephalopathy due to UTI [ ] Metabolic Encephalopathy due to UTI superimposed on dementia [ ] Dementia (if know, specify Type and if with/without Behavioral Disturbance) [ ] Other condition (please specify) [ ] Unable to determine MTDD
--- NOTE | 2024-05-03 06:16 | PN ---
PROGRESS NOTE DATE OF SERVICE: 04/30/2024 CHIEF COMPLAINT: Urinary tract infection with delirium. HISTORY OF PRESENT ILLNESS: This lady is doing better. She has grown out an organism for which there is a no effective oral antibiotic. PHYSICAL EXAMINATION: GENERAL: She is a little bit more awake and alert than she has been. CHEST: Clear. CARDIAC: Normal. ABDOMEN: Soft, nontender. IMPRESSION: 1. Urinary tract infection with delirium. 2. Dehydration. 3. Diabetes. 4. Dementia. PLAN: Possibly back to the [facility] soon. MMODL / IJN: [id number] /
--- NOTE | 2024-05-03 07:39 | PN ---
PROGRESS NOTE DATE OF SERVICE: 04/29/2024 CHIEF COMPLAINT: Urinary tract infection with delirium and dehydration. HISTORY OF PRESENT ILLNESS: This lady is doing a little bit better, although she did have a temperature last night. She is still somewhat lethargic, but her mentation seems to be improving each day. Blood pressure is also slightly elevated. PHYSICAL EXAMINATION: GENERAL: She remains pale. Hydration is improving. HEAD, EARS, EYES, NOSE AND MOUTH: Normal. CHEST: Clear. CARDIAC: Normal. ABDOMEN: Soft, nontender. IMPRESSION: 1. Urinary tract infection with sepsis. 2. Mental status changes. 3. Delirium. 4. Dementia. 5. Hypertension. PLAN: Hold discharge today and reassess tomorrow. In that she had a fever last night. MMODL / IJN: [id number] /
--- NOTE | 2024-05-03 08:29 | MISC ---
MISCELLANOUS REPORT Dementia. MMODL / IJN: [id number] /
--- NOTE | 2024-05-04 07:45 | PN ---
PROGRESS NOTE DATE OF SERVICE: 05/01/2024 CHIEF COMPLAINT: Mental status changes and urinary tract infection. HISTORY OF PRESENT ILLNESS: This lady is doing well and was to have been discharged to [facility] today, but apparently was not. PHYSICAL EXAMINATION: CHEST: Clear. CARDIAC: Normal. ABDOMEN: Soft, nontender. NEUROLOGIC: She is becoming more alert each day. IMPRESSION: 1. Mental status changes. 2. Urinary tract infection with sepsis. 3. History of diabetes. 4. Dementia. PLAN: To [facility] when arrangements are made. MMODL / IJN: [id number] /
--- NOTE | 2024-05-06 01:23 | MISC ---
MISCELLANOUS REPORT Dementia. MMODL / IJN: [id number] /
--- NOTE | 2024-05-06 17:27 | CDI ---
Documentation Clarification Form Date: 05/06/2024 05:06:54 PM From: Kamala De Anda Phone: Admit Date: 04/26/2024 03:40:00 PM Patient Name: Maria Victoria Morley Visit Number: [id number] Discharge Date: 05/02/2024 07:04:00 PM ATTENTION: The Clinical Documentation Specialists (CDI) and [facility] Coding Staff appreciate your assistance in clarifying documentation. Please respond to the clarification below the line at the bottom and electronically sign. The CDI & [facility] Coding staff will review the response and follow-up if needed. Please note: Queries are made part of the Legal Health Record. If you have any questions, please contact the author of this message via ITS. Doctor/Provider: Adi Park The patient has Sepsis documented on 05/02 IM Progress note. Based on this information and the findings below, is there an additional diagnosis that is clinically appropriate for this patient? History/Risk Factors: Dementia, DM2, HTN, COPD Clinical Indicators: Patient admitted on 04/26 to ER with disorientation. Per EMS patient was hypotensive, tachycardic and febrile. Recent treatment for UTI. Diagnosed on this admission with UTI, Dehydration and AMS ED note: "In the patient found to have UTI, possible UTI with bacteremia." WBC: 6.6 Lactic acid: 1.4 Blood cultures: Gram positive cocci Urine culture: E. coli Vitals signs: Temp 100.2 F, DC 86 79, RR 17 15, BP 119/66 122/66, O2 Sat by Pulse 93 95 Treatment: Fluid bolus, IV Zosyn 3.375gram [id number] ID Consult: No Antibiotics: IV Zosyn 3.375gram [id number] IV Bolus: Yes Is there an additional diagnosis that is clinically appropriate for this patient? [ ] Sepsis, present on admission [ ] Sepsis, developed during stay, not present on admission [ ] Sepsis, ruled out [ ] No additional diagnosis/not clinically significant [ ] Other, please specify [ ] Unable to determine SIRS Criteria: 2 or more of the following may indicate SIRS Temperature < 96.8F (36C) or > 101.0F (38.3C) Heart Rate > 90 bpm Respiratory Rate > 20 breaths/min or PaCO2 < 32 mmHg White Blood Cell Count > 12,000 or < 4,000 cells/mm3 or > 10% bands MTDD
--- NOTE | 2024-06-01 05:47 | MISC ---
MISCELLANOUS REPORT Sepsis present on admission. I do not know if there is any other query as I got a call the other day they wanted a query down right away and I tried on the , but I could not get it to function from my office and I am going to keep signing, so if I come up to another query, I will do it. CARLA / MILLA: [id number] /
== END 2024-05-02 19:04 | DRG 872 ==
LOC: EC 11:08 → 4SSUR 15:40 → 5NMEDONC 04-27 20:31
PROVIDERS: ADMIT Family Medicine; ATTEND Family Medicine
DX: A41.9 Sepsis, unspecified organism (principal); N39.0 Urinary tract infection, site not specified; F03.911 Unspecified dementia, unspecified severity, with agitation; R62.7 Adult failure to thrive; E11.9 Type 2 diabetes mellitus without complications; E86.0 Dehydration; I10 Essential (primary) hypertension; J44.9 Chronic obstructive pulmonary disease, unspecified; F32.A Depression, unspecified; Z88.5 Allergy status to narcotic agent; Z88.8 Allergy status to other drugs, medicaments and biological substances; Z98.1 Arthrodesis status; Z79.01 Long term (current) use of anticoagulants; Z79.890 Hormone replacement therapy; Z79.84 Long term (current) use of oral hypoglycemic drugs; Z79.85 Long-term (current) use of injectable non-insulin antidiabetic drugs; Z79.899 Other long term (current) drug therapy; Z87.891 Personal history of nicotine dependence; Z90.710 Acquired absence of both cervix and uterus; Z96.651 Presence of right artificial knee joint; Z82.49 Family history of ischemic heart disease and other diseases of the circulatory system; Z82.0 Family history of epilepsy and other diseases of the nervous system
CPT/HCPCS: 36415; 71046; 80053; 81001; 83605; 84484; 85025; 85610; 85730; 87040; 87077; 87086; 87186; 93005; 96361; 96365; 96366; 99285